=== PATIENT | male | born 1945 | race Caucasian/White ===

== ENCOUNTER 2019-07-13 16:14 | Inpatient (IN) | payer MEDICARE, OTHER ==
[~2019-07-13] VITALS: Ht 185.4 cm; Wt 109.0 kg
--- NOTE | 2019-07-13 16:17 | NUR ---
PAGED STROKE ALERT LEVEL 2 TIME OF ONSET UNKNOWN
--- NOTE | 2019-07-13 16:34 | NUR ---
PT TO CT, PT IS GCS 15, ALERT AND ORIENTED, RESP EVEN AND UNLABORED, SKIN P/W/D, ABLE TO TRANSFER SELF FROM GURNEY TO WHEELCHAIR WITHOUT ASSIST
[2019-07-13] MEDS ORDERED: NO HOME MEDS (16:52)
[2019-07-13 16:54] LABS: BASOPHILS # (AUTO) 0.1 X10'3 (0-0.2); BASOPHILS % (AUTO) 0.5 % (0-1); EOSINOPHILS # (AUTO) 0.1 X10'3 (0-0.9); EOSINOPHILS % (AUTO) 1.3 % (0-6); HEMATOCRIT 46.9 % (42.0-52.0); HEMOGLOBIN 15.9 g/dl (14.0-17.9); LYMPHOCYTES # (AUTO) 2.8 X10'3 (1.1-4.8); LYMPHOCYTES % (AUTO) 25.4 % (21-51); MEAN CORPUSCULAR HEMOGLOBIN 28.9 PG (27.0-31.0); MEAN CORPUSCULAR HGB CONC 33.9 g/dL (33.0-36.5); MEAN CORPUSCULAR VOLUME 85.3 FL (78-98); MEAN PLATELET VOLUME 8.8 FL (7.4-10.4); MONOCYTES # (AUTO) 1.2 X10'3 (0-0.9); MONOCYTES % (AUTO) 11.2 % (2-12); NEUTROPHILS # (AUTO) 6.7 X10'3 (1.8-7.7); NEUTROPHILS % (AUTO) 61.6 % (42-75); PLATELET COUNT 262 X10'3 (140-440); WHITE BLOOD COUNT 10.9 X10'3 (4.5-11.0)
[2019-07-13 17:05] LABS: PARTIAL THROMBOPLASTIN TIME 29 SECONDS (22-32)
[2019-07-13 17:08] LABS: ALANINE AMINOTRANSFERASE 21 U/L (12-78); ALBUMIN 3.8 G/DL (3.4-5.0); ALKALINE PHOSPHATASE 28 IU/L (46-116); ANION GAP 11 (8-16); ASPARTATE AMINO TRANSFERASE 14 U/L (10-37); BILIRUBIN,TOTAL 0.4 MG/DL (0.1-1.0); BLOOD UREA NITROGEN 14 MG/DL (7-18); BUN/CREATININE RATIO 14.9 (5.4-32.0); CALCIUM 9.3 MG/DL (8.5-10.1); CHLORIDE 99 MMOL/L (99-107); CREATININE 0.94 MG/DL (0.60-1.10); GLUCOSE 244 MG/DL (70-104); POTASSIUM 4.1 MMOL/L (3.5-5.1); SODIUM 134 MMOL/L (135-145); TOTAL PROTEIN 7.6 G/DL (6.4-8.2); eGFR 78 ML/MIN
[2019-07-13 17:11] LABS: TROPONIN I < 0.04 NG/ML (0.0-0.05)
[2019-07-13] MEDS ORDERED: aspirin 81mg tab.chew PO ONE (17:35)
--- NOTE | 2019-07-13 17:51 | NUR ---
chris goldberg [facility] [phone] or [phone]
--- NOTE | 2019-07-13 18:39 | NUR ---
pt is resting quietly on [facility], waiting for neurotele consult and eval by hospitalist
[2019-07-13] MEDS ORDERED: atorvastatin 20mg tablet PO STA (19:06)
[2019-07-13] MEDS ORDERED: normal saline 1000ml 1,000 ML IV SCH (20:17)
[2019-07-13] MEDS ORDERED: potassium CL 10mEq/100ml bag 100 ML IV PRN ×2 (20:20)
[2019-07-13] MEDS ORDERED: magnesium Cl slow-release 64mg tablet PO PRN (20:20)
[2019-07-13] MEDS ORDERED: acetaminophen 325mg tablet PO PRN (20:20)
[2019-07-13] MEDS ORDERED: magnesium 4gm in 100ml NS 100 ML IV PRN (20:20)
[2019-07-13] MEDS ORDERED: magnesium 2GM in 50ml NS 50 ML IV PRN (20:20)
[2019-07-13] MEDS ORDERED: potassium Cl 20 mEq SR tablet PO PRN ×2 (20:20)
[2019-07-13] MEDS ORDERED: ondansetron/PF 4mg/2ml inj IV PRN (20:20)
[2019-07-13 21:30] VITALS: BP 186/89
[2019-07-14] VITALS: BP 167/86
[2019-07-14 00:59] LABS: CLARITY,URINE CLEAR (Clear); COLOR,URINE YELLOW (Yellow); GLUCOSE, URINE NEGATIVE (Neg); KETONES,URINE NEGATIVE (Neg); LEUKOCYTE ESTERASE ,URINE NEGATIVE (Neg); NITRITES, URINE NEGATIVE (Neg); OCCULT BLOOD,URINE NEGATIVE (Neg); PROTEIN,URINE NEGATIVE (Neg); UROBILINOGEN,URINE 0.2 E.U/dL (0.2-1.0)
[2019-07-14 01:07] LABS: UA COLLECTION TYPE VOIDED
--- NOTE | 2019-07-14 01:51 | NUR ---
daughter called to check on patient. pt stated she can have any information and it's ok to wake him up anytime. no neuro changes.
[2019-07-14 03:53] VITALS: BP 140/80
[2019-07-14 05:27] LABS: BASOPHILS % (AUTO) 0.4 % (0-1); EOSINOPHILS # (AUTO) 0.2 X10'3 (0-0.9); EOSINOPHILS % (AUTO) 2.6 % (0-6); HEMATOCRIT 44.1 % (42.0-52.0); HEMOGLOBIN 15.1 g/dl (14.0-17.9); LYMPHOCYTES # (AUTO) 2.4 X10'3 (1.1-4.8); LYMPHOCYTES % (AUTO) 25.9 % (21-51); MEAN CORPUSCULAR HEMOGLOBIN 29.4 PG (27.0-31.0); MEAN CORPUSCULAR HGB CONC 34.2 g/dL (33.0-36.5); MEAN CORPUSCULAR VOLUME 85.9 FL (78-98); MONOCYTES # (AUTO) 1.1 X10'3 (0-0.9); NEUTROPHILS # (AUTO) 5.4 X10'3 (1.8-7.7); NEUTROPHILS % (AUTO) 59.1 % (42-75); PLATELET COUNT 236 X10'3 (140-440); RED BLOOD COUNT 5.14 X10'6 (4.70-6.10); WHITE BLOOD COUNT 9.1 X10'3 (4.5-11.0)
[2019-07-14 05:44] LABS: HEMOGLOBIN A1C 9.6 % (4.5-6.2)
[2019-07-14 05:50] LABS: ALBUMIN 3.3 G/DL (3.4-5.0); ANION GAP 9 (8-16); BLOOD UREA NITROGEN 10 MG/DL (7-18); BUN/CREATININE RATIO 11.5 (5.4-32.0); CALCIUM 8.9 MG/DL (8.5-10.1); CHLORIDE 102 MMOL/L (99-107); CHOL/HDL RATIO 3.7 (0.00-4.99); CHOLESTEROL 191 MG/DL (0-200); CREATININE 0.87 MG/DL (0.60-1.10); GLUCOSE 216 MG/DL (70-104); HDL CHOLESTEROL 52 MG/DL (35-60); LDL CHOLESTEROL 116 MG/DL (50-100); MAGNESIUM 1.8 MG/DL (1.5-2.4); POTASSIUM 4.1 MMOL/L (3.5-5.1); SODIUM 136 MMOL/L (135-145); TOTAL CARBON DIOXIDE 24.8 MMOL/L (24-32); TRIGLYCERIDES 183 MG/DL (20-135); eGFR 86 ML/MIN
--- NOTE | 2019-07-14 06:20 | NUR ---
Patient in room RAMONA 344. I have received report from KAYLEEN ARTIS and had the opportunity to ask questions and assume patient care.
--- NOTE | 2019-07-14 06:41 | NUR ---
reported to brandy. noted pt to have MRI today. checklist given to day RN. pt voiding in urinal. anxious to get tests done and go home.
[2019-07-14] MEDS: docusate sod 100mg capsule PO SCH ×2 (07:37→20:34)
[2019-07-14] MEDS: aspirin 81mg tab.chew PO SCH (07:37)
--- NOTE | 2019-07-14 07:47 | NUR ---
PAGER ID: [phone] MESSAGE: PABLO [id number] RE: ERNESTO [id number] AIC 9.6, AM BS 246, SHOULD WE START PROTOCOL?
[2019-07-14 08:00] VITALS: BP 167/88
[2019-07-14] MEDS: K and/or MAG REPLACEMENT MC SCH ×2 (08:00→19:10)
--- NOTE | 2019-07-14 08:34 | NUR ---
DOWN TO MRI
[2019-07-14] MEDS ORDERED: glucagon, human recombinant 1mg kit SUBCUT PRN (10:30)
[2019-07-14] MEDS ORDERED: dextrose ORAL solution 15 GM/59 ML bottle PO PRN ×2 (10:30)
[2019-07-14] MEDS ORDERED: dextrose 50%-water 50ml dispensing syringe IV PRN ×2 (10:30)
[2019-07-14] MEDS ORDERED: MESSAGE TO PHARMACY PO ONE (10:30)
[2019-07-14] MEDS: atorvastatin 20mg tablet PO SCH (10:34)
[2019-07-14 11:00] VITALS: BP 174/84
[2019-07-14] MEDS: insulin Lispro (HumaLOG) vial - multi-dose SQ SCH ×2 (12:53→18:58)
--- NOTE | 2019-07-14 13:48 | NUR ---
DM education: A1c is 9.7; per bedside RN patient is newly diagnosed and is now aware of his diagnosis as of today. Met with pt at bedside for DM education, provided written DM education handout with referral to outpt DM education class that will be available Friday when classes open back up. Patient stated he does not visit the doctor often, says "if it isn't broke, don't fix it." Encouraged patient that in view of his new DM diagnosis may want to consider seeing the doctor more often for follow up of DM management. Unsure if he will be discharged with medication. Discussed what A1c is, types of carbs, serving sizes, meal planning, etc. Will continue to follow, given RD contact information if any additional questions. Addendum: 07/14/19 at [address] Amended: Links added.
[2019-07-14] MEDS: lisinopril 20mg tablet PO SCH (16:02)
--- NOTE | 2019-07-14 18:10 | NUR ---
Problems reprioritized. Patient report given, questions answered & plan of care reviewed with EUGENIA ARTIS.
--- NOTE | 2019-07-14 18:15 | NUR ---
Patient in room ARMONA 344. I have received report from Sury ARTIS and had the opportunity to ask questions and assume patient care.
[2019-07-14 20:00] VITALS: BP 176/86
[2019-07-14] MEDS: insulin glargine (Lantus) pen - multi-dose SQ SCH (21:38)
[2019-07-15 06:01] LABS: BASOPHILS % (AUTO) 0.4 % (0-1); EOSINOPHILS # (AUTO) 0.2 X10'3 (0-0.9); EOSINOPHILS % (AUTO) 2.2 % (0-6); HEMATOCRIT 46.1 % (42.0-52.0); HEMOGLOBIN 15.8 g/dl (14.0-17.9); LYMPHOCYTES # (AUTO) 2.4 X10'3 (1.1-4.8); LYMPHOCYTES % (AUTO) 25.2 % (21-51); MEAN CORPUSCULAR HEMOGLOBIN 29.4 PG (27.0-31.0); MEAN CORPUSCULAR HGB CONC 34.2 g/dL (33.0-36.5); MEAN PLATELET VOLUME 9.4 FL (7.4-10.4); MONOCYTES % (AUTO) 10.4 % (2-12); NEUTROPHILS % (AUTO) 61.8 % (42-75); PLATELET COUNT 254 X10'3 (140-440); RED BLOOD COUNT 5.36 X10'6 (4.70-6.10); RED CELL DISTRIBUTION WIDTH 14.4 % (11.5-14.5); WHITE BLOOD COUNT 9.6 X10'3 (4.5-11.0)
--- NOTE | 2019-07-15 06:02 | NUR ---
Problems reprioritized. Patient report given, questions answered & plan of care reviewed with Natali ARTIS.
[2019-07-15 06:20] LABS: ALBUMIN 3.4 G/DL (3.4-5.0); ANION GAP 7 (8-16); BLOOD UREA NITROGEN 10 MG/DL (7-18); BUN/CREATININE RATIO 10.9 (5.4-32.0); CALCIUM 8.9 MG/DL (8.5-10.1); CHLORIDE 101 MMOL/L (99-107); CREATININE 0.92 MG/DL (0.60-1.10); GLUCOSE 199 MG/DL (70-104); MAGNESIUM 1.8 MG/DL (1.5-2.4); POTASSIUM 4.3 MMOL/L (3.5-5.1); SODIUM 136 MMOL/L (135-145); TOTAL CARBON DIOXIDE 27.6 MMOL/L (24-32); eGFR 80 ML/MIN
--- NOTE | 2019-07-15 06:28 | NUR ---
Patient in room RAMONA 344. I have received report from Rylee ARTIS and had the opportunity to ask questions and assume patient care.
[2019-07-15 07:00] VITALS: BP 152/84
[2019-07-15] MEDS: atorvastatin 20mg tablet PO SCH (07:49)
[2019-07-15] MEDS: lisinopril 20mg tablet PO SCH (07:49)
[2019-07-15] MEDS: aspirin 81mg tab.chew PO SCH (07:49)
[2019-07-15] MEDS: docusate sod 100mg capsule PO SCH ×2 (07:49→19:36)
[2019-07-15] MEDS: K and/or MAG REPLACEMENT MC SCH ×2 (08:00→19:37)
[2019-07-15] MEDS: insulin Lispro (HumaLOG) vial - multi-dose SQ SCH ×3 (08:59→18:52)
[2019-07-15 11:00] VITALS: BP 122/74
[2019-07-15 18:00] VITALS: BP 138/74
--- NOTE | 2019-07-15 18:37 | NUR ---
Problems reprioritized. Patient report given, questions answered & plan of care reviewed with Bisi ARTIS.
--- NOTE | 2019-07-15 18:55 | NUR ---
Receiving EEG at this time. Addendum: 07/15/19 at 1856 by Bisi Nelson RN Amended: Links added.
--- NOTE | 2019-07-15 19:14 | NUR ---
Received report from Bisi ARTIS
[2019-07-15] MEDS: insulin glargine (Lantus) pen - multi-dose SQ SCH (21:30)
[2019-07-16] VITALS: BP 135/75
[2019-07-16 06:12] LABS: EOSINOPHILS # (AUTO) 0.1 X10'3 (0-0.9); HEMOGLOBIN 15.5 g/dl (14.0-17.9); LYMPHOCYTES # (AUTO) 2.1 X10'3 (1.1-4.8); RED CELL DISTRIBUTION WIDTH 14.2 % (11.5-14.5)
[2019-07-16 06:14] LABS: BASOPHILS % (AUTO) 0.3 % (0-1); EOSINOPHILS % (AUTO) 1.3 % (0-6); HEMATOCRIT 44.2 % (42.0-52.0); LYMPHOCYTES % (AUTO) 21.6 % (21-51); MEAN CORPUSCULAR HEMOGLOBIN 30.2 PG (27.0-31.0); MEAN CORPUSCULAR VOLUME 86.2 FL (78-98); MEAN PLATELET VOLUME 8.9 FL (7.4-10.4); MONOCYTES # (AUTO) 1.1 X10'3 (0-0.9); MONOCYTES % (AUTO) 11.1 % (2-12); NEUTROPHILS # (AUTO) 6.3 X10'3 (1.8-7.7); NEUTROPHILS % (AUTO) 65.7 % (42-75); PLATELET COUNT 238 X10'3 (140-440); RED BLOOD COUNT 5.12 X10'6 (4.70-6.10); WHITE BLOOD COUNT 9.6 X10'3 (4.5-11.0)
--- NOTE | 2019-07-16 06:16 | NUR ---
Problems reprioritized. Patient report given, questions answered & plan of care reviewed with Natali ARTIS.
[2019-07-16 06:33] LABS: ALBUMIN 3.3 G/DL (3.4-5.0); ANION GAP 7 (8-16); BLOOD UREA NITROGEN 12 MG/DL (7-18); BUN/CREATININE RATIO 12.2 (5.4-32.0); CALCIUM 8.7 MG/DL (8.5-10.1); CHLORIDE 102 MMOL/L (99-107); CREATININE 0.98 MG/DL (0.60-1.10); GLUCOSE 184 MG/DL (70-104); MAGNESIUM 1.8 MG/DL (1.5-2.4); POTASSIUM 4.5 MMOL/L (3.5-5.1); SODIUM 136 MMOL/L (135-145); TOTAL CARBON DIOXIDE 27.3 MMOL/L (24-32); eGFR 75 ML/MIN
--- NOTE | 2019-07-16 06:35 | NUR ---
Patient in room RAMONA 344. I have received report from Therese ARTIS and had the opportunity to ask questions and assume patient care.
[2019-07-16 07:00] VITALS: BP 168/87
[2019-07-16] MEDS: docusate sod 100mg capsule PO SCH (07:55)
[2019-07-16] MEDS: lisinopril 20mg tablet PO SCH (07:55)
[2019-07-16] MEDS: aspirin 81mg tab.chew PO SCH (07:55)
[2019-07-16] MEDS: atorvastatin 20mg tablet PO SCH (07:55)
[2019-07-16] MEDS: K and/or MAG REPLACEMENT MC SCH (08:00)
[2019-07-16] MEDS: insulin Lispro (HumaLOG) vial - multi-dose SQ SCH ×2 (08:04→13:44)
[2019-07-16 11:00] VITALS: BP 146/79
--- NOTE | 2019-07-16 11:28 | NUR ---
DM consult: Pt already seen by RD for written and verbal DM education, see below. DM education: A1c is 9.7; per bedside RN patient is newly diagnosed and is now aware of his diagnosis as of today. Met with pt at bedside for DM education, provided written DM education handout with referral to outpt DM education class that will be available Friday when classes open back up. Patient stated he does not visit the doctor often, says "if it isn't broke, don't fix it." Encouraged patient that in view of his new DM diagnosis may want to consider seeing the doctor more often for follow up of DM management. Unsure if he will be discharged with medication. Discussed what A1c is, types of carbs, serving sizes, meal planning, etc. Will continue to follow, given RD contact information if any additional questions. Addendum: 07/16/19 at [address] Amended: Links added.
[2019-07-16] MEDS ORDERED: LISI40TA4 PO (12:13)
[2019-07-16] MEDS ORDERED: DOCU100C40 PO (12:13)
[2019-07-16] MEDS ORDERED: ATOR80TA PO (12:13)
[2019-07-16] MEDS ORDERED: ASPI-1265 PO (12:13)
--- NOTE | 2019-07-16 16:10 | NUR ---
Patient discharged at this time. I walked out with patient and we got his stuff from the safe. I talked to patient daughter and told her about new medication and the need to follow up with a new PCP about diabetes and HTN.
--- NOTE | 2019-07-20 13:01 | NUR ---
Case Management DC follow up: Spoke to pt via telephone s/p: stroke alert Reports: "feeling pretty good" Denies: SOB, resp distress, acute/persistent CP, ANDRE, N/V, blurry vision, emergent general pain, abd tenderness or distention, ANDRE, blurry vision, vertigo, syncope, fever, unexplained bruising, bleeding. s/s of stroke/FAST. Went over orthostatic hypotension protocol r/t new Lisinopril, asa, lipitor. Pt agreed to comply. Verbalizes understanding of s/s that would warrant 9-/ER visit for further evaluation. Verbalizes understanding of current/new Rx & why prescribed; taking as ordered, no ase noted. Acknowledges need to follow-up/keep appts w/PCP/Newly established w/[facility] 07/20/19 pt agrees to be there half hour early and to bring Insurance card. Questions answered, needs met at DC. No further questions at this time.
== END 2019-07-16 16:00 | disposition home or self-care (01) | DRG 304 ==
LOC: ER 16:15 → ED HOLD 20:23 → SUR 3N 21:29
PROVIDERS: ADMIT Internal Medicine; ATTEND Family Medicine
PROC: 4A00X4Z Measurement of Central Nervous Electrical Activity, External Approach (ICD-10-PCS; principal; 2019-07-15)
DX: I16.0 Hypertensive urgency (principal); G93.41 Metabolic encephalopathy; Z82.3 Family history of stroke; Z86.73 Personal history of transient ischemic attack (TIA), and cerebral infarction without residual deficits; F03.90 Unspecified dementia, unspecified severity, without behavioral disturbance, psychotic disturbance, mood disturbance, and anxiety; E78.5 Hyperlipidemia, unspecified
CPT/HCPCS: 36415; 70450; 70544; 70551; 71045; 80048; 80053; 80061; 81003; 82140; 82607; 82948; 83036; 83735; 84443; 84484; 85025; 85610; 85730; 87081; 92507; 92508; 92523; 93005; 93306; 95816; 96374; 97162; 97530; C8919; G0378; J1815; J7030

== ENCOUNTER 2022-10-28 06:50 | Inpatient (IN) | payer MEDICARE, OTHER ==
[~2022-10-28] VITALS: Ht 185.4 cm; Wt 97.1 kg
[~2022-10-28 06:50] MED LIST: ASPI-1265 PO; DOCU100C40 PO
--- NOTE | 2022-10-28 07:12 | NUR ---
THIS HOSPICE EDUCATOR PULLED LABS ON PT. BLUE, GREEN AND LAV COLLECTED. EKG ALSO COMPLETED. JANETH
[2022-10-28 07:39] LABS: BASOPHILS % (AUTO) 0.3 % (0-1); EOSINOPHILS % (AUTO) 0 % (0-6); HEMATOCRIT 38.8 % (42.0-52.0); HEMOGLOBIN 12.6 g/dl (14.0-17.9); LYMPHOCYTES # (AUTO) 1.3 X10'3 (1.1-4.8); LYMPHOCYTES % (AUTO) 9.7 % (21-51); MEAN CORPUSCULAR HEMOGLOBIN 29.9 PG (27.0-31.0); MEAN CORPUSCULAR HGB CONC 32.4 g/dL (33.0-36.5); MEAN CORPUSCULAR VOLUME 92.4 FL (78-98); MEAN PLATELET VOLUME 9.8 FL (7.4-10.4); MONOCYTES # (AUTO) 0.9 X10'3 (0-0.9); MONOCYTES % (AUTO) 6.8 % (2-12); NEUTROPHILS # (AUTO) 11.5 X10'3 (1.8-7.7); NEUTROPHILS % (AUTO) 83.2 % (42-75); PLATELET COUNT 279 X10'3 (140-440); RED BLOOD COUNT 4.19 X10'6 (4.70-6.10); RED CELL DISTRIBUTION WIDTH 14.5 % (11.5-14.5); WHITE BLOOD COUNT 13.8 X10'3 (4.5-11.0)
[2022-10-28 07:52] LABS: ALANINE AMINOTRANSFERASE 36 U/L (12-78); ALBUMIN 3.6 G/DL (3.4-5.0); ALBUMIN/GLOBULIN RATIO 1.1 (1.1-1.5); ALKALINE PHOSPHATASE 20 IU/L (46-116); ANION GAP 14 (8-16); ASPARTATE AMINO TRANSFERASE 27 U/L (10-37); BILIRUBIN,TOTAL 0.6 MG/DL (0.1-1.0); BLOOD UREA NITROGEN 39 MG/DL (7-18); BUN/CREATININE RATIO 24.8 (10.0-20.0); CALCIUM 9.4 MG/DL (8.5-10.1); CHLORIDE 102 MMOL/L (99-107); CREATININE 1.57 MG/DL (0.60-1.10); GLUCOSE 268 MG/DL (70-104); POTASSIUM 5.7 MMOL/L (3.5-5.1); SODIUM 136 MMOL/L (135-145); TOTAL PROTEIN 6.9 G/DL (6.4-8.2); eCRCL 44 ML/MIN; eGFR 43 ML/MIN
[2022-10-28 08:00] LABS: PRO BRAIN NATRIURETIC PEPTIDE 81 PG/ML (0-450)
[2022-10-28] MEDS ORDERED: HYDROcodone/acetaminophen 5mg/325mg tablet PO ONE (08:50)
[2022-10-28] MEDS ORDERED: dextrose 50%-water 50ml dispensing syringe IV ONE (09:35)
[2022-10-28] MEDS ORDERED: insulin regular, human 10 units/0.1 ml syringe IV ONE (09:35)
[2022-10-28] MEDS ORDERED: sodium polystyrene sulfonate 15gm/60ml oral suspension PO ONE (09:35)
[2022-10-28 10:27] LABS: APTT 44 SECONDS (22-32); INR 3.8 INR; PROTHROMBIN TIME 37.4 SECONDS (9.0-12.0)
[2022-10-28] MEDS ORDERED: ondansetron/PF 4mg/2ml inj IV ONE ×2 (10:40→11:10)
[2022-10-28] MEDS ORDERED: morphine 4 MG/ML inj SYRINge IV ONE ×2 (10:40→11:07)
[2022-10-28] MEDS ORDERED: LIDOcaine 1% 30ml preserv. free vial SQ STA (11:10)
[2022-10-28 13:18] LABS: HEMATOCRIT 36.1 % (42.0-52.0); HEMOGLOBIN 11.9 g/dl (14.0-17.9); MEAN CORPUSCULAR HEMOGLOBIN 30.3 PG (27.0-31.0); MEAN CORPUSCULAR VOLUME 91.9 FL (78-98); MEAN PLATELET VOLUME 10.2 FL (7.4-10.4); PLATELET COUNT 264 X10'3 (140-440); RED BLOOD COUNT 3.93 X10'6 (4.70-6.10); RED CELL DISTRIBUTION WIDTH 14.6 % (11.5-14.5); WHITE BLOOD COUNT 15.1 X10'3 (4.5-11.0)
[2022-10-28] MEDS ORDERED: phytonadione inj. 10 MG in normal saline 100ml IV soln 100 ML IV ONE (13:55)
[2022-10-28] MEDS ORDERED: morphine 2 MG/ML inj. syringe IV PRN (14:50)
[2022-10-28] MEDS: morphine 4 MG/ML inj SYRINge IV PRN ×2 (15:07→21:09)
[2022-10-28] MEDS: normal saline 1000ml 1,000 ML IV SCH (16:55)
[2022-10-28] MEDS ORDERED: ondansetron/PF 4mg/2ml inj IV PRN (16:55)
[2022-10-28] MEDS ORDERED: magnesium hydroxide 30ml (MOM) UD suspension PO PRN (16:55)
[2022-10-28] MEDS ORDERED: acetaminophen 325mg tablet PO PRN (16:55)
[2022-10-28] MEDS ORDERED: HYDROcodone/acetaminophen 10/325mg tab PO ONE (17:15)
[2022-10-28 17:29] LABS: BASOPHILS % (AUTO) 0.1 % (0-1); EOSINOPHILS % (AUTO) 0 % (0-6); HEMATOCRIT 28.8 % (42.0-52.0); HEMOGLOBIN 9.5 g/dl (14.0-17.9); LYMPHOCYTES # (AUTO) 1.8 X10'3 (1.1-4.8); LYMPHOCYTES % (AUTO) 13.2 % (21-51); MEAN CORPUSCULAR HEMOGLOBIN 30.1 PG (27.0-31.0); MEAN CORPUSCULAR HGB CONC 32.8 g/dL (33.0-36.5); MEAN CORPUSCULAR VOLUME 91.5 FL (78-98); MEAN PLATELET VOLUME 9.8 FL (7.4-10.4); MONOCYTES # (AUTO) 1.8 X10'3 (0-0.9); MONOCYTES % (AUTO) 13.9 % (2-12); NEUTROPHILS # (AUTO) 9.6 X10'3 (1.8-7.7); NEUTROPHILS % (AUTO) 72.8 % (42-75); PLATELET COUNT 215 X10'3 (140-440); RED BLOOD COUNT 3.15 X10'6 (4.70-6.10); RED CELL DISTRIBUTION WIDTH 14.1 % (11.5-14.5); WHITE BLOOD COUNT 13.3 X10'3 (4.5-11.0)
[2022-10-28] MEDS ORDERED: glucagon, human recombinant 1mg kit SUBCUT PRN (17:45)
[2022-10-28] MEDS ORDERED: MESSAGE TO PHARMACY PO ONE (17:45)
[2022-10-28] MEDS ORDERED: dextrose 50%-water 50ml dispensing syringe IV PRN ×2 (17:45)
[2022-10-28] MEDS ORDERED: DEXTROSE 15 GM of carb/4 tabs (each vial/BOTTLE has 4 tablets) PO PRN ×2 (17:45)
[2022-10-28 18:06] LABS: MEAN CORPUSCULAR HEMOGLOBIN 30.4 PG (27.0-31.0); MEAN CORPUSCULAR HGB CONC 33.2 g/dL (33.0-36.5); MEAN CORPUSCULAR VOLUME 91.7 FL (78-98); MEAN PLATELET VOLUME 9.7 FL (7.4-10.4); PLATELET COUNT 215 X10'3 (140-440); RED BLOOD COUNT 2.95 X10'6 (4.70-6.10); RED CELL DISTRIBUTION WIDTH 14.3 % (11.5-14.5); WHITE BLOOD COUNT 13.7 X10'3 (4.5-11.0)
[2022-10-28 18:18] LABS: D-DIMER 1.06 MG/L FEU (0-0.50)
[2022-10-28 18:31] LABS: APTT 33 SECONDS (22-32); PROTHROMBIN TIME 14.3 SECONDS (9.0-12.0)
[2022-10-28 18:42] LABS: INR 1.4 INR
[2022-10-28 20:00] VITALS: BP 116/60; PULSE 110; RESP 16; RESP 17; TEMP 98.5; O2SAT 92; O2SAT 96
[2022-10-28 21:00] VITALS: BP 116/53; PULSE 111; RESP 14; O2SAT 92
[2022-10-28] MEDS: insulin glargine (Lantus) pen - multi-dose SQ SCH (21:00)
[2022-10-28 22:00] VITALS: BP 99/49; PULSE 100; RESP 14; O2SAT 94
[2022-10-28 23:00] VITALS: BP 109/60; PULSE 98; RESP 14; O2SAT 94
[2022-10-28 23:10] LABS: HEMATOCRIT 25.3 % (42.0-52.0); HEMOGLOBIN 8.5 g/dl (14.0-17.9); MEAN CORPUSCULAR HEMOGLOBIN 30.7 PG (27.0-31.0); MEAN CORPUSCULAR HGB CONC 33.5 g/dL (33.0-36.5); MEAN CORPUSCULAR VOLUME 91.6 FL (78-98); MEAN PLATELET VOLUME 9.2 FL (7.4-10.4); PLATELET COUNT 180 X10'3 (140-440); RED BLOOD COUNT 2.76 X10'6 (4.70-6.10); RED CELL DISTRIBUTION WIDTH 14.3 % (11.5-14.5); WHITE BLOOD COUNT 14.1 X10'3 (4.5-11.0)
[2022-10-29] VITALS (24 sets, daily range): BP systolic 82–130; BP diastolic 42–72; PULSE 92–125; RESP 10–22; TEMP 97.6–98.2; O2SAT 92–97
[2022-10-29] MEDS ORDERED: AMA1T PO (00:31)
[2022-10-29] MEDS ORDERED: ATOR-2 PO (00:31)
[2022-10-29] MEDS ORDERED: METF-1203 PO (00:31)
[2022-10-29] MEDS ORDERED: LISI40TA13 PO (00:31)
[2022-10-29] MEDS ORDERED: GABA-530 PO (00:31)
[2022-10-29] MEDS: morphine 4 MG/ML inj SYRINge IV PRN ×2 (03:21→19:09)
[2022-10-29 06:22] LABS: BASOPHILS % (AUTO) 0.3 % (0-1); EOSINOPHILS % (AUTO) 0.3 % (0-6); HEMOGLOBIN 7.7 g/dl (14.0-17.9); LYMPHOCYTES % (AUTO) 17.2 % (21-51); MEAN CORPUSCULAR HEMOGLOBIN 30.9 PG (27.0-31.0); MEAN CORPUSCULAR HGB CONC 33.7 g/dL (33.0-36.5); MEAN CORPUSCULAR VOLUME 91.9 FL (78-98); MEAN PLATELET VOLUME 9.5 FL (7.4-10.4); MONOCYTES # (AUTO) 1.8 X10'3 (0-0.9); MONOCYTES % (AUTO) 15.1 % (2-12); NEUTROPHILS # (AUTO) 7.9 X10'3 (1.8-7.7); NEUTROPHILS % (AUTO) 67.1 % (42-75); PLATELET COUNT 179 X10'3 (140-440); RED CELL DISTRIBUTION WIDTH 14.2 % (11.5-14.5); WHITE BLOOD COUNT 11.8 X10'3 (4.5-11.0)
[2022-10-29 06:27] LABS: APTT 31 SECONDS (22-32); PROTHROMBIN TIME 11.2 SECONDS (9.0-12.0)
[2022-10-29 06:38] LABS: ALANINE AMINOTRANSFERASE 26 U/L (12-78); ALKALINE PHOSPHATASE 22 IU/L (46-116); ANION GAP 6 (8-16); ASPARTATE AMINO TRANSFERASE 20 U/L (10-37); BLOOD UREA NITROGEN 48 MG/DL (7-18); CALCIUM 8.1 MG/DL (8.5-10.1); CHLORIDE 103 MMOL/L (99-107); GLUCOSE 198 MG/DL (70-104); POTASSIUM 4.7 MMOL/L (3.5-5.1); SODIUM 136 MMOL/L (135-145); TOTAL CARBON DIOXIDE 26.8 MMOL/L (24-32); TOTAL PROTEIN 5.9 G/DL (6.4-8.2); eCRCL 34 ML/MIN; eGFR 32 ML/MIN
--- NOTE | 2022-10-29 07:06 | NUR ---
Patient in room CICU 2007. I have received report from Sandrita ARTIS and had the opportunity to ask questions and assume patient care.
[2022-10-29] MEDS: pantoprazole 40mg Tablet.DR PO SCH (07:30)
[2022-10-29] MEDS: guaiFENesin ER 600mg tablet PO SCH ×2 (08:00→19:59)
[2022-10-29] MEDS: docusate sod 100mg capsule PO SCH ×2 (08:00→19:59)
[2022-10-29] MEDS: chlordiazePOXIDE 25mg capsule PO SCH ×3 (08:00→15:59)
[2022-10-29] MEDS: gabapentin 100mg capsule PO SCH ×3 (08:00→19:59)
[2022-10-29] MEDS ORDERED: normal saline 1000ml 1,000 ML IV ONE ×2 (11:15)
[2022-10-29 12:34] LABS: HEMATOCRIT 23.1 % (42.0-52.0); HEMOGLOBIN 7.6 g/dl (14.0-17.9); MEAN CORPUSCULAR HEMOGLOBIN 30.4 PG (27.0-31.0); MEAN CORPUSCULAR HGB CONC 32.9 g/dL (33.0-36.5); MEAN CORPUSCULAR VOLUME 92.4 FL (78-98); MEAN PLATELET VOLUME 8.4 FL (7.4-10.4); PLATELET COUNT 163 X10'3 (140-440); WHITE BLOOD COUNT 11.7 X10'3 (4.5-11.0)
[2022-10-29 17:58] LABS: HEMATOCRIT 22.5 % (42.0-52.0); HEMOGLOBIN 7.7 g/dl (14.0-17.9); MEAN CORPUSCULAR HEMOGLOBIN 31.4 PG (27.0-31.0); MEAN CORPUSCULAR VOLUME 92.4 FL (78-98); MEAN PLATELET VOLUME 9.3 FL (7.4-10.4); PLATELET COUNT 168 X10'3 (140-440); RED BLOOD COUNT 2.43 X10'6 (4.70-6.10); RED CELL DISTRIBUTION WIDTH 14.3 % (11.5-14.5); WHITE BLOOD COUNT 11.4 X10'3 (4.5-11.0)
[2022-10-29] MEDS: atorvastatin 20mg tablet PO SCH (20:00)
[2022-10-29] MEDS: insulin glargine (Lantus) pen - multi-dose SQ SCH (21:00)
[2022-10-29 23:27] LABS: HEMATOCRIT 22.3 % (42.0-52.0); HEMOGLOBIN 7.5 g/dl (14.0-17.9); MEAN CORPUSCULAR HEMOGLOBIN 30.7 PG (27.0-31.0); MEAN CORPUSCULAR HGB CONC 33.5 g/dL (33.0-36.5); MEAN CORPUSCULAR VOLUME 91.6 FL (78-98); MEAN PLATELET VOLUME 9.1 FL (7.4-10.4); PLATELET COUNT 167 X10'3 (140-440); RED BLOOD COUNT 2.43 X10'6 (4.70-6.10); RED CELL DISTRIBUTION WIDTH 14.2 % (11.5-14.5); WHITE BLOOD COUNT 11.3 X10'3 (4.5-11.0)
[2022-10-30] VITALS (19 sets, daily range): BP systolic 107–130; BP diastolic 50–65; PULSE 91–122; RESP 11–22; TEMP 97.4–98.5; O2SAT 90–98
[2022-10-30] MEDS: chlordiazePOXIDE 25mg capsule PO SCH ×4 (01:09→23:03)
[2022-10-30] MEDS: morphine 4 MG/ML inj SYRINge IV PRN ×4 (01:10→23:13)
[2022-10-30 06:17] LABS: BASOPHILS % (AUTO) 0.2 % (0-1); EOSINOPHILS # (AUTO) 0.1 X10'3 (0-0.9); EOSINOPHILS % (AUTO) 1.2 % (0-6); HEMATOCRIT 22.8 % (42.0-52.0); HEMOGLOBIN 7.9 g/dl (14.0-17.9); LYMPHOCYTES # (AUTO) 1.5 X10'3 (1.1-4.8); LYMPHOCYTES % (AUTO) 14.3 % (21-51); MEAN CORPUSCULAR HEMOGLOBIN 31.7 PG (27.0-31.0); MEAN CORPUSCULAR HGB CONC 34.4 g/dL (33.0-36.5); MEAN CORPUSCULAR VOLUME 92.2 FL (78-98); MEAN PLATELET VOLUME 9.7 FL (7.4-10.4); MONOCYTES # (AUTO) 1.7 X10'3 (0-0.9); MONOCYTES % (AUTO) 16.2 % (2-12); NEUTROPHILS # (AUTO) 7.3 X10'3 (1.8-7.7); NEUTROPHILS % (AUTO) 68.1 % (42-75); PLATELET COUNT 165 X10'3 (140-440); RED BLOOD COUNT 2.48 X10'6 (4.70-6.10); RED CELL DISTRIBUTION WIDTH 13.6 % (11.5-14.5); WHITE BLOOD COUNT 10.7 X10'3 (4.5-11.0)
[2022-10-30 06:21] LABS: APTT 28 SECONDS (22-32); INR 0.9 INR; PROTHROMBIN TIME 10.1 SECONDS (9.0-12.0)
[2022-10-30 06:35] LABS: ALANINE AMINOTRANSFERASE 15 U/L (12-78); ALBUMIN 2.7 G/DL (3.4-5.0); ALBUMIN/GLOBULIN RATIO 0.9 (1.1-1.5); ALKALINE PHOSPHATASE 21 IU/L (46-116); ANION GAP 5 (8-16); ASPARTATE AMINO TRANSFERASE 16 U/L (10-37); BILIRUBIN,TOTAL 0.9 MG/DL (0.1-1.0); BLOOD UREA NITROGEN 30 MG/DL (7-18); CALCIUM 8.1 MG/DL (8.5-10.1); CHLORIDE 105 MMOL/L (99-107); GLUCOSE 164 MG/DL (70-104); SODIUM 138 MMOL/L (135-145); TOTAL CARBON DIOXIDE 28.2 MMOL/L (24-32); TOTAL PROTEIN 5.8 G/DL (6.4-8.2); eCRCL 69 ML/MIN; eGFR 72 ML/MIN
--- NOTE | 2022-10-30 07:23 | NUR ---
Patient in room CICU 2007. I have received report from Sandrita ARTIS and had the opportunity to ask questions and assume patient care.
[2022-10-30] MEDS: pantoprazole 40mg Tablet.DR PO SCH (07:30)
[2022-10-30 08:00] LABS: TOTAL CELLS COUNTED 100
[2022-10-30 08:01] LABS: PLATELET ESTIMATE NORMAL
[2022-10-30 08:05] LABS: GIANT PLATELET FEW; SMUDGE CELLS FEW; STOMATOCYTES FEW
[2022-10-30 08:06] LABS: HYPOCHROMASIA 1+
[2022-10-30] MEDS: docusate sod 100mg capsule PO SCH ×2 (08:55→20:54)
[2022-10-30] MEDS: guaiFENesin ER 600mg tablet PO SCH ×2 (08:55→20:54)
[2022-10-30] MEDS: gabapentin 100mg capsule PO SCH ×3 (08:55→20:54)
--- NOTE | 2022-10-30 11:41 | NUR ---
F/u 10/30: Per RN in [facility] rounds this am, pt is not eating a whole lot.Pt is now on a regular diet with 50% intake for first regular diet. Prior was on heart healthy/carbohydrate controlled diet with average PO intake of 25%intake x 2 meals. Pt seen at bedside and declined any food preferences at this time however is agreeable to Chocolate Ensure if needed twice a day because he likes to drink milk. Will honor preferences; notified. Addendum: 10/30/22 at [address] Amended: Links added.
[2022-10-30 12:15] LABS: HEMATOCRIT 22.3 % (42.0-52.0); HEMOGLOBIN 7.3 g/dl (14.0-17.9); MEAN CORPUSCULAR HEMOGLOBIN 30.3 PG (27.0-31.0); MEAN CORPUSCULAR HGB CONC 32.7 g/dL (33.0-36.5); MEAN CORPUSCULAR VOLUME 92.7 FL (78-98); MEAN PLATELET VOLUME 8.9 FL (7.4-10.4); PLATELET COUNT 175 X10'3 (140-440); RED CELL DISTRIBUTION WIDTH 13.6 % (11.5-14.5); WHITE BLOOD COUNT 11.4 X10'3 (4.5-11.0)
[2022-10-30] MEDS ORDERED: PHENYLEPH/MIN OIL/PETROLAT hemorrhoid oint 57GM tube RC PRN (14:15)
--- NOTE | 2022-10-30 16:11 | NUR ---
Dr. Tomlinson bedside to assess patient, assisted Dr. Tomlinson in chest tube removal, chest tube removed without complications. Sated to TN serial H/H, patient to receive CXR in am, will reassess discharge plans in AM after chest xray
[2022-10-30] MEDS: normal saline 1000ml 1,000 ML IV SCH (16:55)
[2022-10-30] MEDS: atorvastatin 20mg tablet PO SCH (20:54)
[2022-10-30] MEDS: insulin glargine (Lantus) pen - multi-dose SQ SCH (21:00)
[2022-10-31] VITALS (10 sets, daily range): BP systolic 122–143; BP diastolic 58–80; PULSE 70–122; RESP 13–21; TEMP 97.7–99.7; O2SAT 94–98
--- NOTE | 2022-10-31 06:30 | NUR ---
Patient in room CICU 2007. I have received report from Sandrita ARTIS and had the opportunity to ask questions and assume patient care.
[2022-10-31] MEDS: chlordiazePOXIDE 25mg capsule PO SCH ×2 (07:15→15:04)
[2022-10-31] MEDS: guaiFENesin ER 600mg tablet PO SCH ×2 (07:15→20:06)
[2022-10-31] MEDS: docusate sod 100mg capsule PO SCH ×2 (07:15→20:06)
[2022-10-31] MEDS: pantoprazole 40mg Tablet.DR PO SCH (07:15)
[2022-10-31] MEDS: gabapentin 100mg capsule PO SCH ×3 (07:15→20:07)
[2022-10-31 07:32] LABS: BASOPHILS % (AUTO) 0.2 % (0-1); EOSINOPHILS # (AUTO) 0.2 X10'3 (0-0.9); EOSINOPHILS % (AUTO) 1.6 % (0-6); HEMATOCRIT 23.9 % (42.0-52.0); LYMPHOCYTES # (AUTO) 1.6 X10'3 (1.1-4.8); LYMPHOCYTES % (AUTO) 12.2 % (21-51); MEAN CORPUSCULAR HEMOGLOBIN 30.7 PG (27.0-31.0); MEAN CORPUSCULAR HGB CONC 33.4 g/dL (33.0-36.5); MEAN CORPUSCULAR VOLUME 91.9 FL (78-98); MEAN PLATELET VOLUME 9.3 FL (7.4-10.4); MONOCYTES % (AUTO) 15.7 % (2-12); NEUTROPHILS # (AUTO) 9.2 X10'3 (1.8-7.7); NEUTROPHILS % (AUTO) 70.3 % (42-75); PLATELET COUNT 196 X10'3 (140-440); RED CELL DISTRIBUTION WIDTH 13.3 % (11.5-14.5); WHITE BLOOD COUNT 13.1 X10'3 (4.5-11.0)
--- NOTE | 2022-10-31 07:36 | NUR ---
Patient in room 3012A,bed low, call light within reach, appliance parts counter clerk and Stefany RN made aware.
[2022-10-31 07:38] LABS: APTT 27 SECONDS (22-32); INR 0.9 INR; PROTHROMBIN TIME 10.1 SECONDS (9.0-12.0)
--- NOTE | 2022-10-31 07:50 | NUR ---
Received patient to room 3012a. Patient alert and oriented in no apparent acute distress and with no complaints. Patient oriented to room and call light. Call light placed within patient's reach. Bed low and locked.
[2022-10-31 07:57] LABS: ALANINE AMINOTRANSFERASE 22 U/L (12-78); ALBUMIN 2.5 G/DL (3.4-5.0); ALBUMIN/GLOBULIN RATIO 0.7 (1.1-1.5); ALKALINE PHOSPHATASE 25 IU/L (46-116); ANION GAP 4 (8-16); ASPARTATE AMINO TRANSFERASE 13 U/L (10-37); BILIRUBIN,TOTAL 0.7 MG/DL (0.1-1.0); BLOOD UREA NITROGEN 23 MG/DL (7-18); BUN/CREATININE RATIO 26.7 (10.0-20.0); CALCIUM 8.7 MG/DL (8.5-10.1); CHLORIDE 101 MMOL/L (99-107); CREATININE 0.86 MG/DL (0.60-1.10); GLUCOSE 200 MG/DL (70-104); POTASSIUM 4.6 MMOL/L (3.5-5.1); SODIUM 133 MMOL/L (135-145); TOTAL CARBON DIOXIDE 28.1 MMOL/L (24-32); TOTAL PROTEIN 5.9 G/DL (6.4-8.2); eCRCL 80 ML/MIN; eGFR 86 ML/MIN
[2022-10-31] MEDS: insulin Lispro (HumaLOG) vial - multi-dose SQ SCH ×2 (13:35→18:36)
--- NOTE | 2022-10-31 13:35 | NUR ---
O2 Sat at rest on room air:__87_% If below 89%: Recovery O2 Sat at rest on __2_LPM:_93__%:___% via nasal canula (mask/nasal cannula, etc..) No further documentation is necessary. If O2 Sat did not drop below 89% on room air,ambulate patient on room air. O2 Sat while ambulating on room air:___% Recovery O2 Sat while ambulating on ___LPM:___% No further documentation is necessary. If patient does not drop below 89% while ambulating, he/she does not qualify for home O2.
--- NOTE | 2022-10-31 15:00 | NUR ---
Message: [id number]- Jacobo Nj- pt hallucinating and anxious attempting to climb out of bed to go home. pt drinks "a shot of whiskey nightly" do you want the etoh protocol? Getting librium 25mg q8.- Stefany [id number]
--- NOTE | 2022-10-31 15:08 | NUR ---
Patient hullicinating stating "I need to be in a safe room. I can see them peeking at me. They're going to jump on me. I can see them now." And patient climbing out of bed stating he is going home. Notified Dr. Peterson if he would like etoh protocol ordered. patient states he "used to drink 2-3 of whiskey on the rocks. i used to love that stuff, but I haven't in a long time. it's been months. I don't remember, you'd have to ask my son and daughter." When educated on s/s of withdrawal and prevention of DT seizures patient states, "Oh, maybe 2 weeks ago." When asked if ok to still call son and daughter if they would know when patient's last drink was, patient stated "no, that's Chris she doesn;t really have anything to do with me anymore." When asked if patient would like me to remove chris's name from contact list patient stated no. Addendum: 10/31/22 at 1513 by Stefany Alicia RN bed low locked, x2 side rails up, call light within patient's reach and bed alarm on.
--- NOTE | 2022-10-31 16:17 | NUR ---
Patient ok to call his brother Wilson. Wilson states patient "probably drank the day before he went to the hospital and he doesn't tell me anymore but I think he's been drinking daily." Patient confused and wanting to go out to his truck and get his pants on. WIll notify Dr. Peterson.
--- NOTE | 2022-10-31 16:24 | NUR ---
Message: [id number]- Casimiro Nj states pt last drink was day before admit and poss drinking everyday. pt confused . hallucinatint that room mates were trying to escape and steal. takes librium. Ok to order etoh protocol?- dominik [id number]
[2022-10-31] MEDS ORDERED: haloperidol 5mg tablet PO PRN (16:30)
[2022-10-31] MEDS ORDERED: LORazepam 2 mg/ml vial IV PRN (16:30)
[2022-10-31] MEDS: azithromycin 250mg tablet PO SCH (20:06)
[2022-10-31] MEDS: atorvastatin 20mg tablet PO SCH (20:07)
--- NOTE | 2022-10-31 20:10 | NUR ---
patient attempting to climb out of bed stating he was trying to get up so that he could go to bed several times. attempted to reorient patient letting him know that he is in bed at the hospital and patient stated well then lets get me to the hospital. patient states to open the doors to room although doors remained opened states he is seeing a cat "riding along " the ABI. Ativan given as ordered. Bed low locked and x2 side rails up, moved closer to RN station, bed alarm on. Will continue to monitor.
[2022-10-31] MEDS: thiamine 100mg/ml 2ml inj. IV SCH (20:17)
[2022-10-31] MEDS: CefTRIAXone/D5W-Rocephin 1gm 50 ML IV SCH (20:17)
--- NOTE | 2022-10-31 20:25 | NUR ---
Patient has not voided s/p dc of [place]. Bladder scan shows 248ml. Will continue to monitor.
[2022-10-31] MEDS: tamsulosin 0.4mg capsule PO SCH ×2 (21:55→22:05)
[2022-10-31] MEDS: insulin glargine (Lantus) pen - multi-dose SQ SCH (22:04)
[2022-11-01] VITALS (8 sets, daily range): BP systolic 93–131; BP diastolic 47–69; PULSE 86–111; RESP 16–22; TEMP 97–99.5; O2SAT 91–98
[2022-11-01] MEDS: chlordiazePOXIDE 25mg capsule PO SCH ×4 (01:04→23:45)
--- NOTE | 2022-11-01 06:44 | NUR ---
Problems reprioritized. Patient report given, questions answered & plan of care reviewed with STEFF Cordon.
[2022-11-01 07:20] LABS: BASOPHILS % (AUTO) 0.3 % (0-1); EOSINOPHILS # (AUTO) 0.1 X10'3 (0-0.9); EOSINOPHILS % (AUTO) 1.1 % (0-6); HEMATOCRIT 22.4 % (42.0-52.0); HEMOGLOBIN 7.5 g/dl (14.0-17.9); LYMPHOCYTES # (AUTO) 1.3 X10'3 (1.1-4.8); LYMPHOCYTES % (AUTO) 10.6 % (21-51); MEAN CORPUSCULAR HGB CONC 33.6 g/dL (33.0-36.5); MEAN CORPUSCULAR VOLUME 92.3 FL (78-98); MEAN PLATELET VOLUME 9.1 FL (7.4-10.4); MONOCYTES # (AUTO) 2.3 X10'3 (0-0.9); MONOCYTES % (AUTO) 18.6 % (2-12); NEUTROPHILS # (AUTO) 8.4 X10'3 (1.8-7.7); NEUTROPHILS % (AUTO) 69.4 % (42-75); PLATELET COUNT 215 X10'3 (140-440); RED BLOOD COUNT 2.43 X10'6 (4.70-6.10); RED CELL DISTRIBUTION WIDTH 13.3 % (11.5-14.5); WHITE BLOOD COUNT 12.1 X10'3 (4.5-11.0)
--- NOTE | 2022-11-01 07:22 | NUR ---
notified by site monitor pt hr climbed to 190's. pt trying to get out of bed. pt safely in bed. bed alarm on. will notify
[2022-11-01 07:35] LABS: APTT 28 SECONDS (22-32); PROTHROMBIN TIME 10.3 SECONDS (9.0-12.0)
[2022-11-01] MEDS: multivitamins, therapeutics tablet PO SCH (07:37)
[2022-11-01] MEDS: lisinopril 20mg tablet PO SCH (07:37)
[2022-11-01] MEDS: azithromycin 250mg tablet PO SCH (07:38)
[2022-11-01] MEDS: guaiFENesin ER 600mg tablet PO SCH ×2 (07:38→20:42)
[2022-11-01] MEDS: docusate sod 100mg capsule PO SCH ×2 (07:38→20:36)
[2022-11-01] MEDS: gabapentin 100mg capsule PO SCH ×3 (07:38→20:38)
[2022-11-01] MEDS: thiamine 100mg/ml 2ml inj. IV SCH ×3 (07:38→20:44)
[2022-11-01] MEDS: pantoprazole 40mg Tablet.DR PO SCH (07:38)
[2022-11-01] MEDS: CefTRIAXone/D5W-Rocephin 1gm 50 ML IV SCH (07:39)
[2022-11-01] MEDS: metoprolol tartrate 25mg tablet PO SCH ×3 (07:40→20:42)
[2022-11-01 07:51] LABS: TOTAL CELLS COUNTED 100
[2022-11-01 07:52] LABS: ALANINE AMINOTRANSFERASE 18 U/L (12-78); ALBUMIN 2.4 G/DL (3.4-5.0); ALBUMIN/GLOBULIN RATIO 0.7 (1.1-1.5); ALKALINE PHOSPHATASE 22 IU/L (46-116); AMYLASE 42 U/L (25-115); ANION GAP 8 (8-16); ASPARTATE AMINO TRANSFERASE 12 U/L (10-37); BILIRUBIN,TOTAL 0.8 MG/DL (0.1-1.0); BLOOD UREA NITROGEN 22 MG/DL (7-18); BUN/CREATININE RATIO 21.6 (10.0-20.0); CALCIUM 8.5 MG/DL (8.5-10.1); CHLORIDE 100 MMOL/L (99-107); CREATININE 1.02 MG/DL (0.60-1.10); GLUCOSE 195 MG/DL (70-104); LIPASE 144 U/L (73-393); MAGNESIUM 1.4 MG/DL (1.5-2.4); PHOSPHORUS 3.5 MG/DL (2.3-4.5); PLATELET ESTIMATE NORMAL; POLYCHROMASIA FEW; POTASSIUM 4.2 MMOL/L (3.5-5.1); SODIUM 134 MMOL/L (135-145); TOTAL CARBON DIOXIDE 26.2 MMOL/L (24-32); TOTAL PROTEIN 5.9 G/DL (6.4-8.2); eCRCL 67 ML/MIN; eGFR 71 ML/MIN
[2022-11-01] MEDS ORDERED: multivitamins, therapeutics tablet PO SCH (08:00)
[2022-11-01] MEDS: folic acid 1mg/0.2ml inj IV SCH (08:01)
[2022-11-01] MEDS: insulin Lispro (HumaLOG) vial - multi-dose SQ SCH ×2 (10:49→19:27)
[2022-11-01] MEDS ORDERED: normal saline 1000ml 1,000 ML IV ONE (11:40)
--- NOTE | 2022-11-01 12:06 | NUR ---
Initial: Pt admit s/p syncopal episode, rib fractures, and hemothorax. Per EMR pt with EtOH hx, currently receiving routine Thiamine, Folic acid, and MVI. Pt has been eating poorly on a CHO controlled diet, documented with average 53% PO intake only meeting 52% estimated energy needs and 54% estimated protein needs. Per EMR pt with A1c 6.1% and possibly with no PMH DM, current A1c does not meet criteria for DM dx per ADA guidelines. Pt is on the hyperglycemic protocol however received first dose of Lantus HS 10/31 with minimal meal coverage. TC to RN with recommendation for diet liberalization to regular given poor PO intake on restrictive diet and utilizing hyperglycemic protocol for blood sugar management. RN d/w physician and diet now liberalized to regular. Per RN pt with poor nutritional intake today stating documented 100% PO intake at breakfast this morning is not accurate as pt has actually not consumed anything. RN states patient with a decline in mentation today, possibly secondary to withdrawals. IF PO intake does not improve with diet liberalization pt would benefit from ONS. LBM 10/29 per EMR. Pt receiving routine Colace BID and has additional PRN bowel care available. Will continue to follow closely and make recommendations as appropriate. Recommendations: 1) Continue regular diet; A1c 6.1% with possibly no PMH DM 2) Monitor need for ONS 3) Continue routine Thiamine, Folic acid, and MVI for EtOH hx 4) Routine bowel care; utilize PRN bowel care 5) Weekly scaled weights Addendum: 11/01/22 at [address] Amended: Links added.
[2022-11-01] MEDS: normal saline 1000ml 1,000 ML IV SCH (16:55)
[2022-11-01] MEDS: tamsulosin 0.4mg capsule PO SCH (20:37)
[2022-11-01] MEDS: atorvastatin 20mg tablet PO SCH (20:42)
[2022-11-01] MEDS: insulin glargine (Lantus) pen - multi-dose SQ SCH (21:09)
[2022-11-02] VITALS (12 sets, daily range): BP systolic 84–104; BP diastolic 44–64; PULSE 68–114; RESP 13–24; TEMP 97.2–100.6; O2SAT 90–98
[2022-11-02 06:08] LABS: APTT 29 SECONDS (22-32); INR 0.9 INR; PROTHROMBIN TIME 10.2 SECONDS (9.0-12.0)
[2022-11-02 06:30] LABS: ALANINE AMINOTRANSFERASE 16 U/L (12-78); ALBUMIN 2.2 G/DL (3.4-5.0); ALBUMIN/GLOBULIN RATIO 0.7 (1.1-1.5); ALKALINE PHOSPHATASE 23 IU/L (46-116); AMYLASE 37 U/L (25-115); ANION GAP 8 (8-16); ASPARTATE AMINO TRANSFERASE 13 U/L (10-37); BILIRUBIN,TOTAL 0.6 MG/DL (0.1-1.0); BLOOD UREA NITROGEN 32 MG/DL (7-18); BUN/CREATININE RATIO 26.2 (10.0-20.0); CALCIUM 8.2 MG/DL (8.5-10.1); CHLORIDE 101 MMOL/L (99-107); CREATININE 1.22 MG/DL (0.60-1.10); GLUCOSE 190 MG/DL (70-104); LIPASE 105 U/L (73-393); MAGNESIUM 1.5 MG/DL (1.5-2.4); PHOSPHORUS 3.5 MG/DL (2.3-4.5); POTASSIUM 4.2 MMOL/L (3.5-5.1); SODIUM 133 MMOL/L (135-145); TOTAL CARBON DIOXIDE 23.9 MMOL/L (24-32); TOTAL PROTEIN 5.5 G/DL (6.4-8.2); eCRCL 56 ML/MIN; eGFR 57 ML/MIN
[2022-11-02 06:33] LABS: BASOPHILS # (AUTO) 0.1 X10'3 (0-0.2); BASOPHILS % (AUTO) 0.5 % (0-1); EOSINOPHILS # (AUTO) 0.2 X10'3 (0-0.9); EOSINOPHILS % (AUTO) 1.4 % (0-6); LYMPHOCYTES # (AUTO) 1.2 X10'3 (1.1-4.8); LYMPHOCYTES % (AUTO) 10.9 % (21-51); MEAN CORPUSCULAR HEMOGLOBIN 29.7 PG (27.0-31.0); MEAN CORPUSCULAR HGB CONC 32.3 g/dL (33.0-36.5); MEAN PLATELET VOLUME 9.4 FL (7.4-10.4); MONOCYTES # (AUTO) 2.1 X10'3 (0-0.9); MONOCYTES % (AUTO) 18.7 % (2-12); NEUTROPHILS # (AUTO) 7.8 X10'3 (1.8-7.7); NEUTROPHILS % (AUTO) 68.5 % (42-75); PLATELET COUNT 222 X10'3 (140-440); RED BLOOD COUNT 2.23 X10'6 (4.70-6.10); RED CELL DISTRIBUTION WIDTH 13.3 % (11.5-14.5); WHITE BLOOD COUNT 11.4 X10'3 (4.5-11.0)
--- NOTE | 2022-11-02 06:33 | NUR ---
Problems reprioritized. Patient report given, questions answered & plan of care reviewed with Avel
--- NOTE | 2022-11-02 06:40 | NUR ---
Patient in room U 3025. I have received report from Ernestine and had the opportunity to ask questions and assume patient care. Addendum: 11/02/22 at 0742 by Avel Cason RN Amended: Links added.
[2022-11-02 06:45] LABS: HEMOGLOBIN 6.6 g/dl (14.0-17.9)
[2022-11-02 06:46] LABS: HEMATOCRIT 20.5 % (42.0-52.0)
[2022-11-02] MEDS: multivitamins, therapeutics tablet PO SCH (07:51)
[2022-11-02] MEDS: thiamine 100mg/ml 2ml inj. IV SCH ×3 (07:51→23:57)
[2022-11-02] MEDS: CefTRIAXone/D5W-Rocephin 1gm 50 ML IV SCH (07:51)
[2022-11-02] MEDS: gabapentin 100mg capsule PO SCH ×3 (07:51→23:57)
[2022-11-02] MEDS: pantoprazole 40mg Tablet.DR PO SCH (07:51)
[2022-11-02] MEDS: docusate sod 100mg capsule PO SCH ×2 (07:51→23:56)
[2022-11-02] MEDS: folic acid 1mg/0.2ml inj IV SCH (07:52)
[2022-11-02] MEDS: guaiFENesin ER 600mg tablet PO SCH ×2 (07:52→23:57)
[2022-11-02] MEDS: azithromycin 250mg tablet PO SCH (07:52)
[2022-11-02] MEDS: chlordiazePOXIDE 25mg capsule PO SCH ×3 (07:52→23:56)
[2022-11-02] MEDS: insulin Lispro (HumaLOG) vial - multi-dose SQ SCH ×2 (09:04→13:49)
--- NOTE | 2022-11-02 14:58 | NUR ---
Blood hung at 1007, finished at 1240. Computer did not save administration, downtime slip done
[2022-11-02 15:15] LABS: BASOPHILS % (AUTO) 0.4 % (0-1); EOSINOPHILS # (AUTO) 0.3 X10'3 (0-0.9); EOSINOPHILS % (AUTO) 2.3 % (0-6); HEMATOCRIT 22.9 % (42.0-52.0); HEMOGLOBIN 7.7 g/dl (14.0-17.9); LYMPHOCYTES # (AUTO) 1.1 X10'3 (1.1-4.8); LYMPHOCYTES % (AUTO) 9.2 % (21-51); MEAN CORPUSCULAR HEMOGLOBIN 30.6 PG (27.0-31.0); MEAN CORPUSCULAR HGB CONC 33.6 g/dL (33.0-36.5); MEAN CORPUSCULAR VOLUME 91.3 FL (78-98); MEAN PLATELET VOLUME 8.8 FL (7.4-10.4); MONOCYTES # (AUTO) 2.4 X10'3 (0-0.9); MONOCYTES % (AUTO) 20.6 % (2-12); NEUTROPHILS # (AUTO) 7.8 X10'3 (1.8-7.7); NEUTROPHILS % (AUTO) 67.5 % (42-75); PLATELET COUNT 245 X10'3 (140-440); RED BLOOD COUNT 2.51 X10'6 (4.70-6.10); RED CELL DISTRIBUTION WIDTH 13.3 % (11.5-14.5); WHITE BLOOD COUNT 11.6 X10'3 (4.5-11.0)
[2022-11-02] MEDS ORDERED: LORazepam 1 MG tablet PO PRN (16:30)
[2022-11-02] MEDS ORDERED: LORazepam 2 mg/ml vial IV PRN (16:30)
[2022-11-02] MEDS: acetaminophen 325mg tablet PO PRN (16:55)
--- NOTE | 2022-11-02 18:21 | NUR ---
Problems reprioritized. Patient report given, questions answered & plan of care reviewed with Juan Jose. Addendum: 11/02/22 at 1836 by Avel Cason RN Amended: Links added.
--- NOTE | 2022-11-02 20:12 | NUR ---
CT results stating evidence consistent with hemothorax to L/lung, contacted Dr. Meneses and Dr. Mares regarding CT results, reported current labs and vitals, patient stable no s/s of respiratory distress at this time, respirations even and unabored spo2 97% on 4L NC. Dr. Mares states he will stop by to address concern.
[2022-11-02] MEDS: tamsulosin 0.4mg capsule PO SCH (23:56)
[2022-11-03] VITALS (8 sets, daily range): BP systolic 99–126; BP diastolic 45–63; PULSE 91–114; RESP 17–29; TEMP 97.3–98.4; O2SAT 9–97
[2022-11-03] MEDS: atorvastatin 20mg tablet PO SCH ×2 (00:09→20:04)
[2022-11-03] MEDS: insulin glargine (Lantus) pen - multi-dose SQ SCH ×2 (00:16→22:41)
--- NOTE | 2022-11-03 06:22 | NUR ---
Patient in room U 3025. I have received report from Juan Jose and had the opportunity to ask questions and assume patient care. Addendum: 11/03/22 at 0622 by Avel Cason RN Amended: Links added.
--- NOTE | 2022-11-03 06:49 | NUR ---
CHG bath done, new gown placed
[2022-11-03] MEDS: thiamine 100mg/ml 2ml inj. IV SCH ×2 (07:19→13:00)
[2022-11-03] MEDS: azithromycin 250mg tablet PO SCH (07:20)
[2022-11-03] MEDS: gabapentin 100mg capsule PO SCH ×3 (07:20→20:02)
[2022-11-03] MEDS: pantoprazole 40mg Tablet.DR PO SCH (07:20)
[2022-11-03] MEDS: chlordiazePOXIDE 25mg capsule PO SCH ×2 (07:20→15:28)
[2022-11-03] MEDS: folic acid 1mg/0.2ml inj IV SCH (07:20)
[2022-11-03] MEDS: CefTRIAXone/D5W-Rocephin 1gm 50 ML IV SCH (07:21)
[2022-11-03 07:39] LABS: APTT 30 SECONDS (22-32); BASOPHILS # (AUTO) 0.1 X10'3 (0-0.2); BASOPHILS % (AUTO) 0.5 % (0-1); EOSINOPHILS # (AUTO) 0.3 X10'3 (0-0.9); EOSINOPHILS % (AUTO) 2.6 % (0-6); HEMATOCRIT 24.2 % (42.0-52.0); HEMOGLOBIN 8.1 g/dl (14.0-17.9); LYMPHOCYTES # (AUTO) 1.3 X10'3 (1.1-4.8); LYMPHOCYTES % (AUTO) 11.8 % (21-51); MEAN CORPUSCULAR HEMOGLOBIN 30.9 PG (27.0-31.0); MEAN CORPUSCULAR HGB CONC 33.6 g/dL (33.0-36.5); MEAN PLATELET VOLUME 9.3 FL (7.4-10.4); MONOCYTES # (AUTO) 2.3 X10'3 (0-0.9); MONOCYTES % (AUTO) 21.6 % (2-12); NEUTROPHILS # (AUTO) 6.7 X10'3 (1.8-7.7); NEUTROPHILS % (AUTO) 63.5 % (42-75); PLATELET COUNT 244 X10'3 (140-440); RED BLOOD COUNT 2.63 X10'6 (4.70-6.10); RED CELL DISTRIBUTION WIDTH 13.3 % (11.5-14.5); WHITE BLOOD COUNT 10.6 X10'3 (4.5-11.0)
[2022-11-03 07:46] LABS: PROTHROMBIN TIME 10.4 SECONDS (9.0-12.0)
[2022-11-03 07:55] LABS: ALANINE AMINOTRANSFERASE 19 U/L (12-78); ALBUMIN 2.2 G/DL (3.4-5.0); ALBUMIN/GLOBULIN RATIO 0.6 (1.1-1.5); ALKALINE PHOSPHATASE 26 IU/L (46-116); AMYLASE 41 U/L (25-115); ANION GAP 9 (8-16); ASPARTATE AMINO TRANSFERASE 16 U/L (10-37); BILIRUBIN,TOTAL 0.7 MG/DL (0.1-1.0); BLOOD UREA NITROGEN 25 MG/DL (7-18); BUN/CREATININE RATIO 26.6 (10.0-20.0); CALCIUM 8.8 MG/DL (8.5-10.1); CHLORIDE 103 MMOL/L (99-107); CREATININE 0.94 MG/DL (0.60-1.10); GLUCOSE 185 MG/DL (70-104); LIPASE 120 U/L (73-393); MAGNESIUM 1.7 MG/DL (1.5-2.4); PHOSPHORUS 3.1 MG/DL (2.3-4.5); POTASSIUM 4.1 MMOL/L (3.5-5.1); SODIUM 136 MMOL/L (135-145); TOTAL CARBON DIOXIDE 24.2 MMOL/L (24-32); TOTAL PROTEIN 5.9 G/DL (6.4-8.2); eCRCL 73 ML/MIN; eGFR 78 ML/MIN
[2022-11-03] MEDS: guaiFENesin ER 600mg tablet PO SCH ×2 (08:00→20:01)
[2022-11-03] MEDS: multivitamins, therapeutics tablet PO SCH (08:00)
[2022-11-03] MEDS: docusate sod 100mg capsule PO SCH ×2 (08:00→20:01)
[2022-11-03] MEDS: insulin Lispro (HumaLOG) vial - multi-dose SQ SCH (09:20)
[2022-11-03] MEDS: metoprolol tartrate 25mg tablet PO SCH ×2 (10:51→20:01)
[2022-11-03] MEDS: lisinopril 20mg tablet PO SCH (10:52)
--- NOTE | 2022-11-03 11:15 | NUR ---
Problems reprioritized. Patient report given, questions answered & plan of care reviewed with Mireya. Addendum: 11/03/22 at 1115 by Avel Cason RN Amended: Links added.
--- NOTE | 2022-11-03 11:39 | NUR ---
Family at bedside. Discussed patients code statues, patients only living child is Juan David. Family will contact Juan David to see if patient is actually a full code and will contact staff with the information received.
--- NOTE | 2022-11-03 18:19 | NUR ---
Report given to Maddy ARTIS
[2022-11-03] MEDS: tamsulosin 0.4mg capsule PO SCH (20:02)
--- NOTE | 2022-11-03 20:15 | NUR ---
PT FAMILY MEMBERS AT BEDSIDE GIVING PT FOOD. PT DID NOT EAT HIS TRAY.
[2022-11-04] VITALS (12 sets, daily range): BP systolic 96–125; BP diastolic 50–65; PULSE 95–119; RESP 16–24; TEMP 97.8–98.8; O2SAT 92–100
[2022-11-04] MEDS: chlordiazePOXIDE 25mg capsule PO SCH ×2 (00:34→08:04)
[2022-11-04] MEDS: normal saline 1000ml 1,000 ML IV SCH (02:58)
--- NOTE | 2022-11-04 06:30 | NUR ---
Problems reprioritized. Patient report given, questions answered & plan of care reviewed with STEFF MALDONADO. PT HAS BEEN NPO SINCE MIDNIGHT
[2022-11-04 06:41] LABS: APTT 31 SECONDS (22-32)
[2022-11-04 06:44] LABS: PROTHROMBIN TIME 10.9 SECONDS (9.0-12.0)
[2022-11-04 06:47] LABS: BASOPHILS % (AUTO) 0.4 % (0-1); EOSINOPHILS # (AUTO) 0.4 X10'3 (0-0.9); EOSINOPHILS % (AUTO) 3.6 % (0-6); HEMATOCRIT 24.1 % (42.0-52.0); LYMPHOCYTES # (AUTO) 1.2 X10'3 (1.1-4.8); LYMPHOCYTES % (AUTO) 11.1 % (21-51); MEAN CORPUSCULAR HEMOGLOBIN 30.2 PG (27.0-31.0); MEAN CORPUSCULAR HGB CONC 33.3 g/dL (33.0-36.5); MEAN CORPUSCULAR VOLUME 90.5 FL (78-98); MEAN PLATELET VOLUME 9.4 FL (7.4-10.4); MONOCYTES # (AUTO) 2.1 X10'3 (0-0.9); MONOCYTES % (AUTO) 18.6 % (2-12); NEUTROPHILS # (AUTO) 7.3 X10'3 (1.8-7.7); NEUTROPHILS % (AUTO) 66.3 % (42-75); PLATELET COUNT 273 X10'3 (140-440); RED BLOOD COUNT 2.66 X10'6 (4.70-6.10); RED CELL DISTRIBUTION WIDTH 13.7 % (11.5-14.5); WHITE BLOOD COUNT 11.1 X10'3 (4.5-11.0)
[2022-11-04 06:57] LABS: ALANINE AMINOTRANSFERASE 19 U/L (12-78); ALBUMIN 2.1 G/DL (3.4-5.0); ALBUMIN/GLOBULIN RATIO 0.5 (1.1-1.5); ALKALINE PHOSPHATASE 22 IU/L (46-116); AMYLASE 38 U/L (25-115); ANION GAP 11 (8-16); ASPARTATE AMINO TRANSFERASE 24 U/L (10-37); BILIRUBIN,TOTAL 0.8 MG/DL (0.1-1.0); BLOOD UREA NITROGEN 22 MG/DL (7-18); BUN/CREATININE RATIO 23.9 (10.0-20.0); CALCIUM 8.8 MG/DL (8.5-10.1); CHLORIDE 103 MMOL/L (99-107); CREATININE 0.92 MG/DL (0.60-1.10); GLUCOSE 188 MG/DL (70-104); LIPASE 134 U/L (73-393); MAGNESIUM 1.8 MG/DL (1.5-2.4); PHOSPHORUS 3.7 MG/DL (2.3-4.5); POTASSIUM 4.4 MMOL/L (3.5-5.1); SODIUM 139 MMOL/L (135-145); eCRCL 75 ML/MIN; eGFR 80 ML/MIN
[2022-11-04] MEDS: metoprolol tartrate 25mg tablet PO SCH ×2 (08:00→20:00)
[2022-11-04] MEDS: insulin Lispro (HumaLOG) vial - multi-dose SQ SCH (08:00)
[2022-11-04] MEDS: lisinopril 20mg tablet PO SCH (08:00)
[2022-11-04] MEDS: guaiFENesin ER 600mg tablet PO SCH ×2 (08:04→20:00)
[2022-11-04] MEDS: gabapentin 100mg capsule PO SCH ×3 (08:04→21:00)
[2022-11-04] MEDS: azithromycin 250mg tablet PO SCH (08:04)
[2022-11-04] MEDS: docusate sod 100mg capsule PO SCH ×2 (08:15→20:00)
[2022-11-04] MEDS: multivitamins, therapeutics tablet PO SCH (08:15)
[2022-11-04] MEDS: pantoprazole 40mg Tablet.DR PO SCH (08:15)
[2022-11-04] MEDS: CefTRIAXone/D5W-Rocephin 1gm 50 ML IV SCH (09:00)
--- NOTE | 2022-11-04 14:14 | NUR ---
F/u 11/04: Per EMR pt continues on alcohol withdrawal protocol and is pt is confused A0x1 thus not appropriate for interview at this time. Pt was put back on a carbohydrate controlled diet yesterday after being NPO for one day per EMR. D/w RN carbohydrate controlled diet not warranted and regular diet previously approved by physician on 11/01. RN states pt received outside food from family yesterday but it hasn't been consistent. Pt's average PO intake of 30% x5 meal since last follow up which met 29% of estimated kcal and 31% of estimated protein needs though suspect it's a bit higher due to outside food. Plan is for NPO after midnight tonight for a scheduled hemothorax tomorrow per EMR. LBM on 10/29 receiving routine Colace with available MoM per EMR; discussed with RN. Will continue to monitor and make recommendations as appropriate. Recommendations: 1) liberalize carbohydrate controlled diet to regular; A1c 6.1% with possibly no PMH DM 2) Consider Ensure Enlive TIDWM to better meet estimated needs 3) Continue routine Thiamine, Folic acid, and MVI for EtOH hx 4) Routine bowel care; utilize PRN bowel care Addendum: 11/04/22 at [address] Amended: Links added.
--- NOTE | 2022-11-04 14:16 | NUR ---
family in room at bedside. Patient changed to DNR per patients life request.
[2022-11-04] MEDS: ipratropium/albuterol 3ml nebule NEB SCH ×2 (14:52→19:58)
[2022-11-04] MEDS ORDERED: LORazepam 1 MG tablet PO PRN (16:30)
[2022-11-04] MEDS ORDERED: LORazepam 2 mg/ml vial IV PRN (16:30)
--- NOTE | 2022-11-04 18:22 | NUR ---
Report given to NOC shift.
[2022-11-04] MEDS: insulin glargine (Lantus) pen - multi-dose SQ SCH (21:00)
[2022-11-04] MEDS: tamsulosin 0.4mg capsule PO SCH (21:00)
[2022-11-04] MEDS: atorvastatin 20mg tablet PO SCH (21:00)
[2022-11-05] VITALS (34 sets, daily range): BP systolic 89–153; BP diastolic 49–82; PULSE 100–120; RESP 12–23; TEMP 98.2–98.4; O2SAT 93–99
--- NOTE | 2022-11-05 01:00 | NUR ---
PT HAD CHANGE IN MENTATION AND RETAINING URINE. BLADDER SCANNED AND HE HAD 481 MLS IN BLADDER. SPOKE TO DR MATHEW WHO ORDERED STRAIGHT CATH AND UA. ALSO MADE DR MATHEW AWARE THAT PATIENT HAS THICK SECRETIONS AND IS NOT TAKING ANYTHING BY MOUTH. SHE INCREASED THE PATIENT'S FLUIDS TO 50 ML/HR.
--- NOTE | 2022-11-05 01:44 | NUR ---
STRAIGHT CATHED PT AND GOT OUT 550 MLS OF STRAW COLORED URINE. PT TOLERATED PROCEDURE WELL.
[2022-11-05 01:48] LABS: BILIRUBIN,URINE NEGATIVE (Neg); CLARITY,URINE CLEAR (Clear); COLOR,URINE YELLOW (Yellow); GLUCOSE, URINE NEGATIVE (Neg); KETONES,URINE NEGATIVE (Neg); LEUKOCYTE ESTERASE ,URINE NEGATIVE (Neg); NITRITES, URINE NEGATIVE (Neg); OCCULT BLOOD,URINE SMALL (Neg); PH,URINE 5.5 (4.8-8.0); PROTEIN,URINE NEGATIVE (Neg); UROBILINOGEN,URINE 0.2 E.U/dL (0.2-1.0)
[2022-11-05 01:53] LABS: UA COLLECTION TYPE STRAIGHT CATH
[2022-11-05 01:59] LABS: WBC,URINE 0-4 /HPF (0-4)
[2022-11-05 02:00] LABS: BACTERIA,URINE FEW /HPF (Neg); MUCUS STRANDS NONE SEEN /LPF (Neg); SQUAMOUS EPITHELIAL CELL,UR NONE SEEN /LPF (FEW)
[2022-11-05] MEDS: ipratropium/albuterol 3ml nebule NEB SCH ×4 (02:40→19:23)
--- NOTE | 2022-11-05 06:21 | NUR ---
Problems reprioritized. Patient report given, questions answered & plan of care reviewed with STEFF CHAVEZ. Addendum: 11/05/22 at 0704 by Maddy Shaw RN PT HAS BEEN NPO SINCE MIDNIGHT 11/05/22
--- NOTE | 2022-11-05 06:45 | NUR ---
Patient in room U 3025. I have received report from Naima and had the opportunity to ask questions and assume patient care. Addendum: 11/05/22 at 0649 by Avel Cason RN Amended: Links added.
[2022-11-05 06:46] LABS: BASOPHILS % (AUTO) 0.4 % (0-1); EOSINOPHILS # (AUTO) 0.3 X10'3 (0-0.9); HEMATOCRIT 24.7 % (42.0-52.0); HEMOGLOBIN 8.3 g/dl (14.0-17.9); LYMPHOCYTES % (AUTO) 10.3 % (21-51); MEAN CORPUSCULAR HEMOGLOBIN 30.4 PG (27.0-31.0); MEAN CORPUSCULAR HGB CONC 33.5 g/dL (33.0-36.5); MEAN CORPUSCULAR VOLUME 90.8 FL (78-98); MEAN PLATELET VOLUME 8.6 FL (7.4-10.4); MONOCYTES # (AUTO) 1.9 X10'3 (0-0.9); NEUTROPHILS # (AUTO) 6.6 X10'3 (1.8-7.7); NEUTROPHILS % (AUTO) 67.3 % (42-75); PLATELET COUNT 316 X10'3 (140-440); RED BLOOD COUNT 2.72 X10'6 (4.70-6.10); RED CELL DISTRIBUTION WIDTH 13.7 % (11.5-14.5); WHITE BLOOD COUNT 9.8 X10'3 (4.5-11.0)
[2022-11-05 06:51] LABS: APTT 30 SECONDS (22-32)
[2022-11-05 07:09] LABS: ALANINE AMINOTRANSFERASE 25 U/L (12-78); ALBUMIN 2.1 G/DL (3.4-5.0); ALBUMIN/GLOBULIN RATIO 0.5 (1.1-1.5); ALKALINE PHOSPHATASE 29 IU/L (46-116); AMYLASE 40 U/L (25-115); ANION GAP 8 (8-16); ASPARTATE AMINO TRANSFERASE 20 U/L (10-37); BILIRUBIN,TOTAL 0.6 MG/DL (0.1-1.0); BLOOD UREA NITROGEN 20 MG/DL (7-18); BUN/CREATININE RATIO 20.6 (10.0-20.0); CALCIUM 9.2 MG/DL (8.5-10.1); CHLORIDE 106 MMOL/L (99-107); CREATININE 0.97 MG/DL (0.60-1.10); GLUCOSE 202 MG/DL (70-104); LIPASE 115 U/L (73-393); MAGNESIUM 1.8 MG/DL (1.5-2.4); PHOSPHORUS 4.1 MG/DL (2.3-4.5); POTASSIUM 4.3 MMOL/L (3.5-5.1); SODIUM 140 MMOL/L (135-145); TOTAL CARBON DIOXIDE 25.8 MMOL/L (24-32); TOTAL PROTEIN 6.3 G/DL (6.4-8.2); eCRCL 71 ML/MIN; eGFR 75 ML/MIN
[2022-11-05] MEDS: pantoprazole 40mg Tablet.DR PO SCH (07:30)
[2022-11-05] MEDS: docusate sod 100mg capsule PO SCH ×2 (07:49→20:00)
[2022-11-05] MEDS: folic acid 1mg tablet PO SCH (07:49)
[2022-11-05] MEDS: metoprolol tartrate 25mg tablet PO SCH ×2 (07:49→20:00)
[2022-11-05] MEDS: thiamine 100mg tablet PO SCH (07:50)
[2022-11-05] MEDS: guaiFENesin ER 600mg tablet PO SCH ×2 (07:50→21:31)
[2022-11-05] MEDS: multivitamins, therapeutics tablet PO SCH (07:50)
[2022-11-05] MEDS: gabapentin 100mg capsule PO SCH ×3 (07:50→21:31)
[2022-11-05] MEDS: azithromycin 250mg tablet PO SCH (07:51)
[2022-11-05] MEDS: lisinopril 20mg tablet PO SCH (07:51)
[2022-11-05] MEDS: CefTRIAXone/D5W-Rocephin 1gm 50 ML IV SCH (07:57)
[2022-11-05] MEDS ORDERED: ondansetron/PF 4mg/2ml inj IV PRN ×3 (09:05→13:35)
[2022-11-05] MEDS ORDERED: ringers solution, lacted 1,000 ML IV SCH ×2 (09:05→09:15)
[2022-11-05] MEDS ORDERED: morphine 2 MG/ML inj. syringe IV PRN ×3 (09:05→13:35)
[2022-11-05] MEDS ORDERED: meperidine/PF 25mg/ml syringe IV PRN ×6 (09:05→09:15)
[2022-11-05] MEDS ORDERED: proCHLORperazine 10 MG/2 ml inj IV PRN ×2 (09:05→09:15)
[2022-11-05] MEDS ORDERED: morphine 4 MG/ML inj SYRINge IV PRN ×3 (09:05→13:35)
[2022-11-05] MEDS ORDERED: BUPIVAcaine/PF 2.5 mg/ml (0.25%) 30ml vial ONE (09:25)
[2022-11-05] MEDS ORDERED: NORMAL SALINE IPL ONE (09:40)
[2022-11-05] MEDS ORDERED: STERILE TALC IPL ONE (09:40)
[2022-11-05] MEDS ORDERED: fentaNYL /PF 50mcg/ml 5ml ampule ONE (10:20)
[2022-11-05] MEDS ORDERED: midazolam 1 mg/ML 2ml injection ONE (10:20)
[2022-11-05] MEDS ORDERED: ePHEDrine 50MG/ML INJ. ONE (10:21)
[2022-11-05] MEDS ORDERED: rocuronium 10mg/ml inj IV ONE ×3 (10:22→12:05)
[2022-11-05] MEDS ORDERED: NORepinephrine 8 MG in NS 250 ML BAG (32 mcg/ml) IV ONE (10:42)
[2022-11-05] MEDS ORDERED: sevoflurane 250ml liquid IH ONE (10:42)
[2022-11-05] MEDS ORDERED: propofol inj 20 ML IV ONE (12:05)
[2022-11-05] MEDS ORDERED: LIDOcaine 2% (20mg/ml) 5ml vial ONE (12:05)
[2022-11-05] MEDS ORDERED: ceFAZolin 1000mg inj ONE ×2 (12:05)
[2022-11-05] MEDS ORDERED: 0.9 % SODIUM CHLORIDE 10 ML VIAL ONE (12:06)
[2022-11-05] MEDS ORDERED: BUPIVAcaine 0.25% w/Epi /PF 30ml vial IJ ONE (13:00)
[2022-11-05] MEDS ORDERED: midazolam 1 mg/ML 2ml injection IV PRN (13:05)
[2022-11-05] MEDS ORDERED: fentaNYL/PF 50MCG/1 ML 2ML syringe IV PRN (13:05)
[2022-11-05] MEDS ORDERED: metoclopramide 5 mg/ml inj IV PRN (13:35)
--- NOTE | 2022-11-05 13:46 | NUR ---
PATIENT ARRIVES TO 2012 POST OR VIA ICU BED. INTUBATED WITH STATED SETTINGS ON PACU VS SHEET. XRAY OBTAINED AND DR. EGAN INSTRUCTS RT KHARI TO ADVANCE ETT FROM 23 CM TO 25CM. AIRWAY ADVANCED, NO NEW XRAY NEEDED. PATIENT PLACED ON PROPOFOL DRIP TO MAINTAIN SEDATION WHILE INTUBATED. PLAN TO KEEP INTUBATED AND SEDATED OVER NIGHT PER DR. EGAN. DR. HUGHES AT BEDSIDE INSTRUCTED TO KEEP CHEST TUBE TO WATER SEAL AT -20CM SUCTION. ST. VSS. FIO2 100%. F/C IN PLACE DRAINING ROBBIE COLORED URINE. CT -20 SUCTION WATER SEAL WITH 45ML IN ATRIUM OF SANGENOUS DRAINAGE. FLUCTUATION IN CHAMBER WITH BREATHING. NO AIR LEAK NOTED AT THIS TIME. LEFT LATERAL CHEST WITH ONE CHEST TUBE DRAINING. DRESSING CDI.
[2022-11-05] MEDS: propofol 1000mg/100ml bottle 100 ML IV SCH ×2 (14:00→22:17)
[2022-11-05 14:30] LABS: ABG BASE EXCESS -2.3 mmol/L (-2.0-2.0); ABG HCO3 23.3 mmol/L (22.0-26.0); ABG OXYGEN SATURATION 99.4 % (94-97); ABG PCO2 (T) 42.9 mmHg (35.0-48.0); ABG PH (T) 7.351 (7.340-7.440); ABG PO2 (T) 257.1 mmHg (75.0-100.0); FCOHb 0.1 % (0.0-3.9); FHHb 0.6 % (0.0-5.0); FMetHb 0.3 % (0.0-1.5); MODE VENT - SIMV; PATIENT TEMPERATURE 36.5; PEEP 8 cm H2O; RESPIRATORY RATE 12 b/min; TIDAL VOLUME 500 mL; TOTAL HEMOGLOBIN 10.4 G/dl (14.0-17.9)
[2022-11-05] MEDS: FENTANYL-0.9 % NACL/PF 100 ML IV PRN (14:32)
[2022-11-05] MEDS: normal saline 1000ml 1,000 ML IV SCH ×2 (14:39→22:29)
--- NOTE | 2022-11-05 14:46 | NUR ---
PATIENT MEETS RECOVERY CRITERIA. PLAN TO REMAIN INTUBATED/SEDATED OVER NIGHT PER DR. EGAN. PATIENT ON FENT AND PROP VIA CONTINUOUS INFUSION. LEFT LATERAL DRESSING CDI, TOTAL CHEST TUBE OUTPUT DOCUMENTED AT 45ML, ON WATER SEAL AT -20CM. REPORT GIVEN TO ANN Rincon RN.
[2022-11-05] MEDS ORDERED: ceFAZolin inj. 1,000 MG in dextrose 5%-water 50ml 50 ML IV SCH (16:00)
[2022-11-05] MEDS: ceFAZolin/D5W- 1GM premix 50 ML IV SCH (16:10)
--- NOTE | 2022-11-05 18:22 | NUR ---
Patient in room CICU 2011. I have received report from Rosario Infante RN and had the opportunity to ask questions and assume patient care.
[2022-11-05] MEDS ORDERED: gabapentin 300mg capsule PO SCH (20:00)
[2022-11-05] MEDS: tamsulosin 0.4mg capsule PO SCH (21:00)
[2022-11-05] MEDS: atorvastatin 20mg tablet PO SCH (21:31)
[2022-11-05] MEDS: acetaminophen 325mg tablet PO PRN (21:32)
[2022-11-05] MEDS: insulin Lispro (HumaLOG) vial - multi-dose SQ SCH (22:11)
[2022-11-05] MEDS: insulin glargine (Lantus) pen - multi-dose SQ SCH (22:17)
[2022-11-05 23:14] LABS: BASOPHILS % (AUTO) 0.2 % (0-1); EOSINOPHILS % (AUTO) 0.2 % (0-6); HEMATOCRIT 28.4 % (42.0-52.0); HEMOGLOBIN 9.5 g/dl (14.0-17.9); LYMPHOCYTES # (AUTO) 0.5 X10'3 (1.1-4.8); LYMPHOCYTES % (AUTO) 3.8 % (21-51); MEAN CORPUSCULAR HEMOGLOBIN 30.2 PG (27.0-31.0); MEAN CORPUSCULAR HGB CONC 33.3 g/dL (33.0-36.5); MEAN CORPUSCULAR VOLUME 90.7 FL (78-98); MEAN PLATELET VOLUME 8.9 FL (7.4-10.4); MONOCYTES # (AUTO) 1.9 X10'3 (0-0.9); MONOCYTES % (AUTO) 14.6 % (2-12); NEUTROPHILS # (AUTO) 10.5 X10'3 (1.8-7.7); NEUTROPHILS % (AUTO) 81.2 % (42-75); PLATELET COUNT 246 X10'3 (140-440); RED BLOOD COUNT 3.14 X10'6 (4.70-6.10); RED CELL DISTRIBUTION WIDTH 14.3 % (11.5-14.5); WHITE BLOOD COUNT 12.9 X10'3 (4.5-11.0)
[2022-11-05 23:23] LABS: ALANINE AMINOTRANSFERASE 21 U/L (12-78); ALBUMIN 1.8 G/DL (3.4-5.0); ALBUMIN/GLOBULIN RATIO 0.5 (1.1-1.5); ALKALINE PHOSPHATASE 28 IU/L (46-116); ANION GAP 9 (8-16); ASPARTATE AMINO TRANSFERASE 24 U/L (10-37); BILIRUBIN,TOTAL 0.5 MG/DL (0.1-1.0); BLOOD UREA NITROGEN 18 MG/DL (7-18); BUN/CREATININE RATIO 17.3 (10.0-20.0); CALCIUM 8.3 MG/DL (8.5-10.1); CHLORIDE 107 MMOL/L (99-107); CREATININE 1.04 MG/DL (0.60-1.10); GLUCOSE 237 MG/DL (70-104); MAGNESIUM 1.6 MG/DL (1.5-2.4); PHOSPHORUS 4.1 MG/DL (2.3-4.5); SODIUM 140 MMOL/L (135-145); TOTAL CARBON DIOXIDE 24.5 MMOL/L (24-32); TOTAL PROTEIN 5.7 G/DL (6.4-8.2); eCRCL 66 ML/MIN; eGFR 69 ML/MIN
[2022-11-05] MEDS ORDERED: albumin (Human) 5% 250ml 250 ML IV ONE ×2 (23:45)
[2022-11-05] MEDS ORDERED: albumin (Human) 5% 250ml 500 ML IV ONE (23:46)
--- NOTE | 2022-11-05 23:46 | NUR ---
Dr. Mares called to notify regarding patient's current low blood pressure. Notifed about patient's lab results, including albumin of 1.8. New order received for ablumin. Will administer, will continue to monitor patient.
[2022-11-06] VITALS (43 sets, daily range): BP systolic 73–128; BP diastolic 40–83; PULSE 90–127; RESP 13–24; O2SAT 90–100
[2022-11-06] MEDS: ceFAZolin/D5W- 1GM premix 50 ML IV SCH (00:16)
[2022-11-06] MEDS: ipratropium/albuterol 3ml nebule NEB SCH ×4 (02:02→19:25)
[2022-11-06 02:16] LABS: ABG BASE EXCESS -1.2 mmol/L (-2.0-2.0); ABG OXYGEN SATURATION 98.1 % (94-97); ABG PCO2 (T) 41.9 mmHg (35.0-48.0); ABG PH (T) 7.375 (7.340-7.440); ABG PO2 (T) 111.4 mmHg (75.0-100.0); ALLEN'S TEST POSITIVE; FCOHb 0.3 % (0.0-3.9); FHHb 1.9 % (0.0-5.0); FMetHb 0.3 % (0.0-1.5); FO2Hb 97.5 % (94-97); MODE VENT - SIMV; PEEP 8 cm H2O; RESPIRATORY RATE 12 b/min; TIDAL VOLUME 500 mL; TOTAL HEMOGLOBIN 9.6 G/dl (14.0-17.9)
[2022-11-06] MEDS: insulin Lispro (HumaLOG) vial - multi-dose SQ SCH ×3 (02:26→15:42)
[2022-11-06 02:35] LABS: BASOPHILS % (AUTO) 0.2 % (0-1); EOSINOPHILS # (AUTO) 0.1 X10'3 (0-0.9); EOSINOPHILS % (AUTO) 0.5 % (0-6); HEMATOCRIT 26.1 % (42.0-52.0); HEMOGLOBIN 8.6 g/dl (14.0-17.9); LYMPHOCYTES # (AUTO) 0.6 X10'3 (1.1-4.8); LYMPHOCYTES % (AUTO) 4.8 % (21-51); MEAN CORPUSCULAR HEMOGLOBIN 29.8 PG (27.0-31.0); MEAN CORPUSCULAR HGB CONC 32.9 g/dL (33.0-36.5); MEAN CORPUSCULAR VOLUME 90.6 FL (78-98); MEAN PLATELET VOLUME 8.6 FL (7.4-10.4); MONOCYTES # (AUTO) 2.1 X10'3 (0-0.9); MONOCYTES % (AUTO) 16.6 % (2-12); NEUTROPHILS # (AUTO) 9.9 X10'3 (1.8-7.7); NEUTROPHILS % (AUTO) 77.9 % (42-75); PLATELET COUNT 273 X10'3 (140-440); RED BLOOD COUNT 2.89 X10'6 (4.70-6.10); RED CELL DISTRIBUTION WIDTH 14.2 % (11.5-14.5); WHITE BLOOD COUNT 12.7 X10'3 (4.5-11.0)
[2022-11-06 02:47] LABS: APTT 27 SECONDS (22-32); PROTHROMBIN TIME 11.1 SECONDS (9.0-12.0)
[2022-11-06 02:49] LABS: ALANINE AMINOTRANSFERASE 13 U/L (12-78); ALBUMIN 2.2 G/DL (3.4-5.0); ALBUMIN/GLOBULIN RATIO 0.6 (1.1-1.5); ALKALINE PHOSPHATASE 19 IU/L (46-116); ANION GAP 7 (8-16); ASPARTATE AMINO TRANSFERASE 20 U/L (10-37); BILIRUBIN,TOTAL 0.7 MG/DL (0.1-1.0); BLOOD UREA NITROGEN 20 MG/DL (7-18); BUN/CREATININE RATIO 19.6 (10.0-20.0); CALCIUM 8.1 MG/DL (8.5-10.1); CHLORIDE 110 MMOL/L (99-107); CREATININE 1.02 MG/DL (0.60-1.10); GLUCOSE 227 MG/DL (70-104); POTASSIUM 4.5 MMOL/L (3.5-5.1); SODIUM 143 MMOL/L (135-145); TOTAL CARBON DIOXIDE 25.6 MMOL/L (24-32); TOTAL PROTEIN 5.6 G/DL (6.4-8.2); TRIGLYCERIDES 59 MG/DL (20-135); eCRCL 67 ML/MIN; eGFR 71 ML/MIN
--- NOTE | 2022-11-06 06:24 | NUR ---
Problems reprioritized. Patient report given, questions answered & plan of care reviewed with John/Mora RNs.
[2022-11-06] MEDS: pantoprazole 40mg Tablet.DR PO SCH (07:30)
[2022-11-06] MEDS: docusate sod 100mg capsule PO SCH ×2 (08:00→20:00)
[2022-11-06] MEDS: metoprolol tartrate 25mg tablet PO SCH ×2 (08:52→20:00)
[2022-11-06] MEDS: guaiFENesin ER 600mg tablet PO SCH ×2 (08:52→21:03)
[2022-11-06] MEDS: lisinopril 20mg tablet PO SCH (08:53)
[2022-11-06] MEDS: acetaminophen 325mg tablet PO PRN (08:53)
[2022-11-06] MEDS: azithromycin 250mg tablet PO SCH (08:53)
[2022-11-06] MEDS: thiamine 100mg tablet PO SCH (08:53)
[2022-11-06] MEDS: multivitamins, therapeutics tablet PO SCH (08:53)
[2022-11-06] MEDS: folic acid 1mg tablet PO SCH (08:53)
[2022-11-06] MEDS: gabapentin 100mg capsule PO SCH ×3 (08:54→21:03)
[2022-11-06] MEDS ORDERED: normal saline 1000ml 1,000 ML IV ONE ×2 (10:25)
[2022-11-06 12:54] LABS: BASOPHILS % (AUTO) 0.3 % (0-1); EOSINOPHILS # (AUTO) 0.2 X10'3 (0-0.9); EOSINOPHILS % (AUTO) 1.4 % (0-6); HEMATOCRIT 24.2 % (42.0-52.0); HEMOGLOBIN 7.8 g/dl (14.0-17.9); LYMPHOCYTES # (AUTO) 0.7 X10'3 (1.1-4.8); MEAN CORPUSCULAR HEMOGLOBIN 29.4 PG (27.0-31.0); MEAN CORPUSCULAR HGB CONC 32.2 g/dL (33.0-36.5); MEAN CORPUSCULAR VOLUME 91.3 FL (78-98); MEAN PLATELET VOLUME 8.8 FL (7.4-10.4); MONOCYTES # (AUTO) 2.2 X10'3 (0-0.9); MONOCYTES % (AUTO) 15.2 % (2-12); NEUTROPHILS # (AUTO) 11.2 X10'3 (1.8-7.7); NEUTROPHILS % (AUTO) 78.1 % (42-75); PLATELET COUNT 271 X10'3 (140-440); RED BLOOD COUNT 2.65 X10'6 (4.70-6.10); RED CELL DISTRIBUTION WIDTH 14.5 % (11.5-14.5); WHITE BLOOD COUNT 14.3 X10'3 (4.5-11.0)
[2022-11-06] MEDS ORDERED: CALCIUM GLUC 1gm/50ml NACL,iso 100 ML IV ONE ×2 (13:25→13:35)
[2022-11-06] MEDS ORDERED: albumin (Human) 5% 250ml 250 ML IV ONE ×2 (13:35)
[2022-11-06] MEDS ORDERED: calcium gluconate inj. 2 GM in normal saline 100ml IV soln 100 ML IV ONE (13:35)
[2022-11-06] MEDS: mineral oil/petrolatum ophthal oint EACHEYE SCH ×2 (14:00→21:01)
[2022-11-06] MEDS ORDERED: albumin (Human) 5% 250ml 500 ML IV ONE (14:00)
--- NOTE | 2022-11-06 14:18 | NUR ---
Reassessment: Pt intubated POD #1 s/p VATS. Propofol visualized at bedside, noted to be held this morning. Per MD at [facility] planning to wean pt for extubation. Prior to intubation PO intake had declined not meeting estimated nutrient needs. D/w MD recommendation for NGT placement prior to extubation for supplemental EN, physician agreed. Noted no orders in place for NGT placement. Will place TF recommendations as appropriate should pt receive EN. Otherwise pt would benefit from ONS to optimize PO intake following extubation. LBM 10/29 per EMR, MD notified. Pt receiving routine bowel care and has additional PRN bowel care available though no documented to be given. Will continue to follow closely. Recommendations: 1) Monitor for NGT placement for supplemental EN 2) Continue regular diet following extubation; A1c 6.1% with possibly no PMH DM, CHO controlled diet not indicated 3) Consider Ensure Enlive TIDWM to assist with meeting estimated nutrient needs following extubation 4) Continue routine Thiamine, Folic acid, and MVI for EtOH hx 5) Routine bowel care; utilize PRN bowel care; No BM x 8 days per EMR Addendum: 11/06/22 at [address] Amended: Links added.
[2022-11-06] MEDS: CefTRIAXone/D5W-Rocephin 1gm 50 ML IV SCH (14:43)
--- NOTE | 2022-11-06 17:03 | NUR ---
TF Consult: Per RN, pt remains intubated and obtunded w/ Propofol to remain off at this time and TF to start today per complaint inspector; recs below. Will monitor for EN tolerance and further nutrition intervention needs. Recommendations: 1) Continuous TF per MD using Vital AF at 90ml/hr goal; to provide 2160ml volume/day, 2592 kcals, 1752ml water, and 162g protein. 2) additional water flush 150ml Q4H 3) PALB Q /; daily scaled wts 4) Monitor Propofol rate for EN adjustment needs 5) Continue regular diet following extubation; A1c 6.1% with possibly no PMH DM, CHO controlled diet not indicated 6) Consider Ensure Enlive TIDWM to assist with meeting estimated nutrient needs following extubation 7) Continue routine Thiamine, Folic acid, and MVI for EtOH hx 8) Routine bowel care; utilize PRN bowel care; No BM x 8 days per EMR Addendum: 11/06/22 at [address] Zuñiga RD Amended: Links added.
[2022-11-06] MEDS ORDERED: NORepinephrine 8mg/ 250ml NS 250 ML IV PRN (18:20)
--- NOTE | 2022-11-06 18:27 | NUR ---
Patient in room CICU 2011. I have received report from John ARTIS and had the opportunity to ask questions and assume patient care.
[2022-11-06] MEDS: tamsulosin 0.4mg capsule PO SCH (21:00)
[2022-11-06] MEDS: atorvastatin 20mg tablet PO SCH (21:02)
[2022-11-06] MEDS: insulin regular, human U-100 3ml vial - multi-dose SQ SCH (21:15)
[2022-11-06] MEDS: insulin glargine (Lantus) pen - multi-dose SQ SCH (21:16)
--- NOTE | 2022-11-06 23:30 | NUR ---
Tele MD Maldonado rounding on patient. updated on patient status. No new orders received.
[2022-11-07] VITALS (44 sets, daily range): BP systolic 91–142; BP diastolic 42–69; PULSE 91–116; RESP 13–25; O2SAT 91–99
[2022-11-07] MEDS: propofol 1000mg/100ml bottle 100 ML IV SCH (00:58)
[2022-11-07] MEDS: FENTANYL-0.9 % NACL/PF 100 ML IV PRN (01:18)
[2022-11-07] MEDS: insulin regular, human U-100 3ml vial - multi-dose SQ SCH ×4 (02:22→21:15)
[2022-11-07] MEDS: mineral oil/petrolatum ophthal oint EACHEYE SCH ×4 (02:24→20:00)
[2022-11-07 02:45] LABS: BASOPHILS % (AUTO) 0.3 % (0-1); EOSINOPHILS # (AUTO) 0.7 X10'3 (0-0.9); EOSINOPHILS % (AUTO) 4.8 % (0-6); HEMATOCRIT 25.5 % (42.0-52.0); HEMOGLOBIN 8.3 g/dl (14.0-17.9); LYMPHOCYTES # (AUTO) 0.8 X10'3 (1.1-4.8); MEAN CORPUSCULAR HEMOGLOBIN 29.5 PG (27.0-31.0); MEAN CORPUSCULAR HGB CONC 32.4 g/dL (33.0-36.5); MEAN CORPUSCULAR VOLUME 90.9 FL (78-98); MEAN PLATELET VOLUME 8.5 FL (7.4-10.4); MONOCYTES # (AUTO) 1.8 X10'3 (0-0.9); MONOCYTES % (AUTO) 12.8 % (2-12); NEUTROPHILS # (AUTO) 10.5 X10'3 (1.8-7.7); NEUTROPHILS % (AUTO) 76.1 % (42-75); PLATELET COUNT 256 X10'3 (140-440); RED CELL DISTRIBUTION WIDTH 15.1 % (11.5-14.5); WHITE BLOOD COUNT 13.8 X10'3 (4.5-11.0)
[2022-11-07 02:57] LABS: APTT 32 SECONDS (22-32); INR 1.1 INR; PROTHROMBIN TIME 11.4 SECONDS (9.0-12.0)
[2022-11-07 02:58] LABS: ALANINE AMINOTRANSFERASE 14 U/L (12-78); ALBUMIN 1.9 G/DL (3.4-5.0); ALBUMIN/GLOBULIN RATIO 0.6 (1.1-1.5); ALKALINE PHOSPHATASE 23 IU/L (46-116); ANION GAP 6 (8-16); ASPARTATE AMINO TRANSFERASE 24 U/L (10-37); BILIRUBIN,TOTAL 0.9 MG/DL (0.1-1.0); BLOOD UREA NITROGEN 18 MG/DL (7-18); BUN/CREATININE RATIO 18.9 (10.0-20.0); CALCIUM 8.3 MG/DL (8.5-10.1); CHLORIDE 113 MMOL/L (99-107); CREATININE 0.95 MG/DL (0.60-1.10); GLUCOSE 201 MG/DL (70-104); POTASSIUM 3.8 MMOL/L (3.5-5.1); PREALBUMIN 7.8 MG/DL (19-36); SODIUM 146 MMOL/L (135-145); TOTAL CARBON DIOXIDE 27.3 MMOL/L (24-32); TOTAL PROTEIN 5.1 G/DL (6.4-8.2); eCRCL 72 ML/MIN; eGFR 77 ML/MIN
[2022-11-07] MEDS: ipratropium/albuterol 3ml nebule NEB SCH ×4 (03:39→21:15)
[2022-11-07 03:51] LABS: ABG BASE EXCESS -1.5 mmol/L (-2.0-2.0); ABG HCO3 23.4 mmol/L (22.0-26.0); ABG OXYGEN SATURATION 94.6 % (94-97); ABG PCO2 (T) 41.6 mmHg (35.0-48.0); ABG PH (T) 7.372 (7.340-7.440); ALLEN'S TEST POSITIVE; FCOHb 0.3 % (0.0-3.9); FHHb 5.4 % (0.0-5.0); FMetHb 0.3 % (0.0-1.5); MODE VENT - SIMV; PATIENT TEMPERATURE 37.9; PEEP 8 cm H2O; RESPIRATORY RATE 12 b/min; TIDAL VOLUME 500 mL; TOTAL HEMOGLOBIN 9.5 G/dl (14.0-17.9)
--- NOTE | 2022-11-07 06:11 | NUR ---
Problems reprioritized. Patient report given, questions answered & plan of care reviewed with John ARTIS.
--- NOTE | 2022-11-07 06:30 | NUR ---
Patient in room CICU 2011. I have received report from STEFF Emery and had the opportunity to ask questions and assume patient care.
[2022-11-07] MEDS: normal saline 1000ml 1,000 ML IV SCH (06:39)
[2022-11-07] MEDS: lisinopril 20mg tablet PO SCH (08:00)
[2022-11-07] MEDS: metoprolol tartrate 25mg tablet PO SCH ×2 (08:14→20:00)
[2022-11-07] MEDS: guaiFENesin ER 600mg tablet PO SCH (08:14)
[2022-11-07] MEDS: multivitamins, therapeutics tablet PO SCH (08:15)
[2022-11-07] MEDS: thiamine 100mg tablet PO SCH (08:15)
[2022-11-07] MEDS: azithromycin 250mg tablet PO SCH (08:15)
[2022-11-07] MEDS: folic acid 1mg tablet PO SCH (08:15)
[2022-11-07] MEDS: gabapentin 100mg capsule PO SCH (08:15)
[2022-11-07] MEDS: CefTRIAXone/D5W-Rocephin 1gm 50 ML IV SCH (08:16)
[2022-11-07] MEDS: acetaminophen 325mg tablet PO PRN (09:43)
[2022-11-07] MEDS ORDERED: docusate sodium 100mg/10ml UD cup PO ONE (09:55)
[2022-11-07] MEDS ORDERED: pantoprazole 40MG/NS 100ML BAG 100 ML IV ONE (09:55)
[2022-11-07] MEDS ORDERED: polyethylene glycol 3350 17gm powd pack PO SCH (10:53)
--- NOTE | 2022-11-07 11:00 | NUR ---
Malnutrition consult: Pt unsure of wt loss though with decreased appetite/PO intake per malnutrition risk screen with RN. Unable to obtain information from pt at this time d/t intubation. Only wt hx in EMR is pt stated wt of 109 kg 07/13/2019, initial scaled wt this admit was 94.2 kg. If past wt is accurate this would be non-significant wt loss of 13.5% in greater than three years. Pt with fluctuating PO intake since admit, mostly not meeting estimated nutrient needs. Pt with no documented significant decrease in muscle strength or edema. Pt seen at bedside, no visible fat or muscle wasting appreciated. Pt currently lacks a minimum of two criteria for malnutrition though at high risk secondary to EtOH hx. Pt currently tolerating TF at 65 mL/hr, working towards goal rate of 90 mL/hr. Propofol remains held this morning. Per MD at [facility] pt to receive additional bowel care starting today given no BM since 10/29 per EMR. Will continue to follow closely and monitor s/s of malnutrition. Addendum: 11/07/22 at [address] Amended: Links added.
[2022-11-07] MEDS ORDERED: DEXTROSE 15 GM of carb/4 tabs (each vial/BOTTLE has 4 tablets) OGT PRN ×2 (11:51→11:52)
[2022-11-07] MEDS ORDERED: haloperidol 5mg tablet OGT PRN (11:57)
[2022-11-07] MEDS ORDERED: magnesium hydroxide 30ml (MOM) UD suspension OGT PRN (11:58)
[2022-11-07] MEDS: gabapentin 100mg capsule OGT SCH ×2 (14:02→21:09)
--- NOTE | 2022-11-07 16:30 | NUR ---
Dr Truong rounded on pt. He placed Chest tube to water seal.
[2022-11-07] MEDS: acetaminophen 325mg/10.15ml oral unit dose solution OGT PRN (17:11)
--- NOTE | 2022-11-07 18:34 | NUR ---
Problems reprioritized. Patient report given, questions answered & plan of care reviewed with STEFF Yoder.
[2022-11-07] MEDS: guaiFENesin 200 MG/10 ML oral syrup UD cup OGT SCH (20:00)
[2022-11-07] MEDS: tamsulosin 0.4mg capsule PO SCH (21:00)
[2022-11-07] MEDS: atorvastatin 20mg tablet OGT SCH (21:09)
[2022-11-07] MEDS: docusate sodium 100mg/10ml UD cup OGT SCH (21:10)
[2022-11-07] MEDS: insulin glargine (Lantus) pen - multi-dose SQ SCH (21:14)
[2022-11-08] VITALS (43 sets, daily range): BP systolic 103–144; BP diastolic 48–89; PULSE 85–118; RESP 12–25; O2SAT 92–99
[2022-11-08] MEDS: insulin regular, human U-100 3ml vial - multi-dose SQ SCH ×4 (02:14→21:34)
[2022-11-08] MEDS: mineral oil/petrolatum ophthal oint EACHEYE SCH ×4 (02:14→21:19)
[2022-11-08 02:33] LABS: BASOPHILS % (AUTO) 0.4 % (0-1); EOSINOPHILS # (AUTO) 0.7 X10'3 (0-0.9); EOSINOPHILS % (AUTO) 6.5 % (0-6); HEMOGLOBIN 8.3 g/dl (14.0-17.9); LYMPHOCYTES % (AUTO) 8.8 % (21-51); MEAN CORPUSCULAR HEMOGLOBIN 28.9 PG (27.0-31.0); MEAN CORPUSCULAR HGB CONC 31.8 g/dL (33.0-36.5); MEAN PLATELET VOLUME 8.9 FL (7.4-10.4); MONOCYTES # (AUTO) 1.3 X10'3 (0-0.9); MONOCYTES % (AUTO) 12.1 % (2-12); NEUTROPHILS % (AUTO) 72.2 % (42-75); PLATELET COUNT 262 X10'3 (140-440); RED BLOOD COUNT 2.86 X10'6 (4.70-6.10); RED CELL DISTRIBUTION WIDTH 15.1 % (11.5-14.5); WHITE BLOOD COUNT 11.1 X10'3 (4.5-11.0)
[2022-11-08 02:44] LABS: APTT 31 SECONDS (22-32)
[2022-11-08 02:46] LABS: ALANINE AMINOTRANSFERASE 27 U/L (12-78); ALBUMIN 1.7 G/DL (3.4-5.0); ALBUMIN/GLOBULIN RATIO 0.5 (1.1-1.5); ALKALINE PHOSPHATASE 26 IU/L (46-116); ANION GAP 6 (8-16); ASPARTATE AMINO TRANSFERASE 39 U/L (10-37); BILIRUBIN,TOTAL 0.4 MG/DL (0.1-1.0); BLOOD UREA NITROGEN 18 MG/DL (7-18); CALCIUM 8.5 MG/DL (8.5-10.1); CHLORIDE 113 MMOL/L (99-107); GLUCOSE 228 MG/DL (70-104); SODIUM 149 MMOL/L (135-145); TOTAL CARBON DIOXIDE 29.8 MMOL/L (24-32); TOTAL PROTEIN 5.3 G/DL (6.4-8.2); eCRCL 76 ML/MIN; eGFR 82 ML/MIN
[2022-11-08] MEDS: ipratropium/albuterol 3ml nebule NEB SCH ×4 (02:49→20:39)
[2022-11-08 03:16] LABS: ABG BASE EXCESS 1.1 mmol/L (-2.0-2.0); ABG HCO3 26.4 mmol/L (22.0-26.0); ABG OXYGEN SATURATION 98.8 % (94-97); ABG PCO2 (T) 47.2 mmHg (35.0-48.0); ABG PH (T) 7.369 (7.340-7.440); ABG PO2 (T) 142.4 mmHg (75.0-100.0); FCOHb 0.3 % (0.0-3.9); FHHb 1.2 % (0.0-5.0); FMetHb 0.3 % (0.0-1.5); FO2Hb 98.2 % (94-97); MODE VENT - SIMV; PEEP 8 cm H2O; RESPIRATORY RATE 12 b/min; TIDAL VOLUME 500 mL; TOTAL HEMOGLOBIN 8.4 G/dl (14.0-17.9)
[2022-11-08] MEDS: acetaminophen 325mg/10.15ml oral unit dose solution OGT PRN ×2 (04:15→15:21)
--- NOTE | 2022-11-08 06:30 | NUR ---
Patient in room CICU 2011. I have received report from MARIBELL RN and had the opportunity to ask questions and assume patient care.
[2022-11-08] MEDS: normal saline 1000ml 1,000 ML IV SCH ×2 (08:00→22:39)
[2022-11-08] MEDS: lisinopril 20mg tablet OGT SCH (08:00)
[2022-11-08] MEDS: metoprolol tartrate 25mg tablet PO SCH ×2 (08:00→21:20)
[2022-11-08] MEDS: guaiFENesin 200 MG/10 ML oral syrup UD cup OGT SCH ×2 (08:00→20:00)
[2022-11-08] MEDS: CefTRIAXone/D5W-Rocephin 1gm 50 ML IV SCH (08:21)
[2022-11-08] MEDS: polyethylene glycol 3350 17gm powd pack OGT SCH (08:27)
[2022-11-08] MEDS: pantoprazole 40MG/NS 100ML BAG 100 ML IV SCH (08:27)
[2022-11-08] MEDS: folic acid 1mg tablet OGT SCH (08:28)
[2022-11-08] MEDS: docusate sodium 100mg/10ml UD cup OGT SCH ×2 (08:28→21:19)
[2022-11-08] MEDS: multivitamins, therapeutics tablet PO SCH (08:28)
[2022-11-08] MEDS: thiamine 100mg tablet OGT SCH (08:35)
[2022-11-08] MEDS: gabapentin 100mg capsule OGT SCH ×3 (08:36→21:19)
--- NOTE | 2022-11-08 10:00 | NUR ---
Critical care rounds done Pt on vent 45 % Fio2 RR 12 to 16 Pt awakens to name Opens eyes and weakly follows commands All sedation is off Appears very sleepy VSS Levophed gtt weaned off Dr. Dhillon aware of NA+ increase with free water increased Aware residual of over 500 ml from n/g Feeding held per protocol Abd soft without distension Bowel sounds present Receiving med for for constipation [place] with QS amts of urine CT to water seal NO air leak noted New open are on coccyx with blue areas that do not edie Wound care notified Reposit q2h
--- NOTE | 2022-11-08 12:00 | NUR ---
Temp starting to increase Dr. Dhillon aware Cooling measures applied Tube feeding restarted per protocal
--- NOTE | 2022-11-08 13:20 | NUR ---
Wound care nurses here and documentation done on coccyx wound Pic taken and wound care provided Orders received Repost q2h
--- NOTE | 2022-11-08 17:31 | NUR ---
Progress report given to DR. Truong Aware of temp coming down with Tylenol and cooling measures Pt more awake nodding head to questions Fio2 45 % sat 100 % oral care done with thick yellow secretions noted ET suctioned for thin clear sm amt Sm abrasion noted left lip
--- NOTE | 2022-11-08 18:50 | NUR ---
I have received report and assumed care of pt, pt resting in bed rise and fall of chest cavity equile and symmetrical, two chest tubes communicating into one atrium, no crepitus noted, no tracheal deviation noted, Pt opens eyes spontaneously, is not sedated and tolerating ventilator without any s/sx of distress
[2022-11-08] MEDS: tamsulosin 0.4mg capsule PO SCH (21:00)
[2022-11-08] MEDS: atorvastatin 20mg tablet OGT SCH (21:19)
[2022-11-08] MEDS: insulin glargine (Lantus) pen - multi-dose SQ SCH (21:33)
[2022-11-09] VITALS (42 sets, daily range): BP systolic 98–142; BP diastolic 45–68; PULSE 62–133; RESP 14–68; O2SAT 93–99
[2022-11-09] MEDS: insulin regular, human U-100 3ml vial - multi-dose SQ SCH ×4 (02:00→20:51)
[2022-11-09] MEDS: mineral oil/petrolatum ophthal oint EACHEYE SCH ×4 (02:01→20:48)
[2022-11-09 02:30] LABS: BASOPHILS % (AUTO) 0.3 % (0-1); EOSINOPHILS # (AUTO) 0.7 X10'3 (0-0.9); EOSINOPHILS % (AUTO) 6.8 % (0-6); HEMATOCRIT 25.8 % (42.0-52.0); HEMOGLOBIN 8.6 g/dl (14.0-17.9); LYMPHOCYTES # (AUTO) 0.9 X10'3 (1.1-4.8); LYMPHOCYTES % (AUTO) 9.2 % (21-51); MEAN CORPUSCULAR HEMOGLOBIN 29.8 PG (27.0-31.0); MEAN CORPUSCULAR HGB CONC 33.3 g/dL (33.0-36.5); MEAN CORPUSCULAR VOLUME 89.6 FL (78-98); MEAN PLATELET VOLUME 8.9 FL (7.4-10.4); MONOCYTES # (AUTO) 1.2 X10'3 (0-0.9); MONOCYTES % (AUTO) 11.5 % (2-12); NEUTROPHILS # (AUTO) 7.5 X10'3 (1.8-7.7); NEUTROPHILS % (AUTO) 72.2 % (42-75); PLATELET COUNT 249 X10'3 (140-440); RED BLOOD COUNT 2.88 X10'6 (4.70-6.10); RED CELL DISTRIBUTION WIDTH 14.9 % (11.5-14.5); WHITE BLOOD COUNT 10.4 X10'3 (4.5-11.0)
[2022-11-09 02:39] LABS: APTT 31 SECONDS (22-32); PROTHROMBIN TIME 10.7 SECONDS (9.0-12.0)
[2022-11-09 02:42] LABS: ALANINE AMINOTRANSFERASE 26 U/L (12-78); ALBUMIN 1.6 G/DL (3.4-5.0); ALBUMIN/GLOBULIN RATIO 0.4 (1.1-1.5); ALKALINE PHOSPHATASE 30 IU/L (46-116); ANION GAP 3 (8-16); ASPARTATE AMINO TRANSFERASE 33 U/L (10-37); BILIRUBIN,TOTAL 0.4 MG/DL (0.1-1.0); BLOOD UREA NITROGEN 22 MG/DL (7-18); BUN/CREATININE RATIO 25.3 (10.0-20.0); CALCIUM 8.6 MG/DL (8.5-10.1); CHLORIDE 112 MMOL/L (99-107); CREATININE 0.87 MG/DL (0.60-1.10); GLUCOSE 232 MG/DL (70-104); SODIUM 146 MMOL/L (135-145); TOTAL CARBON DIOXIDE 31.3 MMOL/L (24-32); TOTAL PROTEIN 5.4 G/DL (6.4-8.2); eCRCL 79 ML/MIN; eGFR 85 ML/MIN
[2022-11-09] MEDS: ipratropium/albuterol 3ml nebule NEB SCH ×4 (02:51→21:10)
[2022-11-09 03:11] LABS: ABG BASE EXCESS 3.5 mmol/L (-2.0-2.0); ABG HCO3 28.2 mmol/L (22.0-26.0); ABG OXYGEN SATURATION 90.4 % (94-97); ABG PCO2 (T) 44.7 mmHg (35.0-48.0); ABG PH (T) 7.421 (7.340-7.440); ABG PO2 (T) 56.5 mmHg (75.0-100.0); FCOHb 0.3 % (0.0-3.9); FHHb 9.5 % (0.0-5.0); FMetHb 0.3 % (0.0-1.5); FO2Hb 89.9 % (94-97); MODE VENT - SIMV; PATIENT TEMPERATURE 37.5; PEEP 8 cm H2O; RESPIRATORY RATE 12 b/min; TIDAL VOLUME 500 mL; TOTAL HEMOGLOBIN 9.6 G/dl (14.0-17.9)
--- NOTE | 2022-11-09 06:04 | NUR ---
report given to rec rn plan of care reviewed
--- NOTE | 2022-11-09 06:25 | NUR ---
Patient in room CICU 2012. I have received report from Jonathan ARTIS and had the opportunity to ask questions and assume patient care.
[2022-11-09] MEDS: pantoprazole 40MG/NS 100ML BAG 100 ML IV SCH (07:39)
[2022-11-09] MEDS: metoprolol tartrate 25mg tablet PO SCH ×2 (07:43→20:48)
[2022-11-09] MEDS: docusate sodium 100mg/10ml UD cup OGT SCH ×2 (07:43→20:48)
[2022-11-09] MEDS: guaiFENesin 200 MG/10 ML oral syrup UD cup OGT SCH ×2 (07:43→20:48)
[2022-11-09] MEDS: lisinopril 20mg tablet OGT SCH (07:43)
[2022-11-09] MEDS: polyethylene glycol 3350 17gm powd pack OGT SCH (07:43)
[2022-11-09] MEDS: multivitamins, therapeutics tablet PO SCH (07:44)
[2022-11-09] MEDS: CefTRIAXone 2gm/D5W 50ml BAG 50 ML IV SCH (07:44)
[2022-11-09] MEDS: folic acid 1mg tablet OGT SCH (07:44)
[2022-11-09] MEDS: gabapentin 100mg capsule OGT SCH ×3 (07:44→20:49)
[2022-11-09] MEDS: thiamine 100mg tablet OGT SCH (07:44)
--- NOTE | 2022-11-09 11:00 | NUR ---
Reassessment: Pt remains intubated and no longer sedated. Water flushes were increased to 250 mL Q4H per MD at [facility] 11/08. TF held 11/08 d/t GRV 550 mL, though pt appears to be tolerating TF now with GRV range 50-280 mL for the last 24 hours. Unfortunately TF was running at 80 mL/hr which was increased to RD recommended goal rate of 90 mL/hr this morning. LBM 10/29 per EMR, MD aware. Pt receiving routine Colace and started on routine Miralax 11/07 with one time MoM 11/07. 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 Pt already with increased protein needs r/t to intubation. No changes to TF recommendations warranted at this time. Will continue to follow closely and make recommendations as appropriate. Recommendations: 1) Continuous TF using Vital AF at 90 mL/hr goal to provide 2160 mL volume/day, 2592 kcal, 162 g protein, and 1752 mL water 2) Additional 250 mL water flush Q4H per MD; monitor serum Na 3) PALB q Friday/ 4) Daily scaled weights 5) Continue regular diet following extubation; A1c 6.1% with possibly no PMH DM, CHO controlled diet not indicated 6) Consider Ensure Enlive TIDWM to assist with meeting estimated nutrient needs following extubation 7) Continue routine Thiamine, Folic acid, and MVI for EtOH hx 8) Routine bowel care; utilize PRN bowel care; No BM x 11 days per [facility] Addendum: 11/09/22 at [address] Amended: Links added.
--- NOTE | 2022-11-09 12:40 | NUR ---
RN weaned down FIO2 to 35%, patient desat to 86%, also course lung sound noted,CXR worse today than yesterday,-Dr. Dhillon made aware, no new order at this time.On routine breathing treatment, we will monitor.
--- NOTE | 2022-11-09 15:00 | NUR ---
Patient to CT.
--- NOTE | 2022-11-09 15:22 | NUR ---
patient back in the room from ct.
--- NOTE | 2022-11-09 17:17 | NUR ---
Paged vascular for ultrasound.
--- NOTE | 2022-11-09 18:23 | NUR ---
Problems reprioritized. Patient report given, questions answered & plan of care reviewed with Veena ARTIS.
--- NOTE | 2022-11-09 18:30 | NUR ---
Patient in room CICU 2011. I have received report from Tolu ARTIS and had the opportunity to ask questions and assume patient care.
[2022-11-09] MEDS: normal saline 1000ml 1,000 ML IV SCH (18:39)
[2022-11-09] MEDS: atorvastatin 20mg tablet OGT SCH (20:48)
[2022-11-09] MEDS: tamsulosin 0.4mg capsule PO SCH (20:49)
[2022-11-09] MEDS: insulin glargine (Lantus) pen - multi-dose SQ SCH (20:52)
[2022-11-10] VITALS (43 sets, daily range): BP systolic 113–140; BP diastolic 52–84; PULSE 82–111; RESP 15–22; O2SAT 88–100
[2022-11-10] MEDS: mineral oil/petrolatum ophthal oint EACHEYE SCH ×4 (02:43→20:38)
[2022-11-10] MEDS: insulin regular, human U-100 3ml vial - multi-dose SQ SCH ×4 (02:48→20:44)
[2022-11-10 03:30] LABS: ABG BASE EXCESS 4.4 mmol/L (-2.0-2.0); ABG HCO3 28.9 mmol/L (22.0-26.0); ABG OXYGEN SATURATION 98.6 % (94-97); ABG PCO2 (T) 43.6 mmHg (35.0-48.0); ABG PO2 (T) 119.4 mmHg (75.0-100.0); FCOHb 0.3 % (0.0-3.9); FHHb 1.4 % (0.0-5.0); FMetHb 0.3 % (0.0-1.5); MODE VENT - SIMV; PATIENT TEMPERATURE 37.5; PEEP 8 cm H2O; RESPIRATORY RATE 12 b/min; TIDAL VOLUME 500 mL; TOTAL HEMOGLOBIN 9.5 G/dl (14.0-17.9)
[2022-11-10 04:11] LABS: BASOPHILS % (AUTO) 0.4 % (0-1); EOSINOPHILS # (AUTO) 0.6 X10'3 (0-0.9); EOSINOPHILS % (AUTO) 5.4 % (0-6); HEMATOCRIT 26.5 % (42.0-52.0); HEMOGLOBIN 8.7 g/dl (14.0-17.9); LYMPHOCYTES % (AUTO) 9.3 % (21-51); MEAN CORPUSCULAR HEMOGLOBIN 29.4 PG (27.0-31.0); MEAN CORPUSCULAR HGB CONC 32.7 g/dL (33.0-36.5); MEAN CORPUSCULAR VOLUME 89.8 FL (78-98); MEAN PLATELET VOLUME 9.6 FL (7.4-10.4); MONOCYTES # (AUTO) 1.5 X10'3 (0-0.9); MONOCYTES % (AUTO) 13.7 % (2-12); NEUTROPHILS # (AUTO) 7.7 X10'3 (1.8-7.7); NEUTROPHILS % (AUTO) 71.2 % (42-75); PLATELET COUNT 258 X10'3 (140-440); RED BLOOD COUNT 2.95 X10'6 (4.70-6.10); RED CELL DISTRIBUTION WIDTH 14.4 % (11.5-14.5); WHITE BLOOD COUNT 10.8 X10'3 (4.5-11.0)
[2022-11-10 04:15] LABS: APTT 30 SECONDS (22-32); PROTHROMBIN TIME 10.6 SECONDS (9.0-12.0)
[2022-11-10 04:19] LABS: ALANINE AMINOTRANSFERASE 25 U/L (12-78); ALBUMIN 1.6 G/DL (3.4-5.0); ALBUMIN/GLOBULIN RATIO 0.4 (1.1-1.5); ALKALINE PHOSPHATASE 35 IU/L (46-116); ANION GAP 2 (8-16); ASPARTATE AMINO TRANSFERASE 35 U/L (10-37); BILIRUBIN,TOTAL 0.4 MG/DL (0.1-1.0); BLOOD UREA NITROGEN 23 MG/DL (7-18); BUN/CREATININE RATIO 30.3 (10.0-20.0); CALCIUM 8.5 MG/DL (8.5-10.1); CHLORIDE 107 MMOL/L (99-107); CREATININE 0.76 MG/DL (0.60-1.10); GLUCOSE 239 MG/DL (70-104); POTASSIUM 4.4 MMOL/L (3.5-5.1); SODIUM 143 MMOL/L (135-145); TOTAL CARBON DIOXIDE 33.7 MMOL/L (24-32); TOTAL PROTEIN 5.3 G/DL (6.4-8.2); eCRCL 91 ML/MIN; eGFR > 90 ML/MIN
--- NOTE | 2022-11-10 06:27 | NUR ---
Problems reprioritized. Patient report given, questions answered & plan of care reviewed with Rosario ARTIS.
--- NOTE | 2022-11-10 07:04 | NUR ---
Patient in room CICU 2011. I have received report from Veena ARTIS and had the opportunity to ask questions and assume patient care.
[2022-11-10] MEDS: albuterol 2.5 MG/3 ML nebule NEB PRN ×2 (07:06→15:19)
--- NOTE | 2022-11-10 08:00 | NUR ---
Radiologist tech called and asked to have patients tube feed held, for 1200 abdominal ultrasound.
[2022-11-10] MEDS: CefTRIAXone 2gm/D5W 50ml BAG 50 ML IV SCH (08:17)
[2022-11-10] MEDS: pantoprazole 40MG/NS 100ML BAG 100 ML IV SCH (08:17)
[2022-11-10] MEDS: docusate sodium 100mg/10ml UD cup OGT SCH ×2 (08:18→20:39)
[2022-11-10] MEDS: guaiFENesin 200 MG/10 ML oral syrup UD cup OGT SCH ×2 (08:18→20:39)
[2022-11-10] MEDS: lisinopril 20mg tablet OGT SCH (08:21)
[2022-11-10] MEDS: folic acid 1mg tablet OGT SCH (08:21)
[2022-11-10] MEDS: multivitamins, therapeutics tablet PO SCH (08:21)
[2022-11-10] MEDS: metoprolol tartrate 25mg tablet PO SCH ×2 (08:21→20:39)
[2022-11-10] MEDS: thiamine 100mg tablet OGT SCH (08:21)
[2022-11-10] MEDS: polyethylene glycol 3350 17gm powd pack OGT SCH (08:22)
[2022-11-10] MEDS: gabapentin 100mg capsule OGT SCH ×3 (08:22→20:39)
--- NOTE | 2022-11-10 12:03 | NUR ---
DR Tomlinson by to round on patient, no new orders. Stated that he will keep the chest tube in until patient is extubated
--- NOTE | 2022-11-10 13:20 | NUR ---
Dr. Dhillon by to round on patient new orders Mucomyst @4h Duonebs Q4h Chest percussion Q4h
[2022-11-10] MEDS: normal saline 1000ml 1,000 ML IV SCH (13:46)
[2022-11-10] MEDS: acetylcysteine 200 MG/ml 4ml vial INH SCH ×3 (15:19→22:45)
[2022-11-10 15:40] LABS: ABG BASE EXCESS 5.8 mmol/L (-2.0-2.0); ABG HCO3 29.3 mmol/L (22.0-26.0); ABG OXYGEN SATURATION 86.3 % (94-97); ABG PCO2 (T) 38.2 mmHg (35.0-48.0); ABG PH (T) 7.503 (7.340-7.440); ABG PO2 (T) 45.6 mmHg (75.0-100.0); ALLEN'S TEST POSITIVE; FCOHb 0.3 % (0.0-3.9); FHHb 13.6 % (0.0-5.0); FMetHb 0.3 % (0.0-1.5); FO2Hb 85.8 % (94-97); MODE VENT - SIMV; PEEP 5 cm H2O; RESPIRATORY RATE 12 b/min; TIDAL VOLUME 500 mL; TOTAL HEMOGLOBIN 9.7 G/dl (14.0-17.9)
--- NOTE | 2022-11-10 15:57 | NUR ---
During patients 1500 turn, patient desated to 85% with no recovery, bloused fio2 to 100% patient recovered then desated again. Charge nurse bedside, primary RN and room service food service attendant evaluating chest tube, breath sounds and chest rise and fall Stat ABG and CXR ordered per protocol Dr. Dhillon called to inform him of changes, informed of CXR clear of no pneumo or chest tube movement ABG results read to MD ph 7.50 co2 38.2 po2 45.6 hco3 29.3 new orders medineb possible bronch tomorrow Called Dr. Tomlinson (covering for Dr. Truong) informed him of changes and Intensivists new orders, agreed with orders and will inform Dr. Truong during sign off
[2022-11-10] MEDS: ipratropium/albuterol 3ml nebule NEB SCH ×3 (16:00→22:45)
--- NOTE | 2022-11-10 18:08 | NUR ---
Problems reprioritized. Patient report given, questions answered & plan of care reviewed with Veena ARTIS.
--- NOTE | 2022-11-10 18:30 | NUR ---
Patient in room CICU 2011. I have received report from Rosario ARTIS and had the opportunity to ask questions and assume patient care.
[2022-11-10] MEDS: tamsulosin 0.4mg capsule PO SCH (20:39)
[2022-11-10] MEDS: atorvastatin 20mg tablet OGT SCH (20:39)
[2022-11-10] MEDS: insulin glargine (Lantus) pen - multi-dose SQ SCH (20:45)
[2022-11-11] VITALS (49 sets, daily range): BP systolic 12–133; BP diastolic 46–65; PULSE 82–107; RESP 17–27; O2SAT 97–100
[2022-11-11] MEDS: heparin, porcine 5000 units/ml vial SQ SCH ×3 (00:42→16:25)
[2022-11-11] MEDS: mineral oil/petrolatum ophthal oint EACHEYE SCH ×4 (02:24→20:34)
[2022-11-11] MEDS: insulin regular, human U-100 3ml vial - multi-dose SQ SCH ×4 (02:25→20:44)
[2022-11-11 02:50] LABS: BASOPHILS # (AUTO) 0.1 X10'3 (0-0.2); BASOPHILS % (AUTO) 0.7 % (0-1); EOSINOPHILS # (AUTO) 0.5 X10'3 (0-0.9); EOSINOPHILS % (AUTO) 5.1 % (0-6); HEMATOCRIT 25.4 % (42.0-52.0); HEMOGLOBIN 8.2 g/dl (14.0-17.9); LYMPHOCYTES # (AUTO) 1.2 X10'3 (1.1-4.8); LYMPHOCYTES % (AUTO) 11.3 % (21-51); MEAN CORPUSCULAR HEMOGLOBIN 28.9 PG (27.0-31.0); MEAN CORPUSCULAR HGB CONC 32.3 g/dL (33.0-36.5); MEAN CORPUSCULAR VOLUME 89.4 FL (78-98); MEAN PLATELET VOLUME 9.4 FL (7.4-10.4); MONOCYTES # (AUTO) 1.4 X10'3 (0-0.9); MONOCYTES % (AUTO) 13.1 % (2-12); NEUTROPHILS # (AUTO) 7.5 X10'3 (1.8-7.7); NEUTROPHILS % (AUTO) 69.8 % (42-75); PLATELET COUNT 270 X10'3 (140-440); RED BLOOD COUNT 2.84 X10'6 (4.70-6.10); RED CELL DISTRIBUTION WIDTH 14.4 % (11.5-14.5); WHITE BLOOD COUNT 10.7 X10'3 (4.5-11.0)
[2022-11-11 03:01] LABS: APTT 30 SECONDS (22-32)
[2022-11-11 03:03] LABS: ALANINE AMINOTRANSFERASE 34 U/L (12-78); ALBUMIN 1.5 G/DL (3.4-5.0); ALBUMIN/GLOBULIN RATIO 0.4 (1.1-1.5); ALKALINE PHOSPHATASE 32 IU/L (46-116); ANION GAP 1 (8-16); ASPARTATE AMINO TRANSFERASE 42 U/L (10-37); BILIRUBIN,TOTAL 0.4 MG/DL (0.1-1.0); BLOOD UREA NITROGEN 20 MG/DL (7-18); BUN/CREATININE RATIO 25.3 (10.0-20.0); CALCIUM 8.3 MG/DL (8.5-10.1); CHLORIDE 104 MMOL/L (99-107); CREATININE 0.79 MG/DL (0.60-1.10); GLUCOSE 196 MG/DL (70-104); POTASSIUM 4.4 MMOL/L (3.5-5.1); SODIUM 139 MMOL/L (135-145); TOTAL CARBON DIOXIDE 33.8 MMOL/L (24-32); TOTAL PROTEIN 5.3 G/DL (6.4-8.2); eCRCL 87 ML/MIN; eGFR > 90 ML/MIN
[2022-11-11 03:08] LABS: ABG BASE EXCESS 4.2 mmol/L (-2.0-2.0); ABG HCO3 28.4 mmol/L (22.0-26.0); ABG OXYGEN SATURATION 96.9 % (94-97); ABG PCO2 (T) 41.9 mmHg (35.0-48.0); ABG PH (T) 7.451 (7.340-7.440); ABG PO2 (T) 88.3 mmHg (75.0-100.0); ALLEN'S TEST Modified; FCOHb 0.3 % (0.0-3.9); FHHb 3.1 % (0.0-5.0); FMetHb 0.3 % (0.0-1.5); FO2Hb 96.3 % (94-97); MODE VENT - SIMV; PATIENT TEMPERATURE 37.6; PEEP 5 cm H2O; RESPIRATORY RATE 12 b/min; TIDAL VOLUME 500 mL; TOTAL HEMOGLOBIN 9.3 G/dl (14.0-17.9)
[2022-11-11] MEDS: ipratropium/albuterol 3ml nebule NEB SCH ×6 (03:12→23:17)
[2022-11-11] MEDS: acetylcysteine 200 MG/ml 4ml vial INH SCH ×6 (03:13→23:17)
[2022-11-11 03:38] LABS: PROTHROMBIN TIME 10.9 SECONDS (9.0-12.0)
[2022-11-11] MEDS: normal saline 1000ml 1,000 ML IV SCH (03:46)
--- NOTE | 2022-11-11 06:00 | NUR ---
Patient in room CICU 2011. I have received report from Veena ARTIS and had the opportunity to ask questions and assume patient care.
--- NOTE | 2022-11-11 06:32 | NUR ---
Problems reprioritized. Patient report given, questions answered & plan of care reviewed with Jada ARTIS.
[2022-11-11] MEDS: CefTRIAXone 2gm/D5W 50ml BAG 50 ML IV SCH (07:16)
[2022-11-11] MEDS: pantoprazole 40MG/NS 100ML BAG 100 ML IV SCH (07:16)
[2022-11-11] MEDS: docusate sodium 100mg/10ml UD cup OGT SCH ×2 (07:17→20:31)
[2022-11-11] MEDS: polyethylene glycol 3350 17gm powd pack OGT SCH (07:17)
[2022-11-11] MEDS: guaiFENesin 200 MG/10 ML oral syrup UD cup OGT SCH ×2 (07:17→20:29)
[2022-11-11] MEDS: thiamine 100mg tablet OGT SCH (07:18)
[2022-11-11] MEDS: multivitamins, therapeutics tablet PO SCH (07:18)
[2022-11-11] MEDS: metoprolol tartrate 25mg tablet PO SCH ×2 (07:19→20:34)
[2022-11-11] MEDS: folic acid 1mg tablet OGT SCH (07:19)
[2022-11-11] MEDS: gabapentin 100mg capsule OGT SCH ×3 (07:20→20:32)
[2022-11-11] MEDS: lisinopril 20mg tablet OGT SCH (07:20)
[2022-11-11] MEDS: lactulose 20gm/30ml cup OGT SCH ×2 (10:39→20:30)
--- NOTE | 2022-11-11 18:11 | NUR ---
Problems reprioritized. Patient report given, questions answered & plan of care reviewed with Yuly ARTIS.
--- NOTE | 2022-11-11 18:11 | NUR ---
Patient in room CICU 2011. I have received report from Jada ARTIS and had the opportunity to ask questions and assume patient care.
[2022-11-11] MEDS: atorvastatin 20mg tablet OGT SCH (20:33)
[2022-11-11] MEDS: insulin glargine (Lantus) pen - multi-dose SQ SCH (20:45)
[2022-11-11] MEDS: tamsulosin 0.4mg capsule PO SCH (21:00)
[2022-11-12] VITALS (47 sets, daily range): BP systolic 94–137; BP diastolic 38–63; PULSE 81–96; RESP 12–25; O2SAT 91–99
[2022-11-12] MEDS: heparin, porcine 5000 units/ml vial SQ SCH ×3 (00:09→16:00)
[2022-11-12] MEDS: insulin regular, human U-100 3ml vial - multi-dose SQ SCH ×4 (02:17→20:38)
[2022-11-12 02:29] LABS: BASOPHILS # (AUTO) 0.1 X10'3 (0-0.2); BASOPHILS % (AUTO) 0.4 % (0-1); EOSINOPHILS # (AUTO) 0.6 X10'3 (0-0.9); EOSINOPHILS % (AUTO) 5.2 % (0-6); HEMATOCRIT 25.9 % (42.0-52.0); HEMOGLOBIN 8.3 g/dl (14.0-17.9); LYMPHOCYTES # (AUTO) 1.6 X10'3 (1.1-4.8); LYMPHOCYTES % (AUTO) 13.4 % (21-51); MEAN CORPUSCULAR HEMOGLOBIN 28.7 PG (27.0-31.0); MEAN CORPUSCULAR HGB CONC 32.2 g/dL (33.0-36.5); MEAN CORPUSCULAR VOLUME 89.3 FL (78-98); MEAN PLATELET VOLUME 9.9 FL (7.4-10.4); MONOCYTES # (AUTO) 1.5 X10'3 (0-0.9); NEUTROPHILS # (AUTO) 8.4 X10'3 (1.8-7.7); PLATELET COUNT 310 X10'3 (140-440); RED CELL DISTRIBUTION WIDTH 14.4 % (11.5-14.5); WHITE BLOOD COUNT 12.2 X10'3 (4.5-11.0)
[2022-11-12] MEDS: mineral oil/petrolatum ophthal oint EACHEYE SCH ×4 (02:37→20:17)
[2022-11-12 02:40] LABS: ALANINE AMINOTRANSFERASE 40 U/L (12-78); ALBUMIN 1.6 G/DL (3.4-5.0); ALBUMIN/GLOBULIN RATIO 0.4 (1.1-1.5); ALKALINE PHOSPHATASE 36 IU/L (46-116); ANION GAP 1 (8-16); ASPARTATE AMINO TRANSFERASE 50 U/L (10-37); BILIRUBIN,TOTAL 0.4 MG/DL (0.1-1.0); BLOOD UREA NITROGEN 19 MG/DL (7-18); BUN/CREATININE RATIO 22.9 (10.0-20.0); CALCIUM 8.5 MG/DL (8.5-10.1); CHLORIDE 102 MMOL/L (99-107); CREATININE 0.83 MG/DL (0.60-1.10); GLUCOSE 221 MG/DL (70-104); PHOSPHORUS 3.9 MG/DL (2.3-4.5); POTASSIUM 4.6 MMOL/L (3.5-5.1); SODIUM 136 MMOL/L (135-145); TOTAL CARBON DIOXIDE 33.4 MMOL/L (24-32); TOTAL PROTEIN 5.7 G/DL (6.4-8.2); eCRCL 83 ML/MIN; eGFR 90 ML/MIN
[2022-11-12 02:55] LABS: ABG BASE EXCESS 5.2 mmol/L (-2.0-2.0); ABG HCO3 29.4 mmol/L (22.0-26.0); ABG PCO2 (T) 43.6 mmHg (35.0-48.0); ABG PO2 (T) 81.9 mmHg (75.0-100.0); ALLEN'S TEST POSITIVE; FCOHb 0.3 % (0.0-3.9); FMetHb 0.3 % (0.0-1.5); FO2Hb 95.4 % (94-97); MODE VENT - CPAP; PATIENT TEMPERATURE 37.9; PEEP 5 cm H2O; TOTAL HEMOGLOBIN 9.4 G/dl (14.0-17.9)
[2022-11-12] MEDS: ipratropium/albuterol 3ml nebule NEB SCH ×6 (02:57→22:54)
[2022-11-12] MEDS: acetylcysteine 200 MG/ml 4ml vial INH SCH ×6 (02:57→22:54)
[2022-11-12 03:12] LABS: GIANT PLATELET FEW; LARGE PLATELETS FEW; PLATELET ESTIMATE NORMAL
[2022-11-12 03:13] LABS: ANISOCYTOSIS FEW
--- NOTE | 2022-11-12 06:17 | NUR ---
Problems reprioritized. Patient report given, questions answered & plan of care reviewed with Rosario Infante RN.
--- NOTE | 2022-11-12 07:20 | NUR ---
Patient in room CICU 2011. I have received report from Yuly ARTIS and had the opportunity to ask questions and assume patient care.
[2022-11-12] MEDS: normal saline 1000ml 1,000 ML IV SCH (07:24)
[2022-11-12] MEDS: CefTRIAXone 2gm/D5W 50ml BAG 50 ML IV SCH (08:00)
[2022-11-12] MEDS: pantoprazole 40MG/NS 100ML BAG 100 ML IV SCH (08:29)
[2022-11-12] MEDS: docusate sodium 100mg/10ml UD cup OGT SCH ×2 (08:31→20:16)
[2022-11-12] MEDS: guaiFENesin 200 MG/10 ML oral syrup UD cup OGT SCH ×2 (08:31→20:00)
[2022-11-12] MEDS: polyethylene glycol 3350 17gm powd pack OGT SCH (08:31)
[2022-11-12] MEDS: lactulose 20gm/30ml cup OGT SCH ×2 (08:31→20:00)
[2022-11-12] MEDS: thiamine 100mg tablet OGT SCH (08:32)
[2022-11-12] MEDS: lisinopril 20mg tablet OGT SCH (08:32)
[2022-11-12] MEDS: metoprolol tartrate 25mg tablet PO SCH ×2 (08:32→20:00)
[2022-11-12] MEDS: multivitamins, therapeutics tablet PO SCH (08:32)
[2022-11-12] MEDS: gabapentin 100mg capsule OGT SCH ×3 (08:32→20:16)
[2022-11-12] MEDS: folic acid 1mg tablet OGT SCH (08:33)
--- NOTE | 2022-11-12 09:00 | NUR ---
Dr. Truong bedside to preform bronchoscopy and chest tube removal, telephone consent with daughter Juan David Montesinos
[2022-11-12] MEDS ORDERED: morphine 4 MG/ML inj SYRINge IV ONE (09:20)
--- NOTE | 2022-11-12 11:46 | NUR ---
Reassessment: Pt remains intubated and tolerating TF at goal rate with GRV WNL. Per CM at [facility] patient's family reports pt would not want a trach and PEG. Pt having a lot of secretions per RN at [facility]. LBM 11/11 x 2 per I&O. Pt receiving multiple routine bowel care medications d/t previously being constipated with no BM for 12 days. No changes to nutrition recommendations at this time. Will continue to follow closely. Recommendations: 1) Continuous TF using Vital AF at 90 mL/hr goal to provide 2160 mL total volume/day, 2592 kcal, 162 g protein, and 1752 mL water 2) Additional 250 mL water flush Q4H per MD; monitor serum Na 3) PALB q Friday/ 4) Daily scaled weights 5) Continue regular diet following extubation; A1c 6.1% with possibly no PMH DM, CHO controlled diet not indicated; Ensure Enlive TIDWM with diet advancement 6) Continue routine Thiamine, Folic acid, and MVI for EtOH hx and wound healing needs 7) Routine bowel care; utilize PRN bowel care; previously no BM x 12 days per EMR Addendum: 11/12/22 at [address] Amended: Links added.
--- NOTE | 2022-11-12 16:21 | NUR ---
PRESSURE ULCER EDUCATION: DEFINITION: A pressure ulcer is an area of skin that breaks down when you stay in one position too long. The constant pressure against the skin reduces the blood flow to that area and the affected tissue dies. CAUSES: "Being bedridden or in a wheelchair "Fragile skin "Having a chronic condition, such as diabetes or vascular disease "Inability to move certain parts of your body without assistance "Older age "Incontinence of urine or stool SYMPTOMS: "A reddened area that DOES NOT turn white when pressed on - this can be the beginning of a pressure ulcer "A blister, deep sore or a crater - these can be advanced pressure ulcers FIRST AID: "Relieve the pressure on this area "Keep the area clean and dry "Call your primary doctor if you see any of the above symptoms "DO NOT massage the area "DO NOT use a donut shaped or ring shaped pillow- these actually interfere with the blood flow and cause complications PREVENTION: "Check for pressure ulcers everyday "Change position at least every two hours to relieve pressure "Use items that help relieve pressure- pillows, sheepskin, foam padding, and powders. "Keep skin clean and dry "Eat healthy well balanced meals "Exercise daily IF YOU SEE ANY OF THESE SYMPTOMS WHILE IN THE HOSPITAL - TELL YOUR NURSE IMMEDIATELY. IF YOU SEE ANY OF THESE SYMPTOMS WHILE AT HOME OR HAVE ANY QUESTIONS OR CONCERNS ABOUT PRESSURE ULCERS - CALL YOUR PRIMARY DOCTOR IMMEDIATELY. Addendum: 11/12/22 at 1621 by Keely Hernández RN Amended: Links added.
--- NOTE | 2022-11-12 18:33 | NUR ---
I have received report and assumed care of pt. Pt resting in bed rise and fall of chest cavity equile and symmetrical. no crepitus noted no tracheal deviation noted. Pt not sedated on mechanical ventilator, no distress noted. Side to side turning to maintain skin integrity.
[2022-11-12] MEDS: atorvastatin 20mg tablet OGT SCH (20:16)
[2022-11-12] MEDS: tamsulosin 0.4mg capsule PO SCH (20:17)
[2022-11-12] MEDS: insulin glargine (Lantus) pen - multi-dose SQ SCH (20:39)
--- NOTE | 2022-11-12 21:30 | NUR ---
hs cares complete pt tolerated well, pt more awake, nodding head to yes no questions, attempts to assist in turning.
[2022-11-13] VITALS (48 sets, daily range): BP systolic 97–122; BP diastolic 45–148; PULSE 78–99; RESP 14–29; O2SAT 94–99
[2022-11-13] MEDS: heparin, porcine 5000 units/ml vial SQ SCH ×3 (00:35→16:49)
[2022-11-13] MEDS: insulin regular, human U-100 3ml vial - multi-dose SQ SCH ×4 (02:12→21:08)
[2022-11-13] MEDS: mineral oil/petrolatum ophthal oint EACHEYE SCH ×4 (02:13→19:37)
[2022-11-13] MEDS: normal saline 1000ml 1,000 ML IV SCH ×2 (02:39→22:39)
[2022-11-13 03:31] LABS: ABG HCO3 30.3 mmol/L (22.0-26.0); ABG OXYGEN SATURATION 97.9 % (94-97); ABG PCO2 (T) 44.1 mmHg (35.0-48.0); ABG PH (T) 7.457 (7.340-7.440); FCOHb 0.3 % (0.0-3.9); FHHb 2.1 % (0.0-5.0); FMetHb 0.3 % (0.0-1.5); FO2Hb 97.3 % (94-97); MODE VENT - CPAP; PATIENT TEMPERATURE 37.6; TOTAL HEMOGLOBIN 8.9 G/dl (14.0-17.9)
--- NOTE | 2022-11-13 06:08 | NUR ---
report given to receiving rn plan of care reviewed
--- NOTE | 2022-11-13 06:11 | NUR ---
Patient in room CICU 2012. I have received report from Jonathan ARTIS and had the opportunity to ask questions and assume patient care.
[2022-11-13 06:39] LABS: BASOPHILS % (AUTO) 0.3 % (0-1); EOSINOPHILS # (AUTO) 0.5 X10'3 (0-0.9); EOSINOPHILS % (AUTO) 3.6 % (0-6); HEMATOCRIT 25.2 % (42.0-52.0); HEMOGLOBIN 8.3 g/dl (14.0-17.9); LYMPHOCYTES # (AUTO) 1.4 X10'3 (1.1-4.8); LYMPHOCYTES % (AUTO) 10.9 % (21-51); MEAN CORPUSCULAR HEMOGLOBIN 29.6 PG (27.0-31.0); MEAN CORPUSCULAR HGB CONC 33.1 g/dL (33.0-36.5); MEAN CORPUSCULAR VOLUME 89.5 FL (78-98); MEAN PLATELET VOLUME 10.2 FL (7.4-10.4); MONOCYTES # (AUTO) 1.4 X10'3 (0-0.9); MONOCYTES % (AUTO) 10.7 % (2-12); NEUTROPHILS # (AUTO) 9.6 X10'3 (1.8-7.7); NEUTROPHILS % (AUTO) 74.5 % (42-75); PLATELET COUNT 266 X10'3 (140-440); RED BLOOD COUNT 2.81 X10'6 (4.70-6.10); RED CELL DISTRIBUTION WIDTH 14.2 % (11.5-14.5); WHITE BLOOD COUNT 12.8 X10'3 (4.5-11.0)
[2022-11-13 06:41] LABS: ALANINE AMINOTRANSFERASE 41 U/L (12-78); ALBUMIN 1.5 G/DL (3.4-5.0); ALBUMIN/GLOBULIN RATIO 0.4 (1.1-1.5); ALKALINE PHOSPHATASE 34 IU/L (46-116); ANION GAP 4 (8-16); ASPARTATE AMINO TRANSFERASE 43 U/L (10-37); BILIRUBIN,TOTAL 0.3 MG/DL (0.1-1.0); BLOOD UREA NITROGEN 21 MG/DL (7-18); BUN/CREATININE RATIO 27.6 (10.0-20.0); CALCIUM 8.8 MG/DL (8.5-10.1); CHLORIDE 103 MMOL/L (99-107); CREATININE 0.76 MG/DL (0.60-1.10); GLUCOSE 140 MG/DL (70-104); MAGNESIUM 2.2 MG/DL (1.5-2.4); PHOSPHORUS 3.9 MG/DL (2.3-4.5); POTASSIUM 4.3 MMOL/L (3.5-5.1); SODIUM 137 MMOL/L (135-145); TOTAL CARBON DIOXIDE 30.3 MMOL/L (24-32); TOTAL PROTEIN 5.7 G/DL (6.4-8.2); eCRCL 91 ML/MIN; eGFR > 90 ML/MIN
[2022-11-13] MEDS: ipratropium/albuterol 3ml nebule NEB SCH ×5 (07:20→23:01)
[2022-11-13] MEDS: acetylcysteine 200 MG/ml 4ml vial INH SCH ×5 (07:20→23:01)
[2022-11-13] MEDS: lactulose 20gm/30ml cup OGT SCH (08:30)
[2022-11-13] MEDS: thiamine 100mg tablet OGT SCH (08:32)
[2022-11-13] MEDS: docusate sodium 100mg/10ml UD cup OGT SCH ×2 (08:32→19:37)
[2022-11-13] MEDS: lisinopril 20mg tablet OGT SCH (08:32)
[2022-11-13] MEDS: multivitamins, therapeutics tablet PO SCH (08:32)
[2022-11-13] MEDS: gabapentin 100mg capsule OGT SCH (08:32)
[2022-11-13] MEDS: folic acid 1mg tablet OGT SCH (08:32)
[2022-11-13] MEDS: metoprolol tartrate 25mg tablet PO SCH ×2 (08:33→19:36)
[2022-11-13] MEDS: polyethylene glycol 3350 17gm powd pack OGT SCH (08:33)
[2022-11-13] MEDS: pantoprazole 40MG/NS 100ML BAG 100 ML IV SCH (08:34)
[2022-11-13] MEDS: CefTRIAXone 2gm/D5W 50ml BAG 50 ML IV SCH (08:35)
[2022-11-13] MEDS: guaiFENesin 200 MG/10 ML oral syrup UD cup OGT SCH ×3 (08:42→20:00)
[2022-11-13] MEDS ORDERED: lactulose 20gm/30ml cup OGT SCH (10:25)
[2022-11-13] MEDS: atorvastatin 20mg tablet OGT SCH (19:36)
[2022-11-13] MEDS: acetaminophen 325mg/10.15ml oral unit dose solution OGT PRN (19:37)
[2022-11-13] MEDS: tamsulosin 0.4mg capsule PO SCH (19:38)
[2022-11-13] MEDS: insulin glargine (Lantus) pen - multi-dose SQ SCH (21:06)
[2022-11-14] VITALS (42 sets, daily range): BP systolic 85–171; BP diastolic 39–79; PULSE 71–134; RESP 15–32; O2SAT 93–99
[2022-11-14] MEDS: mineral oil/petrolatum ophthal oint EACHEYE SCH ×3 (02:00→14:00)
[2022-11-14] MEDS: heparin, porcine 5000 units/ml vial SQ SCH ×3 (02:08→15:28)
[2022-11-14] MEDS: insulin regular, human U-100 3ml vial - multi-dose SQ SCH ×2 (02:12→07:35)
[2022-11-14 03:20] LABS: ABG BASE EXCESS 6.9 mmol/L (-2.0-2.0); ABG HCO3 31.2 mmol/L (22.0-26.0); ABG OXYGEN SATURATION 97.5 % (94-97); ABG PCO2 (T) 41.6 mmHg (35.0-48.0); ABG PH (T) 7.489 (7.340-7.440); ABG PO2 (T) 87.5 mmHg (75.0-100.0); ALLEN'S TEST POSITIVE; FCOHb 0.3 % (0.0-3.9); FHHb 2.5 % (0.0-5.0); FMetHb 0.3 % (0.0-1.5); FO2Hb 96.9 % (94-97); MODE VENT - CPAP; PATIENT TEMPERATURE 35.9; PEEP 5 cm H2O; TOTAL HEMOGLOBIN 8.9 G/dl (14.0-17.9)
[2022-11-14] MEDS: acetylcysteine 200 MG/ml 4ml vial INH SCH ×4 (03:23→14:24)
[2022-11-14] MEDS: ipratropium/albuterol 3ml nebule NEB SCH ×6 (03:23→23:02)
[2022-11-14 06:11] LABS: BASOPHILS # (AUTO) 0.1 X10'3 (0-0.2); BASOPHILS % (AUTO) 0.5 % (0-1); EOSINOPHILS # (AUTO) 0.6 X10'3 (0-0.9); EOSINOPHILS % (AUTO) 4.8 % (0-6); HEMATOCRIT 27.6 % (42.0-52.0); HEMOGLOBIN 8.9 g/dl (14.0-17.9); LYMPHOCYTES # (AUTO) 1.5 X10'3 (1.1-4.8); LYMPHOCYTES % (AUTO) 12.1 % (21-51); MEAN CORPUSCULAR HEMOGLOBIN 28.9 PG (27.0-31.0); MEAN CORPUSCULAR HGB CONC 32.3 g/dL (33.0-36.5); MEAN CORPUSCULAR VOLUME 89.5 FL (78-98); MEAN PLATELET VOLUME 10.2 FL (7.4-10.4); MONOCYTES # (AUTO) 1.4 X10'3 (0-0.9); MONOCYTES % (AUTO) 11.2 % (2-12); NEUTROPHILS # (AUTO) 8.9 X10'3 (1.8-7.7); NEUTROPHILS % (AUTO) 71.4 % (42-75); PLATELET COUNT 348 X10'3 (140-440); RED BLOOD COUNT 3.08 X10'6 (4.70-6.10); RED CELL DISTRIBUTION WIDTH 14.5 % (11.5-14.5); WHITE BLOOD COUNT 12.5 X10'3 (4.5-11.0)
[2022-11-14 06:22] LABS: ALANINE AMINOTRANSFERASE 48 U/L (12-78); ALBUMIN 1.6 G/DL (3.4-5.0); ALBUMIN/GLOBULIN RATIO 0.4 (1.1-1.5); ALKALINE PHOSPHATASE 38 IU/L (46-116); ANION GAP 4 (8-16); ASPARTATE AMINO TRANSFERASE 43 U/L (10-37); BILIRUBIN,TOTAL 0.3 MG/DL (0.1-1.0); BLOOD UREA NITROGEN 20 MG/DL (7-18); BUN/CREATININE RATIO 26.7 (10.0-20.0); CALCIUM 8.5 MG/DL (8.5-10.1); CHLORIDE 106 MMOL/L (99-107); CREATININE 0.75 MG/DL (0.60-1.10); GLUCOSE 160 MG/DL (70-104); MAGNESIUM 2.1 MG/DL (1.5-2.4); PHOSPHORUS 3.8 MG/DL (2.3-4.5); POTASSIUM 4.5 MMOL/L (3.5-5.1); SODIUM 139 MMOL/L (135-145); TOTAL CARBON DIOXIDE 29.3 MMOL/L (24-32); TOTAL PROTEIN 5.9 G/DL (6.4-8.2); eCRCL 92 ML/MIN; eGFR > 90 ML/MIN
[2022-11-14] MEDS: docusate sodium 100mg/10ml UD cup OGT SCH (06:50)
[2022-11-14] MEDS: polyethylene glycol 3350 17gm powd pack OGT SCH (06:51)
[2022-11-14] MEDS: CefTRIAXone 2gm/D5W 50ml BAG 50 ML IV SCH (07:25)
[2022-11-14] MEDS: guaiFENesin 200 MG/10 ML oral syrup UD cup OGT SCH ×2 (07:27→19:40)
[2022-11-14] MEDS: multivitamins, therapeutics tablet PO SCH (07:30)
[2022-11-14] MEDS: thiamine 100mg tablet OGT SCH (07:30)
[2022-11-14] MEDS: metoprolol tartrate 25mg tablet PO SCH ×2 (07:30→19:40)
[2022-11-14] MEDS: folic acid 1mg tablet OGT SCH (07:30)
[2022-11-14] MEDS: lisinopril 20mg tablet OGT SCH (08:00)
--- NOTE | 2022-11-14 08:00 | NUR ---
Patient's blood sugar 95 and A1C 5.2; discussed with David MUKHERJEE about holding Insulin for the time being. Continue to check and restart protocol if needed. Addendum: 11/15/22 at 0636 by Alverto Cornell RN Wrong patient; please disregard note.
[2022-11-14] MEDS: pantoprazole 40MG/NS 100ML BAG 100 ML IV SCH (08:14)
--- NOTE | 2022-11-14 12:08 | NUR ---
Extubation Pt extubated by RT @ 1200. Tolerated well, placed on 4 L N/C, sats at 96-97, pt cough weak but improving, able to suction himself. OG removed with ETT.
--- NOTE | 2022-11-14 18:15 | NUR ---
Problems reprioritized. Patient report given, questions answered & plan of care reviewed with Tato ARTIS.
[2022-11-14] MEDS: haloperidol lactate 5mg/ml inj IM PRN (18:36)
[2022-11-14] MEDS: normal saline 1000ml 1,000 ML IV SCH (18:39)
--- NOTE | 2022-11-14 18:45 | NUR ---
Got report from Alverto ARTIS.
--- NOTE | 2022-11-14 19:09 | NUR ---
Pt has confusion and is pulling at FC and rectal tube, had to re-restrain, MD notified and will put in orders for that. We attempted to get an NGT in him as his swallow is extremely weak and wet sounding, sadly myself and the charge histotechnologist were unable to accomplish this and just caused a bit of trauma to the patient. notified, OK to hold all PO meds t/o the night and OK to start precedex drip for the night, let AM team decide if they want to keep it on. Addendum: 11/14/22 at 2112 by Rolan Bowser RN Error this was entered on the wrong patient. Please disregard this note. Addendum: 11/14/22 at 2113 by Rolan Bowser RN This was actually the right patient, disregard the addendum entered at 2112, my apologies for the confusion.
[2022-11-14] MEDS ORDERED: dexmedetomidine inj. 400 MCG in normal saline 100ml IV soln 100 ML IV SCH (19:15)
[2022-11-14] MEDS: dexmedetomidine inj. 400 MCG in normal saline 100ml IV soln 96 ML IV SCH (19:35)
[2022-11-14] MEDS: atorvastatin 20mg tablet OGT SCH (19:40)
[2022-11-14] MEDS: tamsulosin 0.4mg capsule PO SCH (19:40)
--- NOTE | 2022-11-14 20:00 | NUR ---
restraints removed after precedex started.
[2022-11-14] MEDS: insulin glargine (Lantus) pen - multi-dose SQ SCH (20:01)
[2022-11-15] VITALS (36 sets, daily range): BP systolic 94–136; BP diastolic 46–74; PULSE 64–102; RESP 14–24; O2SAT 85–98
[2022-11-15] MEDS: heparin, porcine 5000 units/ml vial SQ SCH ×4 (00:19→23:33)
[2022-11-15] MEDS: dexmedetomidine inj. 400 MCG in normal saline 100ml IV soln 96 ML IV SCH (01:15)
--- NOTE | 2022-11-15 01:57 | NUR ---
Some Sediment/old blood clot noted in FC, flushed with 20ml NS. had about 300ml out after that.
--- NOTE | 2022-11-15 03:00 | NUR ---
Tele ICU rounds done with Dr. Rodríguez. Reviewed all care/therapies/labs/assessments t/o the night. No changes in plan for now.
[2022-11-15] MEDS: ipratropium/albuterol 3ml nebule NEB SCH ×6 (03:31→23:04)
--- NOTE | 2022-11-15 06:00 | NUR ---
Report given to Faina. All questions answered.
--- NOTE | 2022-11-15 06:11 | NUR ---
Patient in room CICU 2011. I have received report from Tato ARTIS and had the opportunity to ask questions and assume patient care.
[2022-11-15] MEDS: pantoprazole 40MG/NS 100ML BAG 100 ML IV SCH (07:22)
[2022-11-15] MEDS: CefTRIAXone 2gm/D5W 50ml BAG 50 ML IV SCH (07:22)
[2022-11-15 07:27] LABS: BASOPHILS # (AUTO) 0.1 X10'3 (0-0.2); BASOPHILS % (AUTO) 0.8 % (0-1); EOSINOPHILS # (AUTO) 0.5 X10'3 (0-0.9); EOSINOPHILS % (AUTO) 4.7 % (0-6); HEMATOCRIT 28.1 % (42.0-52.0); HEMOGLOBIN 9.1 g/dl (14.0-17.9); LYMPHOCYTES # (AUTO) 1.7 X10'3 (1.1-4.8); LYMPHOCYTES % (AUTO) 15.2 % (21-51); MEAN CORPUSCULAR HEMOGLOBIN 28.9 PG (27.0-31.0); MEAN CORPUSCULAR HGB CONC 32.3 g/dL (33.0-36.5); MEAN CORPUSCULAR VOLUME 89.5 FL (78-98); MEAN PLATELET VOLUME 10.7 FL (7.4-10.4); MONOCYTES # (AUTO) 1.3 X10'3 (0-0.9); MONOCYTES % (AUTO) 11.4 % (2-12); NEUTROPHILS # (AUTO) 7.6 X10'3 (1.8-7.7); NEUTROPHILS % (AUTO) 67.9 % (42-75); PLATELET COUNT 359 X10'3 (140-440); RED BLOOD COUNT 3.14 X10'6 (4.70-6.10); RED CELL DISTRIBUTION WIDTH 14.4 % (11.5-14.5); WHITE BLOOD COUNT 11.1 X10'3 (4.5-11.0)
[2022-11-15] MEDS: folic acid 1mg tablet OGT SCH (07:35)
[2022-11-15] MEDS: lisinopril 20mg tablet OGT SCH (07:35)
[2022-11-15] MEDS: thiamine 100mg tablet OGT SCH (07:35)
[2022-11-15] MEDS: multivitamins, therapeutics tablet PO SCH (07:36)
[2022-11-15] MEDS: metoprolol tartrate 25mg tablet PO SCH ×2 (07:36→19:36)
[2022-11-15] MEDS: guaiFENesin 200 MG/10 ML oral syrup UD cup OGT SCH ×2 (07:37→19:36)
[2022-11-15 07:50] LABS: ALBUMIN 1.9 G/DL (3.4-5.0); ANION GAP 6 (8-16); BLOOD UREA NITROGEN 21 MG/DL (7-18); BUN/CREATININE RATIO 24.7 (10.0-20.0); CHLORIDE 106 MMOL/L (99-107); CREATININE 0.85 MG/DL (0.60-1.10); GLUCOSE 141 MG/DL (70-104); PHOSPHORUS 4.4 MG/DL (2.3-4.5); POTASSIUM 4.4 MMOL/L (3.5-5.1); SODIUM 140 MMOL/L (135-145); TOTAL CARBON DIOXIDE 27.9 MMOL/L (24-32); eCRCL 81 ML/MIN; eGFR 87 ML/MIN
--- NOTE | 2022-11-15 08:04 | NUR ---
PRESSURE ULCER EDUCATION: DEFINITION: A pressure ulcer is an area of skin that breaks down when you stay in one position too long. The constant pressure against the skin reduces the blood flow to that area and the affected tissue dies. CAUSES: "Being bedridden or in a wheelchair "Fragile skin "Having a chronic condition, such as diabetes or vascular disease "Inability to move certain parts of your body without assistance "Older age "Incontinence of urine or stool SYMPTOMS: "A reddened area that DOES NOT turn white when pressed on - this can be the beginning of a pressure ulcer "A blister, deep sore or a crater - these can be advanced pressure ulcers FIRST AID: "Relieve the pressure on this area "Keep the area clean and dry "Call your primary doctor if you see any of the above symptoms "DO NOT massage the area "DO NOT use a donut shaped or ring shaped pillow- these actually interfere with the blood flow and cause complications PREVENTION: "Check for pressure ulcers everyday "Change position at least every two hours to relieve pressure "Use items that help relieve pressure- pillows, sheepskin, foam padding, and powders. "Keep skin clean and dry "Eat healthy well balanced meals "Exercise daily IF YOU SEE ANY OF THESE SYMPTOMS WHILE IN THE HOSPITAL - TELL YOUR NURSE IMMEDIATELY. IF YOU SEE ANY OF THESE SYMPTOMS WHILE AT HOME OR HAVE ANY QUESTIONS OR CONCERNS ABOUT PRESSURE ULCERS - CALL YOUR PRIMARY DOCTOR IMMEDIATELY. Addendum: 11/15/22 at 0804 by Billie Mejia LVN Amended: Links added.
--- NOTE | 2022-11-15 11:07 | NUR ---
Reassessment: Pt extubated 11/14, currently A/O x 2 and confused per EMR. Pt s/p BSS this morning with ST recs pureed food with nectar thick liquids. Per RN at [facility] pt is eating though documentation of PO intake pending as pt still has his meal tray at bedside. LBM 11/14 with a rectal tube in place per EMR. Routine bowel care has been discontinued. Will continue to follow closely and make recommendations as appropriate pending trends in PO intake. Recommendations: 1) Continue pureed diet with nectar thick liquids per ST recs; A1c 6.1% with possibly no PMH DM, CHO controlled diet not indicated 2) Monitor need for ONS/additional protein; consider Ensure Enlive TID 3) Weekly scaled weights 4) Continue routine Thiamine, Folic acid, and MVI for EtOH hx and wound healing needs 5) Bowel care PRN, previously no BM x 12 days per EMR Addendum: 11/15/22 at [address] Amended: Links added.
[2022-11-15] MEDS: normal saline 1000ml 1,000 ML IV SCH (14:39)
--- NOTE | 2022-11-15 18:10 | NUR ---
Got report from Faina. Pt was cleared for diet today, [place] thick/Pureed. He reportedly sat at bedside and stood for short amount of time but not seen by PT yet. Precedex was DCd as it was never turned back on. Pt has required increased observation though for attempting to get OOB so unfortunately still confused albeit pleasantly still. Still has very wet cough but clearing secretions well so it seems. All in all no real change in plan of care from yesterday which is, at this point, to increase mobility, nutrition, and pulmonary toilet.
--- NOTE | 2022-11-15 18:23 | NUR ---
Problems reprioritized. Patient report given, questions answered & plan of care reviewed with Sandrita ARTIS.
[2022-11-15] MEDS: tamsulosin 0.4mg capsule PO SCH (19:36)
[2022-11-15] MEDS: atorvastatin 20mg tablet OGT SCH (19:36)
[2022-11-15] MEDS: insulin glargine (Lantus) pen - multi-dose SQ SCH (20:15)
[2022-11-16] VITALS (30 sets, daily range): BP systolic 87–141; BP diastolic 47–68; PULSE 59–110; RESP 15–28; TEMP 97.5–97.7; O2SAT 91–98
[2022-11-16] MEDS: ipratropium/albuterol 3ml nebule NEB SCH ×4 (03:13→21:29)
--- NOTE | 2022-11-16 03:21 | NUR ---
Rectal Tube removed. It has been in for about 36 hours and really only has the irrigant fluid in the bag. The stool in the tube seems rather thick like it's not able to pass through. Pt has not had any cathartics or laxatives for 36 hours as well. It is causing discomfort to the pain and currently offering no real benefit. If the stool is to thick to drain it will just cause him to get backed up again. For these reasons the rectal tube will be taken out. Addendum: 11/16/22 at 0408 by Rolan Bowser RN that should read it's causing discomfort to the patient.
[2022-11-16 05:28] LABS: BASOPHILS # (AUTO) 0.1 X10'3 (0-0.2); BASOPHILS % (AUTO) 1.6 % (0-1); EOSINOPHILS # (AUTO) 0.8 X10'3 (0-0.9); EOSINOPHILS % (AUTO) 9.5 % (0-6); HEMATOCRIT 24.9 % (42.0-52.0); HEMOGLOBIN 8.4 g/dl (14.0-17.9); LYMPHOCYTES # (AUTO) 1.7 X10'3 (1.1-4.8); LYMPHOCYTES % (AUTO) 21.4 % (21-51); MEAN CORPUSCULAR HEMOGLOBIN 29.8 PG (27.0-31.0); MEAN CORPUSCULAR HGB CONC 33.6 g/dL (33.0-36.5); MEAN CORPUSCULAR VOLUME 88.4 FL (78-98); MEAN PLATELET VOLUME 9.2 FL (7.4-10.4); MONOCYTES % (AUTO) 11.9 % (2-12); NEUTROPHILS # (AUTO) 4.5 X10'3 (1.8-7.7); NEUTROPHILS % (AUTO) 55.6 % (42-75); PLATELET COUNT 338 X10'3 (140-440); RED BLOOD COUNT 2.81 X10'6 (4.70-6.10); RED CELL DISTRIBUTION WIDTH 14.3 % (11.5-14.5); WHITE BLOOD COUNT 8.1 X10'3 (4.5-11.0)
[2022-11-16 05:40] LABS: ALBUMIN 1.7 G/DL (3.4-5.0); ANION GAP 7 (8-16); BLOOD UREA NITROGEN 15 MG/DL (7-18); CALCIUM 8.3 MG/DL (8.5-10.1); CHLORIDE 107 MMOL/L (99-107); CREATININE 0.79 MG/DL (0.60-1.10); GLUCOSE 84 MG/DL (70-104); MAGNESIUM 1.7 MG/DL (1.5-2.4); PHOSPHORUS 4.6 MG/DL (2.3-4.5); POTASSIUM 3.8 MMOL/L (3.5-5.1); SODIUM 144 MMOL/L (135-145); TOTAL CARBON DIOXIDE 29.6 MMOL/L (24-32); eCRCL 87 ML/MIN; eGFR > 90 ML/MIN
--- NOTE | 2022-11-16 06:00 | NUR ---
Patient in room CICU 2011. I have received report from Tato ARTIS and had the opportunity to ask questions and assume patient care.
[2022-11-16] MEDS: CefTRIAXone 2gm/D5W 50ml BAG 50 ML IV SCH (07:13)
[2022-11-16] MEDS: pantoprazole 40MG/NS 100ML BAG 100 ML IV SCH (07:13)
[2022-11-16] MEDS: guaiFENesin 200 MG/10 ML oral syrup UD cup OGT SCH ×2 (07:19→22:14)
[2022-11-16] MEDS: thiamine 100mg tablet OGT SCH (07:20)
[2022-11-16] MEDS: metoprolol tartrate 25mg tablet PO SCH ×2 (07:20→22:14)
[2022-11-16] MEDS: multivitamins, therapeutics tablet PO SCH (07:20)
[2022-11-16] MEDS: lisinopril 20mg tablet OGT SCH (07:20)
[2022-11-16] MEDS: folic acid 1mg tablet OGT SCH (07:20)
[2022-11-16] MEDS: heparin, porcine 5000 units/ml vial SQ SCH ×2 (07:21→15:51)
[2022-11-16] MEDS: normal saline 1000ml 1,000 ML IV SCH (10:44)
[2022-11-16] MEDS ORDERED: QUEtiapine 25mg tablet PO ONE (15:29)
--- NOTE | 2022-11-16 18:03 | NUR ---
Problems reprioritized. Patient report given, questions answered & plan of care reviewed with Tato ARTIS.
[2022-11-16] MEDS ORDERED: acetylcysteine 200 MG/ml 4ml vial PO SCH (20:00)
--- NOTE | 2022-11-16 20:18 | NUR ---
Pt arrived in room 3017B.
[2022-11-16] MEDS: insulin glargine (Lantus) pen - multi-dose SQ SCH (21:00)
--- NOTE | 2022-11-16 21:52 | NUR ---
Bladder scanned pt for 453mL in bladder. Pt unable to urinate and has distention. Called MD who advised to place [place] catheter.
[2022-11-16] MEDS: tamsulosin 0.4mg capsule PO SCH (22:14)
[2022-11-16] MEDS: atorvastatin 20mg tablet OGT SCH (22:14)
[2022-11-17] VITALS (13 sets, daily range): BP systolic 124–137; BP diastolic 55–65; PULSE 78–91; RESP 13–23; TEMP 96.8–99.1; O2SAT 93–98
[2022-11-17] MEDS: heparin, porcine 5000 units/ml vial SQ SCH ×3 (00:17→16:00)
[2022-11-17] MEDS: ipratropium/albuterol 3ml nebule NEB SCH ×4 (03:02→20:25)
--- NOTE | 2022-11-17 06:42 | NUR ---
Problems reprioritized. Patient report given, questions answered & plan of care reviewed with
--- NOTE | 2022-11-17 07:00 | NUR ---
Patient in room PCU 3010C. I have received report from STEFF CONNELL and had the opportunity to ask questions and assume patient care.
[2022-11-17] MEDS: normal saline 1000ml 1,000 ML IV SCH (07:16)
[2022-11-17] MEDS ORDERED: acetaminophen 325mg tablet PO PRN ×2 (07:31→07:32)
[2022-11-17] MEDS ORDERED: DEXTROSE 15 GM of carb/4 tabs (each vial/BOTTLE has 4 tablets) PO PRN ×2 (07:32→07:33)
[2022-11-17] MEDS ORDERED: magnesium hydroxide 30ml (MOM) UD suspension PO PRN (07:34)
[2022-11-17 07:43] LABS: BASOPHILS # (AUTO) 0.1 X10'3 (0-0.2); BASOPHILS % (AUTO) 1.3 % (0-1); EOSINOPHILS # (AUTO) 0.6 X10'3 (0-0.9); HEMATOCRIT 29.1 % (42.0-52.0); HEMOGLOBIN 9.8 g/dl (14.0-17.9); LYMPHOCYTES # (AUTO) 1.6 X10'3 (1.1-4.8); LYMPHOCYTES % (AUTO) 18.8 % (21-51); MEAN CORPUSCULAR HEMOGLOBIN 29.5 PG (27.0-31.0); MEAN CORPUSCULAR HGB CONC 33.5 g/dL (33.0-36.5); MEAN PLATELET VOLUME 9.9 FL (7.4-10.4); MONOCYTES # (AUTO) 0.8 X10'3 (0-0.9); MONOCYTES % (AUTO) 9.6 % (2-12); NEUTROPHILS # (AUTO) 5.3 X10'3 (1.8-7.7); NEUTROPHILS % (AUTO) 63.3 % (42-75); PLATELET COUNT 452 X10'3 (140-440); RED BLOOD COUNT 3.31 X10'6 (4.70-6.10); RED CELL DISTRIBUTION WIDTH 14.3 % (11.5-14.5); WHITE BLOOD COUNT 8.4 X10'3 (4.5-11.0)
[2022-11-17] MEDS: pantoprazole 40MG/NS 100ML BAG 100 ML IV SCH (08:00)
[2022-11-17] MEDS ORDERED: acetylcysteine 200 MG/ml 4ml vial INH SCH (08:00)
[2022-11-17] MEDS: CefTRIAXone 2gm/D5W 50ml BAG 50 ML IV SCH (08:00)
[2022-11-17 08:12] LABS: ALBUMIN 2.1 G/DL (3.4-5.0); ANION GAP 10 (8-16); BLOOD UREA NITROGEN 12 MG/DL (7-18); BUN/CREATININE RATIO 14.3 (10.0-20.0); CALCIUM 8.9 MG/DL (8.5-10.1); CHLORIDE 106 MMOL/L (99-107); CREATININE 0.84 MG/DL (0.60-1.10); GLUCOSE 127 MG/DL (70-104); MAGNESIUM 1.8 MG/DL (1.5-2.4); PHOSPHORUS 3.9 MG/DL (2.3-4.5); POTASSIUM 3.7 MMOL/L (3.5-5.1); SODIUM 142 MMOL/L (135-145); TOTAL CARBON DIOXIDE 25.8 MMOL/L (24-32); eCRCL 82 ML/MIN; eGFR 88 ML/MIN
[2022-11-17] MEDS: multivitamins, therapeutics tablet PO SCH (11:54)
[2022-11-17] MEDS: folic acid 1mg tablet PO SCH (11:54)
[2022-11-17] MEDS: metoprolol tartrate 25mg tablet PO SCH ×2 (11:55→20:03)
[2022-11-17] MEDS: QUEtiapine 25mg tablet PO SCH (11:55)
[2022-11-17] MEDS: lisinopril 20mg tablet PO SCH (11:59)
[2022-11-17] MEDS: thiamine 100mg tablet PO SCH (12:07)
[2022-11-17] MEDS: guaiFENesin 200 MG/10 ML oral syrup UD cup PO SCH ×2 (12:08→20:04)
[2022-11-17 12:09] LABS: THYROID STIMULATING HORMONE 0.94 ulU/ml (0.34-4.50)
--- NOTE | 2022-11-17 12:17 | NUR ---
Nutrition Consult "needs Ensure": Pt PO ~25% most initial pureed/NTL diet would benefit from Ensure Enlive TIDWM. SERENA placed ONS recs in EMR pending physician verification; physician also paged regarding ONS recs. Addendum: 11/17/22 at [address] Amended: Links added.
[2022-11-17] MEDS: tamsulosin 0.4mg capsule PO SCH (20:04)
[2022-11-17] MEDS: atorvastatin 20mg tablet PO SCH (20:05)
[2022-11-17] MEDS: insulin glargine (Lantus) pen - multi-dose SQ SCH (21:00)
[2022-11-18] VITALS (15 sets, daily range): BP systolic 114–152; BP diastolic 51–69; PULSE 75–93; RESP 14–22; TEMP 97.6–98.8; O2SAT 90–94
[2022-11-18] MEDS: heparin, porcine 5000 units/ml vial SQ SCH ×3 (00:45→16:00)
[2022-11-18] MEDS: ipratropium/albuterol 3ml nebule NEB SCH ×4 (03:25→21:28)
[2022-11-18] MEDS: normal saline 1000ml 1,000 ML IV SCH ×2 (03:30→22:39)
[2022-11-18] MEDS: haloperidol lactate 5mg/ml inj IM PRN (04:56)
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
--- NOTE | 2022-11-18 06:45 | NUR ---
Problems reprioritized. Patient report given, questions answered & plan of care reviewed with STEFF CHAN.
--- NOTE | 2022-11-18 06:53 | NUR ---
Patient in room PCU 3017B. I have received report from STEFF LAZARO and had the opportunity to ask questions and assume patient care.
[2022-11-18 07:01] LABS: ALBUMIN 1.9 G/DL (3.4-5.0); ANION GAP 11 (8-16); BLOOD UREA NITROGEN 11 MG/DL (7-18); BUN/CREATININE RATIO 13.8 (10.0-20.0); CALCIUM 8.6 MG/DL (8.5-10.1); CHLORIDE 107 MMOL/L (99-107); GLUCOSE 160 MG/DL (70-104); MAGNESIUM 1.7 MG/DL (1.5-2.4); PHOSPHORUS 3.6 MG/DL (2.3-4.5); POTASSIUM 4.2 MMOL/L (3.5-5.1); SODIUM 142 MMOL/L (135-145); TOTAL CARBON DIOXIDE 23.9 MMOL/L (24-32); eCRCL 86 ML/MIN; eGFR > 90 ML/MIN
[2022-11-18 07:04] LABS: BASOPHILS # (AUTO) 0.1 X10'3 (0-0.2); BASOPHILS % (AUTO) 1.3 % (0-1); EOSINOPHILS # (AUTO) 0.7 X10'3 (0-0.9); EOSINOPHILS % (AUTO) 9.4 % (0-6); HEMATOCRIT 28.7 % (42.0-52.0); HEMOGLOBIN 9.4 g/dl (14.0-17.9); LYMPHOCYTES # (AUTO) 1.4 X10'3 (1.1-4.8); LYMPHOCYTES % (AUTO) 20.5 % (21-51); MEAN CORPUSCULAR HEMOGLOBIN 28.7 PG (27.0-31.0); MEAN CORPUSCULAR HGB CONC 32.7 g/dL (33.0-36.5); MEAN CORPUSCULAR VOLUME 87.8 FL (78-98); MEAN PLATELET VOLUME 9.8 FL (7.4-10.4); MONOCYTES # (AUTO) 0.9 X10'3 (0-0.9); MONOCYTES % (AUTO) 12.6 % (2-12); NEUTROPHILS # (AUTO) 3.9 X10'3 (1.8-7.7); NEUTROPHILS % (AUTO) 56.2 % (42-75); PLATELET COUNT 375 X10'3 (140-440); RED BLOOD COUNT 3.26 X10'6 (4.70-6.10); RED CELL DISTRIBUTION WIDTH 14.6 % (11.5-14.5)
[2022-11-18] MEDS: pantoprazole 40MG/NS 100ML BAG 100 ML IV SCH (10:57)
--- NOTE | 2022-11-18 11:29 | NUR ---
F/u 11/18: Pt PO remains poor following extubation 11/14 on pureed/nectar thick diet per [employer] recs since 11/15 ~22% avg meals 3 days since then not meeting needs. Pt AOx2/confused and agitated at times possible Wernicke's/Korsakoff per MD note likely influencing PO trends. Ensure Enlive TIDWM pending physician verification in EMR; RD d/w RN today who agrees to f/u w/ MD. Continues to receive routine thiamine, folic acid, and MVI for etoh hx. Rectal tube care last documented 11/16 w/ no stool volume output documented this LOS yet 8 BM's 11/14-11/15 previously on Lactulose last dose 11/13 per EMR. If true constipation would benefit from routine bowel regimen. Will monitor for further PO acceptance and nutrition intervention needs this admit. Recommendations: 1) Continue pureed diet with nectar thick liquids per ST recs; A1c 6.1% with possibly no PMH DM, CHO controlled diet not indicated 2) Ensure Enlive TID; pending physician verification in EMR 3) Encourage PO meals; assistance w/ meals given ALOC 4) Continue routine Thiamine, Folic acid, and MVI for EtOH hx and wound healing needs 5) Bowel care PRN, previously no BM x 12 days now 8 BM's 11/14-11/15 s/p Lactulose 11/13 per EMR 6) Weekly scaled weights Addendum: 11/18/22 at [address] Amended: Links added.
[2022-11-18] MEDS: QUEtiapine 25mg tablet PO SCH (14:13)
[2022-11-18] MEDS: thiamine 100mg tablet PO SCH (14:14)
[2022-11-18] MEDS: folic acid 1mg tablet PO SCH (14:14)
[2022-11-18] MEDS: metoprolol tartrate 25mg tablet PO SCH ×2 (14:14→19:14)
[2022-11-18] MEDS: guaiFENesin 200 MG/10 ML oral syrup UD cup PO SCH ×2 (14:14→19:14)
[2022-11-18] MEDS: multivitamins, therapeutics tablet PO SCH (14:14)
[2022-11-18] MEDS: lisinopril 20mg tablet PO SCH (14:15)
--- NOTE | 2022-11-18 18:43 | NUR ---
Problems reprioritized. Patient report given, questions answered & plan of care reviewed with STEFF LAZARO.
[2022-11-18] MEDS: tamsulosin 0.4mg capsule PO SCH (19:15)
[2022-11-18] MEDS: atorvastatin 20mg tablet PO SCH (19:15)
[2022-11-18] MEDS: insulin glargine (Lantus) pen - multi-dose SQ SCH (21:00)
[2022-11-19] VITALS (13 sets, daily range): BP systolic 117–150; BP diastolic 54–69; PULSE 74–88; RESP 16–22; TEMP 98–99.1; O2SAT 89–97
[2022-11-19] MEDS: heparin, porcine 5000 units/ml vial SQ SCH ×3 (01:45→17:06)
[2022-11-19] MEDS: ipratropium/albuterol 3ml nebule NEB SCH ×4 (03:14→21:00)
--- NOTE | 2022-11-19 06:14 | NUR ---
Problems reprioritized. Patient report given, questions answered & plan of care reviewed with STEFF CHAN.
[2022-11-19 07:05] LABS: BASOPHILS # (AUTO) 0.1 X10'3 (0-0.2); BASOPHILS % (AUTO) 1.2 % (0-1); EOSINOPHILS # (AUTO) 0.8 X10'3 (0-0.9); EOSINOPHILS % (AUTO) 11.2 % (0-6); HEMATOCRIT 27.6 % (42.0-52.0); HEMOGLOBIN 8.9 g/dl (14.0-17.9); LYMPHOCYTES # (AUTO) 1.4 X10'3 (1.1-4.8); MEAN CORPUSCULAR HEMOGLOBIN 28.4 PG (27.0-31.0); MEAN CORPUSCULAR HGB CONC 32.3 g/dL (33.0-36.5); MEAN CORPUSCULAR VOLUME 87.8 FL (78-98); MEAN PLATELET VOLUME 9.2 FL (7.4-10.4); MONOCYTES # (AUTO) 0.9 X10'3 (0-0.9); MONOCYTES % (AUTO) 12.8 % (2-12); NEUTROPHILS # (AUTO) 3.8 X10'3 (1.8-7.7); NEUTROPHILS % (AUTO) 54.8 % (42-75); PLATELET COUNT 369 X10'3 (140-440); RED BLOOD COUNT 3.15 X10'6 (4.70-6.10); RED CELL DISTRIBUTION WIDTH 14.3 % (11.5-14.5)
[2022-11-19 07:43] LABS: ALBUMIN 1.8 G/DL (3.4-5.0); ANION GAP 10 (8-16); BLOOD UREA NITROGEN 9 MG/DL (7-18); BUN/CREATININE RATIO 11.7 (10.0-20.0); CALCIUM 8.2 MG/DL (8.5-10.1); CHLORIDE 109 MMOL/L (99-107); CREATININE 0.77 MG/DL (0.60-1.10); GLUCOSE 155 MG/DL (70-104); MAGNESIUM 1.5 MG/DL (1.5-2.4); PHOSPHORUS 3.4 MG/DL (2.3-4.5); POTASSIUM 3.6 MMOL/L (3.5-5.1); SODIUM 142 MMOL/L (135-145); eCRCL 89 ML/MIN; eGFR > 90 ML/MIN
[2022-11-19] MEDS: guaiFENesin 200 MG/10 ML oral syrup UD cup PO SCH ×2 (10:35→21:38)
[2022-11-19] MEDS: thiamine 100mg tablet PO SCH (10:37)
[2022-11-19] MEDS: multivitamins, therapeutics tablet PO SCH (10:37)
[2022-11-19] MEDS: folic acid 1mg tablet PO SCH (10:37)
[2022-11-19] MEDS: metoprolol tartrate 25mg tablet PO SCH ×2 (10:37→21:38)
[2022-11-19] MEDS: lisinopril 20mg tablet PO SCH (10:38)
[2022-11-19] MEDS: QUEtiapine 25mg tablet PO SCH (10:38)
[2022-11-19] MEDS: pantoprazole 40MG/NS 100ML BAG 100 ML IV SCH (11:50)
[2022-11-19] MEDS ORDERED: NUT.TX.IMPAIRED DIGEST FXN (Ensure Clear) 237 ML PO SCH (13:00)
[2022-11-19] MEDS: lactose-reduced food (Ensure Enlive) - 237ml bottle PO SCH ×2 (15:05→18:31)
--- NOTE | 2022-11-19 18:34 | NUR ---
Problems reprioritized. Patient report given, questions answered & plan of care reviewed with STEFF LAZARO.
[2022-11-19] MEDS: normal saline 1000ml 1,000 ML IV SCH (18:39)
[2022-11-19] MEDS: insulin glargine (Lantus) pen - multi-dose SQ SCH (21:00)
[2022-11-19] MEDS: tamsulosin 0.4mg capsule PO SCH (21:39)
[2022-11-19] MEDS: atorvastatin 20mg tablet PO SCH (21:39)
[2022-11-20] VITALS (12 sets, daily range): BP systolic 121–143; BP diastolic 57–70; PULSE 80–92; RESP 12–24; TEMP 97.6–98.9; O2SAT 90–95
--- NOTE | 2022-11-20 01:00 | NUR ---
PT BECAME DISORIENTED AND PULLED OFF HIS TELE MONITOR, CONDOM CATH AND HIS MIDLINE. WAS TOLD BY STAFF THE MIDLINE CATHETER WAS INTACT AND PT IS NOT BLEEDING FROM SITE. PT IS REFUSING TELE MONITOR AT THIS TIME. JUST BLADDER SCANNED PT AT 0200 AND HE HAS 345 MLS IN BLADDER. PT HAS VOIDED A COUPLE TIMES PRIOR TO SCAN BUT IS INCONTINENT AND WAS UNABLE TO MEASURE EXACT OUTPUT.
[2022-11-20] MEDS: heparin, porcine 5000 units/ml vial SQ SCH ×3 (01:48→16:30)
[2022-11-20] MEDS: ipratropium/albuterol 3ml nebule NEB SCH ×4 (02:45→20:16)
--- NOTE | 2022-11-20 06:30 | NUR ---
Patient in room PCU 3017. I have received report from solange benavides and had the opportunity to ask questions and assume patient care.
--- NOTE | 2022-11-20 06:58 | NUR ---
Problems reprioritized. Patient report given, questions answered & plan of care reviewed with STEFF FRAGA.
[2022-11-20] MEDS: lactose-reduced food (Ensure Enlive) - 237ml bottle PO SCH ×3 (08:00→18:06)
[2022-11-20] MEDS: guaiFENesin 200 MG/10 ML oral syrup UD cup PO SCH ×2 (09:36→22:06)
[2022-11-20] MEDS: folic acid 1mg tablet PO SCH (09:37)
[2022-11-20] MEDS: metoprolol tartrate 25mg tablet PO SCH ×2 (09:39→22:08)
[2022-11-20] MEDS: thiamine 100mg tablet PO SCH (09:40)
[2022-11-20] MEDS: lisinopril 20mg tablet PO SCH (09:40)
[2022-11-20] MEDS: multivitamins, therapeutics tablet PO SCH (09:40)
[2022-11-20 10:21] LABS: BASOPHILS # (AUTO) 0.1 X10'3 (0-0.2); BASOPHILS % (AUTO) 1.4 % (0-1); EOSINOPHILS # (AUTO) 0.6 X10'3 (0-0.9); EOSINOPHILS % (AUTO) 9.8 % (0-6); HEMATOCRIT 29.3 % (42.0-52.0); HEMOGLOBIN 9.7 g/dl (14.0-17.9); LYMPHOCYTES # (AUTO) 1.7 X10'3 (1.1-4.8); LYMPHOCYTES % (AUTO) 28.5 % (21-51); MEAN CORPUSCULAR HGB CONC 33.2 g/dL (33.0-36.5); MEAN CORPUSCULAR VOLUME 87.6 FL (78-98); MEAN PLATELET VOLUME 8.6 FL (7.4-10.4); MONOCYTES # (AUTO) 0.8 X10'3 (0-0.9); MONOCYTES % (AUTO) 12.7 % (2-12); NEUTROPHILS # (AUTO) 2.9 X10'3 (1.8-7.7); NEUTROPHILS % (AUTO) 47.6 % (42-75); PLATELET COUNT 379 X10'3 (140-440); RED BLOOD COUNT 3.34 X10'6 (4.70-6.10); RED CELL DISTRIBUTION WIDTH 14.3 % (11.5-14.5); WHITE BLOOD COUNT 6.1 X10'3 (4.5-11.0)
[2022-11-20 10:52] LABS: ALANINE AMINOTRANSFERASE 36 U/L (12-78); ALBUMIN 2.1 G/DL (3.4-5.0); ALBUMIN/GLOBULIN RATIO 0.5 (1.1-1.5); ALKALINE PHOSPHATASE 54 IU/L (46-116); ANION GAP 12 (8-16); ASPARTATE AMINO TRANSFERASE 32 U/L (10-37); BILIRUBIN,TOTAL 0.5 MG/DL (0.1-1.0); BLOOD UREA NITROGEN 9 MG/DL (7-18); CALCIUM 8.6 MG/DL (8.5-10.1); CHLORIDE 108 MMOL/L (99-107); CREATININE 0.82 MG/DL (0.60-1.10); GLUCOSE 163 MG/DL (70-104); POTASSIUM 3.5 MMOL/L (3.5-5.1); SODIUM 144 MMOL/L (135-145); TOTAL PROTEIN 6.3 G/DL (6.4-8.2); eCRCL 84 ML/MIN; eGFR > 90 ML/MIN
[2022-11-20] MEDS: pantoprazole 40mg Tablet.DR PO SCH (12:57)
--- NOTE | 2022-11-20 18:45 | NUR ---
Patient in room PCU 3017. I have received report from Lynnette ARTIS and had the opportunity to ask questions and assume patient care.
--- NOTE | 2022-11-20 19:13 | NUR ---
Problems reprioritized. Patient report given, questions answered & plan of care reviewed with carli boyce rn.
[2022-11-20] MEDS: insulin glargine (Lantus) pen - multi-dose SQ SCH (21:00)
[2022-11-20] MEDS: atorvastatin 20mg tablet PO SCH (22:07)
[2022-11-20] MEDS: tamsulosin 0.4mg capsule PO SCH (22:08)
[2022-11-21] VITALS (13 sets, daily range): BP systolic 123–144; BP diastolic 55–68; PULSE 73–84; RESP 16–19; TEMP 97.3–97.9; O2SAT 92–97
[2022-11-21] MEDS: haloperidol 5mg tablet PO PRN ×2 (02:21→23:19)
[2022-11-21] MEDS: ipratropium/albuterol 3ml nebule NEB SCH ×4 (03:00→21:20)
--- NOTE | 2022-11-21 06:45 | NUR ---
Problems reprioritized. Patient report given, questions answered & plan of care reviewed with Adolfo ARTIS.
[2022-11-21] MEDS: pantoprazole 40mg Tablet.DR PO SCH (07:30)
[2022-11-21] MEDS: thiamine 100mg tablet PO SCH (08:54)
[2022-11-21] MEDS: heparin, porcine 5000 units/ml vial SQ SCH ×4 (08:54→23:19)
[2022-11-21] MEDS: multivitamins, therapeutics tablet PO SCH (08:54)
[2022-11-21] MEDS: lisinopril 20mg tablet PO SCH (08:54)
[2022-11-21] MEDS: folic acid 1mg tablet PO SCH (08:54)
[2022-11-21] MEDS: guaiFENesin 200 MG/10 ML oral syrup UD cup PO SCH ×2 (08:55→20:00)
[2022-11-21] MEDS: metoprolol tartrate 25mg tablet PO SCH ×2 (08:55→20:49)
[2022-11-21] MEDS: lactose-reduced food (Ensure Enlive) - 237ml bottle PO SCH ×3 (08:55→18:00)
[2022-11-21 10:21] LABS: BASOPHILS # (AUTO) 0.1 X10'3 (0-0.2); BASOPHILS % (AUTO) 1.4 % (0-1); EOSINOPHILS # (AUTO) 0.6 X10'3 (0-0.9); EOSINOPHILS % (AUTO) 9.8 % (0-6); HEMATOCRIT 30.9 % (42.0-52.0); HEMOGLOBIN 10.2 g/dl (14.0-17.9); LYMPHOCYTES # (AUTO) 1.9 X10'3 (1.1-4.8); LYMPHOCYTES % (AUTO) 29.5 % (21-51); MEAN CORPUSCULAR HEMOGLOBIN 29.1 PG (27.0-31.0); MEAN CORPUSCULAR HGB CONC 33.1 g/dL (33.0-36.5); MEAN CORPUSCULAR VOLUME 87.8 FL (78-98); MEAN PLATELET VOLUME 8.8 FL (7.4-10.4); MONOCYTES # (AUTO) 0.8 X10'3 (0-0.9); MONOCYTES % (AUTO) 12.7 % (2-12); NEUTROPHILS % (AUTO) 46.6 % (42-75); PLATELET COUNT 397 X10'3 (140-440); RED BLOOD COUNT 3.52 X10'6 (4.70-6.10); RED CELL DISTRIBUTION WIDTH 14.5 % (11.5-14.5); WHITE BLOOD COUNT 6.5 X10'3 (4.5-11.0)
[2022-11-21 11:31] LABS: ALANINE AMINOTRANSFERASE 42 U/L (12-78); ALBUMIN 2.3 G/DL (3.4-5.0); ALBUMIN/GLOBULIN RATIO 0.5 (1.1-1.5); ALKALINE PHOSPHATASE 59 IU/L (46-116); ANION GAP 12 (8-16); ASPARTATE AMINO TRANSFERASE 35 U/L (10-37); BILIRUBIN,TOTAL 0.4 MG/DL (0.1-1.0); BLOOD UREA NITROGEN 9 MG/DL (7-18); BUN/CREATININE RATIO 11.1 (10.0-20.0); CHLORIDE 109 MMOL/L (99-107); CREATININE 0.81 MG/DL (0.60-1.10); GLUCOSE 189 MG/DL (70-104); MAGNESIUM 1.8 MG/DL (1.5-2.4); POTASSIUM 3.5 MMOL/L (3.5-5.1); SODIUM 145 MMOL/L (135-145); TOTAL CARBON DIOXIDE 23.9 MMOL/L (24-32); TOTAL PROTEIN 6.6 G/DL (6.4-8.2); eCRCL 85 ML/MIN; eGFR > 90 ML/MIN
[2022-11-21 11:49] LABS: PHOSPHORUS 3.8 MG/DL (2.3-4.5)
--- NOTE | 2022-11-21 12:45 | NUR ---
F/u 11/21: Per physician note pt fluctuating sensorium with waxing and waning, appears to be confused and not oriented to place and time. Pt continues on a minced and moist diet/thin liquids since 11/20 per OCCUPATIONAL THERAPIST'S ASSISTANT. Pt prior on pureed diet with documented ~50% x 2 meals then upgraded to minced and moist PO average 21% x 3 meals this follow up. Pt receiving Ensure Enlive TID starting 11/19 with average intake of 60% x 5 ONS. PO intake and ONS combined met 100% of estimated kcal needs and 87% protein needs this follow up. LBM on 11/20 per EMR. Will continue to follow and make recommendations as appropriate. Recommendations: 1) Continue minced and moist with thin liquids per ST recs; A1c 6.1% with possibly no PMH DM, CHO controlled diet not indicated 2) Ensure Enlive TID 3) Encourage PO meals; assistance w/ meals given ALOC 4) Continue routine Thiamine, Folic acid, and MVI for EtOH hx and wound healing needs 5) Bowel care PRN 6) Weekly scaled weights Addendum: 11/21/22 at [address] Amended: Links added.
[2022-11-21] MEDS: atorvastatin 20mg tablet PO SCH (20:49)
[2022-11-21] MEDS: tamsulosin 0.4mg capsule PO SCH (20:49)
[2022-11-21] MEDS: insulin glargine (Lantus) pen - multi-dose SQ SCH (20:58)
[2022-11-22] VITALS (13 sets, daily range): BP systolic 106–139; BP diastolic 49–62; PULSE 73–88; RESP 13–20; TEMP 97.4–98.1; O2SAT 92–96
[2022-11-22] MEDS: ipratropium/albuterol 3ml nebule NEB SCH ×4 (03:29→21:10)
--- NOTE | 2022-11-22 06:18 | NUR ---
Patient report given, questions answered & plan of care reviewed with SETFF Jones
--- NOTE | 2022-11-22 06:49 | NUR ---
Patient in room PCU 3017. I have received report from Gisel ARTIS and had the opportunity to ask questions and assume patient care.
[2022-11-22] MEDS: multivitamins, therapeutics tablet PO SCH (08:42)
[2022-11-22] MEDS: pantoprazole 40mg Tablet.DR PO SCH (08:42)
[2022-11-22] MEDS: lisinopril 20mg tablet PO SCH (08:43)
[2022-11-22] MEDS: folic acid 1mg tablet PO SCH (08:43)
[2022-11-22] MEDS: metoprolol tartrate 25mg tablet PO SCH ×2 (08:43→19:11)
[2022-11-22] MEDS: thiamine 100mg tablet PO SCH (08:43)
[2022-11-22] MEDS: guaiFENesin 200 MG/10 ML oral syrup UD cup PO SCH ×2 (08:44→19:12)
[2022-11-22] MEDS: heparin, porcine 5000 units/ml vial SQ SCH ×2 (08:44→17:59)
[2022-11-22] MEDS: lactose-reduced food (Ensure Enlive) - 237ml bottle PO SCH ×3 (08:51→18:07)
[2022-11-22 09:55] LABS: BASOPHILS # (AUTO) 0.1 X10'3 (0-0.2); BASOPHILS % (AUTO) 1.1 % (0-1); EOSINOPHILS # (AUTO) 0.8 X10'3 (0-0.9); HEMATOCRIT 33.3 % (42.0-52.0); HEMOGLOBIN 10.8 g/dl (14.0-17.9); LYMPHOCYTES % (AUTO) 28.8 % (21-51); MEAN CORPUSCULAR HEMOGLOBIN 28.5 PG (27.0-31.0); MEAN CORPUSCULAR HGB CONC 32.5 g/dL (33.0-36.5); MEAN CORPUSCULAR VOLUME 87.8 FL (78-98); MEAN PLATELET VOLUME 9.7 FL (7.4-10.4); MONOCYTES # (AUTO) 0.8 X10'3 (0-0.9); MONOCYTES % (AUTO) 11.9 % (2-12); NEUTROPHILS # (AUTO) 3.3 X10'3 (1.8-7.7); NEUTROPHILS % (AUTO) 47.2 % (42-75); PLATELET COUNT 385 X10'3 (140-440); RED BLOOD COUNT 3.79 X10'6 (4.70-6.10); RED CELL DISTRIBUTION WIDTH 14.3 % (11.5-14.5); WHITE BLOOD COUNT 6.9 X10'3 (4.5-11.0)
[2022-11-22 10:27] LABS: ALANINE AMINOTRANSFERASE 44 U/L (12-78); ALBUMIN 2.4 G/DL (3.4-5.0); ALBUMIN/GLOBULIN RATIO 0.5 (1.1-1.5); ALKALINE PHOSPHATASE 60 IU/L (46-116); ANION GAP 9 (8-16); ASPARTATE AMINO TRANSFERASE 35 U/L (10-37); BILIRUBIN,TOTAL 0.5 MG/DL (0.1-1.0); BLOOD UREA NITROGEN 10 MG/DL (7-18); BUN/CREATININE RATIO 11.5 (10.0-20.0); CALCIUM 8.9 MG/DL (8.5-10.1); CHLORIDE 106 MMOL/L (99-107); CREATININE 0.87 MG/DL (0.60-1.10); GLUCOSE 214 MG/DL (70-104); POTASSIUM 3.7 MMOL/L (3.5-5.1); SODIUM 141 MMOL/L (135-145); TOTAL CARBON DIOXIDE 26.2 MMOL/L (24-32); TOTAL PROTEIN 6.9 G/DL (6.4-8.2); eCRCL 79 ML/MIN; eGFR 85 ML/MIN
[2022-11-22] MEDS: insulin Lispro (HumaLOG) vial - multi-dose SQ SCH (14:34)
--- NOTE | 2022-11-22 18:21 | NUR ---
1500 SVN triaged. Therapist not available
[2022-11-22] MEDS: atorvastatin 20mg tablet PO SCH (20:54)
[2022-11-22] MEDS: tamsulosin 0.4mg capsule PO SCH (20:55)
[2022-11-22] MEDS: insulin glargine (Lantus) pen - multi-dose SQ SCH (21:03)
[2022-11-23] VITALS (15 sets, daily range): BP systolic 104–137; BP diastolic 37–61; PULSE 71–84; RESP 15–18; TEMP 97.4–98.8; O2SAT 92–97
[2022-11-23] MEDS: heparin, porcine 5000 units/ml vial SQ SCH ×2 (02:00→08:59)
[2022-11-23] MEDS: ipratropium/albuterol 3ml nebule NEB SCH ×4 (03:09→21:25)
[2022-11-23 06:30] LABS: BASOPHILS # (AUTO) 0.1 X10'3 (0-0.2); BASOPHILS % (AUTO) 1.1 % (0-1); EOSINOPHILS # (AUTO) 0.6 X10'3 (0-0.9); EOSINOPHILS % (AUTO) 9.1 % (0-6); HEMATOCRIT 31.8 % (42.0-52.0); HEMOGLOBIN 10.4 g/dl (14.0-17.9); LYMPHOCYTES # (AUTO) 1.6 X10'3 (1.1-4.8); MEAN CORPUSCULAR HEMOGLOBIN 28.8 PG (27.0-31.0); MEAN CORPUSCULAR HGB CONC 32.8 g/dL (33.0-36.5); MEAN CORPUSCULAR VOLUME 87.8 FL (78-98); MEAN PLATELET VOLUME 9.6 FL (7.4-10.4); MONOCYTES # (AUTO) 0.8 X10'3 (0-0.9); MONOCYTES % (AUTO) 12.9 % (2-12); NEUTROPHILS # (AUTO) 3.2 X10'3 (1.8-7.7); NEUTROPHILS % (AUTO) 50.9 % (42-75); PLATELET COUNT 384 X10'3 (140-440); RED BLOOD COUNT 3.62 X10'6 (4.70-6.10); RED CELL DISTRIBUTION WIDTH 14.5 % (11.5-14.5); WHITE BLOOD COUNT 6.3 X10'3 (4.5-11.0)
--- NOTE | 2022-11-23 06:30 | NUR ---
Patient report given, questions answered & plan of care reviewed with BETITO Dye
[2022-11-23 06:31] LABS: ALANINE AMINOTRANSFERASE 40 U/L (12-78); ALBUMIN 2.5 G/DL (3.4-5.0); ALBUMIN/GLOBULIN RATIO 0.6 (1.1-1.5); ALKALINE PHOSPHATASE 64 IU/L (46-116); ANION GAP 7 (8-16); ASPARTATE AMINO TRANSFERASE 31 U/L (10-37); BILIRUBIN,TOTAL 0.5 MG/DL (0.1-1.0); BLOOD UREA NITROGEN 10 MG/DL (7-18); BUN/CREATININE RATIO 10.4 (10.0-20.0); CALCIUM 9.1 MG/DL (8.5-10.1); CHLORIDE 104 MMOL/L (99-107); CREATININE 0.96 MG/DL (0.60-1.10); GLUCOSE 174 MG/DL (70-104); POTASSIUM 3.5 MMOL/L (3.5-5.1); SODIUM 139 MMOL/L (135-145); TOTAL CARBON DIOXIDE 27.7 MMOL/L (24-32); TOTAL PROTEIN 6.8 G/DL (6.4-8.2); eCRCL 72 ML/MIN; eGFR 76 ML/MIN
--- NOTE | 2022-11-23 06:55 | NUR ---
Patient in room PCU 3017. I have received report from STEFF Batres and had the opportunity to ask questions and assume patient care.
[2022-11-23] MEDS: pantoprazole 40mg Tablet.DR PO SCH (07:30)
[2022-11-23] MEDS: lactose-reduced food (Ensure Enlive) - 237ml bottle PO SCH ×3 (08:10→18:00)
[2022-11-23] MEDS: folic acid 1mg tablet PO SCH (08:56)
[2022-11-23] MEDS: thiamine 100mg tablet PO SCH (08:57)
[2022-11-23] MEDS: metoprolol tartrate 25mg tablet PO SCH ×2 (08:57→20:10)
[2022-11-23] MEDS: multivitamins, therapeutics tablet PO SCH (08:57)
[2022-11-23] MEDS: lisinopril 20mg tablet PO SCH (08:57)
[2022-11-23] MEDS: guaiFENesin 200 MG/10 ML oral syrup UD cup PO SCH ×2 (08:57→20:18)
[2022-11-23] MEDS: insulin Lispro (HumaLOG) vial - multi-dose SQ SCH (13:34)
[2022-11-23] MEDS: apixaban 5mg tablet PO SCH ×2 (16:41→20:09)
--- NOTE | 2022-11-23 18:41 | NUR ---
Problems reprioritized. Patient report given, questions answered & plan of care reviewed with DYLON Car.
[2022-11-23] MEDS: atorvastatin 20mg tablet PO SCH (20:18)
[2022-11-23] MEDS: tamsulosin 0.4mg capsule PO SCH (20:18)
[2022-11-23] MEDS: insulin glargine (Lantus) pen - multi-dose SQ SCH (21:33)
[2022-11-24] VITALS (16 sets, daily range): BP systolic 112–136; BP diastolic 37–79; PULSE 68–88; RESP 16–20; TEMP 97.4–99.2; O2SAT 90–99
[2022-11-24] MEDS: ipratropium/albuterol 3ml nebule NEB SCH ×4 (03:25→21:26)
--- NOTE | 2022-11-24 06:11 | NUR ---
Problems reprioritized. Patient report given, questions answered & plan of care reviewed with zackary benavides.
--- NOTE | 2022-11-24 06:45 | NUR ---
Patient in room PCU 3017. I have received report from Laura OSBORNE and had the opportunity to ask questions and assume patient care.Patient is resting in bed in no acute distress. Bed alarm and tabs are on.
[2022-11-24 08:14] LABS: BASOPHILS # (AUTO) 0.1 X10'3 (0-0.2); BASOPHILS % (AUTO) 1.2 % (0-1); EOSINOPHILS # (AUTO) 0.4 X10'3 (0-0.9); EOSINOPHILS % (AUTO) 8.7 % (0-6); HEMATOCRIT 30.5 % (42.0-52.0); LYMPHOCYTES # (AUTO) 1.5 X10'3 (1.1-4.8); MEAN CORPUSCULAR HEMOGLOBIN 28.8 PG (27.0-31.0); MEAN CORPUSCULAR HGB CONC 32.7 g/dL (33.0-36.5); MEAN CORPUSCULAR VOLUME 87.9 FL (78-98); MEAN PLATELET VOLUME 9.3 FL (7.4-10.4); MONOCYTES # (AUTO) 0.8 X10'3 (0-0.9); MONOCYTES % (AUTO) 15.2 % (2-12); NEUTROPHILS # (AUTO) 2.2 X10'3 (1.8-7.7); NEUTROPHILS % (AUTO) 44.9 % (42-75); PLATELET COUNT 319 X10'3 (140-440); RED BLOOD COUNT 3.47 X10'6 (4.70-6.10); RED CELL DISTRIBUTION WIDTH 14.9 % (11.5-14.5)
[2022-11-24 08:26] LABS: ALANINE AMINOTRANSFERASE 41 U/L (12-78); ALBUMIN 2.3 G/DL (3.4-5.0); ALBUMIN/GLOBULIN RATIO 0.6 (1.1-1.5); ALKALINE PHOSPHATASE 58 IU/L (46-116); ANION GAP 10 (8-16); ASPARTATE AMINO TRANSFERASE 41 U/L (10-37); BILIRUBIN,TOTAL 0.7 MG/DL (0.1-1.0); BLOOD UREA NITROGEN 10 MG/DL (7-18); BUN/CREATININE RATIO 11.8 (10.0-20.0); CALCIUM 8.8 MG/DL (8.5-10.1); CHLORIDE 106 MMOL/L (99-107); CREATININE 0.85 MG/DL (0.60-1.10); GLUCOSE 157 MG/DL (70-104); POTASSIUM 3.5 MMOL/L (3.5-5.1); SODIUM 141 MMOL/L (135-145); TOTAL CARBON DIOXIDE 25.5 MMOL/L (24-32); TOTAL PROTEIN 6.2 G/DL (6.4-8.2); eCRCL 81 ML/MIN; eGFR 87 ML/MIN
[2022-11-24] MEDS: insulin Lispro (HumaLOG) vial - multi-dose SQ SCH ×2 (10:02→18:53)
[2022-11-24] MEDS: pantoprazole 40mg Tablet.DR PO SCH (10:04)
[2022-11-24] MEDS: folic acid 1mg tablet PO SCH (10:04)
[2022-11-24] MEDS: apixaban 5mg tablet PO SCH ×2 (10:04→20:44)
[2022-11-24] MEDS: thiamine 100mg tablet PO SCH (10:04)
[2022-11-24] MEDS: multivitamins, therapeutics tablet PO SCH (10:04)
[2022-11-24] MEDS: lisinopril 20mg tablet PO SCH (10:05)
[2022-11-24] MEDS: guaiFENesin 200 MG/10 ML oral syrup UD cup PO SCH ×2 (10:05→20:43)
[2022-11-24] MEDS: lactose-reduced food (Ensure Enlive) - 237ml bottle PO SCH ×3 (10:05→18:00)
[2022-11-24] MEDS: metoprolol tartrate 25mg tablet PO SCH ×2 (10:07→20:44)
--- NOTE | 2022-11-24 13:33 | NUR ---
F/u 11/24: Pt PO remains poor ~36% avg MM5/thin diet past 3 days refusing at times w/ ~52% avg Ensure Enlive TIDWM meeting ~51% protein and ~59% kcal estimated needs. Pt AOx1 per EMR; remains very confused per RN this AM. Per RN, pt received tray but then reports doesn't want to eat while remaining confused. RD d/w RN how pt AOx1 yet independent at meals in EMR may benefit from feeder; RN agrees to feed/assist at meals today- MD notified of RD recs for feeder TIDWM. Given poor intake past 10 days following extubation <75% needs and severe weakness meets non-severe malnutrition criteria-MD notified. If pt intake remains poor despite above interventions would benefit from supplemental EN to assist meeting needs. LBM 11/24. Will monitor for further nutrition intervention needs. Recommendations: 1) Continue minced and moist with thin liquids per ST recs; A1c 6.1% with possibly no PMH DM, CHO controlled diet not indicated 2) Ensure Enlive TID 3) Encourage PO meals; feeder/assistance TIDWM given ALOC 4) If intake remains poor consider supplemental EN via NG 5) Continue routine Thiamine, Folic acid, and MVI for EtOH hx and wound healing needs 6) Bowel care PRN 7) Weekly scaled weights Addendum: 11/24/22 at [address]uñ[address] RD Amended: Links added.
--- NOTE | 2022-11-24 18:25 | NUR ---
Patient in room PCU 3017. I have received report from STEFF Brooke and had the opportunity to ask questions and assume patient care. Patient resting comfortably in bed, just finished dinner, he is pleasantly confused.
[2022-11-24] MEDS: atorvastatin 20mg tablet PO SCH (20:44)
[2022-11-24] MEDS: tamsulosin 0.4mg capsule PO SCH (20:44)
[2022-11-24] MEDS: insulin glargine (Lantus) pen - multi-dose SQ SCH (21:21)
[2022-11-25] VITALS (13 sets, daily range): BP systolic 122–134; BP diastolic 56–63; PULSE 70–78; RESP 14–21; TEMP 98.1–98.9; O2SAT 90–99
[2022-11-25] MEDS: ipratropium/albuterol 3ml nebule NEB SCH ×4 (02:58→20:13)
--- NOTE | 2022-11-25 06:13 | NUR ---
Problems reprioritized. Patient report given, questions answered & plan of care reviewed with STEFF Brooke.
--- NOTE | 2022-11-25 06:45 | NUR ---
Problems reprioritized. Patient report given, questions answered & plan of care reviewed with DYLON Arango.
--- NOTE | 2022-11-25 06:49 | NUR ---
Patient in room PCU 3017. I have received report from Jahaira and had the opportunity to ask questions and assume patient care.
[2022-11-25 07:09] LABS: ALANINE AMINOTRANSFERASE 40 U/L (12-78); ALBUMIN 2.5 G/DL (3.4-5.0); ALBUMIN/GLOBULIN RATIO 0.7 (1.1-1.5); ALKALINE PHOSPHATASE 58 IU/L (46-116); ANION GAP 8 (8-16); ASPARTATE AMINO TRANSFERASE 35 U/L (10-37); BILIRUBIN,TOTAL 0.6 MG/DL (0.1-1.0); BLOOD UREA NITROGEN 11 MG/DL (7-18); BUN/CREATININE RATIO 12.4 (10.0-20.0); CALCIUM 8.9 MG/DL (8.5-10.1); CHLORIDE 105 MMOL/L (99-107); CREATININE 0.89 MG/DL (0.60-1.10); GLUCOSE 167 MG/DL (70-104); POTASSIUM 3.7 MMOL/L (3.5-5.1); SODIUM 140 MMOL/L (135-145); TOTAL PROTEIN 6.3 G/DL (6.4-8.2); eCRCL 77 ML/MIN; eGFR 83 ML/MIN
[2022-11-25 07:31] LABS: BASOPHILS # (AUTO) 0.1 X10'3 (0-0.2); EOSINOPHILS # (AUTO) 0.5 X10'3 (0-0.9); EOSINOPHILS % (AUTO) 8.5 % (0-6); HEMATOCRIT 31.3 % (42.0-52.0); HEMOGLOBIN 10.4 g/dl (14.0-17.9); LYMPHOCYTES # (AUTO) 1.9 X10'3 (1.1-4.8); LYMPHOCYTES % (AUTO) 31.8 % (21-51); MEAN CORPUSCULAR HEMOGLOBIN 29.1 PG (27.0-31.0); MEAN CORPUSCULAR HGB CONC 33.4 g/dL (33.0-36.5); MEAN PLATELET VOLUME 9.6 FL (7.4-10.4); MONOCYTES # (AUTO) 0.8 X10'3 (0-0.9); MONOCYTES % (AUTO) 13.2 % (2-12); NEUTROPHILS # (AUTO) 2.8 X10'3 (1.8-7.7); NEUTROPHILS % (AUTO) 45.5 % (42-75); PLATELET COUNT 322 X10'3 (140-440); RED BLOOD COUNT 3.59 X10'6 (4.70-6.10); RED CELL DISTRIBUTION WIDTH 14.4 % (11.5-14.5); WHITE BLOOD COUNT 6.1 X10'3 (4.5-11.0)
[2022-11-25] MEDS: lactose-reduced food (Ensure Enlive) - 237ml bottle PO SCH ×3 (08:00→18:20)
[2022-11-25] MEDS ORDERED: albuterol 2.5 MG/3 ML nebule NEB PRN (08:55)
[2022-11-25] MEDS: multivitamins, therapeutics tablet PO SCH (09:03)
[2022-11-25] MEDS: guaiFENesin 200 MG/10 ML oral syrup UD cup PO SCH ×2 (09:03→20:41)
[2022-11-25] MEDS: metoprolol tartrate 25mg tablet PO SCH ×2 (09:04→20:42)
[2022-11-25] MEDS: folic acid 1mg tablet PO SCH (09:04)
[2022-11-25] MEDS: lisinopril 20mg tablet PO SCH (09:04)
[2022-11-25] MEDS: apixaban 5mg tablet PO SCH ×2 (09:04→20:42)
[2022-11-25] MEDS: thiamine 100mg tablet PO SCH (09:05)
[2022-11-25] MEDS: pantoprazole 40mg Tablet.DR PO SCH (09:05)
[2022-11-25] MEDS: insulin Lispro (HumaLOG) vial - multi-dose SQ SCH (10:44)
--- NOTE | 2022-11-25 18:37 | NUR ---
Problems reprioritized. Patient report given, questions answered & plan of care reviewed with Jahaira.
[2022-11-25] MEDS: atorvastatin 20mg tablet PO SCH (20:42)
[2022-11-25] MEDS: tamsulosin 0.4mg capsule PO SCH (20:42)
[2022-11-25] MEDS: insulin glargine (Lantus) pen - multi-dose SQ SCH (20:49)
[2022-11-26] VITALS (13 sets, daily range): BP systolic 107–117; BP diastolic 42–56; PULSE 72–90; RESP 16–18; TEMP 97–98.3; O2SAT 94–99
[2022-11-26] MEDS: ipratropium/albuterol 3ml nebule NEB SCH ×4 (02:49→20:55)
--- NOTE | 2022-11-26 06:20 | NUR ---
Problems reprioritized. Patient report given, questions answered & plan of care reviewed with STEFF Arango.
--- NOTE | 2022-11-26 06:27 | NUR ---
Patient in room PCU 3017. I have received report from Jahaira and had the opportunity to ask questions and assume patient care.
[2022-11-26 07:27] LABS: BASOPHILS # (AUTO) 0.1 X10'3 (0-0.2); EOSINOPHILS # (AUTO) 0.6 X10'3 (0-0.9); EOSINOPHILS % (AUTO) 9.3 % (0-6); HEMATOCRIT 33.1 % (42.0-52.0); LYMPHOCYTES # (AUTO) 1.6 X10'3 (1.1-4.8); LYMPHOCYTES % (AUTO) 26.6 % (21-51); MEAN CORPUSCULAR HEMOGLOBIN 29.4 PG (27.0-31.0); MEAN CORPUSCULAR HGB CONC 33.2 g/dL (33.0-36.5); MEAN CORPUSCULAR VOLUME 88.6 FL (78-98); MEAN PLATELET VOLUME 9.5 FL (7.4-10.4); MONOCYTES % (AUTO) 16.9 % (2-12); NEUTROPHILS # (AUTO) 2.8 X10'3 (1.8-7.7); NEUTROPHILS % (AUTO) 46.2 % (42-75); PLATELET COUNT 289 X10'3 (140-440); RED BLOOD COUNT 3.74 X10'6 (4.70-6.10); RED CELL DISTRIBUTION WIDTH 15.1 % (11.5-14.5); WHITE BLOOD COUNT 6.1 X10'3 (4.5-11.0)
[2022-11-26] MEDS: pantoprazole 40mg Tablet.DR PO SCH (07:30)
[2022-11-26 07:48] LABS: ALANINE AMINOTRANSFERASE 37 U/L (12-78); ALBUMIN 2.5 G/DL (3.4-5.0); ALBUMIN/GLOBULIN RATIO 0.6 (1.1-1.5); ALKALINE PHOSPHATASE 57 IU/L (46-116); ANION GAP 7 (8-16); ASPARTATE AMINO TRANSFERASE 33 U/L (10-37); BILIRUBIN,TOTAL 0.6 MG/DL (0.1-1.0); BLOOD UREA NITROGEN 15 MG/DL (7-18); BUN/CREATININE RATIO 15.6 (10.0-20.0); CHLORIDE 106 MMOL/L (99-107); CREATININE 0.96 MG/DL (0.60-1.10); GLUCOSE 177 MG/DL (70-104); POTASSIUM 3.9 MMOL/L (3.5-5.1); SODIUM 140 MMOL/L (135-145); TOTAL CARBON DIOXIDE 26.9 MMOL/L (24-32); TOTAL PROTEIN 6.4 G/DL (6.4-8.2); eCRCL 72 ML/MIN; eGFR 76 ML/MIN
[2022-11-26] MEDS: guaiFENesin 200 MG/10 ML oral syrup UD cup PO SCH ×2 (08:00→20:28)
[2022-11-26] MEDS: lactose-reduced food (Ensure Enlive) - 237ml bottle PO SCH ×3 (08:00→18:43)
[2022-11-26] MEDS: metoprolol tartrate 25mg tablet PO SCH ×2 (09:06→20:28)
[2022-11-26] MEDS: lisinopril 20mg tablet PO SCH (09:06)
[2022-11-26] MEDS: thiamine 100mg tablet PO SCH (09:06)
[2022-11-26] MEDS: apixaban 5mg tablet PO SCH ×2 (09:07→20:28)
[2022-11-26] MEDS: multivitamins, therapeutics tablet PO SCH (09:07)
[2022-11-26] MEDS: folic acid 1mg tablet PO SCH (09:07)
[2022-11-26] MEDS: insulin Lispro (HumaLOG) vial - multi-dose SQ SCH ×2 (09:36→14:42)
--- NOTE | 2022-11-26 12:28 | NUR ---
P/u 11/26: Per EMR pt remains confused A0x1. 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 Pt receiving ensure Enlive TID, appears to be increased acceptance with average intake of 65% x 5 ONS. Per T/C discussion with RN pt receiving assistance with feeding but still not really wanted to eat actual food on tray however is more accepting of ONS. Per RN, pt's sepsis has resolved thus adjusting estimated needs. Pt met 64% of estimated kcal needs and 70% of estimated protein needs thus slightly improving this follow. Will monitor PO/ONS intake trend with feeder and monitor appropriateness for EN if within POC. LBM on 11/24 with available PRN bowel care if needed. Will continue to monitor and make recommendations as appropriate. Recommendations: 1) Continue minced and moist with thin liquids per ST recs; A1c 6.1% with possibly no PMH DM, CHO controlled diet not indicated 2) Ensure Enlive TID 3) Encourage PO meals; feeder/assistance TIDWM given ALOC 4) If intake remains poor consider supplemental EN via NG 5) Continue routine Thiamine, Folic acid, and MVI for EtOH hx and wound healing needs 6) Bowel care PRN 7) Weekly scaled weights Addendum: 11/26/22 at [address] Amended: Links added. Addendum: 11/26/22 at [address] F/u 11/26: Per EMR pt remains confused A0x1. 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 Pt receiving ensure Enlive TID, appears to be increased acceptance with average intake of 65% x 5 ONS. Per T/C discussion with RN, pt receiving assistance with feeding but still not really wanted to eat actual food on tray however is more accepting of ONS. Per T/C with resident, pt's sepsis has resolved thus adjusting estimated needs. Pt met 64% of estimated kcal needs and 70% of estimated protein needs thus slightly improving this follow up. Will monitor PO/ONS intake trend with feeder and monitor appropriateness for EN if within POC. LBM on 11/24 with available PRN bowel care if needed. Will continue to monitor and make recommendations as appropriate. Recommendations: 1) Continue minced and moist with thin liquids per ST recs; A1c 6.1% with possibly no PMH DM, CHO controlled diet not indicated 2) Ensure Enlive TID 3) Encourage PO meals; feeder/assistance TIDWM given ALOC 4) If intake remains poor consider supplemental EN via NG 5) Continue routine Thiamine, Folic acid, and MVI for EtOH hx and wound healing needs 6) Bowel care PRN 7) Weekly scaled weights
[2022-11-26 13:16] LABS: TOTAL CELLS COUNTED 100
[2022-11-26 13:17] LABS: ANISOCYTOSIS FEW; LARGE PLATELETS FEW; PLATELET ESTIMATE NORMAL
--- NOTE | 2022-11-26 17:10 | NUR ---
AGREE WITH PHYSICAL ASSESSMENT DONE BY MARILYN OSBORNE , EXCEPT FOR CHANGES MADE Addendum: 11/26/22 at 1711 by Carmelita Encarnacion RN Amended: Links added.
--- NOTE | 2022-11-26 18:47 | NUR ---
Problems reprioritized. Patient report given, questions answered & plan of care reviewed with John.
[2022-11-26] MEDS: insulin glargine (Lantus) pen - multi-dose SQ SCH (20:25)
[2022-11-26] MEDS: tamsulosin 0.4mg capsule PO SCH (20:27)
[2022-11-26] MEDS: atorvastatin 20mg tablet PO SCH (20:28)
[2022-11-27] VITALS (9 sets, daily range): BP systolic 99–136; BP diastolic 50–59; PULSE 73–83; RESP 6–20; TEMP 97.7–99.8; O2SAT 94–98
--- NOTE | 2022-11-27 02:10 | NUR ---
I agree with DYLON Lopez and his physical assessment of this patient.
[2022-11-27] MEDS: ipratropium/albuterol 3ml nebule NEB SCH ×2 (02:53→07:34)
--- NOTE | 2022-11-27 06:16 | NUR ---
Patient in room PCU 3017. I have received report from John and had the opportunity to ask questions and assume patient care.
[2022-11-27] MEDS: pantoprazole 40mg Tablet.DR PO SCH (07:30)
[2022-11-27 07:50] LABS: BASOPHILS # (AUTO) 0.1 X10'3 (0-0.2); BASOPHILS % (AUTO) 0.9 % (0-1); EOSINOPHILS # (AUTO) 0.6 X10'3 (0-0.9); EOSINOPHILS % (AUTO) 10.5 % (0-6); HEMATOCRIT 33.5 % (42.0-52.0); HEMOGLOBIN 11.1 g/dl (14.0-17.9); LYMPHOCYTES # (AUTO) 1.7 X10'3 (1.1-4.8); LYMPHOCYTES % (AUTO) 27.9 % (21-51); MEAN CORPUSCULAR HEMOGLOBIN 29.1 PG (27.0-31.0); MEAN CORPUSCULAR HGB CONC 33.1 g/dL (33.0-36.5); MEAN CORPUSCULAR VOLUME 88.1 FL (78-98); MEAN PLATELET VOLUME 9.7 FL (7.4-10.4); MONOCYTES % (AUTO) 15.7 % (2-12); NEUTROPHILS # (AUTO) 2.8 X10'3 (1.8-7.7); PLATELET COUNT 283 X10'3 (140-440); RED BLOOD COUNT 3.81 X10'6 (4.70-6.10); WHITE BLOOD COUNT 6.2 X10'3 (4.5-11.0)
[2022-11-27 07:59] LABS: ALANINE AMINOTRANSFERASE 32 U/L (12-78); ALBUMIN 2.5 G/DL (3.4-5.0); ALBUMIN/GLOBULIN RATIO 0.6 (1.1-1.5); ALKALINE PHOSPHATASE 58 IU/L (46-116); ANION GAP 5 (8-16); ASPARTATE AMINO TRANSFERASE 24 U/L (10-37); BILIRUBIN,TOTAL 0.7 MG/DL (0.1-1.0); BLOOD UREA NITROGEN 18 MG/DL (7-18); BUN/CREATININE RATIO 20.5 (10.0-20.0); CALCIUM 9.2 MG/DL (8.5-10.1); CHLORIDE 106 MMOL/L (99-107); CREATININE 0.88 MG/DL (0.60-1.10); GLUCOSE 184 MG/DL (70-104); POTASSIUM 4.1 MMOL/L (3.5-5.1); SODIUM 139 MMOL/L (135-145); TOTAL CARBON DIOXIDE 28.3 MMOL/L (24-32); TOTAL PROTEIN 6.5 G/DL (6.4-8.2); eCRCL 78 ML/MIN; eGFR 84 ML/MIN
[2022-11-27] MEDS: lactose-reduced food (Ensure Enlive) - 237ml bottle PO SCH ×2 (08:00→09:00)
[2022-11-27] MEDS: multivitamins, therapeutics tablet PO SCH (09:17)
[2022-11-27] MEDS: guaiFENesin 200 MG/10 ML oral syrup UD cup PO SCH (09:17)
[2022-11-27] MEDS: thiamine 100mg tablet PO SCH (09:17)
[2022-11-27] MEDS: folic acid 1mg tablet PO SCH (09:17)
[2022-11-27] MEDS: lisinopril 20mg tablet PO SCH (09:18)
[2022-11-27] MEDS: apixaban 5mg tablet PO SCH (09:18)
[2022-11-27] MEDS: metoprolol tartrate 25mg tablet PO SCH (09:19)
[2022-11-27] MEDS: insulin Lispro (HumaLOG) vial - multi-dose SQ SCH (09:59)
--- NOTE | 2022-11-27 13:50 | NUR ---
agree with physical assessment, except for changes made done by magalis price Addendum: 11/27/22 at 1351 by Carmelita Encarnacion RN Amended: Links added.
--- NOTE | 2022-11-27 13:50 | NUR ---
Patient was discharged to [facility]. He took all belongings and had no c/o pain or discomfort. Report was called to Sandrita Diaz and all questions answered. Patient left via medical transport.
== END 2022-11-27 13:50 | DRG 853 ==
LOC: ER 06:50 → ED HOLD 17:12 → CICU 2S 19:54 → PCU 3S 10-31 07:37 → CICU 2S 11-05 13:44 → PCU 3S 11-16 20:10
PROVIDERS: ADMIT Internal Medicine Critical Care Medicine; ATTEND Internal Medicine Critical Care Medicine
PROC: 0W9B00Z Drainage of Left Pleural Cavity with Drainage Device, Open Approach (ICD-10-PCS; principal; 2022-10-28)
PROC: 30233K1 Transfusion of Nonautologous Frozen Plasma into Peripheral Vein, Percutaneous Approach (ICD-10-PCS; 2022-10-28)
PROC: 0BCG0ZZ Extirpation of Matter from Left Upper Lung Lobe, Open Approach (ICD-10-PCS; 2022-10-28)
PROC: 30233N1 Transfusion of Nonautologous Red Blood Cells into Peripheral Vein, Percutaneous Approach (ICD-10-PCS; 2022-11-02)
PROC: 5A1955Z Respiratory Ventilation, Greater than 96 Consecutive Hours (ICD-10-PCS; 2022-11-05)
PROC: 0BH17EZ Insertion of Endotracheal Airway into Trachea, Via Natural or Artificial Opening (ICD-10-PCS; 2022-11-05)
PROC: 0B9J7ZX Drainage of Left Lower Lung Lobe, Via Natural or Artificial Opening, Diagnostic (ICD-10-PCS; 2022-11-12)
DX: A41.9 Sepsis, unspecified organism (principal); G93.41 Metabolic encephalopathy; S27.1XXA Traumatic hemothorax, initial encounter; S27.2XXA Traumatic hemopneumothorax, initial encounter; N17.0 Acute kidney failure with tubular necrosis; J18.9 Pneumonia, unspecified organism; J96.01 Acute respiratory failure with hypoxia; R57.1 Hypovolemic shock; R65.21 Severe sepsis with septic shock; S22.42XA Multiple fractures of ribs, left side, initial encounter for closed fracture; J90 Pleural effusion, not elsewhere classified; F10.131 Alcohol abuse with withdrawal delirium; I48.19 Other persistent atrial fibrillation; D62 Acute posthemorrhagic anemia; E87.5 Hyperkalemia; Z66 Do not resuscitate; N40.0 Benign prostatic hyperplasia without lower urinary tract symptoms; I10 Essential (primary) hypertension; E78.5 Hyperlipidemia, unspecified; X58.XXXA Exposure to other specified factors, initial encounter; E11.65 Type 2 diabetes mellitus with hyperglycemia; I48.0 Paroxysmal atrial fibrillation; Z79.01 Long term (current) use of anticoagulants; Z87.891 Personal history of nicotine dependence
CPT/HCPCS: 31645; 36410; 36415; 36430; 36600; 70450; 71045; 71101; 71250; 72125; 74018; 74176; 76700; 76942; 80048; 80053; 81001; 82150; 82803; 82948; 83036; 83605; 83690; 83735; 83880; 84100; 84134; 84145; 84443; 84478; 84484; 85007; 85008; 85018; 85025; 85027; 85379; 85610; 85730; 86885; 86900; 86901; 86920; 87070; 87081; 88305; 92508; 92616; 93005; 93306; 93970; 94002; 94003; 94640; 94668; 94760; 94799; 97110; 97116; 97161; 97530; 99285; A4314; A4333; A4349; A4615; A4618; A4649; A5200; A6196; A6209; A6212; A6213; A6222; A6223; A6250; A6258; A6402; A6449; A7000; A7015; A7048; C1751; C1758; C9113; G0378; J0610; J0690; J0696; J1630; J1644; J1815; J2060; J2250; J2270; J2405; J2704; J3010; J3411; J3430; J3490; J7030; J7040; J7120; P9016; P9045; P9059; S0020

== ENCOUNTER 2023-02-23 09:08 | Inpatient (IN) | payer MEDICARE, OTHER ==
[2023-02-23] VITALS (10 sets, daily range): BP systolic 122–174; BP diastolic 54–115; PULSE 116–135; RESP 25–37; O2SAT 92–95
[~2023-02-23] VITALS: Ht 185.4 cm; Wt 83.3 kg
[~2023-02-23 09:08] MED LIST changes: +AMA1T PO; +ATOR-2 PO; +GABA-530 PO; +LISI40TA13 PO; +METF-1203 PO
[2023-02-23 10:06] LABS: BASOPHILS % (AUTO) 0.2 % (0-1); EOSINOPHILS % (AUTO) 0 % (0-6); HEMATOCRIT 39.7 % (42.0-52.0); HEMOGLOBIN 13.2 g/dl (14.0-17.9); LYMPHOCYTES % (AUTO) 4.3 % (21-51); MEAN CORPUSCULAR HEMOGLOBIN 28.2 PG (27.0-31.0); MEAN CORPUSCULAR HGB CONC 33.2 g/dL (33.0-36.5); MEAN CORPUSCULAR VOLUME 85.1 FL (78-98); MEAN PLATELET VOLUME 9.1 FL (7.4-10.4); MONOCYTES # (AUTO) 2.2 X10'3 (0-0.9); NEUTROPHILS % (AUTO) 85.5 % (42-75); PLATELET COUNT 202 X10'3 (140-440); RED BLOOD COUNT 4.66 X10'6 (4.70-6.10); RED CELL DISTRIBUTION WIDTH 15.1 % (11.5-14.5); WHITE BLOOD COUNT 22.3 X10'3 (4.5-11.0)
[2023-02-23] MEDS ORDERED: iohexol 300mg/ml 100ml inj. ONE (10:09)
[2023-02-23 10:13] LABS: ALANINE AMINOTRANSFERASE 14 U/L (12-78); ALBUMIN 3.4 G/DL (3.4-5.0); ALBUMIN/GLOBULIN RATIO 0.8 (1.1-1.5); ALKALINE PHOSPHATASE 33 IU/L (46-116); ANION GAP 13 (8-16); ASPARTATE AMINO TRANSFERASE 9 U/L (10-37); BILIRUBIN,TOTAL 1.2 MG/DL (0.1-1.0); BLOOD UREA NITROGEN 19 MG/DL (7-18); BUN/CREATININE RATIO 14.7 (10.0-20.0); CALCIUM 9.4 MG/DL (8.5-10.1); CHLORIDE 99 MMOL/L (99-107); CREATININE 1.29 MG/DL (0.60-1.10); GLUCOSE 255 MG/DL (70-104); LIPASE 25 U/L (16-77); POTASSIUM 5.2 MMOL/L (3.5-5.1); SODIUM 132 MMOL/L (135-145); TOTAL CARBON DIOXIDE 19.8 MMOL/L (24-32); TOTAL PROTEIN 7.7 G/DL (6.4-8.2); eCRCL 53 ML/MIN; eGFR 54 ML/MIN
[2023-02-23 10:25] LABS: ANISOCYTOSIS FEW; PLATELET ESTIMATE NORMAL; TOTAL CELLS COUNTED 100
[2023-02-23] MEDS: MESSAGE TO NURSING PO SCH (11:00)
[2023-02-23] MEDS ORDERED: SODIUM ZIRCONIUM CYCLOSILICATE 10 GM POWD.PACK PO ONE (11:05)
[2023-02-23] MEDS ORDERED: normal saline 1000ml 1,000 ML IV ONE (11:05)
[2023-02-23] MEDS ORDERED: piperacillin/tazo 3.375gm/50ml 50 ML IV ONE (11:14)
[2023-02-23] MEDS ORDERED: TOBRAMYCIN IV ONE (12:45)
[2023-02-23] MEDS ORDERED: NORMAL SALINE IV ONE (12:45)
[2023-02-23] MEDS ORDERED: ringers solution, lacted 1,000 ML IV ONE ×2 (12:45)
[2023-02-23] MEDS: normal saline 1000ml 1,000 ML IV SCH ×2 (13:16→19:58)
[2023-02-23] MEDS: hydrALAZINE 20mg/ml inj. IV SCH ×2 (13:22→20:02)
[2023-02-23 14:00] LABS: BILIRUBIN,URINE NEGATIVE (Neg); CLARITY,URINE CLEAR (Clear); COLOR,URINE YELLOW (Yellow); GLUCOSE, URINE 250 mg/dl (Neg); KETONES,URINE TRACE mg/dl (Neg); LEUKOCYTE ESTERASE ,URINE NEGATIVE (Neg); NITRITES, URINE NEGATIVE (Neg); OCCULT BLOOD,URINE NEGATIVE (Neg); PROTEIN,URINE 30 mg/dl (Neg); UA COLLECTION TYPE URINAL; UROBILINOGEN,URINE 0.2 E.U/dL (0.2-1.0)
[2023-02-23 14:08] LABS: BACTERIA,URINE NONE SEEN /HPF (Neg); MUCUS STRANDS FEW /LPF (Neg); RBC,URINE NONE SEEN /HPF (0-2); SQUAMOUS EPITHELIAL CELL,UR NONE SEEN /LPF (FEW); WBC,URINE 0-4 /HPF (0-4)
[2023-02-23] MEDS ORDERED: MESSAGE TO PHARMACY PO ONE (15:20)
[2023-02-23] MEDS ORDERED: glucagon, human recombinant 1mg kit SUBCUT PRN (15:20)
[2023-02-23] MEDS ORDERED: ondansetron/PF 4mg/2ml inj IV PRN (15:20)
[2023-02-23] MEDS ORDERED: DEXTROSE 15 GM of carb/4 tabs (each vial/BOTTLE has 4 tablets) PO PRN ×2 (15:20)
[2023-02-23] MEDS ORDERED: dextrose 50%-water 50ml dispensing syringe IV PRN ×2 (15:20)
[2023-02-23] MEDS ORDERED: acetaminophen 325mg tablet PO PRN ×2 (15:20)
[2023-02-23] MEDS ORDERED: morphine 2 MG/ML inj. syringe IV PRN (15:20)
[2023-02-23] MEDS: morphine 2 MG/ML inj. syringe IV PRN ×3 (15:34→23:43)
[2023-02-23] MEDS ORDERED: METO25TA6 PO (15:55)
[2023-02-23] MEDS ORDERED: FLO0.4C PO (15:55)
[2023-02-23] MEDS ORDERED: ASPI-611 PO (15:55)
[2023-02-23] MEDS ORDERED: APIX5TAB3 PO (16:06)
[2023-02-23] MEDS ORDERED: morphine 2 MG/ML inj. syringe IV ONE (16:25)
[2023-02-23] MEDS: niCARDipine-NS 40mg/200ml IVPB 200 ML IV SCH (16:54)
[2023-02-23] MEDS: HYDROmorphone/PF 0.2 MG/ML SYRINGE IV PRN (17:15)
[2023-02-23] MEDS ORDERED: metoprolol tartrate 1mg/ml inj IV ONE (17:55)
[2023-02-23] MEDS: piperacillin/tazo 4.5gm/100ml 100 ML IV SCH (20:01)
[2023-02-23] MEDS: insulin glargine (Lantus) pen - multi-dose SQ SCH (20:04)
[2023-02-23] MEDS: insulin Lispro (HumaLOG) vial - multi-dose SQ SCH (20:04)
[2023-02-23] MEDS: pantoprazole 40 MG vial IV SCH (20:14)
[2023-02-24] VITALS (28 sets, daily range): BP systolic 82–130; BP diastolic 43–75; PULSE 100–135; RESP 12–38; O2SAT 92–99
[2023-02-24] MEDS: niCARDipine-NS 40mg/200ml IVPB 200 ML IV SCH ×3 (00:56→20:00)
[2023-02-24] MEDS: hydrALAZINE 20mg/ml inj. IV SCH ×4 (02:44→20:00)
[2023-02-24] MEDS: normal saline 1000ml 1,000 ML IV SCH ×4 (02:45→22:05)
[2023-02-24] MEDS: piperacillin/tazo 4.5gm/100ml 100 ML IV SCH ×3 (02:45→20:52)
[2023-02-24] MEDS: morphine 2 MG/ML inj. syringe IV PRN (03:46)
[2023-02-24 06:28] LABS: BASOPHILS % (AUTO) 0.1 % (0-1); EOSINOPHILS % (AUTO) 0 % (0-6)
[2023-02-24 06:30] LABS: HEMOGLOBIN 13.8 g/dl (14.0-17.9); MEAN CORPUSCULAR HEMOGLOBIN 28.4 PG (27.0-31.0); MEAN CORPUSCULAR HGB CONC 33.7 g/dL (33.0-36.5); MEAN CORPUSCULAR VOLUME 84.2 FL (78-98); MEAN PLATELET VOLUME 10.1 FL (7.4-10.4); MONOCYTES # (AUTO) 3.7 X10'3 (0-0.9); MONOCYTES % (AUTO) 11.5 % (2-12); NEUTROPHILS # (AUTO) 27.9 X10'3 (1.8-7.7); NEUTROPHILS % (AUTO) 85.4 % (42-75); RED BLOOD COUNT 4.87 X10'6 (4.70-6.10); RED CELL DISTRIBUTION WIDTH 15.2 % (11.5-14.5)
[2023-02-24 06:48] LABS: PLATELET COUNT 191 X10'3 (140-440); WHITE BLOOD COUNT 32.6 X10'3 (4.5-11.0)
[2023-02-24 07:43] LABS: PLATELET ESTIMATE NORMAL; TOTAL CELLS COUNTED 100
[2023-02-24 07:44] LABS: ANISOCYTOSIS FEW; BURR CELLS 1+; LARGE PLATELETS FEW
[2023-02-24 08:22] LABS: APTT 31 SECONDS (22-32); INR 1.1 INR; PROTHROMBIN TIME 11.8 SECONDS (9.0-12.0)
[2023-02-24] MEDS: pantoprazole 40 MG vial IV SCH ×2 (08:25→20:52)
[2023-02-24 08:30] LABS: ALANINE AMINOTRANSFERASE 10 U/L (12-78); ALBUMIN 2.5 G/DL (3.4-5.0); ALBUMIN/GLOBULIN RATIO 0.5 (1.1-1.5); ALKALINE PHOSPHATASE 37 IU/L (46-116); ANION GAP 13 (8-16); ASPARTATE AMINO TRANSFERASE 27 U/L (10-37); BILIRUBIN,TOTAL 1.5 MG/DL (0.1-1.0); BLOOD UREA NITROGEN 12 MG/DL (7-18); BUN/CREATININE RATIO 12.5 (10.0-20.0); CALCIUM 8.8 MG/DL (8.5-10.1); CHLORIDE 101 MMOL/L (99-107); CREATININE 0.96 MG/DL (0.60-1.10); GLUCOSE 209 MG/DL (70-104); SODIUM 136 MMOL/L (135-145); TOTAL CARBON DIOXIDE 21.8 MMOL/L (24-32); TOTAL PROTEIN 7.1 G/DL (6.4-8.2); eCRCL 70 ML/MIN; eGFR 76 ML/MIN
[2023-02-24 08:36] LABS: POTASSIUM 3.9 MMOL/L (3.5-5.1)
[2023-02-24 08:38] LABS: MAGNESIUM 0.9 MG/DL (1.5-2.4)
[2023-02-24] MEDS ORDERED: magnesium 2GM in 50ml NS 50 ML IV PRN (08:50)
[2023-02-24] MEDS ORDERED: potassium Cl 40MEQ/1/2NS 520ml 520 ML IV PRN (08:50)
[2023-02-24] MEDS: magnesium 4gm in 100ml NS 100 ML IV PRN (10:51)
[2023-02-24] MEDS: HYDROmorphone/PF 0.2 MG/ML SYRINGE IV PRN (10:54)
[2023-02-24] MEDS: insulin Lispro (HumaLOG) vial - multi-dose SQ SCH ×2 (11:01→14:54)
[2023-02-24] MEDS: MESSAGE TO NURSING PO SCH (11:15)
[2023-02-24] MEDS ORDERED: proCHLORperazine 10 MG/2 ml inj IV PRN (14:00)
[2023-02-24] MEDS ORDERED: meperidine/PF 25mg/ml syringe IV PRN ×3 (14:00)
[2023-02-24] MEDS ORDERED: morphine 2 MG/ML inj. syringe IV PRN (14:00)
[2023-02-24] MEDS ORDERED: morphine 4 MG/ML inj SYRINge IV PRN (14:00)
[2023-02-24] MEDS ORDERED: ondansetron/PF 4mg/2ml inj IV PRN ×2 (14:00→18:25)
[2023-02-24] MEDS ORDERED: labetalol 20mg/4ml (5mg/ml) syringe IV PRN (14:00)
[2023-02-24] MEDS ORDERED: enalaprilat dihydrate 2.5mg/2ml vial IV PRN (14:00)
[2023-02-24] MEDS ORDERED: ringers solution, lacted 1,000 ML IV SCH (14:00)
[2023-02-24] MEDS ORDERED: LORazepam 1 MG tablet PO PRN (14:10)
[2023-02-24] MEDS ORDERED: haloperidol 5mg tablet PO PRN (14:10)
[2023-02-24] MEDS ORDERED: LORazepam 2 mg/ml vial IV PRN (14:10)
[2023-02-24] MEDS ORDERED: dextrose 50%-water 50ml dispensing syringe IV PRN (14:10)
[2023-02-24] MEDS ORDERED: INDOCYANINE GREEN 25 MG/10 ML VIAL IV ONE (14:21)
[2023-02-24] MEDS ORDERED: BUPIVAcaine 2.5mg/ml inj 50ml vial (contains preservative) ONE (14:21)
[2023-02-24] MEDS ORDERED: neostigmine methylsulfate 1 MG/ML 10ml vial ONE (15:25)
[2023-02-24] MEDS ORDERED: desflurane 240ml liquid inh. IH ONE (15:25)
[2023-02-24] MEDS ORDERED: metoprolol tartrate 1mg/ml inj IV ONE (15:25)
[2023-02-24] MEDS ORDERED: fentaNYL/PF 50MCG/1 ML 2ML syringe ONE ×2 (15:26→16:20)
[2023-02-24] MEDS ORDERED: midazolam 1 mg/ML 2ml injection ONE (15:26)
[2023-02-24] MEDS ORDERED: BUPIVAcaine/PF 2.5 mg/ml (0.25%) 30ml vial IJ ONE (16:20)
[2023-02-24] MEDS ORDERED: etomidate 2mg/ml inj. ONE (16:20)
[2023-02-24] MEDS ORDERED: rocuronium 10mg/ml inj IV ONE (16:20)
[2023-02-24] MEDS ORDERED: albumin (Human) 5% 250ml 250 ML IV ONE (16:38)
[2023-02-24] MEDS ORDERED: morphine 4 MG/ML inj SYRINge IV ONE (17:21)
[2023-02-24] MEDS ORDERED: heparin 10,000 units/1 ML INJ ONE (17:30)
[2023-02-24] MEDS ORDERED: propofol 1000mg/100ml bottle 100 ML IV SCH ×2 (18:00→18:12)
[2023-02-24] MEDS ORDERED: propofol 1000mg/100ml bottle 100 ML IV ONE (18:02)
[2023-02-24] MEDS ORDERED: FENTANYL-0.9 % NACL/PF 100 ML IV PRN (18:10)
[2023-02-24 18:20] LABS: ALANINE AMINOTRANSFERASE 19 U/L (12-78); ALBUMIN 1.8 G/DL (3.4-5.0); ALBUMIN/GLOBULIN RATIO 0.6 (1.1-1.5); ALKALINE PHOSPHATASE 23 IU/L (46-116); ANION GAP 11 (8-16); ASPARTATE AMINO TRANSFERASE 37 U/L (10-37); BILIRUBIN,TOTAL 1.2 MG/DL (0.1-1.0); BLOOD UREA NITROGEN 13 MG/DL (7-18); BUN/CREATININE RATIO 12.4 (10.0-20.0); CALCIUM 7.4 MG/DL (8.5-10.1); CHLORIDE 107 MMOL/L (99-107); CREATININE 1.05 MG/DL (0.60-1.10); GLUCOSE 169 MG/DL (70-104); POTASSIUM 3.7 MMOL/L (3.5-5.1); SODIUM 137 MMOL/L (135-145); TOTAL CARBON DIOXIDE 19.5 MMOL/L (24-32); TOTAL PROTEIN 4.6 G/DL (6.4-8.2); eCRCL 64 ML/MIN; eGFR 68 ML/MIN
[2023-02-24 19:11] LABS: ABG HCO3 19.9 mmol/L (22.0-26.0); ABG OXYGEN SATURATION 97.5 % (94-97); ABG PCO2 (T) 37.1 mmHg (35.0-48.0); ABG PH (T) 7.348 (7.340-7.440); ABG PO2 (T) 96.9 mmHg (75.0-100.0); FCOHb 0.8 % (0.0-3.9); FHHb 2.5 % (0.0-5.0); FO2Hb 96.7 % (94-97); MODE VENT - SIMV; PATIENT TEMPERATURE 37.2; PEEP 5 cm H2O; RESPIRATORY RATE 12 b/min; TIDAL VOLUME 600 mL; TOTAL HEMOGLOBIN 13.3 G/dl (14.0-17.9)
[2023-02-24 19:14] LABS: EOSINOPHILS % (AUTO) 0 % (0-6); LYMPHOCYTES # (AUTO) 1.3 X10'3 (1.1-4.8)
[2023-02-24 19:16] LABS: BASOPHILS % (AUTO) 0.1 % (0-1); HEMATOCRIT 37.7 % (42.0-52.0); HEMOGLOBIN 12.7 g/dl (14.0-17.9); LYMPHOCYTES % (AUTO) 6.1 % (21-51); MEAN CORPUSCULAR HEMOGLOBIN 28.5 PG (27.0-31.0); MEAN CORPUSCULAR HGB CONC 33.6 g/dL (33.0-36.5); MEAN CORPUSCULAR VOLUME 84.9 FL (78-98); MEAN PLATELET VOLUME 9.1 FL (7.4-10.4); MONOCYTES # (AUTO) 2.9 X10'3 (0-0.9); MONOCYTES % (AUTO) 13.3 % (2-12); NEUTROPHILS # (AUTO) 17.4 X10'3 (1.8-7.7); NEUTROPHILS % (AUTO) 80.5 % (42-75); PLATELET COUNT 154 X10'3 (140-440); RED BLOOD COUNT 4.44 X10'6 (4.70-6.10); RED CELL DISTRIBUTION WIDTH 15.2 % (11.5-14.5); WHITE BLOOD COUNT 21.6 X10'3 (4.5-11.0)
[2023-02-24 19:27] LABS: ANION GAP 10 (8-16); BLOOD UREA NITROGEN 14 MG/DL (7-18); BUN/CREATININE RATIO 12.8 (10.0-20.0); CALCIUM 7.4 MG/DL (8.5-10.1); CHLORIDE 108 MMOL/L (99-107); CREATININE 1.09 MG/DL (0.60-1.10); GLUCOSE 196 MG/DL (70-104); PHOSPHORUS 4.4 MG/DL (2.3-4.5); POTASSIUM 4.1 MMOL/L (3.5-5.1); SODIUM 139 MMOL/L (135-145); TOTAL CARBON DIOXIDE 21.2 MMOL/L (24-32); eCRCL 62 ML/MIN; eGFR 65 ML/MIN
[2023-02-24 19:28] LABS: ALANINE AMINOTRANSFERASE 22 U/L (12-78); ALBUMIN 1.9 G/DL (3.4-5.0); ALBUMIN/GLOBULIN RATIO 0.6 (1.1-1.5); ALKALINE PHOSPHATASE 33 IU/L (46-116); ASPARTATE AMINO TRANSFERASE 49 U/L (10-37); BILIRUBIN,TOTAL 1.8 MG/DL (0.1-1.0); MAGNESIUM 1.7 MG/DL (1.5-2.4); TOTAL PROTEIN 4.9 G/DL (6.4-8.2)
[2023-02-24] MEDS: NORepinephrine 8mg/ 250ml NS 250 ML IV SCH (19:30)
[2023-02-24 19:45] LABS: APTT 34 SECONDS (22-32); FIBRINOGEN 662 MG/DL (177-424); INR 1.1 INR; PROTHROMBIN TIME 12.2 SECONDS (9.0-12.0)
[2023-02-24 19:53] LABS: BANDS% (MANUAL) 2 % (0-10); LYMPHOCYTES % (MANUAL) 3 % (21-51); MONOCYTES % (MANUAL) 10 % (2-12); NEUTROPHILS % (MANUAL) 83 % (42-75); REACTIVE LYMPHOCYTES % 2 % (0-0); TOTAL CELLS COUNTED 100
[2023-02-24 19:54] LABS: LARGE PLATELETS FEW; PLATELET ESTIMATE NORMAL; SMUDGE CELLS FEW
[2023-02-24 19:55] LABS: BURR CELLS 1+; ELLIPTOCYTES FEW; ROULEAUX 3+; TOXIC GRANULATION 1+
[2023-02-24] MEDS: insulin glargine (Lantus) pen - multi-dose SQ SCH (21:16)
[2023-02-24] MEDS: thiamine 100mg/ml 2ml inj. IV SCH ×2 (21:17→21:19)
[2023-02-24] MEDS ORDERED: normal saline 1000ml 1,000 ML IV ONE (21:25)
[2023-02-24] MEDS: midazolam 100mg in NS 100ml 100 ML IV PRN (21:29)
[2023-02-24] MEDS ORDERED: albumin (Human) 5% 250ml 500 ML IV ONE (22:35)
[2023-02-25] VITALS (34 sets, daily range): BP systolic 79–125; BP diastolic 34–65; PULSE 92–132; RESP 12–23; O2SAT 95–99
[2023-02-25] MEDS: niCARDipine-NS 40mg/200ml IVPB 200 ML IV SCH ×3 (00:25→13:57)
[2023-02-25] MEDS: hydrALAZINE 20mg/ml inj. IV SCH ×4 (02:00→19:20)
[2023-02-25] MEDS: NORepinephrine 8mg/ 250ml NS 250 ML IV SCH ×3 (02:18→21:10)
[2023-02-25 02:55] LABS: ALANINE AMINOTRANSFERASE 24 U/L (12-78); ALBUMIN/GLOBULIN RATIO 0.7 (1.1-1.5); ALKALINE PHOSPHATASE 30 IU/L (46-116); ANION GAP 7 (8-16); ASPARTATE AMINO TRANSFERASE 40 U/L (10-37); BILIRUBIN,TOTAL 1.9 MG/DL (0.1-1.0); BLOOD UREA NITROGEN 17 MG/DL (7-18); BUN/CREATININE RATIO 14.3 (10.0-20.0); CALCIUM 7.4 MG/DL (8.5-10.1); CHLORIDE 109 MMOL/L (99-107); CREATININE 1.19 MG/DL (0.60-1.10); GLUCOSE 166 MG/DL (70-104); MAGNESIUM 1.6 MG/DL (1.5-2.4); PHOSPHORUS 3.5 MG/DL (2.3-4.5); POTASSIUM 3.8 MMOL/L (3.5-5.1); SODIUM 140 MMOL/L (135-145); TOTAL PROTEIN 4.7 G/DL (6.4-8.2); eCRCL 57 ML/MIN; eGFR 59 ML/MIN
[2023-02-25] MEDS: piperacillin/tazo 4.5gm/100ml 100 ML IV SCH ×3 (03:18→19:21)
[2023-02-25 03:26] LABS: BASOPHILS % (AUTO) 0.2 % (0-1); EOSINOPHILS % (AUTO) 0 % (0-6); HEMATOCRIT 30.6 % (42.0-52.0); HEMOGLOBIN 10.2 g/dl (14.0-17.9); LYMPHOCYTES % (AUTO) 10.1 % (21-51); MEAN CORPUSCULAR HEMOGLOBIN 28.3 PG (27.0-31.0); MEAN CORPUSCULAR HGB CONC 33.5 g/dL (33.0-36.5); MEAN CORPUSCULAR VOLUME 84.5 FL (78-98); MEAN PLATELET VOLUME 9.9 FL (7.4-10.4); MONOCYTES # (AUTO) 2.3 X10'3 (0-0.9); MONOCYTES % (AUTO) 11.5 % (2-12); NEUTROPHILS # (AUTO) 15.7 X10'3 (1.8-7.7); NEUTROPHILS % (AUTO) 78.2 % (42-75); PLATELET COUNT 140 X10'3 (140-440); RED BLOOD COUNT 3.62 X10'6 (4.70-6.10)
[2023-02-25 03:46] LABS: ABG BASE EXCESS -3.2 mmol/L (-2.0-2.0); ABG HCO3 21.1 mmol/L (22.0-26.0); ABG OXYGEN SATURATION 97.8 % (94-97); ABG PCO2 (T) 36.8 mmHg (35.0-48.0); ABG PH (T) 7.381 (7.340-7.440); ABG PO2 (T) 109.6 mmHg (75.0-100.0); FCOHb 0.4 % (0.0-3.9); FHHb 2.2 % (0.0-5.0); FMetHb 0.1 % (0.0-1.5); FO2Hb 97.3 % (94-97); MODE VENT - SIMV; PATIENT TEMPERATURE 38.1; PEEP 5 cm H2O; RESPIRATORY RATE 12 b/min; TIDAL VOLUME 600 mL; TOTAL HEMOGLOBIN 11.3 G/dl (14.0-17.9)
[2023-02-25] MEDS: FENTANYL-0.9 % NACL/PF 100 ML IV PRN ×2 (04:21→14:40)
[2023-02-25] MEDS: normal saline 1000ml 1,000 ML IV SCH ×3 (04:45→19:09)
[2023-02-25] MEDS: CALCIUM GLUC 1gm/50ml NACL,iso 50 ML IV SCH ×2 (07:15→09:04)
[2023-02-25] MEDS: thiamine 100mg/ml 2ml inj. IV SCH ×2 (09:04→20:05)
[2023-02-25] MEDS: pantoprazole 40 MG vial IV SCH ×2 (09:04→19:19)
[2023-02-25] MEDS: folic acid 1mg/0.2ml inj IV SCH (09:05)
[2023-02-25] MEDS ORDERED: albumin (Human) 5% 250ml 250 ML IV ONE ×3 (12:05→20:00)
[2023-02-25] MEDS: vasopressin inj. 40 UNIT in normal saline 50ml IV soln 38 ML IV SCH (12:35)
[2023-02-25] MEDS: midazolam 100mg in NS 100ml 100 ML IV PRN (14:40)
[2023-02-25] MEDS: mineral oil/petrolatum ophthal oint EACHEYE SCH (19:21)
[2023-02-25] MEDS: insulin glargine (Lantus) pen - multi-dose SQ SCH (20:50)
[2023-02-26] VITALS (34 sets, daily range): BP systolic 84–128; BP diastolic 32–58; PULSE 61–128; RESP 11–25; O2SAT 17–100
[2023-02-26] MEDS: niCARDipine-NS 40mg/200ml IVPB 200 ML IV SCH (00:25)
[2023-02-26] MEDS: FENTANYL-0.9 % NACL/PF 100 ML IV PRN ×3 (01:22→23:02)
[2023-02-26] MEDS: hydrALAZINE 20mg/ml inj. IV SCH ×4 (02:00→20:00)
[2023-02-26] MEDS: mineral oil/petrolatum ophthal oint EACHEYE SCH ×4 (02:15→20:00)
[2023-02-26] MEDS: piperacillin/tazo 4.5gm/100ml 100 ML IV SCH ×3 (03:00→21:06)
[2023-02-26 03:25] LABS: BASOPHILS # (AUTO) 0.1 X10'3 (0-0.2); BASOPHILS % (AUTO) 0.7 % (0-1); EOSINOPHILS # (AUTO) 0.2 X10'3 (0-0.9); EOSINOPHILS % (AUTO) 1.3 % (0-6); HEMATOCRIT 28.3 % (42.0-52.0); HEMOGLOBIN 9.4 g/dl (14.0-17.9); LYMPHOCYTES # (AUTO) 1.9 X10'3 (1.1-4.8); LYMPHOCYTES % (AUTO) 11.4 % (21-51); MEAN CORPUSCULAR HEMOGLOBIN 28.3 PG (27.0-31.0); MEAN CORPUSCULAR HGB CONC 33.2 g/dL (33.0-36.5); MEAN CORPUSCULAR VOLUME 85.2 FL (78-98); MEAN PLATELET VOLUME 9.3 FL (7.4-10.4); MONOCYTES # (AUTO) 2.2 X10'3 (0-0.9); NEUTROPHILS # (AUTO) 12.3 X10'3 (1.8-7.7); NEUTROPHILS % (AUTO) 73.6 % (42-75); PLATELET COUNT 146 X10'3 (140-440); RED BLOOD COUNT 3.33 X10'6 (4.70-6.10); RED CELL DISTRIBUTION WIDTH 16.1 % (11.5-14.5); WHITE BLOOD COUNT 16.7 X10'3 (4.5-11.0)
[2023-02-26 03:36] LABS: ALANINE AMINOTRANSFERASE 21 U/L (12-78); ALBUMIN 2.2 G/DL (3.4-5.0); ALBUMIN/GLOBULIN RATIO 0.8 (1.1-1.5); ALKALINE PHOSPHATASE 20 IU/L (46-116); ANION GAP 15 (8-16); ASPARTATE AMINO TRANSFERASE 27 U/L (10-37); BLOOD UREA NITROGEN 17 MG/DL (7-18); BUN/CREATININE RATIO 12.5 (10.0-20.0); CALCIUM 7.8 MG/DL (8.5-10.1); CHLORIDE 111 MMOL/L (99-107); CREATININE 1.36 MG/DL (0.60-1.10); GLUCOSE 154 MG/DL (70-104); MAGNESIUM 1.5 MG/DL (1.5-2.4); PHOSPHORUS 3.6 MG/DL (2.3-4.5); POTASSIUM 3.5 MMOL/L (3.5-5.1); SODIUM 142 MMOL/L (135-145); TOTAL CARBON DIOXIDE 16.1 MMOL/L (24-32); eCRCL 50 ML/MIN; eGFR 51 ML/MIN
[2023-02-26 03:39] LABS: ABG BASE EXCESS -10.8 mmol/L (-2.0-2.0); ABG HCO3 14.8 mmol/L (22.0-26.0); ABG OXYGEN SATURATION 97.3 % (94-97); ABG PCO2 (T) 32.3 mmHg (35.0-48.0); ABG PO2 (T) 98.4 mmHg (75.0-100.0); FCOHb 0.3 % (0.0-3.9); FHHb 2.7 % (0.0-5.0); MODE VENT - SIMV; PATIENT TEMPERATURE 36.9; PEEP 5 cm H2O; RESPIRATORY RATE 12 b/min; TIDAL VOLUME 600 mL; TOTAL HEMOGLOBIN 10.3 G/dl (14.0-17.9)
[2023-02-26] MEDS: normal saline 1000ml 1,000 ML IV SCH ×2 (05:00→15:17)
[2023-02-26] MEDS: NORepinephrine 8mg/ 250ml NS 250 ML IV SCH ×2 (06:09→13:10)
[2023-02-26] MEDS: folic acid 1mg/0.2ml inj IV SCH (08:22)
[2023-02-26] MEDS: pantoprazole 40 MG vial IV SCH ×2 (08:22→21:05)
[2023-02-26] MEDS: thiamine 100mg/ml 2ml inj. IV SCH ×3 (08:22→21:05)
[2023-02-26] MEDS ORDERED: sodium bicarbonate (8.4%) 1 mEq/ml syringe IV ONE (10:50)
[2023-02-26] MEDS ORDERED: albumin (Human) 5% 250ml 250 ML IV ONE (10:50)
[2023-02-26] MEDS: albumin (Human) 5% 250ml 250 ML IV SCH ×2 (11:00→12:16)
[2023-02-26] MEDS ORDERED: sevoflurane 250ml liquid IH ONE (14:37)
[2023-02-26] MEDS ORDERED: rocuronium 10mg/ml inj IV ONE (14:45)
[2023-02-26] MEDS: midazolam 100mg in NS 100ml 100 ML IV PRN (16:00)
[2023-02-26 17:12] LABS: ABG BASE EXCESS -9.1 mmol/L (-2.0-2.0); ABG HCO3 15.8 mmol/L (22.0-26.0); ABG OXYGEN SATURATION 96.5 % (94-97); ABG PH (T) 7.337 (7.340-7.440); ABG PO2 (T) 81.7 mmHg (75.0-100.0); FCOHb 0.3 % (0.0-3.9); FHHb 3.5 % (0.0-5.0); FMetHb 0.3 % (0.0-1.5); FO2Hb 95.9 % (94-97); MODE VENT - SIMV; PATIENT TEMPERATURE 36.3; PEEP 5 cm H2O; RESPIRATORY RATE 12 b/min; TIDAL VOLUME 600 mL; TOTAL HEMOGLOBIN 9.8 G/dl (14.0-17.9)
[2023-02-26] MEDS: insulin glargine (Lantus) pen - multi-dose SQ SCH (21:00)
[2023-02-26] MEDS: vasopressin inj. 40 UNIT in normal saline 50ml IV soln 38 ML IV SCH (22:33)
[2023-02-27] VITALS (37 sets, daily range): BP systolic 102–138; BP diastolic 45–65; PULSE 54–74; RESP 12–33; O2SAT 96–100
[2023-02-27] MEDS: mineral oil/petrolatum ophthal oint EACHEYE SCH ×4 (02:00→19:27)
[2023-02-27] MEDS: hydrALAZINE 20mg/ml inj. IV SCH ×4 (02:00→20:00)
[2023-02-27 03:06] LABS: ABG BASE EXCESS -6.2 mmol/L (-2.0-2.0); ABG HCO3 16.1 mmol/L (22.0-26.0); ABG OXYGEN SATURATION 98.5 % (94-97); ABG PCO2 (T) 21.9 mmHg (35.0-48.0); ABG PH (T) 7.484 (7.340-7.440); ABG PO2 (T) 114.5 mmHg (75.0-100.0); FCOHb 0.3 % (0.0-3.9); FHHb 1.5 % (0.0-5.0); FMetHb 0.3 % (0.0-1.5); FO2Hb 97.9 % (94-97); MODE VENT - SIMV; PATIENT TEMPERATURE 36.7; PEEP 5 cm H2O; RESPIRATORY RATE 12 b/min; TIDAL VOLUME 600 mL
[2023-02-27 03:12] LABS: BASOPHILS # (AUTO) 0.1 X10'3 (0-0.2); BASOPHILS % (AUTO) 0.5 % (0-1); EOSINOPHILS # (AUTO) 0.3 X10'3 (0-0.9); EOSINOPHILS % (AUTO) 2.8 % (0-6); HEMATOCRIT 24.3 % (42.0-52.0); HEMOGLOBIN 8.3 g/dl (14.0-17.9); LYMPHOCYTES # (AUTO) 1.3 X10'3 (1.1-4.8); MEAN CORPUSCULAR HEMOGLOBIN 28.7 PG (27.0-31.0); MEAN CORPUSCULAR HGB CONC 34.2 g/dL (33.0-36.5); MEAN PLATELET VOLUME 9.5 FL (7.4-10.4); MONOCYTES # (AUTO) 1.3 X10'3 (0-0.9); MONOCYTES % (AUTO) 12.2 % (2-12); NEUTROPHILS % (AUTO) 72.5 % (42-75); PLATELET COUNT 132 X10'3 (140-440); RED BLOOD COUNT 2.89 X10'6 (4.70-6.10); RED CELL DISTRIBUTION WIDTH 15.5 % (11.5-14.5)
[2023-02-27 03:19] LABS: ALANINE AMINOTRANSFERASE 15 U/L (12-78); ALBUMIN/GLOBULIN RATIO 0.7 (1.1-1.5); ALKALINE PHOSPHATASE 38 IU/L (46-116); ANION GAP 13 (8-16); ASPARTATE AMINO TRANSFERASE 20 U/L (10-37); BILIRUBIN,TOTAL 1.1 MG/DL (0.1-1.0); BLOOD UREA NITROGEN 17 MG/DL (7-18); BUN/CREATININE RATIO 12.9 (10.0-20.0); CALCIUM 7.8 MG/DL (8.5-10.1); CHLORIDE 113 MMOL/L (99-107); CREATININE 1.32 MG/DL (0.60-1.10); GLUCOSE 132 MG/DL (70-104); MAGNESIUM 1.4 MG/DL (1.5-2.4); PHOSPHORUS 2.2 MG/DL (2.3-4.5); SODIUM 145 MMOL/L (135-145); TOTAL CARBON DIOXIDE 19.3 MMOL/L (24-32); TOTAL PROTEIN 4.7 G/DL (6.4-8.2); eCRCL 51 ML/MIN; eGFR 52 ML/MIN
[2023-02-27] MEDS: normal saline 1000ml 1,000 ML IV SCH ×3 (03:25→21:12)
[2023-02-27] MEDS: piperacillin/tazo 4.5gm/100ml 100 ML IV SCH ×3 (03:33→19:27)
[2023-02-27] MEDS: potassium Cl 40MEQ/270ML bag 270 ML IV PRN ×3 (04:36→16:37)
[2023-02-27] MEDS: pantoprazole 40 MG vial IV SCH ×2 (08:26→19:29)
[2023-02-27] MEDS: thiamine 100mg/ml 2ml inj. IV SCH ×2 (08:26→13:41)
[2023-02-27] MEDS: folic acid 1mg/0.2ml inj IV SCH (08:27)
[2023-02-27] MEDS ORDERED: sodium phosphate inj. 30 MMOL in dextrose 5%-water 250 ML IV PRN (08:55)
[2023-02-27] MEDS ORDERED: magnesium 4gm in 100ml NS 100 ML IV PRN (09:00)
[2023-02-27] MEDS: magnesium 4gm in 100ml NS 100 ML IV PRN (09:02)
[2023-02-27] MEDS: FENTANYL-0.9 % NACL/PF 100 ML IV PRN (09:28)
[2023-02-27] MEDS: sodium phosphate inj. 15 MMOL in dextrose 5%-water 250 ML IV PRN ×2 (09:28→16:37)
[2023-02-27] MEDS ORDERED: albumin (Human) 5% 250ml 250 ML IV ONE ×2 (10:15→11:15)
[2023-02-27] MEDS: magnesium 2GM in 50ml NS 50 ML IV PRN (11:24)
[2023-02-27] MEDS: NORepinephrine 8mg/ 250ml NS 250 ML IV SCH (14:28)
[2023-02-27 15:39] LABS: MAGNESIUM 2.7 MG/DL (1.5-2.4); PHOSPHORUS 2.3 MG/DL (2.3-4.5)
[2023-02-27 15:50] LABS: POTASSIUM 3.3 MMOL/L (3.5-5.1)
[2023-02-27] MEDS: enoxaparin 40mg/0.4ml syringe SUBCUT SCH (19:29)
[2023-02-27] MEDS: insulin glargine (Lantus) pen - multi-dose SQ SCH (20:18)
[2023-02-28] VITALS (35 sets, daily range): BP systolic 93–142; BP diastolic 44–68; PULSE 59–98; RESP 12–29; O2SAT 96–100
[2023-02-28] MEDS: hydrALAZINE 20mg/ml inj. IV SCH ×4 (02:00→19:38)
[2023-02-28] MEDS: mineral oil/petrolatum ophthal oint EACHEYE SCH ×4 (02:25→19:37)
[2023-02-28] MEDS: piperacillin/tazo 4.5gm/100ml 100 ML IV SCH ×3 (02:44→19:34)
[2023-02-28 03:21] LABS: BASOPHILS % (AUTO) 0.5 % (0-1); EOSINOPHILS # (AUTO) 0.3 X10'3 (0-0.9); HEMATOCRIT 24.2 % (42.0-52.0); HEMOGLOBIN 8.3 g/dl (14.0-17.9); LYMPHOCYTES # (AUTO) 1.2 X10'3 (1.1-4.8); LYMPHOCYTES % (AUTO) 14.7 % (21-51); MEAN CORPUSCULAR HGB CONC 34.4 g/dL (33.0-36.5); MEAN CORPUSCULAR VOLUME 84.2 FL (78-98); MEAN PLATELET VOLUME 9.1 FL (7.4-10.4); MONOCYTES # (AUTO) 0.9 X10'3 (0-0.9); MONOCYTES % (AUTO) 11.7 % (2-12); NEUTROPHILS # (AUTO) 5.5 X10'3 (1.8-7.7); NEUTROPHILS % (AUTO) 69.1 % (42-75); PLATELET COUNT 139 X10'3 (140-440); RED BLOOD COUNT 2.87 X10'6 (4.70-6.10); RED CELL DISTRIBUTION WIDTH 15.3 % (11.5-14.5); WHITE BLOOD COUNT 7.9 X10'3 (4.5-11.0)
[2023-02-28 03:38] LABS: ALANINE AMINOTRANSFERASE 14 U/L (12-78); ALBUMIN 1.8 G/DL (3.4-5.0); ALBUMIN/GLOBULIN RATIO 0.6 (1.1-1.5); ALKALINE PHOSPHATASE 44 IU/L (46-116); ANION GAP 11 (8-16); ASPARTATE AMINO TRANSFERASE 17 U/L (10-37); BILIRUBIN,TOTAL 0.8 MG/DL (0.1-1.0); BLOOD UREA NITROGEN 13 MG/DL (7-18); BUN/CREATININE RATIO 10.5 (10.0-20.0); CALCIUM 7.7 MG/DL (8.5-10.1); CHLORIDE 117 MMOL/L (99-107); CREATININE 1.24 MG/DL (0.60-1.10); GLUCOSE 107 MG/DL (70-104); MAGNESIUM 2.1 MG/DL (1.5-2.4); PHOSPHORUS 2.4 MG/DL (2.3-4.5); POTASSIUM 3.1 MMOL/L (3.5-5.1); SODIUM 147 MMOL/L (135-145); TOTAL CARBON DIOXIDE 19.2 MMOL/L (24-32); TOTAL PROTEIN 4.6 G/DL (6.4-8.2); eCRCL 54 ML/MIN; eGFR 56 ML/MIN
[2023-02-28 04:22] LABS: ABG BASE EXCESS -4.3 mmol/L (-2.0-2.0); ABG HCO3 18.6 mmol/L (22.0-26.0); ABG OXYGEN SATURATION 97.1 % (94-97); ABG PCO2 (T) 26.4 mmHg (35.0-48.0); ABG PH (T) 7.466 (7.340-7.440); ABG PO2 (T) 89.4 mmHg (75.0-100.0); FCOHb 0.3 % (0.0-3.9); FHHb 2.9 % (0.0-5.0); FMetHb 0.3 % (0.0-1.5); FO2Hb 96.5 % (94-97); MODE VENT - SIMV; PATIENT TEMPERATURE 36.7; PEEP 5 cm H2O; RESPIRATORY RATE 12 b/min; TIDAL VOLUME 600 mL; TOTAL HEMOGLOBIN 9.3 G/dl (14.0-17.9)
[2023-02-28] MEDS: potassium Cl 40MEQ/270ML bag 270 ML IV PRN (04:51)
[2023-02-28] MEDS: normal saline 1000ml 1,000 ML IV SCH ×2 (07:00→17:00)
[2023-02-28] MEDS: NORepinephrine 8mg/ 250ml NS 250 ML IV SCH (07:30)
[2023-02-28] MEDS: thiamine 100mg tablet PO SCH (09:11)
[2023-02-28] MEDS: pantoprazole 40 MG vial IV SCH ×2 (09:15→20:07)
[2023-02-28 15:16] LABS: ALBUMIN 1.8 G/DL (3.4-5.0); ANION GAP 14 (8-16); BLOOD UREA NITROGEN 12 MG/DL (7-18); BUN/CREATININE RATIO 10.2 (10.0-20.0); CALCIUM 7.7 MG/DL (8.5-10.1); CHLORIDE 117 MMOL/L (99-107); CREATININE 1.18 MG/DL (0.60-1.10); GLUCOSE 95 MG/DL (70-104); MAGNESIUM 1.9 MG/DL (1.5-2.4); PHOSPHORUS 2.4 MG/DL (2.3-4.5); POTASSIUM 3.5 MMOL/L (3.5-5.1); SODIUM 147 MMOL/L (135-145); TOTAL CARBON DIOXIDE 16.4 MMOL/L (24-32); eCRCL 57 ML/MIN; eGFR 60 ML/MIN
[2023-02-28 19:25] LABS: ABG HCO3 17.3 mmol/L (22.0-26.0); ABG OXYGEN SATURATION 95.9 % (94-97); ABG PCO2 (T) 30.5 mmHg (35.0-48.0); ABG PH (T) 7.372 (7.340-7.440); ABG PO2 (T) 84.8 mmHg (75.0-100.0); FCOHb 0.3 % (0.0-3.9); FHHb 4.1 % (0.0-5.0); FMetHb 0.3 % (0.0-1.5); FO2Hb 95.3 % (94-97); MODE CMV PRVC IT 1.2; PATIENT TEMPERATURE 36.9; PEEP 5 cm H2O; RESPIRATORY RATE 12 b/min; TIDAL VOLUME 600 mL; TOTAL HEMOGLOBIN 9.3 G/dl (14.0-17.9)
[2023-02-28] MEDS: nystatin 15 GM powder TP SCH (19:35)
[2023-02-28] MEDS: enoxaparin 40mg/0.4ml syringe SUBCUT SCH (19:37)
[2023-02-28] MEDS: insulin glargine (Lantus) pen - multi-dose SQ SCH (20:08)
[2023-03-01] VITALS (37 sets, daily range): BP systolic 96–167; BP diastolic 46–111; PULSE 72–111; RESP 7–26; O2SAT 95–100
[2023-03-01] MEDS: mineral oil/petrolatum ophthal oint EACHEYE SCH ×2 (01:23→19:42)
[2023-03-01] MEDS: hydrALAZINE 20mg/ml inj. IV SCH (01:24)
[2023-03-01] MEDS: normal saline 1000ml 1,000 ML IV SCH (01:48)
[2023-03-01 02:03] LABS: BASOPHILS % (AUTO) 0.4 % (0-1); EOSINOPHILS # (AUTO) 0.4 X10'3 (0-0.9); EOSINOPHILS % (AUTO) 4.2 % (0-6); HEMATOCRIT 27.2 % (42.0-52.0); HEMOGLOBIN 9.1 g/dl (14.0-17.9); LYMPHOCYTES # (AUTO) 1.4 X10'3 (1.1-4.8); LYMPHOCYTES % (AUTO) 15.8 % (21-51); MEAN CORPUSCULAR HEMOGLOBIN 28.5 PG (27.0-31.0); MEAN CORPUSCULAR HGB CONC 33.7 g/dL (33.0-36.5); MEAN CORPUSCULAR VOLUME 84.8 FL (78-98); MEAN PLATELET VOLUME 8.7 FL (7.4-10.4); MONOCYTES % (AUTO) 12.2 % (2-12); NEUTROPHILS # (AUTO) 5.8 X10'3 (1.8-7.7); NEUTROPHILS % (AUTO) 67.4 % (42-75); PLATELET COUNT 161 X10'3 (140-440); RED BLOOD COUNT 3.21 X10'6 (4.70-6.10); RED CELL DISTRIBUTION WIDTH 15.4 % (11.5-14.5); WHITE BLOOD COUNT 8.6 X10'3 (4.5-11.0)
[2023-03-01 02:04] LABS: ALANINE AMINOTRANSFERASE 16 U/L (12-78); ALBUMIN 1.7 G/DL (3.4-5.0); ALBUMIN/GLOBULIN RATIO 0.6 (1.1-1.5); ALKALINE PHOSPHATASE 47 IU/L (46-116); ANION GAP 13 (8-16); ASPARTATE AMINO TRANSFERASE 20 U/L (10-37); BILIRUBIN,TOTAL 0.7 MG/DL (0.1-1.0); BLOOD UREA NITROGEN 11 MG/DL (7-18); BUN/CREATININE RATIO 9.3 (10.0-20.0); CALCIUM 7.5 MG/DL (8.5-10.1); CHLORIDE 117 MMOL/L (99-107); CREATININE 1.18 MG/DL (0.60-1.10); GLUCOSE 101 MG/DL (70-104); MAGNESIUM 1.7 MG/DL (1.5-2.4); PHOSPHORUS 3.2 MG/DL (2.3-4.5); POTASSIUM 3.4 MMOL/L (3.5-5.1); SODIUM 149 MMOL/L (135-145); TOTAL CARBON DIOXIDE 18.8 MMOL/L (24-32); TOTAL PROTEIN 4.6 G/DL (6.4-8.2); eCRCL 58 ML/MIN; eGFR 60 ML/MIN
[2023-03-01] MEDS: potassium Cl 40MEQ/270ML bag 270 ML IV PRN (02:57)
[2023-03-01] MEDS: piperacillin/tazo 4.5gm/100ml 100 ML IV SCH ×3 (03:00→18:35)
[2023-03-01 03:32] LABS: ABG BASE EXCESS -6.3 mmol/L (-2.0-2.0); ABG HCO3 16.6 mmol/L (22.0-26.0); ABG PO2 (T) 112.5 mmHg (75.0-100.0); FCOHb 0.3 % (0.0-3.9); FMetHb 0.3 % (0.0-1.5); FO2Hb 97.4 % (94-97); MODE CMV PRVC IT 1.2; PATIENT TEMPERATURE 36.8; PEEP 5 cm H2O; RESPIRATORY RATE 12 b/min; TIDAL VOLUME 600 mL
[2023-03-01] MEDS: pantoprazole 40 MG vial IV SCH ×2 (08:03→19:37)
[2023-03-01] MEDS: folic acid 1mg tablet PO SCH (08:03)
[2023-03-01] MEDS: thiamine 100mg tablet PO SCH (08:03)
[2023-03-01] MEDS: nystatin 15 GM powder TP SCH ×2 (08:04→19:44)
[2023-03-01] MEDS: dextrose 5%-1/2 normal saline 1,000 ML IV SCH ×2 (09:39→19:43)
[2023-03-01] MEDS: enoxaparin 40mg/0.4ml syringe SUBCUT SCH (19:43)
[2023-03-01] MEDS: insulin glargine (Lantus) pen - multi-dose SQ SCH (20:18)
[2023-03-01] MEDS: insulin regular, human U-100 3ml vial - multi-dose SQ SCH (21:04)
[2023-03-02] VITALS (37 sets, daily range): BP systolic 99–163; BP diastolic 51–88; PULSE 74–116; RESP 13–24; O2SAT 96–100
[2023-03-02] MEDS: mineral oil/petrolatum ophthal oint EACHEYE SCH ×4 (02:00→20:23)
[2023-03-02] MEDS: piperacillin/tazo 4.5gm/100ml 100 ML IV SCH ×3 (02:27→19:21)
[2023-03-02 02:37] LABS: ALANINE AMINOTRANSFERASE 15 U/L (12-78); ALBUMIN 1.6 G/DL (3.4-5.0); ALBUMIN/GLOBULIN RATIO 0.6 (1.1-1.5); ALKALINE PHOSPHATASE 45 IU/L (46-116); ANION GAP 11 (8-16); ASPARTATE AMINO TRANSFERASE 16 U/L (10-37); BILIRUBIN,TOTAL 0.4 MG/DL (0.1-1.0); BLOOD UREA NITROGEN 10 MG/DL (7-18); BUN/CREATININE RATIO 9.3 (10.0-20.0); CALCIUM 7.6 MG/DL (8.5-10.1); CHLORIDE 113 MMOL/L (99-107); CREATININE 1.07 MG/DL (0.60-1.10); GLUCOSE 205 MG/DL (70-104); MAGNESIUM 1.3 MG/DL (1.5-2.4); PHOSPHORUS 2.7 MG/DL (2.3-4.5); POTASSIUM 3.3 MMOL/L (3.5-5.1); SODIUM 142 MMOL/L (135-145); TOTAL CARBON DIOXIDE 18.5 MMOL/L (24-32); TOTAL PROTEIN 4.5 G/DL (6.4-8.2); eCRCL 64 ML/MIN; eGFR 67 ML/MIN
[2023-03-02] MEDS: insulin regular, human U-100 3ml vial - multi-dose SQ SCH ×4 (02:54→20:32)
[2023-03-02 03:40] LABS: ABG HCO3 18.4 mmol/L (22.0-26.0); ABG OXYGEN SATURATION 95.2 % (94-97); ABG PCO2 (T) 24.5 mmHg (35.0-48.0); ABG PH (T) 7.494 (7.340-7.440); ABG PO2 (T) 68.6 mmHg (75.0-100.0); FCOHb 0.3 % (0.0-3.9); FHHb 4.8 % (0.0-5.0); FMetHb 0.3 % (0.0-1.5); FO2Hb 94.6 % (94-97); MODE VENT - prvc; PATIENT TEMPERATURE 37.4; PEEP 5 cm H2O; RESPIRATORY RATE 12 b/min; TIDAL VOLUME 600 mL; TOTAL HEMOGLOBIN 8.3 G/dl (14.0-17.9)
[2023-03-02] MEDS: magnesium 2GM in 50ml NS 50 ML IV PRN (05:04)
[2023-03-02] MEDS: dextrose 5%-1/2 normal saline 1,000 ML IV SCH ×2 (05:41→16:30)
[2023-03-02] MEDS: potassium Cl 40MEQ/270ML bag 270 ML IV PRN ×2 (05:47→21:16)
[2023-03-02 07:34] LABS: BASOPHILS # (AUTO) 0.1 X10'3 (0-0.2); BASOPHILS % (AUTO) 0.9 % (0-1); EOSINOPHILS # (AUTO) 0.3 X10'3 (0-0.9); EOSINOPHILS % (AUTO) 3.9 % (0-6); HEMATOCRIT 25.6 % (42.0-52.0); HEMOGLOBIN 8.6 g/dl (14.0-17.9); LYMPHOCYTES # (AUTO) 1.2 X10'3 (1.1-4.8); LYMPHOCYTES % (AUTO) 14.4 % (21-51); MEAN CORPUSCULAR HEMOGLOBIN 28.1 PG (27.0-31.0); MEAN CORPUSCULAR HGB CONC 33.7 g/dL (33.0-36.5); MEAN CORPUSCULAR VOLUME 83.4 FL (78-98); MEAN PLATELET VOLUME 9.2 FL (7.4-10.4); MONOCYTES # (AUTO) 1.3 X10'3 (0-0.9); MONOCYTES % (AUTO) 15.4 % (2-12); NEUTROPHILS # (AUTO) 5.5 X10'3 (1.8-7.7); NEUTROPHILS % (AUTO) 65.4 % (42-75); PLATELET COUNT 169 X10'3 (140-440); RED BLOOD COUNT 3.07 X10'6 (4.70-6.10); RED CELL DISTRIBUTION WIDTH 15.4 % (11.5-14.5); WHITE BLOOD COUNT 8.4 X10'3 (4.5-11.0)
[2023-03-02] MEDS: thiamine 100mg tablet PO SCH (07:38)
[2023-03-02] MEDS: pantoprazole 40 MG vial IV SCH ×2 (07:38→20:23)
[2023-03-02] MEDS: nystatin 15 GM powder TP SCH ×2 (07:38→20:26)
[2023-03-02] MEDS: folic acid 1mg tablet PO SCH (07:38)
[2023-03-02] MEDS ORDERED: hydrALAZINE 20mg/ml inj. IV PRN (18:50)
[2023-03-02] MEDS: dexmedetomidin/NS 400mcg/100ml 100 ML IV SCH (19:08)
[2023-03-02 20:01] LABS: POTASSIUM 3.3 MMOL/L (3.5-5.1)
[2023-03-02] MEDS: enoxaparin 40mg/0.4ml syringe SUBCUT SCH (20:25)
[2023-03-02] MEDS: insulin glargine (Lantus) pen - multi-dose SQ SCH (20:28)
[2023-03-03] VITALS (31 sets, daily range): BP systolic 94–157; BP diastolic 48–80; PULSE 50–103; RESP 13–30; O2SAT 94–100
[2023-03-03 01:59] LABS: ALANINE AMINOTRANSFERASE 12 U/L (12-78); ALBUMIN 1.5 G/DL (3.4-5.0); ALBUMIN/GLOBULIN RATIO 0.5 (1.1-1.5); ALKALINE PHOSPHATASE 38 IU/L (46-116); ANION GAP 7 (8-16); ASPARTATE AMINO TRANSFERASE 17 U/L (10-37); BASOPHILS % (AUTO) 0.3 % (0-1); BILIRUBIN,TOTAL 0.3 MG/DL (0.1-1.0); BLOOD UREA NITROGEN 9 MG/DL (7-18); BUN/CREATININE RATIO 8.3 (10.0-20.0); CALCIUM 7.5 MG/DL (8.5-10.1); CHLORIDE 112 MMOL/L (99-107); CREATININE 1.08 MG/DL (0.60-1.10); EOSINOPHILS # (AUTO) 0.3 X10'3 (0-0.9); EOSINOPHILS % (AUTO) 3.6 % (0-6); GLUCOSE 192 MG/DL (70-104); HEMATOCRIT 25.1 % (42.0-52.0); HEMOGLOBIN 8.4 g/dl (14.0-17.9); LYMPHOCYTES % (AUTO) 12.8 % (21-51); MAGNESIUM 1.8 MG/DL (1.5-2.4); MEAN CORPUSCULAR HEMOGLOBIN 28.2 PG (27.0-31.0); MEAN CORPUSCULAR HGB CONC 33.7 g/dL (33.0-36.5); MEAN CORPUSCULAR VOLUME 83.7 FL (78-98); MEAN PLATELET VOLUME 9.1 FL (7.4-10.4); MONOCYTES # (AUTO) 1.1 X10'3 (0-0.9); MONOCYTES % (AUTO) 13.4 % (2-12); NEUTROPHILS # (AUTO) 5.6 X10'3 (1.8-7.7); NEUTROPHILS % (AUTO) 69.9 % (42-75); PHOSPHORUS 2.9 MG/DL (2.3-4.5); PLATELET COUNT 189 X10'3 (140-440); POTASSIUM 3.7 MMOL/L (3.5-5.1); RED CELL DISTRIBUTION WIDTH 15.8 % (11.5-14.5); SODIUM 142 MMOL/L (135-145); TOTAL CARBON DIOXIDE 23.4 MMOL/L (24-32); TOTAL PROTEIN 4.5 G/DL (6.4-8.2); WHITE BLOOD COUNT 8.1 X10'3 (4.5-11.0); eCRCL 64 ML/MIN; eGFR 66 ML/MIN
[2023-03-03] MEDS: mineral oil/petrolatum ophthal oint EACHEYE SCH ×4 (02:03→20:57)
[2023-03-03] MEDS: insulin regular, human U-100 3ml vial - multi-dose SQ SCH ×2 (02:18→08:20)
[2023-03-03] MEDS: dexmedetomidin/NS 400mcg/100ml 100 ML IV SCH ×2 (02:47→19:04)
[2023-03-03] MEDS: piperacillin/tazo 4.5gm/100ml 100 ML IV SCH ×3 (02:48→19:08)
[2023-03-03 03:36] LABS: ABG BASE EXCESS -4.3 mmol/L (-2.0-2.0); ABG HCO3 18.8 mmol/L (22.0-26.0); ABG OXYGEN SATURATION 98.6 % (94-97); ABG PH (T) 7.446 (7.340-7.440); ABG PO2 (T) 125.7 mmHg (75.0-100.0); ALLEN'S TEST POSITIVE; FCOHb 0.3 % (0.0-3.9); FHHb 1.4 % (0.0-5.0); FMetHb 0.3 % (0.0-1.5); MODE VENT - prvc; PEEP 5 cm H2O; RESPIRATORY RATE 12 b/min; TIDAL VOLUME 600 mL; TOTAL HEMOGLOBIN 9.9 G/dl (14.0-17.9)
[2023-03-03] MEDS: nystatin 15 GM powder TP SCH ×2 (07:26→20:55)
[2023-03-03] MEDS: pantoprazole 40 MG vial IV SCH ×2 (07:26→20:55)
[2023-03-03] MEDS: thiamine 100mg tablet PO SCH (07:26)
[2023-03-03] MEDS: folic acid 1mg tablet PO SCH (07:26)
[2023-03-03] MEDS: haloperidol lactate 5mg/ml inj IM PRN (19:13)
[2023-03-03] MEDS: enoxaparin 40mg/0.4ml syringe SUBCUT SCH (20:55)
[2023-03-03] MEDS: insulin glargine (Lantus) pen - multi-dose SQ SCH (22:51)
[2023-03-04] VITALS (24 sets, daily range): BP systolic 140–174; BP diastolic 57–79; PULSE 79–102; RESP 14–29; O2SAT 94–97
[2023-03-04] MEDS: mineral oil/petrolatum ophthal oint EACHEYE SCH ×2 (02:08→07:23)
[2023-03-04] MEDS: piperacillin/tazo 4.5gm/100ml 100 ML IV SCH (02:08)
[2023-03-04 03:07] LABS: BASOPHILS % (AUTO) 0.3 % (0-1); EOSINOPHILS # (AUTO) 0.4 X10'3 (0-0.9); EOSINOPHILS % (AUTO) 3.9 % (0-6); HEMATOCRIT 25.9 % (42.0-52.0); HEMOGLOBIN 8.8 g/dl (14.0-17.9); LYMPHOCYTES # (AUTO) 1.4 X10'3 (1.1-4.8); LYMPHOCYTES % (AUTO) 14.6 % (21-51); MEAN CORPUSCULAR HEMOGLOBIN 28.5 PG (27.0-31.0); MEAN CORPUSCULAR VOLUME 83.8 FL (78-98); MEAN PLATELET VOLUME 9.6 FL (7.4-10.4); MONOCYTES # (AUTO) 1.1 X10'3 (0-0.9); MONOCYTES % (AUTO) 11.6 % (2-12); NEUTROPHILS # (AUTO) 6.7 X10'3 (1.8-7.7); NEUTROPHILS % (AUTO) 69.6 % (42-75); PLATELET COUNT 242 X10'3 (140-440); RED BLOOD COUNT 3.08 X10'6 (4.70-6.10); RED CELL DISTRIBUTION WIDTH 15.9 % (11.5-14.5); WHITE BLOOD COUNT 9.6 X10'3 (4.5-11.0)
[2023-03-04] MEDS: insulin regular, human U-100 3ml vial - multi-dose SQ SCH (03:19)
[2023-03-04] MEDS: haloperidol lactate 5mg/ml inj IM PRN (03:39)
[2023-03-04 03:55] LABS: ALANINE AMINOTRANSFERASE 16 U/L (12-78); ALBUMIN 1.6 G/DL (3.4-5.0); ALBUMIN/GLOBULIN RATIO 0.5 (1.1-1.5); ALKALINE PHOSPHATASE 36 IU/L (46-116); ANION GAP 7 (8-16); ASPARTATE AMINO TRANSFERASE 17 U/L (10-37); BILIRUBIN,TOTAL 0.3 MG/DL (0.1-1.0); BLOOD UREA NITROGEN 10 MG/DL (7-18); CALCIUM 7.7 MG/DL (8.5-10.1); CHLORIDE 110 MMOL/L (99-107); GLUCOSE 197 MG/DL (70-104); MAGNESIUM 1.5 MG/DL (1.5-2.4); POTASSIUM 3.5 MMOL/L (3.5-5.1); SODIUM 141 MMOL/L (135-145); TOTAL CARBON DIOXIDE 24.4 MMOL/L (24-32); TOTAL PROTEIN 4.9 G/DL (6.4-8.2); eCRCL 69 ML/MIN; eGFR 72 ML/MIN
[2023-03-04] MEDS: dexmedetomidin/NS 400mcg/100ml 100 ML IV SCH (07:11)
[2023-03-04] MEDS: pantoprazole 40 MG vial IV SCH (07:22)
[2023-03-04] MEDS: thiamine 100mg tablet PO SCH (07:22)
[2023-03-04] MEDS: nystatin 15 GM powder TP SCH ×2 (07:22→20:45)
[2023-03-04] MEDS: folic acid 1mg tablet PO SCH (07:22)
[2023-03-04] MEDS ORDERED: insulin Lispro (HumaLOG) vial - multi-dose SQ SCH (08:35)
[2023-03-04 11:51] LABS: ISTAT K 3.8 mmol/L (3.5-5.1)
[2023-03-04 11:52] LABS: ISTAT CREATININE 0.9 mg/dL (0.8-1.3); ISTAT HGB 10.2 g/dl (14.0-17.9); ISTAT IONIZED CALCIUM 1.16 mmol/L (1.03-1.32); POC BUN/CREATININE RATIO 14.4 (5.4-32.0)
[2023-03-04] MEDS: pantoprazole 40mg Tablet.DR PO SCH (20:45)
[2023-03-04] MEDS: enoxaparin 40mg/0.4ml syringe SUBCUT SCH (20:45)
[2023-03-04] MEDS: insulin glargine (Lantus) pen - multi-dose SQ SCH (21:00)
[2023-03-05] VITALS (25 sets, daily range): BP systolic 128–175; BP diastolic 50–84; PULSE 74–110; RESP 20–29; O2SAT 94–97
[2023-03-05 06:04] LABS: BASOPHILS # (AUTO) 0.1 X10'3 (0-0.2); BASOPHILS % (AUTO) 0.7 % (0-1); EOSINOPHILS # (AUTO) 0.4 X10'3 (0-0.9); EOSINOPHILS % (AUTO) 3.6 % (0-6); HEMATOCRIT 27.9 % (42.0-52.0); HEMOGLOBIN 9.4 g/dl (14.0-17.9); LYMPHOCYTES # (AUTO) 1.8 X10'3 (1.1-4.8); LYMPHOCYTES % (AUTO) 15.6 % (21-51); MEAN CORPUSCULAR HEMOGLOBIN 28.3 PG (27.0-31.0); MEAN CORPUSCULAR HGB CONC 33.9 g/dL (33.0-36.5); MEAN CORPUSCULAR VOLUME 83.3 FL (78-98); MEAN PLATELET VOLUME 9.5 FL (7.4-10.4); MONOCYTES # (AUTO) 1.1 X10'3 (0-0.9); MONOCYTES % (AUTO) 9.3 % (2-12); NEUTROPHILS # (AUTO) 8.1 X10'3 (1.8-7.7); NEUTROPHILS % (AUTO) 70.8 % (42-75); PLATELET COUNT 299 X10'3 (140-440); RED BLOOD COUNT 3.34 X10'6 (4.70-6.10); WHITE BLOOD COUNT 11.4 X10'3 (4.5-11.0)
[2023-03-05 06:21] LABS: ALANINE AMINOTRANSFERASE 26 U/L (12-78); ALBUMIN 1.9 G/DL (3.4-5.0); ALBUMIN/GLOBULIN RATIO 0.5 (1.1-1.5); ALKALINE PHOSPHATASE 33 IU/L (46-116); ANION GAP 10 (8-16); ASPARTATE AMINO TRANSFERASE 31 U/L (10-37); BILIRUBIN,TOTAL 0.4 MG/DL (0.1-1.0); BLOOD UREA NITROGEN 10 MG/DL (7-18); BUN/CREATININE RATIO 10.3 (10.0-20.0); CALCIUM 8.3 MG/DL (8.5-10.1); CHLORIDE 107 MMOL/L (99-107); CREATININE 0.97 MG/DL (0.60-1.10); GLUCOSE 139 MG/DL (70-104); MAGNESIUM 1.3 MG/DL (1.5-2.4); POTASSIUM 3.1 MMOL/L (3.5-5.1); SODIUM 141 MMOL/L (135-145); TOTAL CARBON DIOXIDE 23.7 MMOL/L (24-32); TOTAL PROTEIN 5.4 G/DL (6.4-8.2); eCRCL 71 ML/MIN; eGFR 75 ML/MIN
[2023-03-05] MEDS ORDERED: magnesium Cl slow-release 64mg tablet PO PRN (07:10)
[2023-03-05] MEDS ORDERED: potassium Cl 20 mEq SR tablet PO PRN ×2 (07:10)
[2023-03-05] MEDS: nystatin 15 GM powder TP SCH ×2 (08:06→19:31)
[2023-03-05] MEDS: pantoprazole 40mg Tablet.DR PO SCH ×2 (08:17→19:31)
[2023-03-05] MEDS: thiamine 100mg tablet PO SCH (08:17)
[2023-03-05] MEDS: folic acid 1mg tablet PO SCH (08:17)
[2023-03-05] MEDS: enoxaparin 40mg/0.4ml syringe SUBCUT SCH (19:31)
[2023-03-05] MEDS: insulin glargine (Lantus) pen - multi-dose SQ SCH (21:00)
[2023-03-06] VITALS (17 sets, daily range): BP systolic 126–162; BP diastolic 6–100; PULSE 74–104; RESP 12–24; O2SAT 10–100
[2023-03-06 05:45] LABS: BASOPHILS # (AUTO) 0.1 X10'3 (0-0.2); BASOPHILS % (AUTO) 1.4 % (0-1); EOSINOPHILS # (AUTO) 0.5 X10'3 (0-0.9); EOSINOPHILS % (AUTO) 4.6 % (0-6); HEMOGLOBIN 9.8 g/dl (14.0-17.9); LYMPHOCYTES # (AUTO) 1.6 X10'3 (1.1-4.8); LYMPHOCYTES % (AUTO) 15.7 % (21-51); MEAN CORPUSCULAR HEMOGLOBIN 28.2 PG (27.0-31.0); MEAN CORPUSCULAR HGB CONC 33.8 g/dL (33.0-36.5); MEAN CORPUSCULAR VOLUME 83.3 FL (78-98); MEAN PLATELET VOLUME 9.2 FL (7.4-10.4); MONOCYTES # (AUTO) 1.2 X10'3 (0-0.9); MONOCYTES % (AUTO) 12.2 % (2-12); NEUTROPHILS # (AUTO) 6.8 X10'3 (1.8-7.7); NEUTROPHILS % (AUTO) 66.1 % (42-75); PLATELET COUNT 328 X10'3 (140-440); RED BLOOD COUNT 3.48 X10'6 (4.70-6.10); RED CELL DISTRIBUTION WIDTH 15.3 % (11.5-14.5); WHITE BLOOD COUNT 10.3 X10'3 (4.5-11.0)
[2023-03-06 06:13] LABS: ALANINE AMINOTRANSFERASE 28 U/L (12-78); ALBUMIN 1.9 G/DL (3.4-5.0); ALBUMIN/GLOBULIN RATIO 0.5 (1.1-1.5); ALKALINE PHOSPHATASE 33 IU/L (46-116); ANION GAP 9 (8-16); ASPARTATE AMINO TRANSFERASE 34 U/L (10-37); BILIRUBIN,TOTAL 0.4 MG/DL (0.1-1.0); BLOOD UREA NITROGEN 8 MG/DL (7-18); BUN/CREATININE RATIO 7.9 (10.0-20.0); CALCIUM 8.4 MG/DL (8.5-10.1); CHLORIDE 107 MMOL/L (99-107); CREATININE 1.01 MG/DL (0.60-1.10); GLUCOSE 148 MG/DL (70-104); MAGNESIUM 1.5 MG/DL (1.5-2.4); POTASSIUM 3.3 MMOL/L (3.5-5.1); SODIUM 142 MMOL/L (135-145); TOTAL PROTEIN 5.7 G/DL (6.4-8.2); eCRCL 68 ML/MIN; eGFR 71 ML/MIN
[2023-03-06] MEDS: thiamine 100mg tablet PO SCH (08:37)
[2023-03-06] MEDS: folic acid 1mg tablet PO SCH (08:37)
[2023-03-06] MEDS: nystatin 15 GM powder TP SCH ×2 (08:38→20:00)
[2023-03-06] MEDS: pantoprazole 40mg Tablet.DR PO SCH ×2 (08:38→21:40)
[2023-03-06] MEDS: insulin glargine (Lantus) pen - multi-dose SQ SCH (21:00)
[2023-03-06] MEDS: enoxaparin 40mg/0.4ml syringe SUBCUT SCH (21:39)
[2023-03-07 06:00] VITALS: BP 151/79; PULSE 75; RESP 18; TEMP 97.7; O2SAT 96
[2023-03-07 07:10] LABS: BASOPHILS # (AUTO) 0.1 X10'3 (0-0.2); BASOPHILS % (AUTO) 1.3 % (0-1); EOSINOPHILS # (AUTO) 0.6 X10'3 (0-0.9); EOSINOPHILS % (AUTO) 6.6 % (0-6); HEMATOCRIT 27.8 % (42.0-52.0); HEMOGLOBIN 9.6 g/dl (14.0-17.9); LYMPHOCYTES # (AUTO) 2.2 X10'3 (1.1-4.8); LYMPHOCYTES % (AUTO) 22.2 % (21-51); MEAN CORPUSCULAR HEMOGLOBIN 28.6 PG (27.0-31.0); MEAN CORPUSCULAR HGB CONC 34.4 g/dL (33.0-36.5); MEAN CORPUSCULAR VOLUME 83.3 FL (78-98); MEAN PLATELET VOLUME 9.8 FL (7.4-10.4); MONOCYTES # (AUTO) 1.2 X10'3 (0-0.9); MONOCYTES % (AUTO) 12.2 % (2-12); NEUTROPHILS # (AUTO) 5.6 X10'3 (1.8-7.7); NEUTROPHILS % (AUTO) 57.7 % (42-75); PLATELET COUNT 382 X10'3 (140-440); RED BLOOD COUNT 3.33 X10'6 (4.70-6.10); RED CELL DISTRIBUTION WIDTH 15.6 % (11.5-14.5); WHITE BLOOD COUNT 9.8 X10'3 (4.5-11.0)
[2023-03-07 07:37] LABS: ALANINE AMINOTRANSFERASE 27 U/L (12-78); ALBUMIN 2.1 G/DL (3.4-5.0); ALBUMIN/GLOBULIN RATIO 0.6 (1.1-1.5); ALKALINE PHOSPHATASE 31 IU/L (46-116); ANION GAP 7 (8-16); ASPARTATE AMINO TRANSFERASE 29 U/L (10-37); BILIRUBIN,TOTAL 0.4 MG/DL (0.1-1.0); BLOOD UREA NITROGEN 9 MG/DL (7-18); BUN/CREATININE RATIO 8.6 (10.0-20.0); CALCIUM 8.4 MG/DL (8.5-10.1); CHLORIDE 107 MMOL/L (99-107); CREATININE 1.05 MG/DL (0.60-1.10); GLUCOSE 159 MG/DL (70-104); MAGNESIUM 1.4 MG/DL (1.5-2.4); POTASSIUM 3.6 MMOL/L (3.5-5.1); SODIUM 142 MMOL/L (135-145); TOTAL CARBON DIOXIDE 27.7 MMOL/L (24-32); TOTAL PROTEIN 5.7 G/DL (6.4-8.2); eCRCL 66 ML/MIN; eGFR 68 ML/MIN
[2023-03-07] MEDS: pantoprazole 40mg Tablet.DR PO SCH (07:41)
[2023-03-07] MEDS: folic acid 1mg tablet PO SCH (07:41)
[2023-03-07] MEDS: thiamine 100mg tablet PO SCH (07:41)
[2023-03-07] MEDS ORDERED: nicotine 21mg patch - 24 hr TD SCH (08:00)
[2023-03-07] MEDS: nystatin 15 GM powder TP SCH (08:00)
[2023-03-07 11:00] VITALS: BP 130/69; PULSE 97; RESP 17; TEMP 98.1; O2SAT 96
== END 2023-03-07 15:09 | DRG 853 ==
LOC: ER 09:08 → ED HOLD 13:54 → CICU 2S 14:38 → PCU 3S 03-06 19:28
PROVIDERS: ADMIT Internal Medicine Critical Care Medicine; ATTEND Internal Medicine Critical Care Medicine
PROC: 0FT40ZZ Resection of Gallbladder, Open Approach (ICD-10-PCS; principal; 2023-02-22)
PROC: 0FJ44ZZ Inspection of Gallbladder, Percutaneous Endoscopic Approach (ICD-10-PCS; 2023-02-22)
PROC: 8E0W0CZ Robotic Assisted Procedure of Trunk Region, Open Approach (ICD-10-PCS; 2023-02-22)
PROC: 0DNU4ZZ Release Omentum, Percutaneous Endoscopic Approach (ICD-10-PCS; 2023-02-22)
PROC: 30233M1 Transfusion of Nonautologous Plasma Cryoprecipitate into Peripheral Vein, Percutaneous Approach (ICD-10-PCS; 2023-02-24)
PROC: 30233N1 Transfusion of Nonautologous Red Blood Cells into Peripheral Vein, Percutaneous Approach (ICD-10-PCS; 2023-02-24)
PROC: 0BH17EZ Insertion of Endotracheal Airway into Trachea, Via Natural or Artificial Opening (ICD-10-PCS; 2023-02-24)
PROC: 5A1955Z Respiratory Ventilation, Greater than 96 Consecutive Hours (ICD-10-PCS; 2023-02-24)
PROC: 0FP Hepatobiliary System and Pancreas, Removal (ICD-10-PCS; 2023-02-26)
PROC: 4A00X4Z Measurement of Central Nervous Electrical Activity, External Approach (ICD-10-PCS; 2023-03-02)
DX: A41.9 Sepsis, unspecified organism (principal); J96.01 Acute respiratory failure with hypoxia; K65.9 Peritonitis, unspecified; R65.21 Severe sepsis with septic shock; K80.12 Calculus of gallbladder with acute and chronic cholecystitis without obstruction; D62 Acute posthemorrhagic anemia; F05 Delirium due to known physiological condition; I95.9 Hypotension, unspecified; E11.9 Type 2 diabetes mellitus without complications; I10 Essential (primary) hypertension; N40.0 Benign prostatic hyperplasia without lower urinary tract symptoms; E83.42 Hypomagnesemia; K82.A1 Gangrene of gallbladder in cholecystitis; E83.39 Other disorders of phosphorus metabolism; K66.0 Peritoneal adhesions (postprocedural) (postinfection); K82.8 Other specified diseases of gallbladder; Z79.82 Long term (current) use of aspirin; Z79.84 Long term (current) use of oral hypoglycemic drugs; Z79.899 Other long term (current) drug therapy; Z86.73 Personal history of transient ischemic attack (TIA), and cerebral infarction without residual deficits; Z87.11 Personal history of peptic ulcer disease
CPT/HCPCS: 36415; 36430; 36600; 70450; 71045; 74018; 74177; 80047; 80048; 80053; 81001; 82803; 82948; 83036; 83605; 83690; 83735; 84100; 84132; 84134; 84145; 84484; 85007; 85018; 85025; 85384; 85610; 85730; 86885; 86900; 86901; 86920; 87040; 87070; 87075; 87081; 87102; 88304; 92508; 92616; 93005; 94002; 94003; 94760; 95816; 96374; 96375; 97110; 97116; 97161; 97530; 99285; A4215; A4314; A4349; A4615; A4618; A4649; A5200; A6209; A6213; A6223; A6250; A6253; A6258; A6266; A6402; A6407; A6446; A6449; A7000; A9900; C1758; C9113; G0378; J0360; J0610; J1170; J1630; J1644; J1650; J1815; J2250; J2270; J2543; J2704; J2710; J3010; J3260; J3411; J3475; J3480; J3490; J7030; J7040; J7042; J7060; J7120; P9012; P9016; P9045; Q9967

== ENCOUNTER 2024-01-18 09:49 | Inpatient (IN) | payer MEDICARE, OTHER ==
[2024-01-18] VITALS (18 sets, daily range): BP systolic 95–158; BP diastolic 49–88; PULSE 87–114; RESP 13–18; TEMP 97.4–97.6; O2SAT 94–100
[~2024-01-18] VITALS: Ht 185.4 cm; Wt 95.0 kg
[~2024-01-18 09:49] MED LIST changes: -AMA1T PO; +APIX5TAB3 PO; -ASPI-1265 PO; +ASPI-611 PO; -DOCU100C40 PO; +FLO0.4C PO; +GLIM1TAB57 PO; +METO25TA6 PO
[2024-01-18 10:32] LABS: ALBUMIN 3.8 G/DL (3.4-5.0); ANION GAP 13 (8-16); BLOOD UREA NITROGEN 41 MG/DL (7-18); BUN/CREATININE RATIO 24.3 (10.0-20.0); CALCIUM 9.6 MG/DL (8.5-10.1); CHLORIDE 105 MMOL/L (99-107); CREATININE 1.69 MG/DL (0.60-1.10); GLUCOSE 186 MG/DL (70-104); LIPASE 40 U/L (16-77); POTASSIUM 4.5 MMOL/L (3.5-5.1); SODIUM 138 MMOL/L (135-145); TOTAL CARBON DIOXIDE 19.8 MMOL/L (24-32); eCRCL 40 ML/MIN; eGFR 39 ML/MIN
[2024-01-18 10:38] LABS: BASOPHILS % (AUTO) 0.1 % (0-1); EOSINOPHILS % (AUTO) 0 % (0-6); HEMATOCRIT 41.7 % (42.0-52.0); HEMOGLOBIN 13.7 g/dl (14.0-17.9); LYMPHOCYTES # (AUTO) 2.3 X10'3 (1.1-4.8); LYMPHOCYTES % (AUTO) 11.9 % (21-51); MEAN CORPUSCULAR HEMOGLOBIN 27.7 PG (27.0-31.0); MEAN CORPUSCULAR HGB CONC 32.8 g/dL (33.0-36.5); MEAN CORPUSCULAR VOLUME 84.3 FL (78-98); MEAN PLATELET VOLUME 9.1 FL (7.4-10.4); MONOCYTES # (AUTO) 1.8 X10'3 (0-0.9); MONOCYTES % (AUTO) 9.6 % (2-12); NEUTROPHILS # (AUTO) 15.1 X10'3 (1.8-7.7); NEUTROPHILS % (AUTO) 78.4 % (42-75); PLATELET COUNT 264 X10'3 (140-440); RED BLOOD COUNT 4.95 X10'6 (4.70-6.10); RED CELL DISTRIBUTION WIDTH 16.9 % (11.5-14.5); WHITE BLOOD COUNT 19.3 X10'3 (4.5-11.0)
[2024-01-18] MEDS ORDERED: iohexol 300mg/ml 100ml inj. ONE (11:46)
[2024-01-18] MEDS: normal saline 1000ml 1,000 ML IV ONE (11:53)
[2024-01-18] MEDS ORDERED: APIX5TAB5 PO (12:53)
[2024-01-18] MEDS ORDERED: CHOL100046 PO (12:55)
[2024-01-18] MEDS ORDERED: MULT-1085 PO (12:56)
[2024-01-18] MEDS: LidoCAINE 2% Topical Jelly 11mL syringe (UROJET) TOP ONE (13:08)
[2024-01-18 13:33] LABS: BILIRUBIN,URINE NEGATIVE (Neg); COLOR,URINE YELLOW (Yellow); GLUCOSE, URINE NEGATIVE (Neg); KETONES,URINE TRACE mg/dl (Neg); LEUKOCYTE ESTERASE ,URINE NEGATIVE (Neg); NITRITES, URINE NEGATIVE (Neg); OCCULT BLOOD,URINE TRACE-INTACT (Neg); PH,URINE 5.5 (4.8-8.0); PROTEIN,URINE TRACE mg/dl (Neg); UROBILINOGEN,URINE 0.2 E.U/dL (0.2-1.0)
[2024-01-18 13:37] LABS: CLARITY,URINE SLIGHTLY CLOUDY (Clear); UA COLLECTION TYPE FOLEY CATH
[2024-01-18 13:52] LABS: HYALINE CASTS 0-3 /LPF (NEGATIVE)
[2024-01-18 13:53] LABS: SQUAMOUS EPITHELIAL CELL,UR NONE SEEN /LPF (FEW)
[2024-01-18 13:57] LABS: RENAL CELLS, URINE FEW /HPF; TRANSITIONAL EPI CELLS,URINE FEW /HPF
[2024-01-18 13:58] LABS: BACTERIA,URINE FEW /HPF (Neg); WBC,URINE 0-4 /HPF (0-4)
[2024-01-18] MEDS ORDERED: potassium Cl 20 mEq SR tablet PO PRN ×2 (14:00)
[2024-01-18] MEDS ORDERED: potassium Cl 40MEQ/1/2NS 520ml 520 ML IV PRN (14:00)
[2024-01-18] MEDS ORDERED: mag hydrox/Alum hydrox/simeth 30ml oral suspension PO PRN (14:00)
[2024-01-18] MEDS ORDERED: acetaminophen 325mg tablet PO PRN (14:00)
[2024-01-18] MEDS ORDERED: magnesium hydroxide 30ml (MOM) UD suspension PO PRN (14:00)
[2024-01-18] MEDS ORDERED: magnesium sulf-water 4G/100mL 100 ML IV PRN (14:00)
[2024-01-18] MEDS ORDERED: magnesium sulf-water 2g/50mL 50 ML IV PRN (14:00)
[2024-01-18] MEDS ORDERED: magnesium Cl slow-release 64mg tablet PO PRN (14:00)
[2024-01-18 14:35] LABS: APTT 24 SECONDS (22-32); PROTHROMBIN TIME 10.5 SECONDS (9.0-12.0)
[2024-01-18] MEDS ORDERED: midazolam 1 mg/ML 2ml injection ONE (14:50)
[2024-01-18] MEDS ORDERED: fentaNYL /PF 50mcg/ml 5ml ampule ONE (14:51)
[2024-01-18] MEDS ORDERED: propofol inj 20 ML IV ONE (14:51)
[2024-01-18] MEDS ORDERED: rocuronium 10mg/ml inj IV ONE (14:51)
[2024-01-18] MEDS ORDERED: DEXTROSE 15 GM of carb/4 tabs (each vial/BOTTLE has 4 tablets) PO PRN ×2 (15:30)
[2024-01-18] MEDS ORDERED: dextrose 50%-water 50ml dispensing syringe IV PRN ×2 (15:30)
[2024-01-18] MEDS ORDERED: glucagon, human recombinant 1mg kit SUBCUT PRN (15:30)
[2024-01-18] MEDS ORDERED: albumin (Human) 5% 250ml 250 ML IV ONE ×2 (15:32)
[2024-01-18] MEDS ORDERED: hydrALAZINE 20mg/ml inj. IV PRN (15:35)
[2024-01-18] MEDS ORDERED: morphine 2 MG/ML inj. syringe IV PRN (15:35)
[2024-01-18] MEDS ORDERED: morphine 4 MG/ML inj SYRINge IV PRN (15:35)
[2024-01-18] MEDS ORDERED: ondansetron/PF 4mg/2ml inj IV PRN (15:35)
[2024-01-18] MEDS ORDERED: labetalol 20mg/4ml (5mg/ml) syringe IV PRN (15:35)
[2024-01-18] MEDS: ringers solution, lacted 1,000 ML IV SCH (15:35)
[2024-01-18] MEDS ORDERED: meperidine/PF 25mg/ml syringe IV PRN ×2 (15:35)
[2024-01-18] MEDS ORDERED: BUPIVAcaine 2.5mg/ml inj 50ml vial (contains preservative) ONE (15:45)
[2024-01-18] MEDS ORDERED: glycopyrrolate 0.2mg/ml inj ONE (15:54)
[2024-01-18] MEDS ORDERED: neostigmine methylsulfate 1 MG/ML 10ml vial ONE (15:54)
[2024-01-18 16:09] LABS: HEMOGLOBIN A1C 5.9 % (4.5-6.2)
[2024-01-18] MEDS: BUPIVAcaine 2.5mg/ml inj 50ml vial (contains preservative) SQ ONE (16:23)
[2024-01-18] MEDS: acetaminophen 1,000mg/100ml IV 100 ML IV ONE (16:43)
[2024-01-18] MEDS: INSULIN LISPRO 100 UNIT/ML INSULN.PEN MULTI-DOSE SQ SCH (17:00)
[2024-01-18] MEDS: meperidine/PF 25mg/ml syringe IV PRN (17:03)
[2024-01-18 19:54] LABS: HEMATOCRIT 37.4 % (42.0-52.0); HEMOGLOBIN 12.1 g/dl (14.0-17.9); MEAN CORPUSCULAR HEMOGLOBIN 27.6 PG (27.0-31.0); MEAN CORPUSCULAR HGB CONC 32.3 g/dL (33.0-36.5); MEAN CORPUSCULAR VOLUME 85.4 FL (78-98); PLATELET COUNT 215 X10'3 (140-440); RED BLOOD COUNT 4.38 X10'6 (4.70-6.10); RED CELL DISTRIBUTION WIDTH 16.6 % (11.5-14.5); WHITE BLOOD COUNT 17.7 X10'3 (4.5-11.0)
[2024-01-18] MEDS: docusate sod 100mg capsule PO SCH (20:00)
[2024-01-18] MEDS: K and/or MAG REPLACEMENT MC SCH (20:00)
[2024-01-18] MEDS: insulin glargine (Lantus) pen - multi-dose SQ SCH (21:00)
[2024-01-18] MEDS: normal saline 1000ml 1,000 ML IV SCH (23:57)
[2024-01-19] VITALS (7 sets, daily range): BP systolic 123–169; BP diastolic 61–87; PULSE 105–124; RESP 16–19; TEMP 97.6–99.5; O2SAT 92–96
[2024-01-19] MEDS: ondansetron/PF 4mg/2ml inj IV PRN (01:09)
[2024-01-19] MEDS: morphine 2 MG/ML inj. syringe IV PRN (01:10)
[2024-01-19 06:13] LABS: BASOPHILS % (AUTO) 0.2 % (0-1); EOSINOPHILS % (AUTO) 0.2 % (0-6); HEMATOCRIT 36.9 % (42.0-52.0); HEMOGLOBIN 12.1 g/dl (14.0-17.9); LYMPHOCYTES # (AUTO) 1.8 X10'3 (1.1-4.8); LYMPHOCYTES % (AUTO) 12.6 % (21-51); MEAN CORPUSCULAR HEMOGLOBIN 28.4 PG (27.0-31.0); MEAN CORPUSCULAR HGB CONC 32.9 g/dL (33.0-36.5); MEAN CORPUSCULAR VOLUME 86.2 FL (78-98); MEAN PLATELET VOLUME 9.3 FL (7.4-10.4); MONOCYTES # (AUTO) 2.1 X10'3 (0-0.9); MONOCYTES % (AUTO) 14.3 % (2-12); NEUTROPHILS # (AUTO) 10.4 X10'3 (1.8-7.7); NEUTROPHILS % (AUTO) 72.7 % (42-75); PLATELET COUNT 209 X10'3 (140-440); RED BLOOD COUNT 4.28 X10'6 (4.70-6.10); RED CELL DISTRIBUTION WIDTH 16.5 % (11.5-14.5); WHITE BLOOD COUNT 14.3 X10'3 (4.5-11.0)
[2024-01-19 06:31] LABS: ALANINE AMINOTRANSFERASE 16 U/L (12-78); ALBUMIN 3.1 G/DL (3.4-5.0); ALBUMIN/GLOBULIN RATIO 1.1 (1.1-1.5); ALKALINE PHOSPHATASE 9 IU/L (46-116); ANION GAP 7 (8-16); ASPARTATE AMINO TRANSFERASE 13 U/L (10-37); BILIRUBIN,TOTAL 1.2 MG/DL (0.1-1.0); BLOOD UREA NITROGEN 40 MG/DL (7-18); BUN/CREATININE RATIO 25.3 (10.0-20.0); CHLORIDE 107 MMOL/L (99-107); CREATININE 1.58 MG/DL (0.60-1.10); GLUCOSE 144 MG/DL (70-104); MAGNESIUM 1.4 MG/DL (1.5-2.4); POTASSIUM 4.2 MMOL/L (3.5-5.1); SODIUM 140 MMOL/L (135-145); TOTAL CARBON DIOXIDE 25.6 MMOL/L (24-32); eCRCL 43 ML/MIN; eGFR 43 ML/MIN
[2024-01-19] MEDS: metoclopramide 5 mg/ml inj IV PRN (12:08)
[2024-01-19] MEDS ORDERED: metoclopramide 10mg tablet PO PRN (14:00)
[2024-01-19] MEDS: docusate sodium 100mg/10ml UD cup PO SCH (14:59)
[2024-01-19] MEDS: gabapentin 100mg capsule PO SCH (19:52)
[2024-01-19] MEDS: docusate sod 100mg capsule PO SCH (20:20)
[2024-01-20] VITALS (14 sets, daily range): BP systolic 77–155; BP diastolic 45–83; PULSE 76–121; RESP 20–36; TEMP 97.4–99; O2SAT 85–98
[2024-01-20] MEDS: furosemide 20 MG/2 ML vial IV ONE (02:10)
[2024-01-20 07:02] LABS: BASOPHILS % (AUTO) 0.1 % (0-1); EOSINOPHILS % (AUTO) 0 % (0-6); HEMATOCRIT 38.8 % (42.0-52.0); HEMOGLOBIN 12.6 g/dl (14.0-17.9); LYMPHOCYTES % (AUTO) 4.8 % (21-51); MEAN CORPUSCULAR HEMOGLOBIN 27.9 PG (27.0-31.0); MEAN CORPUSCULAR HGB CONC 32.5 g/dL (33.0-36.5); MEAN CORPUSCULAR VOLUME 85.8 FL (78-98); MEAN PLATELET VOLUME 9.4 FL (7.4-10.4); MONOCYTES # (AUTO) 2.4 X10'3 (0-0.9); MONOCYTES % (AUTO) 11.6 % (2-12); NEUTROPHILS # (AUTO) 17.4 X10'3 (1.8-7.7); NEUTROPHILS % (AUTO) 83.5 % (42-75); PLATELET COUNT 238 X10'3 (140-440); RED BLOOD COUNT 4.52 X10'6 (4.70-6.10); RED CELL DISTRIBUTION WIDTH 16.1 % (11.5-14.5); WHITE BLOOD COUNT 20.8 X10'3 (4.5-11.0)
[2024-01-20 07:31] LABS: ALANINE AMINOTRANSFERASE 14 U/L (12-78); ALBUMIN/GLOBULIN RATIO 0.8 (1.1-1.5); ALKALINE PHOSPHATASE 15 IU/L (46-116); ANION GAP 13 (8-16); ASPARTATE AMINO TRANSFERASE 15 U/L (10-37); BLOOD UREA NITROGEN 39 MG/DL (7-18); BUN/CREATININE RATIO 25.8 (10.0-20.0); CALCIUM 7.8 MG/DL (8.5-10.1); CHLORIDE 102 MMOL/L (99-107); CREATININE 1.51 MG/DL (0.60-1.10); GLUCOSE 204 MG/DL (70-104); MAGNESIUM 1.4 MG/DL (1.5-2.4); POTASSIUM 4.2 MMOL/L (3.5-5.1); SODIUM 138 MMOL/L (135-145); TOTAL CARBON DIOXIDE 23.1 MMOL/L (24-32); TOTAL PROTEIN 6.7 G/DL (6.4-8.2); eCRCL 45 ML/MIN; eGFR 45 ML/MIN
[2024-01-20] MEDS ORDERED: metoprolol tartrate 25mg tablet PO SCH (08:00)
[2024-01-20] MEDS: atorvastatin 20mg tablet PO SCH (08:02)
[2024-01-20] MEDS: tamsulosin 0.4mg capsule PO SCH (08:02)
[2024-01-20] MEDS: metoprolol tartrate 25mg tablet PO SCH (08:03)
[2024-01-20] MEDS: multivitamins, therapeutics tablet PO SCH (08:03)
[2024-01-20] MEDS: lisinopril 20mg tablet PO SCH (08:04)
[2024-01-20] MEDS: apixaban 5mg tablet PO SCH (09:04)
[2024-01-20] MEDS: CefTRIAXone/D5W-Rocephin 1gm 50 ML IV SCH (09:30)
[2024-01-20] MEDS: albuterol 2.5 MG/3 ML nebule NEB PRN (09:33)
[2024-01-20] MEDS: famotidine/PF 10 mg/ml inj IV SCH (12:39)
[2024-01-20] MEDS: piperacillin/tazo 3.375gm/50ml 50 ML IV SCH (12:39)
[2024-01-20] MEDS: normal saline 1000ml 1,000 ML IV ONE (13:14)
[2024-01-20 13:15] LABS: ABG BASE EXCESS -1.7 mmol/L (-2.0-3.0); ABG HCO3 21.4 mmol/L (21.0-28.0); ABG OXYGEN SATURATION 92.5 % (94.0-98.0); ABG PCO2 (T) 31.2 mmHg (35.0-48.0); ABG PH (T) 7.454 (7.350-7.450); ABG PO2 (T) 59.3 mmHg (83.0-108.0); ALLEN'S TEST POSITIVE; FCOHb 0.6 % (0.5-1.5); FHHb 7.4 % (0.0-5.0); FLOW 15 L/min; FMetHb 0.3 % (0.0-1.5); FO2Hb 91.7 % (94.0-98.0); MODE HIGH FLOW; PATIENT TEMPERATURE 36.9; TOTAL HEMOGLOBIN 12.8 G/dl (13.5-17.5)
[2024-01-20 13:51] LABS: HEMATOCRIT 36.3 % (42.0-52.0); HEMOGLOBIN 11.6 g/dl (14.0-17.9); MEAN CORPUSCULAR HEMOGLOBIN 27.5 PG (27.0-31.0); MEAN CORPUSCULAR VOLUME 85.9 FL (78-98); MEAN PLATELET VOLUME 9.5 FL (7.4-10.4); PLATELET COUNT 217 X10'3 (140-440); RED BLOOD COUNT 4.22 X10'6 (4.70-6.10); RED CELL DISTRIBUTION WIDTH 15.9 % (11.5-14.5); WHITE BLOOD COUNT 11.5 X10'3 (4.5-11.0)
[2024-01-20] MEDS: metoclopramide 5 mg/ml inj IV SCH (14:00)
[2024-01-20] MEDS: normal saline 500ml IV soln 500 ML IV ONE ×2 (19:20→23:04)
[2024-01-21] VITALS (26 sets, daily range): BP systolic 83–128; BP diastolic 43–63; PULSE 96–166; RESP 16–30; TEMP 96.7–100.4; O2SAT 92–97
[2024-01-21] MEDS: amiodarone in dextrose, iso-osm 150mg/100ml bag IV ONE (02:59)
[2024-01-21] MEDS: amiodarone/D5 360MG/200ML BAG 200 ML IV SCH (03:08)
[2024-01-21 07:42] LABS: BASOPHILS % (AUTO) 0.2 % (0-1); EOSINOPHILS % (AUTO) 0.6 % (0-6); HEMATOCRIT 32.3 % (42.0-52.0); HEMOGLOBIN 10.4 g/dl (14.0-17.9); LYMPHOCYTES # (AUTO) 0.9 X10'3 (1.1-4.8); LYMPHOCYTES % (AUTO) 11.9 % (21-51); MEAN CORPUSCULAR HEMOGLOBIN 28.6 PG (27.0-31.0); MEAN CORPUSCULAR HGB CONC 32.3 g/dL (33.0-36.5); MEAN CORPUSCULAR VOLUME 88.4 FL (78-98); MEAN PLATELET VOLUME 9.4 FL (7.4-10.4); MONOCYTES # (AUTO) 1.1 X10'3 (0-0.9); NEUTROPHILS # (AUTO) 5.2 X10'3 (1.8-7.7); NEUTROPHILS % (AUTO) 72.3 % (42-75); PLATELET COUNT 135 X10'3 (140-440); RED BLOOD COUNT 3.65 X10'6 (4.70-6.10); RED CELL DISTRIBUTION WIDTH 16.4 % (11.5-14.5); WHITE BLOOD COUNT 7.2 X10'3 (4.5-11.0)
[2024-01-21 08:09] LABS: ALANINE AMINOTRANSFERASE 9 U/L (12-78); ALBUMIN 2.2 G/DL (3.4-5.0); ALBUMIN/GLOBULIN RATIO 0.7 (1.1-1.5); ALKALINE PHOSPHATASE 8 IU/L (46-116); ANION GAP 14 (8-16); ASPARTATE AMINO TRANSFERASE 24 U/L (10-37); BILIRUBIN,TOTAL 0.6 MG/DL (0.1-1.0); BLOOD UREA NITROGEN 58 MG/DL (7-18); BUN/CREATININE RATIO 20.9 (10.0-20.0); CALCIUM 7.2 MG/DL (8.5-10.1); CHLORIDE 106 MMOL/L (99-107); CREATININE 2.77 MG/DL (0.60-1.10); GLUCOSE 174 MG/DL (70-104); MAGNESIUM 1.5 MG/DL (1.5-2.4); POTASSIUM 3.6 MMOL/L (3.5-5.1); SODIUM 140 MMOL/L (135-145); TOTAL CARBON DIOXIDE 20.4 MMOL/L (24-32); TOTAL PROTEIN 5.5 G/DL (6.4-8.2); eCRCL 24 ML/MIN; eGFR 22 ML/MIN
[2024-01-21] MEDS: methylPREDNISolone sod succ/PF 40mg inj. IV SCH (16:47)
[2024-01-21] MEDS: normal saline 1000ml 1,000 ML IV SCH (21:51)
[2024-01-22] VITALS (14 sets, daily range): BP systolic 113–153; BP diastolic 60–84; PULSE 72–115; RESP 12–22; TEMP 97.3–98.7; O2SAT 94–98
[2024-01-22 07:28] LABS: EOSINOPHILS % (AUTO) 0 % (0-6); HEMOGLOBIN 10.3 g/dl (14.0-17.9); LYMPHOCYTES # (AUTO) 0.6 X10'3 (1.1-4.8); NEUTROPHILS # (AUTO) 6.3 X10'3 (1.8-7.7)
[2024-01-22 07:29] LABS: ALANINE AMINOTRANSFERASE 17 U/L (12-78); ALBUMIN 2.2 G/DL (3.4-5.0); ALBUMIN/GLOBULIN RATIO 0.6 (1.1-1.5); ALKALINE PHOSPHATASE 11 IU/L (46-116); ANION GAP 13 (8-16); ASPARTATE AMINO TRANSFERASE 29 U/L (10-37); BILIRUBIN,TOTAL 0.5 MG/DL (0.1-1.0); BLOOD UREA NITROGEN 49 MG/DL (7-18); BUN/CREATININE RATIO 24.3 (10.0-20.0); CALCIUM 7.3 MG/DL (8.5-10.1); CHLORIDE 110 MMOL/L (99-107); CREATININE 2.02 MG/DL (0.60-1.10); GLUCOSE 215 MG/DL (70-104); MAGNESIUM 1.8 MG/DL (1.5-2.4); POTASSIUM 3.8 MMOL/L (3.5-5.1); SODIUM 143 MMOL/L (135-145); TOTAL CARBON DIOXIDE 19.9 MMOL/L (24-32); eCRCL 34 ML/MIN; eGFR 32 ML/MIN
[2024-01-22 07:31] LABS: BASOPHILS % (AUTO) 0.1 % (0-1); HEMATOCRIT 30.7 % (42.0-52.0); LYMPHOCYTES % (AUTO) 7.7 % (21-51); MEAN CORPUSCULAR HEMOGLOBIN 29.1 PG (27.0-31.0); MEAN CORPUSCULAR HGB CONC 33.6 g/dL (33.0-36.5); MEAN CORPUSCULAR VOLUME 86.6 FL (78-98); MEAN PLATELET VOLUME 9.6 FL (7.4-10.4); MONOCYTES # (AUTO) 0.4 X10'3 (0-0.9); MONOCYTES % (AUTO) 6.2 % (2-12); PLATELET COUNT 150 X10'3 (140-440); RED BLOOD COUNT 3.55 X10'6 (4.70-6.10); RED CELL DISTRIBUTION WIDTH 16.1 % (11.5-14.5); WHITE BLOOD COUNT 7.3 X10'3 (4.5-11.0)
[2024-01-22] MEDS: amiodarone/D5 360MG/200ML BAG 200 ML IV SCH (12:53)
[2024-01-22] MEDS ORDERED: amiodarone 200mg tablet PO SCH (20:00)
[2024-01-22] MEDS: famotidine/PF 10 mg/ml inj IV SCH (20:40)
[2024-01-22] MEDS: insulin glargine (Lantus) pen - multi-dose SQ SCH (22:08)
[2024-01-23] VITALS (11 sets, daily range): BP systolic 133–156; BP diastolic 70–82; PULSE 68–86; RESP 14–21; TEMP 97.5–98.2; O2SAT 94–99
[2024-01-23 08:25] LABS: BASOPHILS % (AUTO) 0 % (0-1); EOSINOPHILS % (AUTO) 0 % (0-6); HEMATOCRIT 28.3 % (42.0-52.0); HEMOGLOBIN 9.5 g/dl (14.0-17.9); LYMPHOCYTES # (AUTO) 0.7 X10'3 (1.1-4.8); LYMPHOCYTES % (AUTO) 7.1 % (21-51); MEAN CORPUSCULAR HEMOGLOBIN 28.9 PG (27.0-31.0); MEAN CORPUSCULAR HGB CONC 33.6 g/dL (33.0-36.5); MEAN CORPUSCULAR VOLUME 86.1 FL (78-98); MEAN PLATELET VOLUME 9.7 FL (7.4-10.4); MONOCYTES # (AUTO) 0.8 X10'3 (0-0.9); MONOCYTES % (AUTO) 7.7 % (2-12); NEUTROPHILS # (AUTO) 8.9 X10'3 (1.8-7.7); NEUTROPHILS % (AUTO) 85.2 % (42-75); PLATELET COUNT 166 X10'3 (140-440); RED BLOOD COUNT 3.29 X10'6 (4.70-6.10); RED CELL DISTRIBUTION WIDTH 15.6 % (11.5-14.5); WHITE BLOOD COUNT 10.5 X10'3 (4.5-11.0)
[2024-01-23 08:58] LABS: ALANINE AMINOTRANSFERASE 15 U/L (12-78); ALBUMIN/GLOBULIN RATIO 0.6 (1.1-1.5); ALKALINE PHOSPHATASE 11 IU/L (46-116); ANION GAP 14 (8-16); ASPARTATE AMINO TRANSFERASE 19 U/L (10-37); BILIRUBIN,TOTAL 0.4 MG/DL (0.1-1.0); BLOOD UREA NITROGEN 40 MG/DL (7-18); BUN/CREATININE RATIO 23.4 (10.0-20.0); CHLORIDE 106 MMOL/L (99-107); CREATININE 1.71 MG/DL (0.60-1.10); GLUCOSE 391 MG/DL (70-104); POTASSIUM 3.5 MMOL/L (3.5-5.1); SODIUM 140 MMOL/L (135-145); TOTAL CARBON DIOXIDE 20.2 MMOL/L (24-32); TOTAL PROTEIN 5.4 G/DL (6.4-8.2); eCRCL 40 ML/MIN; eGFR 39 ML/MIN
[2024-01-23 11:37] LABS: ALANINE AMINOTRANSFERASE 15 U/L (12-78); ALBUMIN 2.2 G/DL (3.4-5.0); ALBUMIN/GLOBULIN RATIO 0.6 (1.1-1.5); ALKALINE PHOSPHATASE 15 IU/L (46-116); ASPARTATE AMINO TRANSFERASE 19 U/L (10-37); BILIRUBIN,DIRECT 0.2 MG/DL (0-0.3); BILIRUBIN,TOTAL 0.5 MG/DL (0.1-1.0); FREE T4 (FREE THYROXINE) 0.87 NG/DL (0.73-1.40); THYROID STIMULATING HORMONE 1.78 ulU/ml (0.34-4.50); TOTAL PROTEIN 5.7 G/DL (6.4-8.2)
[2024-01-24 01:00] VITALS: BP 143/72; PULSE 64; RESP 16; O2SAT 95
[2024-01-24 03:00] VITALS: BP 137/70; PULSE 67; RESP 20; O2SAT 95
[2024-01-24 06:00] VITALS: BP 156/88; PULSE 68; RESP 20; TEMP 97.9; O2SAT 94
[2024-01-24 07:04] LABS: BASOPHILS % (AUTO) 0.1 % (0-1); EOSINOPHILS % (AUTO) 0 % (0-6); HEMATOCRIT 27.8 % (42.0-52.0); HEMOGLOBIN 9.3 g/dl (14.0-17.9); LYMPHOCYTES # (AUTO) 0.9 X10'3 (1.1-4.8); LYMPHOCYTES % (AUTO) 6.4 % (21-51); MEAN CORPUSCULAR HEMOGLOBIN 28.7 PG (27.0-31.0); MEAN CORPUSCULAR HGB CONC 33.5 g/dL (33.0-36.5); MEAN CORPUSCULAR VOLUME 85.5 FL (78-98); MEAN PLATELET VOLUME 9.3 FL (7.4-10.4); MONOCYTES # (AUTO) 1.3 X10'3 (0-0.9); MONOCYTES % (AUTO) 8.8 % (2-12); NEUTROPHILS # (AUTO) 12.1 X10'3 (1.8-7.7); NEUTROPHILS % (AUTO) 84.7 % (42-75); PLATELET COUNT 192 X10'3 (140-440); RED BLOOD COUNT 3.25 X10'6 (4.70-6.10); RED CELL DISTRIBUTION WIDTH 15.3 % (11.5-14.5); WHITE BLOOD COUNT 14.3 X10'3 (4.5-11.0)
[2024-01-24 07:12] LABS: ALBUMIN 2.1 G/DL (3.4-5.0); ANION GAP 11 (8-16); BLOOD UREA NITROGEN 31 MG/DL (7-18); CALCIUM 7.3 MG/DL (8.5-10.1); CHLORIDE 106 MMOL/L (99-107); CREATININE 1.55 MG/DL (0.60-1.10); GLUCOSE 354 MG/DL (70-104); POTASSIUM 3.7 MMOL/L (3.5-5.1); SODIUM 139 MMOL/L (135-145); eCRCL 44 ML/MIN; eGFR 43 ML/MIN
[2024-01-24 08:00] VITALS: RESP 20; O2SAT 96
[2024-01-24] MEDS: lisinopril 20mg tablet PO SCH (08:39)
[2024-01-24 11:00] VITALS: BP 147/76; PULSE 62; RESP 19; TEMP 98.2; O2SAT 97
[2024-01-24] MEDS: lactose-reduced food (Ensure Enlive) - 237ml bottle PO SCH (13:07)
[2024-01-24] MEDS ORDERED: insulin glargine (Lantus) pen - multi-dose SQ SCH (21:00)
== END 2024-01-24 14:50 | DRG 853 ==
LOC: ER 09:50 → ED HOLD 13:04 → ORTHO 4S 18:13 → PCU 3S 01-20 14:00
PROVIDERS: ADMIT Internal Medicine; ATTEND Internal Medicine
PROC: 0DNU0ZZ Release Omentum, Open Approach (ICD-10-PCS; 2024-01-18)
PROC: 0D9670Z Drainage of Stomach with Drainage Device, Via Natural or Artificial Opening (ICD-10-PCS; 2024-01-18)
PROC: 0DN80ZZ Release Small Intestine, Open Approach (ICD-10-PCS; principal; 2024-01-18 14:54)
DX: A41.9 Sepsis, unspecified organism (principal); I50.31 Acute diastolic (congestive) heart failure; J69.0 Pneumonitis due to inhalation of food and vomit; J96.01 Acute respiratory failure with hypoxia; N17.0 Acute kidney failure with tubular necrosis; K56.50 Intestinal adhesions [bands], unspecified as to partial versus complete obstruction; K56.7 Ileus, unspecified; K91.89 Other postprocedural complications and disorders of digestive system; E11.42 Type 2 diabetes mellitus with diabetic polyneuropathy; I27.20 Pulmonary hypertension, unspecified; I35.0 Nonrheumatic aortic (valve) stenosis; I11.0 Hypertensive heart disease with heart failure; N40.0 Benign prostatic hyperplasia without lower urinary tract symptoms; Y92.230 Patient room in hospital as the place of occurrence of the external cause; Y83.8 Other surgical procedures as the cause of abnormal reaction of the patient, or of later complication, without mention of misadventure at the time of the procedure; Y82.8 Other medical devices associated with adverse incidents; Z79.01 Long term (current) use of anticoagulants; Z79.899 Other long term (current) drug therapy; Z79.84 Long term (current) use of oral hypoglycemic drugs; Z86.73 Personal history of transient ischemic attack (TIA), and cerebral infarction without residual deficits; Z90.49 Acquired absence of other specified parts of digestive tract
CPT/HCPCS: 36415; 36600; 71045; 74018; 74177; 80048; 80053; 80076; 81001; 82803; 82948; 83036; 83605; 83690; 83735; 83880; 84145; 84439; 84443; 85018; 85025; 85027; 85610; 85730; 86885; 86900; 86901; 87040; 87070; 87081; 93005; 93306; 94640; 94664; 94760; 96365; 97161; 97530; 99285; A4314; A4615; A4618; A5200; A6213; A6253; A6449; A7000; G0378; J0131; J0282; J0696; J1815; J1940; J2175; J2250; J2270; J2405; J2543; J2704; J2710; J2765; J2919; J3010; J3490; J7030; J7040; J7120; P9045; Q9967

== ENCOUNTER 2024-03-02 13:50 | Inpatient (IN) | payer MEDICARE, OTHER ==
[~2024-03-02] VITALS: Ht 185.4 cm; Wt 86.0 kg
[~2024-03-02 13:50] MED LIST changes: -APIX5TAB3 PO; +APIX5TAB5 PO; -ASPI-611 PO; +CHOL100046 PO; +MULT-1085 PO
[2024-03-02 14:53] LABS: BASOPHILS # (AUTO) 0.1 X10'3 (0-0.2); BASOPHILS % (AUTO) 0.5 % (0-1); EOSINOPHILS # (AUTO) 0.1 X10'3 (0-0.9); EOSINOPHILS % (AUTO) 0.5 % (0-6); HEMATOCRIT 30.9 % (42.0-52.0); LYMPHOCYTES # (AUTO) 1.7 X10'3 (1.1-4.8); LYMPHOCYTES % (AUTO) 12.4 % (21-51); MEAN CORPUSCULAR HEMOGLOBIN 27.6 PG (27.0-31.0); MEAN CORPUSCULAR HGB CONC 32.3 g/dL (33.0-36.5); MEAN CORPUSCULAR VOLUME 85.4 FL (78-98); MONOCYTES # (AUTO) 1.5 X10'3 (0-0.9); MONOCYTES % (AUTO) 11.4 % (2-12); NEUTROPHILS # (AUTO) 10.1 X10'3 (1.8-7.7); NEUTROPHILS % (AUTO) 75.2 % (42-75); PLATELET COUNT 440 X10'3 (140-440); RED BLOOD COUNT 3.62 X10'6 (4.70-6.10); RED CELL DISTRIBUTION WIDTH 15.6 % (11.5-14.5); WHITE BLOOD COUNT 13.4 X10'3 (4.5-11.0)
[2024-03-02] MEDS: normal saline 1000ML IV soln IV ONE (14:55)
[2024-03-02 15:29] LABS: ALBUMIN 2.5 G/DL (3.4-5.0); ANION GAP 16 (8-16); BLOOD UREA NITROGEN 31 MG/DL (7-18); BUN/CREATININE RATIO 14.4 (10.0-20.0); CALCIUM 9.1 MG/DL (8.5-10.1); CHLORIDE 102 MMOL/L (99-107); CREATININE 2.15 MG/DL (0.60-1.10); GLUCOSE 223 MG/DL (70-104); SODIUM 137 MMOL/L (135-145); TOTAL CARBON DIOXIDE 18.9 MMOL/L (24-32); eCRCL 31 ML/MIN; eGFR 30 ML/MIN
[2024-03-02 15:45] LABS: ALANINE AMINOTRANSFERASE 12 U/L (12-78); ALBUMIN/GLOBULIN RATIO 0.5 (1.1-1.5); ALKALINE PHOSPHATASE 35 IU/L (46-116); ASPARTATE AMINO TRANSFERASE 23 U/L (10-37); BILIRUBIN,DIRECT 0.2 MG/DL (0-0.3); BILIRUBIN,TOTAL 0.6 MG/DL (0.1-1.0); TOTAL PROTEIN 7.4 G/DL (6.4-8.2)
[2024-03-02] MEDS ORDERED: LORazepam 2 mg/ml vial IV ONE (15:45)
[2024-03-02] MEDS ORDERED: acetaminophen 325mg tablet PO PRN (16:15)
[2024-03-02] MEDS ORDERED: magnesium sulf-water 4G/100mL 100 ML IV PRN (16:15)
[2024-03-02] MEDS ORDERED: potassium Cl 20 mEq SR tablet PO PRN ×2 (16:15)
[2024-03-02] MEDS ORDERED: magnesium Cl slow-release 64mg tablet PO PRN (16:15)
[2024-03-02] MEDS ORDERED: ondansetron/PF 4mg/2ml inj IV PRN (16:15)
[2024-03-02] MEDS ORDERED: potassium Cl 40MEQ/1/2NS 520ml 520 ML IV PRN (16:15)
[2024-03-02 16:46] LABS: PRO BRAIN NATRIURETIC PEPTIDE 577 PG/ML (0-450)
[2024-03-02] MEDS ORDERED: DEXTROSE 15 GM of carb/4 tabs (each vial/BOTTLE has 4 tablets) PO PRN ×2 (16:50)
[2024-03-02] MEDS ORDERED: glucagon, human recombinant 1mg kit SUBCUT PRN (16:50)
[2024-03-02] MEDS ORDERED: dextrose 50%-water 50ml dispensing syringe IV PRN ×2 (16:50)
[2024-03-02] MEDS: normal saline 1000ml 1,000 ML IV SCH (17:20)
[2024-03-02] MEDS: CefTRIAXone/D5W-Rocephin 1gm 50 ML IV SCH (17:20)
[2024-03-02] MEDS ORDERED: azithromycin/NS 500mg/250ml 250 ML IV SCH (17:20)
[2024-03-02] MEDS: vancomycin/NS 1 GM ADD-VANTAGE 250 ML IV ONE (17:53)
[2024-03-02] MEDS: CefTRIAXone/D5W-Rocephin 1gm 50 ML IV ONE (17:54)
[2024-03-02] MEDS: INSULIN LISPRO 100 UNIT/ML INSULN.PEN MULTI-DOSE SQ SCH (18:00)
[2024-03-02] MEDS: metoprolol tartrate 25mg tablet PO SCH (19:38)
[2024-03-02] MEDS ORDERED: apixaban 5mg tablet PO SCH (20:00)
[2024-03-02] MEDS ORDERED: metoprolol tartrate 25mg tablet PO SCH (20:00)
[2024-03-02] MEDS: K and/or MAG REPLACEMENT MC SCH (20:00)
[2024-03-02] MEDS: apixaban 5mg tablet PO SCH (20:22)
[2024-03-02] MEDS: docusate sod 100mg capsule PO SCH (20:22)
[2024-03-02] MEDS: gabapentin 100mg capsule PO SCH (20:22)
[2024-03-02] MEDS: azithromycin/NS 500mg/250ml 250 ML IV SCH (20:24)
[2024-03-02 20:50] LABS: BILIRUBIN,URINE NEGATIVE (Neg); CLARITY,URINE CLEAR (Clear); COLOR,URINE YELLOW (Yellow); GLUCOSE, URINE NEGATIVE (Neg); KETONES,URINE NEGATIVE (Neg); LEUKOCYTE ESTERASE ,URINE NEGATIVE (Neg); NITRITES, URINE NEGATIVE (Neg); OCCULT BLOOD,URINE NEGATIVE (Neg); PH,URINE 5.5 (4.8-8.0); PROTEIN,URINE NEGATIVE (Neg); UROBILINOGEN,URINE 0.2 E.U/dL (0.2-1.0)
[2024-03-02 20:53] LABS: UA COLLECTION TYPE CLN CATCH MIDSTREAM
[2024-03-02] MEDS: insulin glargine (Lantus) pen - multi-dose SQ SCH (21:00)
[2024-03-02 21:14] VITALS: PULSE 96; RESP 23; O2SAT 98
[2024-03-02 23:10] VITALS: RESP 23; O2SAT 97
[2024-03-02 23:35] VITALS: BP 120/52; PULSE 105; RESP 22; TEMP 97.5; O2SAT 90
[2024-03-02 23:38] VITALS: PULSE 106; RESP 20; O2SAT 91
[2024-03-02 23:48] VITALS: PULSE 111; RESP 20
[2024-03-03] VITALS (9 sets, daily range): BP systolic 101–120; BP diastolic 56–66; PULSE 80–117; RESP 18–29; TEMP 97.3–98.2; O2SAT 89–94
[2024-03-03 07:13] LABS: BASOPHILS % (AUTO) 0.5 % (0-1); EOSINOPHILS # (AUTO) 0.1 X10'3 (0-0.9); EOSINOPHILS % (AUTO) 1.1 % (0-6); HEMATOCRIT 23.5 % (42.0-52.0); HEMOGLOBIN 7.8 g/dl (14.0-17.9); LYMPHOCYTES # (AUTO) 0.9 X10'3 (1.1-4.8); LYMPHOCYTES % (AUTO) 12.2 % (21-51); MEAN CORPUSCULAR HEMOGLOBIN 27.6 PG (27.0-31.0); MEAN CORPUSCULAR HGB CONC 33.1 g/dL (33.0-36.5); MEAN CORPUSCULAR VOLUME 83.5 FL (78-98); MEAN PLATELET VOLUME 8.9 FL (7.4-10.4); MONOCYTES # (AUTO) 1.2 X10'3 (0-0.9); MONOCYTES % (AUTO) 15.3 % (2-12); NEUTROPHILS # (AUTO) 5.4 X10'3 (1.8-7.7); NEUTROPHILS % (AUTO) 70.9 % (42-75); PLATELET COUNT 279 X10'3 (140-440); RED BLOOD COUNT 2.81 X10'6 (4.70-6.10); RED CELL DISTRIBUTION WIDTH 15.6 % (11.5-14.5); WHITE BLOOD COUNT 7.6 X10'3 (4.5-11.0)
[2024-03-03 07:46] LABS: ANION GAP 9 (8-16); BILIRUBIN,TOTAL 0.5 MG/DL (0.1-1.0); BLOOD UREA NITROGEN 21 MG/DL (7-18); BUN/CREATININE RATIO 16.3 (10.0-20.0); CALCIUM 7.7 MG/DL (8.5-10.1); CHLORIDE 107 MMOL/L (99-107); CREATININE 1.29 MG/DL (0.60-1.10); GLUCOSE 126 MG/DL (70-104); MAGNESIUM 1.1 MG/DL (1.5-2.4); PHOSPHORUS 3.2 MG/DL (2.3-4.5); SODIUM 137 MMOL/L (135-145); TOTAL CARBON DIOXIDE 21.2 MMOL/L (24-32); TOTAL PROTEIN 5.8 G/DL (6.4-8.2); eCRCL 52 ML/MIN; eGFR 54 ML/MIN
[2024-03-03 07:47] LABS: ALANINE AMINOTRANSFERASE 7 U/L (12-78); ALBUMIN 1.8 G/DL (3.4-5.0); ALBUMIN/GLOBULIN RATIO 0.5 (1.1-1.5); ALKALINE PHOSPHATASE 28 IU/L (46-116); ASPARTATE AMINO TRANSFERASE 24 U/L (10-37)
[2024-03-03] MEDS: atorvastatin 20mg tablet PO SCH (08:59)
[2024-03-03] MEDS: tamsulosin 0.4mg capsule PO SCH (08:59)
[2024-03-03] MEDS: magnesium sulf-water 2g/50mL 50 ML IV ONE (10:42)
[2024-03-03] MEDS: furosemide 20 MG/2 ML vial IV ONE (13:11)
[2024-03-03] MEDS: vancomycin/NS 1 GM ADD-VANTAGE 250 ML IV SCH (14:21)
[2024-03-03 14:51] LABS: PRO BRAIN NATRIURETIC PEPTIDE 825 PG/ML (0-450)
[2024-03-03 15:53] LABS: MEAN CORPUSCULAR HEMOGLOBIN 27.9 PG (27.0-31.0); MEAN CORPUSCULAR HGB CONC 33.2 g/dL (33.0-36.5); MEAN CORPUSCULAR VOLUME 84.1 FL (78-98); MEAN PLATELET VOLUME 8.9 FL (7.4-10.4); PLATELET COUNT 424 X10'3 (140-440); RED BLOOD COUNT 3.21 X10'6 (4.70-6.10); RED CELL DISTRIBUTION WIDTH 15.5 % (11.5-14.5); WHITE BLOOD COUNT 12.5 X10'3 (4.5-11.0)
[2024-03-03] MEDS: piperacillin/tazo 4.5gm/100ml 100 ML IV SCH (16:19)
[2024-03-04] VITALS (7 sets, daily range): BP systolic 94–115; BP diastolic 52–61; PULSE 82–105; RESP 17–28; TEMP 97.9–98.4; O2SAT 91–95
[2024-03-04 07:07] LABS: BASOPHILS # (AUTO) 0.1 X10'3 (0-0.2); BASOPHILS % (AUTO) 0.6 % (0-1); EOSINOPHILS # (AUTO) 0.2 X10'3 (0-0.9); HEMATOCRIT 22.6 % (42.0-52.0); HEMOGLOBIN 7.7 g/dl (14.0-17.9); LYMPHOCYTES % (AUTO) 10.9 % (21-51); MEAN CORPUSCULAR HEMOGLOBIN 28.2 PG (27.0-31.0); MEAN CORPUSCULAR HGB CONC 34.1 g/dL (33.0-36.5); MEAN CORPUSCULAR VOLUME 82.7 FL (78-98); MEAN PLATELET VOLUME 8.4 FL (7.4-10.4); MONOCYTES # (AUTO) 1.4 X10'3 (0-0.9); MONOCYTES % (AUTO) 14.6 % (2-12); NEUTROPHILS # (AUTO) 6.8 X10'3 (1.8-7.7); NEUTROPHILS % (AUTO) 71.9 % (42-75); PLATELET COUNT 320 X10'3 (140-440); RED BLOOD COUNT 2.73 X10'6 (4.70-6.10); RED CELL DISTRIBUTION WIDTH 15.3 % (11.5-14.5); WHITE BLOOD COUNT 9.5 X10'3 (4.5-11.0)
[2024-03-04 07:54] LABS: ANION GAP 9 (8-16); BILIRUBIN,TOTAL 0.6 MG/DL (0.1-1.0); BLOOD UREA NITROGEN 18 MG/DL (7-18); BUN/CREATININE RATIO 14.4 (10.0-20.0); CHLORIDE 102 MMOL/L (99-107); CREATININE 1.25 MG/DL (0.60-1.10); FERRITIN 250 NG/ML (26-388); GLUCOSE 156 MG/DL (70-104); MAGNESIUM 1.3 MG/DL (1.5-2.4); PHOSPHORUS 3.6 MG/DL (2.3-4.5); POTASSIUM 4.5 MMOL/L (3.5-5.1); SODIUM 134 MMOL/L (135-145); TOTAL CARBON DIOXIDE 23.2 MMOL/L (24-32); eCRCL 54 ML/MIN; eGFR 56 ML/MIN
[2024-03-04 07:55] LABS: ALANINE AMINOTRANSFERASE 10 U/L (12-78); ALBUMIN 1.7 G/DL (3.4-5.0); ALBUMIN/GLOBULIN RATIO 0.4 (1.1-1.5); ALKALINE PHOSPHATASE 28 IU/L (46-116); ASPARTATE AMINO TRANSFERASE 24 U/L (10-37); TOTAL PROTEIN 5.8 G/DL (6.4-8.2)
[2024-03-04] MEDS ORDERED: furosemide 20 MG/2 ML vial IV SCH (08:00)
[2024-03-04 08:11] LABS: % IRON SATURATION 4 % (11-46); IRON 7 UG/DL (53-167); TOTAL IRON BINDING CAPACITY 178 UG/DL (259-388)
[2024-03-04] MEDS: sodium ferric gluc complex inj 125 MG in normal saline 100ml IV soln 100 ML IV SCH (13:38)
[2024-03-04] MEDS: magnesium sulf-water 2g/50mL 50 ML IV PRN (16:01)
[2024-03-05] VITALS (16 sets, daily range): BP systolic 94–136; BP diastolic 52–89; PULSE 82–102; RESP 12–24; TEMP 97–98.6; O2SAT 89–98
[2024-03-05] MEDS: VANCOMYCIN LEVEL IV ONE (01:31)
[2024-03-05 07:45] LABS: BASOPHILS # (AUTO) 0.1 X10'3 (0-0.2); BASOPHILS % (AUTO) 0.6 % (0-1); EOSINOPHILS # (AUTO) 0.3 X10'3 (0-0.9); EOSINOPHILS % (AUTO) 2.9 % (0-6); HEMATOCRIT 22.9 % (42.0-52.0); HEMOGLOBIN 7.9 g/dl (14.0-17.9); LYMPHOCYTES # (AUTO) 1.1 X10'3 (1.1-4.8); LYMPHOCYTES % (AUTO) 12.2 % (21-51); MEAN CORPUSCULAR HEMOGLOBIN 28.1 PG (27.0-31.0); MEAN CORPUSCULAR HGB CONC 34.5 g/dL (33.0-36.5); MEAN CORPUSCULAR VOLUME 81.4 FL (78-98); MEAN PLATELET VOLUME 8.7 FL (7.4-10.4); MONOCYTES # (AUTO) 1.4 X10'3 (0-0.9); MONOCYTES % (AUTO) 15.8 % (2-12); NEUTROPHILS # (AUTO) 6.2 X10'3 (1.8-7.7); NEUTROPHILS % (AUTO) 68.5 % (42-75); PLATELET COUNT 298 X10'3 (140-440); RED BLOOD COUNT 2.81 X10'6 (4.70-6.10); RED CELL DISTRIBUTION WIDTH 15.4 % (11.5-14.5); WHITE BLOOD COUNT 9.1 X10'3 (4.5-11.0)
[2024-03-05] MEDS: PERFLUTREN PROTEIN-A MICROSPHR (Optison) 0.22 MG/ML 3ML VIAL IV ONE (08:48)
[2024-03-05 08:54] LABS: ALANINE AMINOTRANSFERASE 16 U/L (12-78); ALBUMIN 1.6 G/DL (3.4-5.0); ALBUMIN/GLOBULIN RATIO 0.4 (1.1-1.5); ALKALINE PHOSPHATASE 30 IU/L (46-116); ANION GAP 8 (8-16); ASPARTATE AMINO TRANSFERASE 28 U/L (10-37); BILIRUBIN,TOTAL 0.5 MG/DL (0.1-1.0); BLOOD UREA NITROGEN 14 MG/DL (7-18); CALCIUM 8.1 MG/DL (8.5-10.1); CHLORIDE 102 MMOL/L (99-107); GLUCOSE 126 MG/DL (70-104); MAGNESIUM 1.3 MG/DL (1.5-2.4); PHOSPHORUS 3.9 MG/DL (2.3-4.5); POTASSIUM 4.3 MMOL/L (3.5-5.1); SODIUM 134 MMOL/L (135-145); TOTAL CARBON DIOXIDE 23.9 MMOL/L (24-32); TOTAL PROTEIN 5.6 G/DL (6.4-8.2); eCRCL 48 ML/MIN; eGFR 49 ML/MIN
[2024-03-05] MEDS: methylPREDNISolone sod succ 125mg/2ml vial IV ONE (21:05)
[2024-03-06] VITALS (17 sets, daily range): BP systolic 101–120; BP diastolic 50–59; PULSE 64–85; RESP 17–27; TEMP 97.1–97.9; O2SAT 90–98
[2024-03-06 07:23] LABS: BASOPHILS % (AUTO) 0.2 % (0-1); EOSINOPHILS % (AUTO) 0 % (0-6); HEMOGLOBIN 8.1 g/dl (14.0-17.9); LYMPHOCYTES # (AUTO) 0.5 X10'3 (1.1-4.8); LYMPHOCYTES % (AUTO) 8.8 % (21-51); MEAN CORPUSCULAR HEMOGLOBIN 27.7 PG (27.0-31.0); MEAN CORPUSCULAR HGB CONC 33.7 g/dL (33.0-36.5); MEAN CORPUSCULAR VOLUME 82.2 FL (78-98); MEAN PLATELET VOLUME 8.8 FL (7.4-10.4); MONOCYTES # (AUTO) 0.1 X10'3 (0-0.9); MONOCYTES % (AUTO) 1.6 % (2-12); NEUTROPHILS # (AUTO) 5.1 X10'3 (1.8-7.7); NEUTROPHILS % (AUTO) 89.4 % (42-75); PLATELET COUNT 321 X10'3 (140-440); RED BLOOD COUNT 2.92 X10'6 (4.70-6.10); RED CELL DISTRIBUTION WIDTH 15.8 % (11.5-14.5); WHITE BLOOD COUNT 5.8 X10'3 (4.5-11.0)
[2024-03-06 07:51] LABS: ALANINE AMINOTRANSFERASE 21 U/L (12-78); ALBUMIN 1.6 G/DL (3.4-5.0); ALBUMIN/GLOBULIN RATIO 0.4 (1.1-1.5); ALKALINE PHOSPHATASE 34 IU/L (46-116); ANION GAP 10 (8-16); ASPARTATE AMINO TRANSFERASE 30 U/L (10-37); BILIRUBIN,TOTAL 0.4 MG/DL (0.1-1.0); BLOOD UREA NITROGEN 14 MG/DL (7-18); BUN/CREATININE RATIO 11.4 (10.0-20.0); CALCIUM 8.1 MG/DL (8.5-10.1); CHLORIDE 104 MMOL/L (99-107); CREATININE 1.23 MG/DL (0.60-1.10); GLUCOSE 256 MG/DL (70-104); MAGNESIUM 1.7 MG/DL (1.5-2.4); PHOSPHORUS 3.6 MG/DL (2.3-4.5); POTASSIUM 4.7 MMOL/L (3.5-5.1); SODIUM 136 MMOL/L (135-145); TOTAL CARBON DIOXIDE 22.4 MMOL/L (24-32); TOTAL PROTEIN 5.9 G/DL (6.4-8.2); eCRCL 55 ML/MIN; eGFR 57 ML/MIN
[2024-03-06] MEDS: prednisone 10mg tablet PO SCH (09:49)
[2024-03-06] MEDS: azithromycin 250mg tablet PO SCH (11:24)
[2024-03-06] MEDS: VANCOMYCIN LEVEL IV ONE (13:45)
[2024-03-06] MEDS: INSULIN LISPRO 100 UNIT/ML INSULN.PEN MULTI-DOSE SQ SCH (20:00)
[2024-03-06] MEDS: methylPREDNISolone sod succ 125mg/2ml vial IV SCH (20:01)
[2024-03-06] MEDS: ipratropium/albuterol 3ml nebule NEB PRN (20:26)
[2024-03-06] MEDS: insulin glargine (Lantus) pen - multi-dose SQ SCH (21:59)
[2024-03-07] VITALS (13 sets, daily range): BP systolic 106–131; BP diastolic 47–60; PULSE 54–91; RESP 15–25; TEMP 97.4–98.4; O2SAT 92–97
[2024-03-07 07:35] LABS: BASOPHILS % (AUTO) 0.1 % (0-1); EOSINOPHILS % (AUTO) 0 % (0-6); HEMATOCRIT 24.8 % (42.0-52.0); HEMOGLOBIN 8.3 g/dl (14.0-17.9); LYMPHOCYTES % (AUTO) 6.5 % (21-51); MEAN CORPUSCULAR HEMOGLOBIN 27.6 PG (27.0-31.0); MEAN CORPUSCULAR HGB CONC 33.4 g/dL (33.0-36.5); MEAN CORPUSCULAR VOLUME 82.7 FL (78-98); MEAN PLATELET VOLUME 8.7 FL (7.4-10.4); MONOCYTES # (AUTO) 0.6 X10'3 (0-0.9); MONOCYTES % (AUTO) 3.7 % (2-12); NEUTROPHILS # (AUTO) 13.6 X10'3 (1.8-7.7); NEUTROPHILS % (AUTO) 89.7 % (42-75); PLATELET COUNT 437 X10'3 (140-440); RED CELL DISTRIBUTION WIDTH 15.5 % (11.5-14.5); WHITE BLOOD COUNT 15.2 X10'3 (4.5-11.0)
[2024-03-07 08:22] LABS: ALANINE AMINOTRANSFERASE 19 U/L (12-78); ALBUMIN 1.8 G/DL (3.4-5.0); ALBUMIN/GLOBULIN RATIO 0.4 (1.1-1.5); ALKALINE PHOSPHATASE 36 IU/L (46-116); ANION GAP 11 (8-16); ASPARTATE AMINO TRANSFERASE 21 U/L (10-37); BILIRUBIN,TOTAL 0.4 MG/DL (0.1-1.0); BLOOD UREA NITROGEN 24 MG/DL (7-18); BUN/CREATININE RATIO 16.3 (10.0-20.0); CALCIUM 8.7 MG/DL (8.5-10.1); CHLORIDE 105 MMOL/L (99-107); CREATININE 1.47 MG/DL (0.60-1.10); GLUCOSE 344 MG/DL (70-104); MAGNESIUM 1.8 MG/DL (1.5-2.4); PHOSPHORUS 3.5 MG/DL (2.3-4.5); POTASSIUM 5.5 MMOL/L (3.5-5.1); SODIUM 139 MMOL/L (135-145); TOTAL CARBON DIOXIDE 22.6 MMOL/L (24-32); TOTAL PROTEIN 6.2 G/DL (6.4-8.2); eCRCL 46 ML/MIN; eGFR 46 ML/MIN
[2024-03-08] VITALS (14 sets, daily range): BP systolic 104–127; BP diastolic 46–66; PULSE 58–80; RESP 16–24; TEMP 97.6–98.2; O2SAT 90–99
[2024-03-08] MEDS: lactose-reduced food (Ensure High Protein) 237ml bottle PO SCH (07:30)
[2024-03-08 08:26] LABS: BASOPHILS % (AUTO) 0.1 % (0-1); EOSINOPHILS % (AUTO) 0 % (0-6); HEMATOCRIT 25.8 % (42.0-52.0); LYMPHOCYTES % (AUTO) 5.8 % (21-51); MEAN CORPUSCULAR HEMOGLOBIN 26.8 PG (27.0-31.0); MEAN CORPUSCULAR HGB CONC 31.9 g/dL (33.0-36.5); MEAN PLATELET VOLUME 8.7 FL (7.4-10.4); MONOCYTES # (AUTO) 0.6 X10'3 (0-0.9); MONOCYTES % (AUTO) 3.5 % (2-12); NEUTROPHILS # (AUTO) 14.9 X10'3 (1.8-7.7); NEUTROPHILS % (AUTO) 90.6 % (42-75); PLATELET COUNT 425 X10'3 (140-440); RED BLOOD COUNT 3.07 X10'6 (4.70-6.10); WHITE BLOOD COUNT 16.5 X10'3 (4.5-11.0)
[2024-03-08 08:33] LABS: HEMOGLOBIN 8.2 g/dl (14.0-17.9)
[2024-03-08 09:07] LABS: ALANINE AMINOTRANSFERASE 12 U/L (12-78); ALBUMIN 1.8 G/DL (3.4-5.0); ALBUMIN/GLOBULIN RATIO 0.5 (1.1-1.5); ALKALINE PHOSPHATASE 33 IU/L (46-116); ANION GAP 9 (8-16); ASPARTATE AMINO TRANSFERASE 16 U/L (10-37); BILIRUBIN,TOTAL 0.4 MG/DL (0.1-1.0); BLOOD UREA NITROGEN 31 MG/DL (7-18); BUN/CREATININE RATIO 22.5 (10.0-20.0); CALCIUM 8.4 MG/DL (8.5-10.1); CHLORIDE 106 MMOL/L (99-107); CREATININE 1.38 MG/DL (0.60-1.10); GLUCOSE 367 MG/DL (70-104); POTASSIUM 4.4 MMOL/L (3.5-5.1); SODIUM 138 MMOL/L (135-145); TOTAL CARBON DIOXIDE 22.7 MMOL/L (24-32); TOTAL PROTEIN 5.7 G/DL (6.4-8.2); eCRCL 49 ML/MIN; eGFR 50 ML/MIN
[2024-03-08] MEDS: INSULIN LISPRO 100 UNIT/ML INSULN.PEN MULTI-DOSE SQ SCH (09:13)
[2024-03-08] MEDS: methylPREDNISolone sod succ 125mg/2ml vial IV SCH (09:18)
[2024-03-08] MEDS: insulin glargine (Lantus) pen - multi-dose SQ SCH (21:27)
[2024-03-09] VITALS (8 sets, daily range): BP systolic 112–134; BP diastolic 50–60; PULSE 54–71; RESP 12–20; TEMP 97.3–98; O2SAT 90–99
[2024-03-09 09:18] LABS: BASOPHILS % (AUTO) 0 % (0-1); EOSINOPHILS % (AUTO) 0 % (0-6); HEMATOCRIT 22.7 % (42.0-52.0); HEMOGLOBIN 7.6 g/dl (14.0-17.9); LYMPHOCYTES # (AUTO) 1.4 X10'3 (1.1-4.8); LYMPHOCYTES % (AUTO) 7.3 % (21-51); MEAN CORPUSCULAR HEMOGLOBIN 28.1 PG (27.0-31.0); MEAN CORPUSCULAR HGB CONC 33.6 g/dL (33.0-36.5); MEAN CORPUSCULAR VOLUME 83.9 FL (78-98); MEAN PLATELET VOLUME 8.5 FL (7.4-10.4); MONOCYTES # (AUTO) 1.2 X10'3 (0-0.9); MONOCYTES % (AUTO) 6.3 % (2-12); NEUTROPHILS # (AUTO) 16.1 X10'3 (1.8-7.7); NEUTROPHILS % (AUTO) 86.4 % (42-75); PLATELET COUNT 427 X10'3 (140-440); RED BLOOD COUNT 2.71 X10'6 (4.70-6.10); RED CELL DISTRIBUTION WIDTH 16.1 % (11.5-14.5); WHITE BLOOD COUNT 18.6 X10'3 (4.5-11.0)
[2024-03-09] MEDS: INSULIN LISPRO 100 UNIT/ML INSULN.PEN MULTI-DOSE SQ SCH (09:22)
[2024-03-09] MEDS: insulin glargine (Lantus) pen - multi-dose SQ ONE (09:22)
[2024-03-09 09:45] LABS: ALBUMIN 1.8 G/DL (3.4-5.0); ANION GAP 8 (8-16); BLOOD UREA NITROGEN 40 MG/DL (7-18); CHLORIDE 105 MMOL/L (99-107); CREATININE 1.54 MG/DL (0.60-1.10); GLUCOSE 356 MG/DL (70-104); POTASSIUM 4.9 MMOL/L (3.5-5.1); SODIUM 138 MMOL/L (135-145); TOTAL CARBON DIOXIDE 24.6 MMOL/L (24-32); eCRCL 44 ML/MIN; eGFR 44 ML/MIN
[2024-03-09 10:28] LABS: TOTAL CELLS COUNTED 100
[2024-03-09 10:29] LABS: PLATELET ESTIMATE NORMAL
[2024-03-09 10:43] LABS: ABG BASE EXCESS -1.7 mmol/L (-2.0-3.0); ABG HCO3 22.6 mmol/L (21.0-28.0); ABG OXYGEN SATURATION 97.6 % (94.0-98.0); ABG PCO2 (T) 36.3 mmHg (35.0-48.0); ABG PH (T) 7.412 (7.350-7.450); ABG PO2 (T) 103.3 mmHg (83.0-108.0); ALLEN'S TEST POSITIVE; FCOHb 0.1 % (0.5-1.5); FHHb 2.4 % (0.0-5.0); FLOW 10 L/min; FMetHb 0.3 % (0.0-1.5); FO2Hb 97.2 % (94.0-98.0); MODE HIGH FLOW; TOTAL HEMOGLOBIN 8.9 G/dl (13.5-17.5)
[2024-03-09] MEDS ORDERED: lactose-reduced food (Ensure High Protein) 237ml bottle PO SCH (13:15)
[2024-03-09] MEDS ORDERED: piperacillin/tazo 4.5gm/100ml 100 ML IV SCH (20:00)
[2024-03-09] MEDS ORDERED: insulin glargine (Lantus) pen - multi-dose SQ SCH (21:00)
== END 2024-03-09 14:30 | DRG 871 ==
LOC: ER 13:51 → ED HOLD 16:15 → EDBEDREQ 21:53 → PCU 3S 23:25
PROVIDERS: ADMIT Family Medicine; ATTEND Family Medicine
PROC: 5A0935A Assistance with Respiratory Ventilation, Less than 24 Consecutive Hours, High Flow/Velocity Cannula (ICD-10-PCS; principal; 2024-03-05)
PROC: 5A0935A Assistance with Respiratory Ventilation, Less than 24 Consecutive Hours, High Flow/Velocity Cannula (ICD-10-PCS; 2024-03-06)
PROC: 5A0935A Assistance with Respiratory Ventilation, Less than 24 Consecutive Hours, High Flow/Velocity Cannula (ICD-10-PCS; 2024-03-07)
PROC: 5A0935A Assistance with Respiratory Ventilation, Less than 24 Consecutive Hours, High Flow/Velocity Cannula (ICD-10-PCS; 2024-03-08)
DX: A41.9 Sepsis, unspecified organism (principal); J18.9 Pneumonia, unspecified organism; R65.21 Severe sepsis with septic shock; J96.01 Acute respiratory failure with hypoxia; N17.9 Acute kidney failure, unspecified; N18.9 Chronic kidney disease, unspecified; Z20.822 Contact with and (suspected) exposure to COVID-19; E11.22 Type 2 diabetes mellitus with diabetic chronic kidney disease; I35.0 Nonrheumatic aortic (valve) stenosis; I48.91 Unspecified atrial fibrillation; I12.9 Hypertensive chronic kidney disease with stage 1 through stage 4 chronic kidney disease, or unspecified chronic kidney disease; J84.10 Pulmonary fibrosis, unspecified; N40.0 Benign prostatic hyperplasia without lower urinary tract symptoms; T46.2X5A Adverse effect of other antidysrhythmic drugs, initial encounter; Z86.73 Personal history of transient ischemic attack (TIA), and cerebral infarction without residual deficits; Z79.01 Long term (current) use of anticoagulants; Z79.899 Other long term (current) drug therapy; Z87.891 Personal history of nicotine dependence; Z79.84 Long term (current) use of oral hypoglycemic drugs; Y92.89 Other specified places as the place of occurrence of the external cause; I27.20 Pulmonary hypertension, unspecified
CPT/HCPCS: 36415; 36600; 71045; 71250; 74176; 80048; 80053; 80076; 80202; 81003; 82728; 82803; 82948; 83540; 83550; 83605; 83735; 83880; 84100; 84145; 84484; 85007; 85018; 85025; 85027; 87040; 87081; 87502; 87503; 87811; 92508; 92616; 93005; 93306; 94640; 94664; 94668; 94760; 97110; 97116; 97161; 97530; 97535; 99291; A4615; A4620; A6212; A6213; A6250; A6258; A6590; G0378; J0456; J0696; J1815; J1940; J2543; J2916; J2919; J3370; J7030; J7040; J7512

== ENCOUNTER 2024-03-19 15:39 | Inpatient (IN) | payer MEDICARE, OTHER ==
[~2024-03-19] VITALS: Ht 185.4 cm; Wt 77.3 kg
[2024-03-19 17:03] LABS: BASOPHILS % (AUTO) 0.1 % (0-1); EOSINOPHILS # (AUTO) 0.2 X10'3 (0-0.9); EOSINOPHILS % (AUTO) 0.8 % (0-6); HEMATOCRIT 35.5 % (42.0-52.0); HEMOGLOBIN 11.8 g/dl (14.0-17.9); LYMPHOCYTES # (AUTO) 3.3 X10'3 (1.1-4.8); LYMPHOCYTES % (AUTO) 13.2 % (21-51); MEAN CORPUSCULAR HEMOGLOBIN 28.9 PG (27.0-31.0); MEAN CORPUSCULAR HGB CONC 33.2 g/dL (33.0-36.5); MEAN CORPUSCULAR VOLUME 87.2 FL (78-98); MEAN PLATELET VOLUME 10.2 FL (7.4-10.4); MONOCYTES # (AUTO) 2.1 X10'3 (0-0.9); MONOCYTES % (AUTO) 8.4 % (2-12); NEUTROPHILS # (AUTO) 19.4 X10'3 (1.8-7.7); NEUTROPHILS % (AUTO) 77.5 % (42-75); PLATELET COUNT 134 X10'3 (140-440); RED BLOOD COUNT 4.07 X10'6 (4.70-6.10)
[2024-03-19 17:06] LABS: ALANINE AMINOTRANSFERASE 47 U/L (12-78); ALBUMIN 2.7 G/DL (3.4-5.0); ALBUMIN/GLOBULIN RATIO 0.8 (1.1-1.5); ALKALINE PHOSPHATASE 34 IU/L (46-116); ANION GAP 8 (8-16); ASPARTATE AMINO TRANSFERASE 21 U/L (10-37); BILIRUBIN,TOTAL 0.8 MG/DL (0.1-1.0); BLOOD UREA NITROGEN 21 MG/DL (7-18); BUN/CREATININE RATIO 18.1 (10.0-20.0); CALCIUM 8.9 MG/DL (8.5-10.1); CHLORIDE 105 MMOL/L (99-107); CREATININE 1.16 MG/DL (0.60-1.10); GLUCOSE 117 MG/DL (70-104); POTASSIUM 3.9 MMOL/L (3.5-5.1); SODIUM 140 MMOL/L (135-145); TOTAL CARBON DIOXIDE 26.7 MMOL/L (24-32); TOTAL PROTEIN 6.1 G/DL (6.4-8.2); eCRCL 56 ML/MIN; eGFR 61 ML/MIN
[2024-03-19 17:07] LABS: WHITE BLOOD COUNT 25.1 X10'3 (4.5-11.0)
[2024-03-19 17:14] LABS: PRO BRAIN NATRIURETIC PEPTIDE 2542 PG/ML (0-450)
[2024-03-19 17:30] LABS: TOTAL CELLS COUNTED 100
[2024-03-19 17:32] LABS: ANISOCYTOSIS 3+; BURR CELLS FEW; PLATELET ESTIMATE NORMAL; SCHISTOCYTES FEW
[2024-03-19] MEDS: CefTRIAXone/D5W-Rocephin 1gm 50 ML IV ONE (18:15)
[2024-03-19] MEDS: normal saline 1000ml 1,000 ML IV ONE (18:15)
[2024-03-19] MEDS ORDERED: potassium Cl 20 mEq SR tablet PO PRN ×2 (18:30)
[2024-03-19] MEDS ORDERED: potassium Cl 40MEQ/1/2NS 520ml 520 ML IV PRN (18:30)
[2024-03-19] MEDS ORDERED: ondansetron/PF 4mg/2ml inj IV PRN (18:30)
[2024-03-19] MEDS ORDERED: magnesium sulf-water 4G/100mL 100 ML IV PRN (18:30)
[2024-03-19] MEDS ORDERED: magnesium sulf-water 2g/50mL 50 ML IV PRN (18:30)
[2024-03-19] MEDS ORDERED: acetaminophen 325mg tablet PO PRN (18:30)
[2024-03-19] MEDS: K and/or MAG REPLACEMENT MC SCH (18:38)
[2024-03-19 18:48] LABS: BILIRUBIN,URINE NEGATIVE (Neg); CLARITY,URINE CLEAR (Clear); COLOR,URINE YELLOW (Yellow); GLUCOSE, URINE NEGATIVE (Neg); KETONES,URINE NEGATIVE (Neg); LEUKOCYTE ESTERASE ,URINE NEGATIVE (Neg); NITRITES, URINE NEGATIVE (Neg); OCCULT BLOOD,URINE NEGATIVE (Neg); PROTEIN,URINE NEGATIVE (Neg); UROBILINOGEN,URINE 0.2 E.U/dL (0.2-1.0)
[2024-03-19 18:52] LABS: UA COLLECTION TYPE CLN CATCH MIDSTREAM
[2024-03-19] MEDS: normal saline 1000ml 1,000 ML IV SCH (19:24)
[2024-03-19 19:59] LABS: INR 1.1 INR; PROTHROMBIN TIME 11.4 SECONDS (9.0-12.0)
[2024-03-19 20:05] LABS: MAGNESIUM 1.5 MG/DL (1.5-2.4); PHOSPHORUS 3.4 MG/DL (2.3-4.5)
[2024-03-19] MEDS: apixaban 5mg tablet PO SCH (20:40)
[2024-03-19] MEDS: piperacillin/tazo 3.375gm/50ml 50 ML IV SCH (20:41)
[2024-03-19] MEDS: vancomycin 125 MG/5 ML UD oral SOLN.RECON 5mL oral syringe (FIRVANQ) PO SCH (21:21)
[2024-03-19] MEDS: normal saline 1000ML IV soln IVB ONE (21:49)
[2024-03-19] MEDS: vancomycin/NS 1 GM ADD-VANTAGE 250 ML X 1 DOSE IV ONE (21:49)
[2024-03-19 22:00] VITALS: BP 165/71; PULSE 70; RESP 17; TEMP 97.4; O2SAT 93
[2024-03-19 22:21] VITALS: O2SAT 93
[2024-03-19 23:17] VITALS: PULSE 65; RESP 16; O2SAT 95
[2024-03-19] MEDS: ipratropium/albuterol 3ml nebule NEB SCH (23:17)
[2024-03-19 23:23] VITALS: PULSE 65; RESP 16
[2024-03-20] VITALS (10 sets, daily range): BP systolic 102–154; BP diastolic 43–82; PULSE 67–77; RESP 16–18; TEMP 97.9–98; O2SAT 93–99
[2024-03-20] MEDS: piperacillin/tazo 3.375gm/50ml 50 ML IV SCH (03:41)
[2024-03-20 06:11] LABS: BASOPHILS % (AUTO) 0.1 % (0-1); EOSINOPHILS # (AUTO) 0.3 X10'3 (0-0.9); HEMOGLOBIN 9.9 g/dl (14.0-17.9); LYMPHOCYTES # (AUTO) 1.5 X10'3 (1.1-4.8); LYMPHOCYTES % (AUTO) 10.3 % (21-51); MEAN CORPUSCULAR HEMOGLOBIN 28.5 PG (27.0-31.0); MEAN CORPUSCULAR HGB CONC 32.9 g/dL (33.0-36.5); MEAN CORPUSCULAR VOLUME 86.6 FL (78-98); MEAN PLATELET VOLUME 8.9 FL (7.4-10.4); MONOCYTES # (AUTO) 1.4 X10'3 (0-0.9); MONOCYTES % (AUTO) 9.2 % (2-12); NEUTROPHILS # (AUTO) 11.7 X10'3 (1.8-7.7); NEUTROPHILS % (AUTO) 78.4 % (42-75); PLATELET COUNT 79 X10'3 (140-440); RED BLOOD COUNT 3.46 X10'6 (4.70-6.10); RED CELL DISTRIBUTION WIDTH 20.9 % (11.5-14.5); WHITE BLOOD COUNT 14.9 X10'3 (4.5-11.0)
[2024-03-20 06:42] LABS: ALANINE AMINOTRANSFERASE 28 U/L (12-78); ALBUMIN/GLOBULIN RATIO 0.7 (1.1-1.5); ALKALINE PHOSPHATASE 27 IU/L (46-116); ANION GAP 4 (8-16); ANISOCYTOSIS 3+; ASPARTATE AMINO TRANSFERASE 20 U/L (10-37); BILIRUBIN,TOTAL 0.8 MG/DL (0.1-1.0); BLOOD UREA NITROGEN 16 MG/DL (7-18); BUN/CREATININE RATIO 15.2 (10.0-20.0); CALCIUM 8.1 MG/DL (8.5-10.1); CHLORIDE 105 MMOL/L (99-107); CHOL/HDL RATIO 1.9 (0.00-4.99); CHOLESTEROL 101 MG/DL (0-200); CREATININE 1.05 MG/DL (0.60-1.10); GLUCOSE 83 MG/DL (70-104); HDL CHOLESTEROL 52 MG/DL (35-60); LDL CHOLESTEROL 39 MG/DL (50-100); MAGNESIUM 1.2 MG/DL (1.5-2.4); PHOSPHORUS 4.5 MG/DL (2.3-4.5); PLATELET ESTIMATE DECREASED; SODIUM 139 MMOL/L (135-145); TOTAL CARBON DIOXIDE 29.8 MMOL/L (24-32); TOTAL CELLS COUNTED 100; TOTAL PROTEIN 4.9 G/DL (6.4-8.2); TRIGLYCERIDES 103 MG/DL (20-135); eCRCL 62 ML/MIN; eGFR 68 ML/MIN
[2024-03-20] MEDS ORDERED: lisinopril 20mg tablet PO SCH (08:00)
[2024-03-20] MEDS: apixaban 5mg tablet PO SCH (08:00)
[2024-03-20] MEDS: tamsulosin 0.4mg capsule PO SCH (08:23)
[2024-03-20] MEDS: gabapentin 100mg capsule PO SCH (08:24)
[2024-03-20] MEDS: metoprolol tartrate 25mg tablet PO SCH (08:24)
[2024-03-20] MEDS: atorvastatin 20mg tablet PO SCH (08:24)
[2024-03-20] MEDS: magnesium Cl slow-release 64mg tablet PO PRN (08:26)
[2024-03-20 16:49] LABS: BASOPHILS % (AUTO) 0.1 % (0-1); EOSINOPHILS # (AUTO) 0.3 X10'3 (0-0.9); EOSINOPHILS % (AUTO) 1.9 % (0-6); MEAN CORPUSCULAR HGB CONC 33.1 g/dL (33.0-36.5); MEAN CORPUSCULAR VOLUME 86.2 FL (78-98); MEAN PLATELET VOLUME 9.4 FL (7.4-10.4)
[2024-03-20 16:51] LABS: HEMATOCRIT 26.1 % (42.0-52.0); HEMOGLOBIN 8.6 g/dl (14.0-17.9); LYMPHOCYTES # (AUTO) 1.1 X10'3 (1.1-4.8); LYMPHOCYTES % (AUTO) 8.5 % (21-51); MEAN CORPUSCULAR HEMOGLOBIN 28.5 PG (27.0-31.0); MONOCYTES # (AUTO) 1.3 X10'3 (0-0.9); MONOCYTES % (AUTO) 10.2 % (2-12); NEUTROPHILS # (AUTO) 10.4 X10'3 (1.8-7.7); NEUTROPHILS % (AUTO) 79.3 % (42-75); PLATELET COUNT 77 X10'3 (140-440); RED BLOOD COUNT 3.03 X10'6 (4.70-6.10); RED CELL DISTRIBUTION WIDTH 21.6 % (11.5-14.5); WHITE BLOOD COUNT 13.1 X10'3 (4.5-11.0)
[2024-03-20] MEDS: apixaban 2.5mg tablet PO SCH (19:43)
[2024-03-21] VITALS (10 sets, daily range): BP systolic 97–122; BP diastolic 45–60; PULSE 65–89; RESP 16–19; TEMP 97.2–98.8; O2SAT 95–99
[2024-03-21 00:11] LABS: OCCULT BLOOD STOOL NEGATIVE (Neg)
[2024-03-21 06:15] LABS: BASOPHILS % (AUTO) 0.1 % (0-1); EOSINOPHILS # (AUTO) 0.3 X10'3 (0-0.9); HEMOGLOBIN 8.5 g/dl (14.0-17.9); PLATELET COUNT 70 X10'3 (140-440)
[2024-03-21 06:19] LABS: EOSINOPHILS % (AUTO) 2.1 % (0-6); HEMATOCRIT 25.8 % (42.0-52.0); LYMPHOCYTES % (AUTO) 7.4 % (21-51); MEAN CORPUSCULAR HEMOGLOBIN 28.7 PG (27.0-31.0); MEAN CORPUSCULAR VOLUME 86.9 FL (78-98); MONOCYTES # (AUTO) 1.3 X10'3 (0-0.9); MONOCYTES % (AUTO) 9.5 % (2-12); NEUTROPHILS # (AUTO) 10.7 X10'3 (1.8-7.7); NEUTROPHILS % (AUTO) 80.9 % (42-75); RED BLOOD COUNT 2.97 X10'6 (4.70-6.10); RED CELL DISTRIBUTION WIDTH 21.5 % (11.5-14.5); WHITE BLOOD COUNT 13.2 X10'3 (4.5-11.0)
[2024-03-21 06:37] LABS: ALANINE AMINOTRANSFERASE 28 U/L (12-78); ALBUMIN 1.8 G/DL (3.4-5.0); ALBUMIN/GLOBULIN RATIO 0.6 (1.1-1.5); ALKALINE PHOSPHATASE 30 IU/L (46-116); ANION GAP 5 (8-16); ASPARTATE AMINO TRANSFERASE 23 U/L (10-37); BILIRUBIN,TOTAL 0.9 MG/DL (0.1-1.0); BLOOD UREA NITROGEN 17 MG/DL (7-18); BUN/CREATININE RATIO 16.5 (10.0-20.0); CALCIUM 7.5 MG/DL (8.5-10.1); CHLORIDE 105 MMOL/L (99-107); CREATININE 1.03 MG/DL (0.60-1.10); GLUCOSE 162 MG/DL (70-104); MAGNESIUM 1.3 MG/DL (1.5-2.4); PHOSPHORUS 3.7 MG/DL (2.3-4.5); POTASSIUM 4.5 MMOL/L (3.5-5.1); SODIUM 137 MMOL/L (135-145); TOTAL PROTEIN 4.6 G/DL (6.4-8.2); eCRCL 64 ML/MIN; eGFR 70 ML/MIN
[2024-03-21] MEDS: acetaminophen 325mg tablet PO PRN (08:50)
[2024-03-21] MEDS: lisinopril 20mg tablet PO SCH (08:51)
[2024-03-21] MEDS: sodium ferric gluc complex inj 125 MG in normal saline 100ml IV soln 100 ML IV SCH (09:00)
[2024-03-21] MEDS ORDERED: ipratropium/albuterol 3ml nebule NEB PRN (14:40)
[2024-03-21] MEDS: apixaban 5mg tablet PO SCH (20:00)
[2024-03-21 21:02] LABS: BASOPHILS % (AUTO) 0.2 % (0-1); EOSINOPHILS # (AUTO) 0.3 X10'3 (0-0.9); EOSINOPHILS % (AUTO) 2.6 % (0-6); HEMOGLOBIN 9.1 g/dl (14.0-17.9); LYMPHOCYTES # (AUTO) 0.8 X10'3 (1.1-4.8); LYMPHOCYTES % (AUTO) 8.3 % (21-51); MEAN CORPUSCULAR HEMOGLOBIN 29.3 PG (27.0-31.0); MEAN CORPUSCULAR HGB CONC 33.7 g/dL (33.0-36.5); MONOCYTES # (AUTO) 1.1 X10'3 (0-0.9); MONOCYTES % (AUTO) 11.2 % (2-12); NEUTROPHILS # (AUTO) 7.5 X10'3 (1.8-7.7); NEUTROPHILS % (AUTO) 77.7 % (42-75); PLATELET COUNT 70 X10'3 (140-440); RED BLOOD COUNT 3.11 X10'6 (4.70-6.10); RED CELL DISTRIBUTION WIDTH 21.4 % (11.5-14.5); WHITE BLOOD COUNT 9.6 X10'3 (4.5-11.0)
[2024-03-22] VITALS (7 sets, daily range): BP systolic 114–129; BP diastolic 53–63; PULSE 68–89; RESP 14–18; TEMP 97.5–98.5; O2SAT 95–97
[2024-03-22 06:05] LABS: BASOPHILS % (AUTO) 0.2 % (0-1); EOSINOPHILS # (AUTO) 0.3 X10'3 (0-0.9); EOSINOPHILS % (AUTO) 3.1 % (0-6); HEMATOCRIT 26.6 % (42.0-52.0); HEMOGLOBIN 8.9 g/dl (14.0-17.9); LYMPHOCYTES # (AUTO) 0.6 X10'3 (1.1-4.8); LYMPHOCYTES % (AUTO) 6.7 % (21-51); MEAN CORPUSCULAR HEMOGLOBIN 29.2 PG (27.0-31.0); MEAN CORPUSCULAR HGB CONC 33.6 g/dL (33.0-36.5); MEAN CORPUSCULAR VOLUME 87.1 FL (78-98); MEAN PLATELET VOLUME 9.7 FL (7.4-10.4); MONOCYTES % (AUTO) 10.7 % (2-12); NEUTROPHILS # (AUTO) 7.7 X10'3 (1.8-7.7); NEUTROPHILS % (AUTO) 79.3 % (42-75); PLATELET COUNT 67 X10'3 (140-440); RED BLOOD COUNT 3.05 X10'6 (4.70-6.10); RED CELL DISTRIBUTION WIDTH 21.3 % (11.5-14.5); WHITE BLOOD COUNT 9.7 X10'3 (4.5-11.0)
[2024-03-22 06:25] LABS: ALANINE AMINOTRANSFERASE 26 U/L (12-78); ALBUMIN/GLOBULIN RATIO 0.6 (1.1-1.5); ALKALINE PHOSPHATASE 30 IU/L (46-116); ANION GAP 6 (8-16); ASPARTATE AMINO TRANSFERASE 23 U/L (10-37); BILIRUBIN,TOTAL 0.6 MG/DL (0.1-1.0); BLOOD UREA NITROGEN 16 MG/DL (7-18); BUN/CREATININE RATIO 15.4 (10.0-20.0); CALCIUM 7.7 MG/DL (8.5-10.1); CHLORIDE 105 MMOL/L (99-107); CREATININE 1.04 MG/DL (0.60-1.10); GLUCOSE 168 MG/DL (70-104); MAGNESIUM 1.7 MG/DL (1.5-2.4); PHOSPHORUS 3.2 MG/DL (2.3-4.5); POTASSIUM 4.4 MMOL/L (3.5-5.1); SODIUM 138 MMOL/L (135-145); TOTAL CARBON DIOXIDE 26.8 MMOL/L (24-32); TOTAL PROTEIN 5.2 G/DL (6.4-8.2); eCRCL 63 ML/MIN; eGFR 69 ML/MIN
[2024-03-22] MEDS: predniSONE 20 mg tablet PO SCH (08:59)
[2024-03-23 06:00] VITALS: BP 137/66; PULSE 63; RESP 16; TEMP 96.9; O2SAT 95
[2024-03-23 06:10] LABS: BASOPHILS % (AUTO) 0.1 % (0-1); EOSINOPHILS % (AUTO) 0 % (0-6); HEMATOCRIT 25.9 % (42.0-52.0); HEMOGLOBIN 8.8 g/dl (14.0-17.9); LYMPHOCYTES # (AUTO) 0.3 X10'3 (1.1-4.8); MEAN CORPUSCULAR HEMOGLOBIN 29.4 PG (27.0-31.0); MEAN CORPUSCULAR HGB CONC 33.9 g/dL (33.0-36.5); MONOCYTES # (AUTO) 0.5 X10'3 (0-0.9); MONOCYTES % (AUTO) 6.8 % (2-12); NEUTROPHILS # (AUTO) 6.5 X10'3 (1.8-7.7); NEUTROPHILS % (AUTO) 89.1 % (42-75); PLATELET COUNT 70 X10'3 (140-440); RED BLOOD COUNT 2.98 X10'6 (4.70-6.10); RED CELL DISTRIBUTION WIDTH 21.4 % (11.5-14.5); WHITE BLOOD COUNT 7.3 X10'3 (4.5-11.0)
[2024-03-23 06:52] LABS: ALANINE AMINOTRANSFERASE 27 U/L (12-78); ALBUMIN/GLOBULIN RATIO 0.6 (1.1-1.5); ALKALINE PHOSPHATASE 31 IU/L (46-116); ANION GAP 8 (8-16); ASPARTATE AMINO TRANSFERASE 16 U/L (10-37); BILIRUBIN,TOTAL 0.5 MG/DL (0.1-1.0); BLOOD UREA NITROGEN 24 MG/DL (7-18); BUN/CREATININE RATIO 21.2 (10.0-20.0); CALCIUM 7.8 MG/DL (8.5-10.1); CHLORIDE 102 MMOL/L (99-107); CREATININE 1.13 MG/DL (0.60-1.10); GLUCOSE 267 MG/DL (70-104); MAGNESIUM 1.4 MG/DL (1.5-2.4); POTASSIUM 4.4 MMOL/L (3.5-5.1); SODIUM 134 MMOL/L (135-145); TOTAL CARBON DIOXIDE 23.7 MMOL/L (24-32); TOTAL PROTEIN 5.5 G/DL (6.4-8.2); eCRCL 58 ML/MIN; eGFR 63 ML/MIN
[2024-03-23] MEDS ORDERED: DEXTROSE 15 GM of carb/4 tabs (each vial/BOTTLE has 4 tablets) PO PRN ×2 (08:00)
[2024-03-23] MEDS ORDERED: dextrose 50%-water 50ml dispensing syringe IV PRN ×2 (08:00)
[2024-03-23] MEDS ORDERED: glucagon, human recombinant 1mg kit SUBCUT PRN (08:00)
[2024-03-23 10:00] VITALS: BP 129/61; PULSE 66; RESP 14; TEMP 97.5; O2SAT 14
[2024-03-23] MEDS ORDERED: magnesium sulf-water 4G/100mL 100 ML IV PRN (10:05)
[2024-03-23] MEDS ORDERED: potassium Cl 20 mEq SR tablet PO PRN ×2 (10:05)
[2024-03-23] MEDS ORDERED: potassium Cl 40MEQ/1/2NS 520ml 520 ML IV PRN (10:05)
[2024-03-23] MEDS ORDERED: magnesium sulf-water 2g/50mL 50 ML IV PRN (10:05)
[2024-03-23] MEDS: magnesium Cl slow-release 64mg tablet PO PRN (10:42)
[2024-03-23] MEDS: INSULIN LISPRO 100 UNIT/ML INSULN.PEN MULTI-DOSE SQ SCH (12:00)
[2024-03-23] MEDS: micafungin inj 100 MG in normal saline 100ml IV soln 100 ML IV SCH (13:47)
[2024-03-23 18:00] VITALS: BP 139/83; PULSE 68; RESP 16; TEMP 97.6; O2SAT 96
[2024-03-23 22:00] VITALS: BP 150/66; PULSE 78; RESP 13; TEMP 97.1; O2SAT 96
[2024-03-23] MEDS: insulin glargine (Lantus) VIAL- multi-dose SQ SCH (22:53)
[2024-03-24 06:07] LABS: BASOPHILS % (AUTO) 0.1 % (0-1); EOSINOPHILS % (AUTO) 0.1 % (0-6); HEMATOCRIT 27.6 % (42.0-52.0); HEMOGLOBIN 9.1 g/dl (14.0-17.9); LYMPHOCYTES # (AUTO) 0.7 X10'3 (1.1-4.8); LYMPHOCYTES % (AUTO) 5.5 % (21-51); MEAN CORPUSCULAR HEMOGLOBIN 28.7 PG (27.0-31.0); MEAN CORPUSCULAR HGB CONC 33.2 g/dL (33.0-36.5); MEAN CORPUSCULAR VOLUME 86.5 FL (78-98); MEAN PLATELET VOLUME 10.2 FL (7.4-10.4); MONOCYTES # (AUTO) 0.9 X10'3 (0-0.9); MONOCYTES % (AUTO) 7.6 % (2-12); NEUTROPHILS # (AUTO) 10.3 X10'3 (1.8-7.7); NEUTROPHILS % (AUTO) 86.7 % (42-75); PLATELET COUNT 75 X10'3 (140-440); RED BLOOD COUNT 3.19 X10'6 (4.70-6.10); WHITE BLOOD COUNT 11.9 X10'3 (4.5-11.0)
[2024-03-24 06:41] LABS: ALANINE AMINOTRANSFERASE 24 U/L (12-78); ALBUMIN 2.1 G/DL (3.4-5.0); ALBUMIN/GLOBULIN RATIO 0.6 (1.1-1.5); ALKALINE PHOSPHATASE 25 IU/L (46-116); ANION GAP 8 (8-16); ASPARTATE AMINO TRANSFERASE 15 U/L (10-37); BILIRUBIN,TOTAL 0.4 MG/DL (0.1-1.0); BLOOD UREA NITROGEN 28 MG/DL (7-18); BUN/CREATININE RATIO 28.3 (10.0-20.0); CALCIUM 8.2 MG/DL (8.5-10.1); CHLORIDE 102 MMOL/L (99-107); CREATININE 0.99 MG/DL (0.60-1.10); GLUCOSE 265 MG/DL (70-104); PHOSPHORUS 2.5 MG/DL (2.3-4.5); POTASSIUM 4.4 MMOL/L (3.5-5.1); SODIUM 133 MMOL/L (135-145); TOTAL PROTEIN 5.6 G/DL (6.4-8.2); eCRCL 66 ML/MIN; eGFR 73 ML/MIN
[2024-03-24 07:31] LABS: MAGNESIUM 1.5 MG/DL (1.5-2.4)
[2024-03-24] MEDS: insulin glargine (Lantus) VIAL- multi-dose SQ ONE (09:40)
[2024-03-24 10:00] VITALS: BP 144/63; PULSE 63; RESP 16; TEMP 97.7; O2SAT 98
[2024-03-24] MEDS ORDERED: iohexol 300mg/ml 100ml inj. ONE (10:48)
[2024-03-24] MEDS: INSULIN LISPRO 100 UNIT/ML INSULN.PEN MULTI-DOSE SQ SCH (13:20)
[2024-03-24] MEDS: normal saline 1000ml 1,000 ML IV SCH (14:01)
[2024-03-24 15:35] VITALS: PULSE 64; RESP 16; O2SAT 98
[2024-03-24 18:00] VITALS: BP 139/62; PULSE 64; RESP 16; TEMP 97.9; O2SAT 94
[2024-03-24] MEDS: insulin glargine (Lantus) VIAL- multi-dose SQ SCH (20:41)
[2024-03-24 22:00] VITALS: BP 103/49; PULSE 72; RESP 14; TEMP 98.9; O2SAT 93
[2024-03-25 06:00] VITALS: BP 149/78; PULSE 80; RESP 17; TEMP 97.6; O2SAT 92
[2024-03-25 09:01] LABS: BASOPHILS % (AUTO) 0.3 % (0-1); EOSINOPHILS # (AUTO) 0.2 X10'3 (0-0.9); EOSINOPHILS % (AUTO) 1.8 % (0-6); HEMATOCRIT 33.2 % (42.0-52.0); HEMOGLOBIN 10.9 g/dl (14.0-17.9); LYMPHOCYTES # (AUTO) 1.3 X10'3 (1.1-4.8); LYMPHOCYTES % (AUTO) 9.6 % (21-51); MEAN CORPUSCULAR HGB CONC 32.8 g/dL (33.0-36.5); MEAN CORPUSCULAR VOLUME 88.3 FL (78-98); MEAN PLATELET VOLUME 10.3 FL (7.4-10.4); MONOCYTES # (AUTO) 1.2 X10'3 (0-0.9); MONOCYTES % (AUTO) 9.4 % (2-12); NEUTROPHILS # (AUTO) 10.4 X10'3 (1.8-7.7); NEUTROPHILS % (AUTO) 78.9 % (42-75); PLATELET COUNT 78 X10'3 (140-440); RED BLOOD COUNT 3.76 X10'6 (4.70-6.10); RED CELL DISTRIBUTION WIDTH 21.8 % (11.5-14.5); WHITE BLOOD COUNT 13.2 X10'3 (4.5-11.0)
[2024-03-25 09:15] LABS: ALANINE AMINOTRANSFERASE 28 U/L (12-78); ALBUMIN 2.5 G/DL (3.4-5.0); ALBUMIN/GLOBULIN RATIO 0.7 (1.1-1.5); ALKALINE PHOSPHATASE 28 IU/L (46-116); ANION GAP 10 (8-16); ASPARTATE AMINO TRANSFERASE 18 U/L (10-37); BILIRUBIN,TOTAL 0.5 MG/DL (0.1-1.0); BLOOD UREA NITROGEN 26 MG/DL (7-18); BUN/CREATININE RATIO 27.1 (10.0-20.0); CALCIUM 8.5 MG/DL (8.5-10.1); CHLORIDE 105 MMOL/L (99-107); CREATININE 0.96 MG/DL (0.60-1.10); GLUCOSE 104 MG/DL (70-104); POTASSIUM 3.8 MMOL/L (3.5-5.1); SODIUM 138 MMOL/L (135-145); TOTAL CARBON DIOXIDE 23.2 MMOL/L (24-32); eCRCL 68 ML/MIN; eGFR 76 ML/MIN
[2024-03-25 10:00] VITALS: BP 127/62; PULSE 88; RESP 16; TEMP 97.9; O2SAT 94
[2024-03-25 18:00] VITALS: BP 140/64; PULSE 73; RESP 18; TEMP 98.2; O2SAT 93
[2024-03-25 22:00] VITALS: BP 124/51; PULSE 84; RESP 17; TEMP 98; O2SAT 92
[2024-03-26 05:46] LABS: LYMPHOCYTES # (AUTO) 1.1 X10'3 (1.1-4.8); MONOCYTES # (AUTO) 0.9 X10'3 (0-0.9); NEUTROPHILS # (AUTO) 6.3 X10'3 (1.8-7.7)
[2024-03-26 05:49] LABS: BASOPHILS % (AUTO) 0.5 % (0-1); EOSINOPHILS # (AUTO) 0.2 X10'3 (0-0.9); EOSINOPHILS % (AUTO) 2.9 % (0-6); HEMATOCRIT 26.1 % (42.0-52.0); HEMOGLOBIN 8.8 g/dl (14.0-17.9); LYMPHOCYTES % (AUTO) 12.5 % (21-51); MEAN CORPUSCULAR HEMOGLOBIN 29.1 PG (27.0-31.0); MEAN CORPUSCULAR HGB CONC 33.7 g/dL (33.0-36.5); MEAN CORPUSCULAR VOLUME 86.5 FL (78-98); MEAN PLATELET VOLUME 9.3 FL (7.4-10.4); MONOCYTES % (AUTO) 10.9 % (2-12); NEUTROPHILS % (AUTO) 73.2 % (42-75); PLATELET COUNT 57 X10'3 (140-440); RED BLOOD COUNT 3.02 X10'6 (4.70-6.10); RED CELL DISTRIBUTION WIDTH 21.9 % (11.5-14.5); WHITE BLOOD COUNT 8.6 X10'3 (4.5-11.0)
[2024-03-26 06:00] VITALS: BP 126/62; PULSE 78; RESP 17; TEMP 97.9; O2SAT 94
[2024-03-26 06:02] LABS: ALANINE AMINOTRANSFERASE 22 U/L (12-78); ALBUMIN/GLOBULIN RATIO 0.6 (1.1-1.5); ALKALINE PHOSPHATASE 23 IU/L (46-116); ANION GAP 7 (8-16); ASPARTATE AMINO TRANSFERASE 11 U/L (10-37); BILIRUBIN,TOTAL 0.6 MG/DL (0.1-1.0); BLOOD UREA NITROGEN 20 MG/DL (7-18); BUN/CREATININE RATIO 23.5 (10.0-20.0); CALCIUM 7.8 MG/DL (8.5-10.1); CHLORIDE 105 MMOL/L (99-107); CREATININE 0.85 MG/DL (0.60-1.10); GLUCOSE 148 MG/DL (70-104); POTASSIUM 3.6 MMOL/L (3.5-5.1); SODIUM 137 MMOL/L (135-145); TOTAL CARBON DIOXIDE 25.2 MMOL/L (24-32); TOTAL PROTEIN 5.2 G/DL (6.4-8.2); eCRCL 77 ML/MIN; eGFR 87 ML/MIN
[2024-03-26 06:24] LABS: PLATELET ESTIMATE DECREASED; POLYCHROMASIA 1+
[2024-03-26] MEDS: fluconazole 100mg tablet PO SCH (08:55)
[2024-03-26 10:00] VITALS: BP 125/68; PULSE 84; RESP 17; TEMP 97.8; O2SAT 94
[2024-03-26 12:30] VITALS: RESP 17; O2SAT 94
== END 2024-03-26 13:55 | DRG 871 ==
LOC: ER 15:39 → ED HOLD 18:02 → EDBEDREQTM 19:43 → ORTHO 4S 21:40
PROVIDERS: ADMIT Family Medicine; ATTEND Family Medicine
PROC: BW211ZZ Computerized Tomography (CT Scan) of Abdomen and Pelvis using Low Osmolar Contrast (ICD-10-PCS; principal; 2024-03-24)
DX: A41.9 Sepsis, unspecified organism (principal); J18.9 Pneumonia, unspecified organism; J96.01 Acute respiratory failure with hypoxia; N17.9 Acute kidney failure, unspecified; J84.10 Pulmonary fibrosis, unspecified; N40.1 Benign prostatic hyperplasia with lower urinary tract symptoms; R33.8 Other retention of urine; D50.9 Iron deficiency anemia, unspecified; Z20.822 Contact with and (suspected) exposure to COVID-19; E11.9 Type 2 diabetes mellitus without complications; I10 Essential (primary) hypertension; D69.6 Thrombocytopenia, unspecified; I35.0 Nonrheumatic aortic (valve) stenosis; I48.91 Unspecified atrial fibrillation; Z79.01 Long term (current) use of anticoagulants; Z79.899 Other long term (current) drug therapy; Z79.84 Long term (current) use of oral hypoglycemic drugs; Z86.73 Personal history of transient ischemic attack (TIA), and cerebral infarction without residual deficits; I27.20 Pulmonary hypertension, unspecified
CPT/HCPCS: 36415; 71045; 74177; 80053; 80061; 81003; 82272; 82948; 83540; 83605; 83735; 83880; 84100; 84145; 84484; 85007; 85008; 85025; 85610; 87040; 87081; 87502; 87503; 87811; 93005; 93308; 94640; 94760; 97116; 97161; 97530; 99285; A4615; A6213; A6250; A6258; C1758; G0378; J0696; J1815; J2248; J2543; J2916; J3370; J7030; J7512; Q9967

== ENCOUNTER 2024-06-26 11:43 | Inpatient (IN) | payer MEDICARE, OTHER ==
[~2024-06-26] VITALS: Ht 188 cm; Wt 79.5 kg
[~2024-06-26 11:43] MED LIST changes: -FLO0.4C PO; +TAMS-55 PO
--- NOTE | 2024-06-26 12:08 | ELECTROCARDIOGRAPH REPORT ---
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 Dallin Locke Measurements Intervals [place] Rate: 85 P: 106 HI: 176 QRS: -53 QRSD: 114 T: 60 QT: 387 QTc: 461 Interpretive Statements Sinus rhythm Left anterior fascicular block Left ventricular hypertrophy Anterior Q waves, possibly due to LVH ST elevation, consider inferior injury Electronically Signed On 06-28-2024 19:03:[address] Dallin Locke Please click the below link to view image of tracing.
[2024-06-26 12:31] LABS: BASOPHILS % (AUTO) 0.2 % (0-1); EOSINOPHILS # (AUTO) 0.2 X10'3 (0-0.9); HEMATOCRIT 37.7 % (42.0-52.0); HEMOGLOBIN 12.3 g/dl (14.0-17.9); LYMPHOCYTES # (AUTO) 2.7 X10'3 (1.1-4.8); LYMPHOCYTES % (AUTO) 16.3 % (21-51); MEAN CORPUSCULAR HEMOGLOBIN 26.4 PG (27.0-31.0); MEAN CORPUSCULAR HGB CONC 32.6 g/dL (33.0-36.5); MEAN CORPUSCULAR VOLUME 81.2 FL (78-98); MEAN PLATELET VOLUME 8.2 FL (7.4-10.4); MONOCYTES # (AUTO) 2.3 X10'3 (0-0.9); NEUTROPHILS # (AUTO) 11.2 X10'3 (1.8-7.7); NEUTROPHILS % (AUTO) 68.5 % (42-75); PLATELET COUNT 274 X10'3 (140-440); RED BLOOD COUNT 4.65 X10'6 (4.70-6.10); RED CELL DISTRIBUTION WIDTH 21.1 % (11.5-14.5); WHITE BLOOD COUNT 16.4 X10'3 (4.5-11.0)
[2024-06-26 12:44] LABS: INR 1.1 INR; PROTHROMBIN TIME 10.8 SECONDS (9.0-12.0)
[2024-06-26 12:47] LABS: ALANINE AMINOTRANSFERASE 16 U/L (12-78); ALBUMIN 2.4 G/DL (3.4-5.0); ALBUMIN/GLOBULIN RATIO 0.8 (1.1-1.5); ALKALINE PHOSPHATASE 31 IU/L (46-116); ANION GAP 11 (8-16); ASPARTATE AMINO TRANSFERASE 12 U/L (10-37); BILIRUBIN,TOTAL 0.3 MG/DL (0.1-1.0); BLOOD UREA NITROGEN 27 MG/DL (7-18); BUN/CREATININE RATIO 17.8 (10.0-20.0); CALCIUM 8.2 MG/DL (8.5-10.1); CHLORIDE 111 MMOL/L (99-107); CREATININE 1.52 MG/DL (0.60-1.10); GLUCOSE 144 MG/DL (70-104); POTASSIUM 3.6 MMOL/L (3.5-5.1); SODIUM 148 MMOL/L (135-145); TOTAL CARBON DIOXIDE 25.8 MMOL/L (24-32); TOTAL PROTEIN 5.4 G/DL (6.4-8.2); eCRCL 44 ML/MIN; eGFR 44 ML/MIN
--- NOTE | 2024-06-26 12:52 | RADIOLOGY REPORT ---
CHEST RADIOGRAPH Indication: CP Technique: Single frontal view of the chest was obtained COMPARISON: DI CHEST,SINGLE VIEW on DOS: 03/20/24, DI CHEST,SINGLE VIEW on DOS: 03/19/24, DI CHEST,SING LE VIEW on DOS: 03/05/24, DI CHEST,SINGLE VIEW on DOS: 03/03/24, DI CHEST,SINGLE VIEW on DOS: 03/02/24 FINDINGS: Lines and Tubes: None Lungs: Persistent increased interstitial markings both lung carbajal, stable . No consolidation. Surgical clips left axilla Pleura: No effusion. No pneumothorax. Cardiomediastinal contours: Unremarkable Bones: Unremarkable IMPRESSION: 1. No interval change in the increased interstitial markings in both lung carbajal when compared to the prior studyStable Heart size which is upper limits of normal
[2024-06-26 12:54] LABS: ANISOCYTOSIS 3+; PLATELET ESTIMATE NORMAL
[2024-06-26 12:55] LABS: BURR CELLS FEW; ELLIPTOCYTES FEW; PRO BRAIN NATRIURETIC PEPTIDE 848 PG/ML (0-450)
--- NOTE | 2024-06-26 13:25 | RADIOLOGY REPORT ---
CLINICAL INDICATION: fell TECHNIQUE: AP pelvis and frog-leg view of the right hip DI HIP,BI,CMPLT(AP PELVIS) Comparison: None FINDINGS/IMPRESSION: : There is no evidence of acute fracture or dislocation. Soft tissues are unremarkable.
[2024-06-26] MEDS: normal saline 1000ml 1,000 ML IV ONE (13:30)
[2024-06-26 13:38] LABS: CREATINE KINASE 34 U/L (39-308)
[2024-06-26 14:33] LABS: BILIRUBIN,URINE NEGATIVE (Neg); CLARITY,URINE CLEAR (Clear); COLOR,URINE YELLOW (Yellow); GLUCOSE, URINE NEGATIVE (Neg); KETONES,URINE NEGATIVE (Neg); LEUKOCYTE ESTERASE ,URINE NEGATIVE (Neg); NITRITES, URINE NEGATIVE (Neg); OCCULT BLOOD,URINE MODERATE (Neg); PROTEIN,URINE NEGATIVE (Neg); UROBILINOGEN,URINE 0.2 E.U/dL (0.2-1.0)
[2024-06-26 14:35] LABS: UA COLLECTION TYPE NON-SPECIFIED
[2024-06-26 14:40] LABS: WBC,URINE 0-4 /HPF (0-4)
[2024-06-26 14:41] LABS: BACTERIA,URINE FEW /HPF (Neg); SQUAMOUS EPITHELIAL CELL,UR FEW /LPF (FEW)
[2024-06-26] MEDS ORDERED: magnesium hydroxide 30ml (MOM) UD suspension PO PRN (14:55)
[2024-06-26] MEDS ORDERED: ondansetron 4mg rapidly disintigrating tab PO PRN (14:55)
[2024-06-26] MEDS ORDERED: ipratropium/albuterol 3ml nebule NEB PRN (14:55)
[2024-06-26] MEDS ORDERED: HYDROcodone/acetaminophen 10/325mg tab PO PRN (14:55)
[2024-06-26] MEDS ORDERED: bisacodyl 10mg suppository rectal RC PRN (14:55)
[2024-06-26] MEDS ORDERED: mag hydrox/Alum hydrox/simeth 30ml oral suspension PO PRN (14:55)
[2024-06-26] MEDS ORDERED: ondansetron/PF 4mg/2ml inj IV PRN (14:55)
[2024-06-26] MEDS ORDERED: HYDROcodone/acetaminophen 5mg/325mg tablet PO PRN (14:55)
[2024-06-26] MEDS ORDERED: diphenhydrAMINE 50 mg/ml inj IV PRN (14:55)
[2024-06-26] MEDS ORDERED: acetaminophen 650mg rectal suppository RC PRN (14:55)
[2024-06-26] MEDS ORDERED: morphine 2 MG/ML inj. syringe IV PRN ×2 (14:55)
[2024-06-26] MEDS ORDERED: diphenhydrAMINE 25mg capsule PO PRN (14:55)
[2024-06-26] MEDS ORDERED: acetaminophen 325mg tablet PO PRN ×2 (14:55)
[2024-06-26] MEDS ORDERED: DEXTROSE 15 GM of carb/4 tabs (each vial/BOTTLE has 4 tablets) PO PRN ×2 (15:05)
[2024-06-26] MEDS ORDERED: dextrose 50%-water 50ml dispensing syringe IV PRN ×2 (15:05)
[2024-06-26] MEDS ORDERED: glucagon, human recombinant 1mg kit SUBCUT PRN (15:05)
[2024-06-26] MEDS ORDERED: iohexol 300mg/ml 100ml inj. ONE (15:16)
[2024-06-26 15:22] LABS: APTT 25 SECONDS (22-32)
[2024-06-26 15:27] LABS: LIPASE 48 U/L (16-77); MAGNESIUM 1.2 MG/DL (1.5-2.4); PHOSPHORUS 3.1 MG/DL (2.3-4.5)
[2024-06-26 15:32] LABS: HEMOGLOBIN A1C 5.7 % (4.5-6.2)
--- NOTE | 2024-06-26 16:19 | Physician Documentation ---
History of Present Illness ~ Chief Complaint: Weakness Stated Complaint: FAILURE TO THRIVE Time Seen by MD: 12:14 OK to notify your PCP?: Yes Primary Medical Doctor: None Mode of Arrival: EMS HPI 78 year old male fell down last night and could not get up off the ground because he was too weak. Stayed there all night, slept on floor. Denies pain, fevers, N/V/D. Medication Reconciliation Allergies: Coded Allergies: No Known Allergies (Unverified , 03/19/24) Scheduled Apixaban (Eliquis), 1 TAB PO Q12H, (Reported) Atorvastatin Calcium (Atorvastatin Calcium), 1 TAB PO DAILY, (Reported) Cholecalciferol (Vitamin D3) (Vitamin D3), 1 CAP PO DAILY, (Reported) Glimepiride* (Amaryl*), 1 TAB PO DAILY, (Reported) Lisinopril* (Lisinopril*), 1 TAB PO DAILY, (Reported) Metformin HCl (Metformin HCl), 2 TAB PO BID, (Reported) Metoprolol Tartrate (Metoprolol Tartrate), 1 TAB PO DAILY, (Reported) Multivitamin (Multi Vitamin Daily), 1 TAB PO DAILY, (Reported) Tamsulosin Hcl* (Flomax*), 1 CAP PO DAILY, (Reported) Discontinued Medications Gabapentin (Gabapentin), 1 CAP PO TID, (Reported) Discontinued Reason: patient no longer taking Past Medical History Past Medical History: CVA/TIA/Stroke, *GI/HEPATOBILIARY*, Diabetes Past Surgical History: noncontributory Smoking Status: Former smoker Drug Use: none Lives with: Alone Lives In: Home Review of Systems All Other Systems at this time: Reviewed and Negative Physical Exam Vital Signs: Temperature: 98.0, Source: Oral, Heart Rate: 86, Respiratory Rate: 21, BP: 132/63, Pulse Oximetry: 98, Weight: 79.500 Oxygen Flow Rate: 0 Physical Exam HEENT: PERRL, moist oral mucosa, EOMI Pulmonary: No respiratory distress Cardiac: RRR, no murmur, rub or gallop GI: nondistended, soft, nontender, no guarding, no rebound MSK: no deformity, pelvis and long bones stable/nontender Skin: w/d/i, no rash Neuro: alert, nonfocal Psych: normal affect Progress Results/Orders Results/Orders Orders - PINA ESCALONA MD Chest,Single View (06/26/24 12:05) Monitor (06/26/24 12:05) Saline Lock (06/26/24 12:05) Oxygen (06/26/24 12:05) Hip,Bi,Cmplt(Ap Pelvis) (06/26/24 12:36) Page Hospitalist (06/26/24 ) Completed Orders - PINA ESCALONA MD Chest,Single View (06/26/24 12:05) Cbc/Diff (06/26/24 12:05) PBNP (06/26/24 12:05) Electrocardiogram (06/26/24 12:05) CMP (06/26/24 12:05) Hs Troponin I W Calculations (06/26/24 12:05) Hs Troponin I W Calculations (06/26/24 14:05) Hs Troponin I W Calculations (06/26/24 15:05) Pt Inr (06/26/24 12:15) Hip,Bi,Cmplt(Ap Pelvis) (06/26/24 12:36) CK (06/26/24 12:25) Normal Saline 1000ml (Sodium Chloride 10 (06/26/24 13:10) Ua W/Microscopic, Cult If Ind (06/26/24 14:26) PTT (06/26/24 12:25) Hgb A1c (06/26/24 12:25) MG (06/26/24 12:25) PHOS (06/26/24 12:25) Lipase (06/26/24 12:25) Medications Received in ER Medications (Trade) Dose Ordered Sig/Hira Route PRN Reason Start Time Stop Time Status Last Admin Dose Admin Sodium Chloride 1,000 ml @ 1,000 mls/hr ONCE ONCE IV 06/26/24 13:10 06/26/24 14:09 DC 06/26/24 13:30 1,000 MLS/HR Vital Signs 06/26/24 06/26/24 06/26/24 06/26/24 11:47 12:36 13:02 14:30 Temp 98.0 Pulse 81 92 86 Resp 16 16 19 21 B/P (MAP) 139/75 133/64 (87) 132/63 (86) Pulse Ox 94 99 98 O2 Flow Rate 0 0 0 Laboratory Tests Test 06/26/24 12:25 06/26/24 13:59 06/26/24 14:26 White Blood Count 16.4 H Red Blood Count 4.65 L Hemoglobin 12.3 L Hematocrit 37.7 L Mean Corpuscular Volume 81.2 Mean Corpuscular Hemoglobin 26.4 L Mean Corpuscular Hemoglobin Concent 32.6 L Red Cell Distribution Width 21.1 H Platelet Count 274 Mean Platelet Volume 8.2 Neutrophils (%) (Auto) 68.5 Lymphocytes (%) (Auto) 16.3 L Monocytes (%) (Auto) 14.0 H Eosinophils (%) (Auto) 1.0 Basophils (%) (Auto) 0.2 Neutrophils # (Auto) 11.2 H Lymphocytes # (Auto) 2.7 Monocytes # (Auto) 2.3 H Eosinophils # (Auto) 0.2 Basophils # (Auto) 0.0 CBC Comment Platelet Estimate Normal Red Blood Cell Morphology Perf Basophilic Stippling Anisocytosis 3+ [place] Cells Few Elliptocytes Few Prothrombin Time 10.8 INR International Normalized Ratio 1.1 Activated Partial Thromboplast Time 25 Coagulation Comments Sodium Level 148 H Potassium Level 3.6 Chloride Level 111 H Carbon Dioxide Level 25.8 Anion Gap 11 Blood Urea Nitrogen 27 H Creatinine 1.52 H Estimated GFR/1.73 m2 44 BUN/Creatinine Ratio 17.8 Glucose Level 144 H Hemoglobin A1c 5.7 Calcium Level 8.2 L Phosphorus Level 3.1 Magnesium Level 1.2 L Total Bilirubin 0.3 Aspartate Amino Transf (AST/SGOT) 12 Alanine Aminotransferase (ALT/SGPT) 16 Alkaline Phosphatase 31 L Total Creatine Kinase 34 L Troponin I High Sensitivity 18 18 Pro-B-Type Natriuretic Peptide 848 H Total Protein 5.4 L Albumin 2.4 L Globulin 3.0 Albumin/Globulin Ratio 0.8 L Lipase 48 Chemistry Comments Troponin I High Sens Percent Delta 0 Troponin I Hi Sens Absolute Change 0 Urine Specimen Description Non-specified Urine Color Yellow Urine Clarity Clear Urine pH 6.0 Urine Specific [place] 1.020 Urine Protein Negative Urine Glucose (UA) Negative Urine Ketones Negative Urine Occult Blood Moderate H Urine Nitrite Negative Urine Bilirubin Negative Urine Urobilinogen 0.2 Urine Leukocyte Esterase Negative Urine RBC 3-10 Urine WBC 0-4 Urine Squamous Epithelial Cells Few Urine Bacteria Few Urine Culture Indicated Not ind Volume Urine Centrifuged 10 ml Urine Comment EKG/XRAY/CT/US/VASC/MRI Chest X-Ray : Interpreted By: self Views: 1 VIEW Indication: weakness Lungs: normal Mediastinum: normal Ribs/Bones: normal Abdomen: normal Impression: no acute disease Medical Decision Making Findings 78 year old male as above, too weak to care for self and fell at home. Workup significant for leukocytosis, prerenal azotema/dehydration. IVF provided, care transferred to hospitalist. Additional Information Ddx = pneumonia, rhabdomyolysis, UTI, electrolyte disturbance, sepsis, encephalopathy, anemia Departure Disposition: 09 ADMITTED INPATIENT Admitted to Inpatient Unit: to hospitalist Admission Level of Care: Med/Surg Impression: Primary Impression: Acute prerenal azotemia Additional Impressions: Failure to thrive Leukocytosis Suspected sepsis Condition: Stable Referrals: NO PRIMARY CARE PROVIDER (PCP) Education Educated: Patient Educated regarding: diagnosis, treatment, prognosis, need for follow up Signature Scribe Signature: . Attestation: . PINA ESCALONA MD Jun 26, 2024 16:19
--- NOTE | 2024-06-26 16:36 | HISTORY AND PHYSICAL ---
History & Physical Providers to Chief complaint, fall mechanical ground level ~ History of Present Illness Reason for Admit\Complaint: As above History of Present Illness This is a 78 year old male , with history of multiple medical problems including CVA x2 atrial fibrillation on Eliquis at home, hypertension, hyperlipidemia, COPD, anemia hemoglobin 12.3, chronic constipation, diabetes mellitus type 2, hematuria, hypernatremia, chronic kidney disease, CHF preserved ejection fraction 62% associated with pulmonary hypertension March 2024, hypoalbuminemia, history of BPH, hepatic and renal cysts, diverticulosis, presented today to emergency department chief complaint fall mechanical ground level; in addition patient states that he fell down last night and could not get up off the ground because he was too weak. Stayed there all night, slept on floor. Denies pain, fevers, N/V/D. In emergency department he was evaluated by physician was diagnosed with fall mechanical ground level deconditioning, generalized weakness, atrial fibrillation, CHF, decision was made to admit patient for further evaluation treatment. No additional complaint or concern Allergies: Coded Allergies: No Known Allergies (Unverified , 03/19/24) Active prescriptions I reviewed reconciled Home Medications Home Medications Active Reported Multi Vitamin Daily (Multivitamin) 1 Each Tablet 1 Tab PO DAILY Vitamin D3 (Cholecalciferol (Vitamin D3)) 25 Mcg (1000 Unit) Capsule 1 Cap PO DAILY Eliquis (Apixaban) 5 Mg (74 Tabs) Tab.ds.pk 1 Tab PO Q12H Flomax* (Tamsulosin HCl) 0.4 Mg Cap.sr.24h 1 Cap PO DAILY Metoprolol Tartrate 25 Mg Tablet 1 Tab PO DAILY Amaryl* (Glimepiride) 1 Mg Tablet 1 Tab PO DAILY Atorvastatin Calcium 80 Mg Tablet 1 Tab PO DAILY Lisinopril* (Lisinopril) 40 Mg Tablet 1 Tab PO DAILY Metformin HCl 500 Mg Tablet 2 Tab PO BID Past Medical History Past Medical History As in HPI Past Surgical History Surgical History Comment As in HPI Family History Family History: Family history was reviewed; no changes noted. Past Social History Social History Comment Lives alone, poor social support, deny illicit drug abuse tobacco alcohol use Health Maintenance Health Maintenance None ROS ROS Constitutional : no fever , no chills, or weakness. No diaphoresis. Allergic/Immunologic, no lymphadenopathy, no hives, no skin eruptions. Eyes, no recent visual changes, no eye pain, no photophobia. Ears, nose, mouth, throat, no sore throat, no nosebleed, no ear pain. Cardiovascular, no palpitations, skipped beats, chest pain, no peripheral edema, Respiratory, no dyspnea, orthopnea, cough, hemoptysis, chest wall pain. Gastrointestinal, no abdominal pain, nausea, vomiting, constipation or diarrhea. : no dysuria, hematuria, pelvic pain, urethral d/c. Endocrine, no polyuria, polydipsia, recent unintentional weight gain or loss. Hematologic/Lymphatic, no petechiae, no enlarged lymph nodes, no bone pain. Integumentary, no rash, no skin lesions, Musculoskeletal, no muscle aches, or pain, no muscle cramps, positive for fall mechanical ground level, associated with gait disorder, unable to ambulate independently Neurological, no dizziness, no headache, no syncope, no paresthesia. Psychiatric, no delusions, visual hallucinations, or hearing hallucinations. ROS - in rest is as in HPI. Exam Vitals: Vital Signs Date Time Temp Pulse Resp B/P (MAP) Pulse Ox O2 Delivery O2 Flow Rate FiO2 06/26/24 14:30 86 21 132/63 (86) 98 0 06/26/24 11:47 98.0 Vital signs, stable ,afebrile. Pulse Oximetry reflects adequate oxygenation. BMI is 22, weight 79 kg General: well developed, well nourished. Awake , alert, and oriented x4, resting comfortably in the bed, in no acute distress . Skin: Warm, dry, no pallor, no rash or petechiae. HEENT: Atraumatic, normocephalic, EOMI, anicteric sclera B; pink conjunctiva; PERRLA, normal oropharynx, moist oral and nasal mucosa. Tympanic membrane , nose , throat clear. Neck: Trachea midline. Supple, full range of motion, no JVD, bruit , hepatojugular reflex , lymphadenopathy or masses, or other lesions Cardiac: Regular rhythm, regular rate no murmurs, rubs, or gallops. Normal S1 and S2, no S3 noticed. PMI is normal. Respiratory: Equal breath sounds bilaterally, no tachypnea; lungs clear to auscultation bilaterally, no wheezing ,rub or rales, or crackles. Chest wall is symmetric and without deformity. No signs of trauma. Chest wall is nontender. No signs of respiratory distress. Resonance is normal upon percussion bilaterally. Gastrointestinal: Abdomen symmetric, non-distended, soft, non-tender, normal bowel sounds x4 quadrant, normoactive, no hepatosplenomegaly , no masses , no bruit, no flank pain bilaterally. No voluntary guarding, rebound, or rigidity. No tenderness to percussion. No pulsatile masses. Equal femoral pulses. No Duke's sign or McBurney point tenderness. Back; no CVA tenderness bilaterally, no deformities. Neck and back are without deformity as well. No tenderness noted on palpation of the spinous processes. Spinous processes are midline. Cervical, thoracic, and lumbar paraspinal muscles are not tender and are without spasm. : normal external genitalia, without lesions, swelling, masses or tenderness. Musculoskeletal: Extremities, normal range of motion, non-tender, muscle strength 5/5 x 4. Negative Homans signs bilaterally on lower extremity. Distal pulses full symmetrical, no clubbing, cyanosis , edema. Neurological: Speech is clear, alert, and oriented x 4. No motor or sensory deficit, deep tendon reflexes normal, cerebellar intact. Cranial nerves II-XII intact. Psych: Alert and or appropriate, normal affect. Vascular: Good distal pulses, which are equal x4; capillary refill less than 2 seconds. Lymphatic, no lymphadenopathy. Diagnostic Data Last Recorded Lab Results: 06/26/24 1225 06/26/24 1225 Diagnostic Data: Laboratory Tests Test 06/26/24 12:25 Prothrombin Time 10.8 SECONDS (9.0-12.0) INR International Normalized Ratio 1.1 INR Activated Partial Thromboplast Time 25 SECONDS (22-32) Coagulation Comments Advance Care Planning Advanced Care plannin - 30 Minutes Additional Plan Assessment Mechanical fall ground level Deconditioning Generalized weakness COPD in exacerbation Failure to thrive Gait disorder, unable to ambulate independently Anemia hemoglobin 12.3 Atrial fibrillation on Eliquis at home controlled ventricular rate Chronic constipation in exacerbation Diabetes mellitus type 2 poor Control Hematuria Hypernatremia CHF exacerbation preserved ejection fraction 62% associated with pulmonary hypertension March 2024 Additional comorbidities, hypoalbuminemia, BPH, diverticulosis, hepatic renal cyst, chronic kidney disease, hypertension, dyslipidemia, Plan IV fluids, steroids, antibiotics keep patient well hydrated euvolemic Lasix p.r.n. SVN DuoNeb, incentive spirometry PT evaluation and treatment Additional lab work pending CT head chest abdomen and pelvis pending Hyperglycemia sliding scale I reconciled home medications DVT gastropathy prophylaxis addressed Sepsis Screening Reassessment Date: Jun 26, 2024 Date of Service: Jun 26, 2024 Billing Provider: JOHN HOSKINS MD Common Visit Codes: [id number] INP/OBS CARE(HIGH) Secondary Visit Codes: [id number] CARE PLAN 30 MINUTES JOHN HOSKINS MD Jun 26, 2024 16:36
--- NOTE | 2024-06-26 16:45 | RADIOLOGY REPORT ---
EXAM: CT CT HEAD INDICATION: fall, aloc TECHNIQUE: CT of the head without intravenous contrast. Radiation Dose Information: CT Dose: CTDI volume is 60.96 mGy. Dose-length product is 1180.37 mGy*cm The dose indicators for CT are the volume Computed Tomography (CT) Dose Index (CTDIvol) and the Dose Length Product (DLP), and are measured in units of mGy and mGy-cm, respectively. These indicators are not patient dose, but values generated from the CT scanner acquisition factors. The report includes radiation exposure data for exposures received during this examination. COMPARISON: CT CT HEAD on DOS: 02/28/23, CT CT HEAD on DOS: 11/06/22, CT CT HEAD on DOS: 10/28/22 FINDINGS: There is no evidence of acute intracranial hemorrhage, extra-axial collection, mass effect, midline s hift, herniation or hydrocephalus. Area of encephalomalacia anterior right temporal lobe consistent with old infarct The ventricles, sulci and cisterns are age appropriate. The ayon-white differentiation is intact. Patchy periventricular and subcortical white matter hypoattenuation is nonspecific but may be related to small vessel ischemic disease. The visualized paranasal sinuses and mastoid air cells are clear. The surrounding soft tissues and osseous structures are unremarkable. IMPRESSION: 1. No acute intracranial hemorrhage 2. No CT findings of territorial ischemia 3. No CT findings of displaced skull fracture. 4. Area of encephalomalacia anterior right temporal lobe consistent with old infarct. No change from 02/28/2023. HS:Y
[2024-06-26] MEDS: INSULIN LISPRO 100 UNIT/ML INSULN.PEN MULTI-DOSE SQ SCH (17:00)
[2024-06-26 17:28] VITALS: PULSE 106; RESP 19; O2SAT 97
[2024-06-26] MEDS: methylPREDNISolone sod succ/PF 40mg inj. IV SCH (17:28)
[2024-06-26] MEDS: sodium chloride 0.45% 1,000 ML IV SCH (17:38)
[2024-06-26 18:06] VITALS: BP 115/69; PULSE 100; RESP 18; TEMP 97.4; O2SAT 96
[2024-06-26] MEDS: polyethylene glycol 3350 17gm powd pack PO SCH (19:28)
[2024-06-26] MEDS: docusate sod 100mg capsule PO SCH (19:28)
[2024-06-26 19:51] LABS: OCCULT BLOOD STOOL POSITIVE (Neg)
[2024-06-26] MEDS: insulin glargine (Lantus) pen - multi-dose SQ SCH (20:22)
[2024-06-26] MEDS ORDERED: magnesium sulf-water 2g/50mL 50 ML IV PRN (20:35)
[2024-06-26] MEDS ORDERED: magnesium sulf-water 4G/100mL 100 ML IV PRN (20:35)
[2024-06-26] MEDS ORDERED: temazepam 15mg capsule PO PRN (21:00)
[2024-06-26 22:00] VITALS: BP 122/64; PULSE 81; RESP 17; TEMP 97; O2SAT 99
[2024-06-26] MEDS: magnesium Cl slow-release 64mg tablet PO PRN (22:22)
--- NOTE | 2024-06-26 23:04 | RADIOLOGY REPORT ---
Exam: CT CT CHEST ABDOMEN PELVIS IV CON History: mass/ sbo.. evaluate for hip fracture Comparison Study: None available at time of dictation. Technique: Multidetector CT of the chest, abdomen and pelvis was performed from lower neck to pubic s ymphysis. Intravenous contrast was administered during this examination. Axial, coronal and sagittal multiplanar reformats were performed by the technologist on a separate workstation. Radiation Dose Information: CT Dose: CTDI volume is 17.54 mGy. Dose-length product is 1487.11 mGy*cm Findings: Lower neck: Unremarkable Lungs: Chronic fibrosis with peripherally oriented subpleural cysts throughout both lung carbajal. Heart/Vascular Structures: Within normal limits for age Lymph Nodes: No adenopathy Pleura: Pulmonary fibrosis and chronic pulmonary changes with small pulmonary cysts or bullae in the subpleural surface diffusely throughout both lung carbajal Liver: The liver is normal in size. No focal lesions. Normal hepatic vascular enhancement. Gallbladder and Biliary Tree: Unremarkable Spleen: Unremarkable Pancreas: The pancreas is normal in appearance without focal lesions or abnormal enhancement. Adrenal Glands: Unremarkable Kidneys: Kidneys demonstrate normal symmetric enhancement without focal lesions, calculi or hydroneph rosis. Multiple bilateral renal cysts largest on the left is 3.7 cm. Largest on the right measures 8 cm and is of the upper pole of the right kidney. Bladder: Prostatomegaly with the prostate measuring 7.4 x 7.4 cm. Compressing the bladder floor. Blad uriel wall measures 5-6 mm this may be due to lack of distention, infection, neoplasm Bowel: The stomach is grossly normal in appearance. Small bowel and colon are normal in caliber and d istribution. Mucosal thickening of the rectum measuring 10 mm. The appendix is not visualized; howeve r, no secondary findings of acute appendicitis identified. Multiple metallic clips right upper abdome n. Ascites: Absent Lymphadenopathy: No mesenteric, retroperitoneal or periportal lymphadenopathy. Abdominal Wall and Mesentery: 4.5 cm ventral hernia containing a loop of small bowel. Vasculature: The visualized abdominal aorta is normal in size and caliber. Abdominal and pelvic vess els demonstrate normal enhancement. Pelvic Organs: Prostatomegaly measuring 7.4 x 7.4 cm, please correlate with PSA. Musculoskeletal: No aggressive focal bony lesions, acute fractures or dislocation. IMPRESSION: 1. Prostatomegaly with the prostate measuring 7.4 x 7.4 cm. 2. Correlate with PSA. Stable multiple cysts lesions in the liver unchanged from 03/24/2024, 03/02/20 24. 3. Stable high density cyst in the posterior aspect of the left upper pole kidney. 4. Mucosal thickening of the left colon rectum and sigmoid colons. This may represent inflammatory or neoplastic disease. 5. 5 cm ventral hernia containing loop of small bowel. 6. Bladder wall measures 5-6 mm. This may be secondary to its nondistended state neoplasm or infectio n. 7. All CT scans at this medical facility are performed using dose modulation techniques as appropriat e to a performed exam including the following: Automated exposure control was utilized; adjustment of the MA and/or KV according to patient size; and use of iterative reconstruction technique. HS:Y
[2024-06-27] VITALS (8 sets, daily range): BP systolic 104–112; BP diastolic 55–62; PULSE 66–78; RESP 13–18; TEMP 97.4–98; O2SAT 94–97
[2024-06-27 05:51] LABS: BASOPHILS % (AUTO) 0.1 % (0-1); EOSINOPHILS % (AUTO) 0 % (0-6); HEMATOCRIT 31.3 % (42.0-52.0); HEMOGLOBIN 10.3 g/dl (14.0-17.9); LYMPHOCYTES # (AUTO) 0.7 X10'3 (1.1-4.8); LYMPHOCYTES % (AUTO) 4.7 % (21-51); MEAN CORPUSCULAR HEMOGLOBIN 26.5 PG (27.0-31.0); MEAN CORPUSCULAR HGB CONC 32.9 g/dL (33.0-36.5); MEAN CORPUSCULAR VOLUME 80.4 FL (78-98); MEAN PLATELET VOLUME 9.1 FL (7.4-10.4); MONOCYTES # (AUTO) 0.1 X10'3 (0-0.9); MONOCYTES % (AUTO) 0.5 % (2-12); NEUTROPHILS # (AUTO) 13.8 X10'3 (1.8-7.7); NEUTROPHILS % (AUTO) 94.7 % (42-75); PLATELET COUNT 223 X10'3 (140-440); RED BLOOD COUNT 3.89 X10'6 (4.70-6.10); RED CELL DISTRIBUTION WIDTH 20.7 % (11.5-14.5); WHITE BLOOD COUNT 14.5 X10'3 (4.5-11.0)
[2024-06-27 06:45] LABS: ALANINE AMINOTRANSFERASE 12 U/L (12-78); ALBUMIN/GLOBULIN RATIO 0.7 (1.1-1.5); ALKALINE PHOSPHATASE 29 IU/L (46-116); ASPARTATE AMINO TRANSFERASE 8 U/L (10-37); BILIRUBIN,TOTAL 0.2 MG/DL (0.1-1.0); BLOOD UREA NITROGEN 22 MG/DL (7-18); BUN/CREATININE RATIO 17.7 (10.0-20.0); CALCIUM 7.5 MG/DL (8.5-10.1); CHLORIDE 104 MMOL/L (99-107); CHOL/HDL RATIO 1.8 (0.00-4.99); CHOLESTEROL 90 MG/DL (0-200); CREATININE 1.24 MG/DL (0.60-1.10); GLUCOSE 269 MG/DL (70-104); HDL CHOLESTEROL 49 MG/DL (35-60); LDL CHOLESTEROL 28 MG/DL (50-100); MAGNESIUM 1.2 MG/DL (1.5-2.4); POTASSIUM 3.5 MMOL/L (3.5-5.1); TOTAL CARBON DIOXIDE 22.2 MMOL/L (24-32); TOTAL PROTEIN 4.7 G/DL (6.4-8.2); TRIGLYCERIDES 96 MG/DL (20-135); eCRCL 54 ML/MIN; eGFR 56 ML/MIN
[2024-06-27 07:18] LABS: ANION GAP 10 (8-16); SODIUM 136 MMOL/L (135-145)
[2024-06-27] MEDS: tamsulosin 0.4mg capsule PO SCH (07:52)
[2024-06-27] MEDS: lisinopril 20mg tablet PO SCH (07:52)
[2024-06-27] MEDS: metoprolol tartrate 25mg tablet PO SCH (07:53)
[2024-06-27] MEDS: atorvastatin 20mg tablet PO SCH (07:53)
[2024-06-27] MEDS: multivitamins, therapeutics tablet PO SCH (07:53)
[2024-06-27] MEDS: apixaban 5mg tablet PO SCH (07:53)
[2024-06-27] MEDS: CefTRIAXone/D5W-Rocephin 1gm 50 ML IV SCH (08:03)
[2024-06-27] MEDS: azithromycin/NS 500mg/250ml 250 ML IV SCH (08:38)
[2024-06-27 11:08] LABS: C DIFF SPECIMEN=DIARRHEA? ACCEPTABLE; C DIFFICILE TOXINS A&B NEGATIVE (Neg)
[2024-06-27 14:06] LABS: C DIFF ANTIGEN SEE COMMENTS (NEGATIVE)
--- NOTE | 2024-06-27 15:55 | PROGRESS NOTE ---
Daily Progress Note Providers to CC Chief complaint, watery diarrhea diarrhea x1 day ~ Central Line/PICC still needed: No Barillas-Non Protocol Barillas Indications Met/Not Met: F/C Indications Not Met Antibiotic Timeout Antibiotic Ordered?: Yes MRSA Education MRSA Education Provided to pt: Yes Subjective As above Objective Vital Signs Date Time Temp Pulse Resp B/P (MAP) Pulse Ox O2 Delivery O2 Flow Rate FiO2 06/27/24 15:40 72 16 96 Room Air* 0 21 06/27/24 10:00 97.8 106/55 (72) Vital signs, stable ,afebrile. Pulse Oximetry reflects adequate oxygenation. General: well developed, well nourished. Awake , alert, and oriented x4, resting comfortably in the bed, in no acute distress . Skin: Warm, dry, no pallor, no rash or petechiae. HEENT: Atraumatic, normocephalic, EOMI, anicteric sclera B; pink conjunctiva; PERRLA, normal oropharynx, moist oral and nasal mucosa. Tympanic membrane , nose , throat clear. Neck: Trachea midline. Supple, full range of motion, no JVD, bruit , hepatojugular reflex , lymphadenopathy or masses, or other lesions Cardiac: Regular rhythm, regular rate no murmurs, rubs, or gallops. Normal S1 and S2, no S3 noticed. PMI is normal. Respiratory: Equal breath sounds bilaterally, no tachypnea; lungs clear to auscultation bilaterally, no wheezing ,rub or rales, or crackles. Chest wall is symmetric and without deformity. No signs of trauma. Chest wall is nontender. No signs of respiratory distress. Resonance is normal upon percussion bilaterally. Gastrointestinal: Abdomen symmetric, non-distended, soft, non-tender, normal bowel sounds x4 quadrant, normoactive, no hepatosplenomegaly , no masses , no bruit, no flank pain bilaterally. No voluntary guarding, rebound, or rigidity. No tenderness to percussion. No pulsatile masses. Equal femoral pulses. No Duke's sign or McBurney point tenderness. Back; no CVA tenderness bilaterally, no deformities. Neck and back are without deformity as well. No tenderness noted on palpation of the spinous processes. Spinous processes are midline. Cervical, thoracic, and lumbar paraspinal muscles are not tender and are without spasm. : normal external genitalia, without lesions, swelling, masses or tenderness. Musculoskeletal: Extremities, normal range of motion, non-tender, muscle strength 5/5 x 4. Negative Homans signs bilaterally on lower extremity. Distal pulses full symmetrical, no clubbing, cyanosis , edema. Neurological: Speech is clear, alert, and oriented x 4. No motor or sensory deficit, deep tendon reflexes normal, cerebellar intact. Cranial nerves II-XII intact. Psych: Alert and or appropriate, normal affect. Vascular: Good distal pulses, which are equal x4; capillary refill less than 2 seconds. Lymphatic, no lymphadenopathy. Result Diagram: 06/27/24 0513 06/27/24 0513 Coagulation Studies Laboratory Tests Test 06/26/24 12:25 Prothrombin Time 10.8 SECONDS (9.0-12.0) INR International Normalized Ratio 1.1 INR Activated Partial Thromboplast Time 25 SECONDS (22-32) Coagulation Comments Problem\Assessment\Plan Assessment Mechanical fall ground level Deconditioning Generalized weakness Acute diarrhea infectious C diff positive COPD in exacerbation Failure to thrive Gait disorder, unable to ambulate independently Anemia hemoglobin 12.3 Atrial fibrillation on Eliquis at home controlled ventricular rate Chronic constipation in exacerbation Diabetes mellitus type 2 poor Control Hematuria Hypernatremia CHF exacerbation preserved ejection fraction 62% associated with pulmonary hypertension March 2024 Additional comorbidities, hypoalbuminemia, BPH, diverticulosis, hepatic renal cyst, chronic kidney disease, hypertension, dyslipidemia, Plan IV fluids, steroids, antibiotics keep patient well hydrated euvolemic Lasix p.r.n. On p.o. vancomycin, isolation for C diff SVN DuoNeb, incentive spirometry PT evaluation and treatment Additional lab work pending CT head chest abdomen and pelvis pending Hyperglycemia sliding scale I reconciled home medications DVT gastropathy prophylaxis addressed Sepsis Screening Reassessment Date: Jun 27, 2024 Date of Service: Jun 27, 2024 Billing Provider: JOHN HOSKINS MD Common Visit Codes: [id number] INP/OBS CARE(HIGH) JOHN HOSKINS MD Jun 27, 2024 15:55
[2024-06-27] MEDS: vancomycin 125 MG/5 ML UD oral SOLN.RECON 5mL oral syringe (FIRVANQ) PO SCH (20:22)
[2024-06-28] VITALS (8 sets, daily range): BP systolic 110–138; BP diastolic 52–67; PULSE 60–87; RESP 15–20; TEMP 97.7–97.9; O2SAT 94–97
[2024-06-28 06:59] LABS: BASOPHILS % (AUTO) 0 % (0-1); EOSINOPHILS % (AUTO) 0 % (0-6); HEMATOCRIT 30.7 % (42.0-52.0); LYMPHOCYTES # (AUTO) 1.1 X10'3 (1.1-4.8); LYMPHOCYTES % (AUTO) 6.2 % (21-51); MEAN CORPUSCULAR HEMOGLOBIN 26.2 PG (27.0-31.0); MEAN CORPUSCULAR HGB CONC 32.7 g/dL (33.0-36.5); MEAN CORPUSCULAR VOLUME 80.1 FL (78-98); MEAN PLATELET VOLUME 8.5 FL (7.4-10.4); MONOCYTES # (AUTO) 0.4 X10'3 (0-0.9); MONOCYTES % (AUTO) 2.5 % (2-12); NEUTROPHILS # (AUTO) 15.9 X10'3 (1.8-7.7); NEUTROPHILS % (AUTO) 91.3 % (42-75); PLATELET COUNT 209 X10'3 (140-440); RED BLOOD COUNT 3.83 X10'6 (4.70-6.10); RED CELL DISTRIBUTION WIDTH 20.4 % (11.5-14.5); WHITE BLOOD COUNT 17.5 X10'3 (4.5-11.0)
[2024-06-28 07:31] LABS: ALANINE AMINOTRANSFERASE 12 U/L (12-78); ALBUMIN/GLOBULIN RATIO 0.8 (1.1-1.5); ALKALINE PHOSPHATASE 26 IU/L (46-116); ANION GAP 13 (8-16); ASPARTATE AMINO TRANSFERASE 7 U/L (10-37); BILIRUBIN,TOTAL 0.2 MG/DL (0.1-1.0); BLOOD UREA NITROGEN 26 MG/DL (7-18); BUN/CREATININE RATIO 22.2 (10.0-20.0); CALCIUM 7.8 MG/DL (8.5-10.1); CHLORIDE 108 MMOL/L (99-107); CREATININE 1.17 MG/DL (0.60-1.10); GLUCOSE 195 MG/DL (70-104); MAGNESIUM 1.3 MG/DL (1.5-2.4); POTASSIUM 3.4 MMOL/L (3.5-5.1); SODIUM 143 MMOL/L (135-145); TOTAL CARBON DIOXIDE 21.7 MMOL/L (24-32); TOTAL PROTEIN 4.6 G/DL (6.4-8.2); eCRCL 58 ML/MIN; eGFR 60 ML/MIN
[2024-06-28] MEDS ORDERED: potassium Cl 40MEQ/1/2NS 520ml 520 ML IV PRN (08:30)
[2024-06-28] MEDS ORDERED: potassium Cl 20 mEq SR tablet PO PRN (08:30)
[2024-06-28] MEDS: potassium Cl 20 mEq SR tablet PO PRN (08:39)
[2024-06-28] MEDS ORDERED: HYDROcodone/acetaminophen 5mg/325mg tablet PO PRN (13:40)
[2024-06-28] MEDS ORDERED: HYDROcodone/acetaminophen 10/325mg tab PO PRN (13:40)
--- NOTE | 2024-06-28 19:35 | PROGRESS NOTE ---
Daily Progress Note Providers to CC ~ Antibiotic Timeout Antibiotic Ordered?: Yes Subjective Patient feels that he passed one formed stool today and it is not lose any longer. He is on C diff isolation currently. Wanted to know if he can be discharged tomorrow. He is able to ambulate. Objective Vital Signs Date Time Temp Pulse Resp B/P (MAP) Pulse Ox O2 Delivery O2 Flow Rate FiO2 06/28/24 16:31 62 20 94 Room Air* 0 21 06/28/24 10:00 97.9 120/60 (80) Result Diagram: 06/28/24 0556 06/28/24 0556 General-patient not in any acute distress, alert awake oriented, chronically ill-appearing, age-appropriate HEENT-atraumatic normocephalic, neck supple without elevated JVD, no thyromegaly or carotid bruit. No lymphadenopathy bilaterally. Eyes-no icterus or pallor seen in eyes Chest-basal lung crackles present to auscultation bilaterally, breathing nonlabored no tachypnea, no wheezing Heart-S1-S2 normal, regular heart rate , systolic murmur present. Abdomen bowel sounds positive on auscultation, soft nondistended nontender no guarding, no rigidity Skin no active skin rash/signs of chronic hyperpigmentation present over lower extremity Neurology-grossly intact, nonfocal alert awake oriented Extremity- no pedal edema able to move all 4 extremities Psychiatry - patient is not confused or agitated cooperated during physical examination Coagulation Studies Laboratory Tests Test 06/26/24 12:25 Prothrombin Time 10.8 SECONDS (9.0-12.0) INR International Normalized Ratio 1.1 INR Activated Partial Thromboplast Time 25 SECONDS (22-32) Coagulation Comments Problem\Assessment\Plan # Mechanical fall ground level, Deconditioning, Generalized weakness-able to ambulate 300 ft with front wheel walker # Acute diarrhea infectious, C diff positive-On p.o. vancomycin, isolation for C diff COPD in exacerbationSVN DuoNeb, incentive spirometry, steroids, antibiotics Anemia hemoglobin 12.3 Atrial fibrillation on Eliquis at home controlled ventricular rate Diabetes mellitus type 2- hemoglobin A1c 5.7 diabetes very well controlled, on Hyperglycemia sliding scale Hematuria- resolved Hypernatremia- resolved CHF exacerbation preserved ejection fraction 62% associated with pulmonary hypertension March 2024- stopped IV fluids and started on Lasix Additional comorbidities, hypoalbuminemia, BPH, diverticulosis, hepatic renal cyst, chronic kidney disease, hypertension, dyslipidemia, DVT gastropathy prophylaxis addressed . PT evaluation and treatment to continue Patient's current condition is guarded we will continue to follow patient in AM . Date of Service: Jun 28, 2024 Billing Provider: COREY VARELA MD Common Visit Codes: [id number] INP/OBS CARE(HIGH) COREY VARELA MD Jun 28, 2024 19:35
[2024-06-28] MEDS: K and/or MAG REPLACEMENT MC SCH (20:00)
[2024-06-29] VITALS (7 sets, daily range): BP systolic 113–156; BP diastolic 56–86; PULSE 56–80; RESP 12–19; TEMP 97.4–98; O2SAT 94–98
[2024-06-29 04:18] LABS: BASOPHILS % (AUTO) 0 % (0-1); EOSINOPHILS % (AUTO) 0.1 % (0-6); HEMATOCRIT 30.1 % (42.0-52.0); LYMPHOCYTES # (AUTO) 2.3 X10'3 (1.1-4.8); LYMPHOCYTES % (AUTO) 12.6 % (21-51); MEAN CORPUSCULAR HEMOGLOBIN 26.7 PG (27.0-31.0); MEAN CORPUSCULAR HGB CONC 33.4 g/dL (33.0-36.5); MEAN PLATELET VOLUME 8.7 FL (7.4-10.4); MONOCYTES % (AUTO) 11.1 % (2-12); NEUTROPHILS # (AUTO) 13.9 X10'3 (1.8-7.7); NEUTROPHILS % (AUTO) 76.2 % (42-75); PLATELET COUNT 201 X10'3 (140-440); RED BLOOD COUNT 3.76 X10'6 (4.70-6.10); RED CELL DISTRIBUTION WIDTH 20.7 % (11.5-14.5); WHITE BLOOD COUNT 18.3 X10'3 (4.5-11.0)
[2024-06-29 04:23] LABS: ALANINE AMINOTRANSFERASE 15 U/L (12-78); ALBUMIN 1.9 G/DL (3.4-5.0); ALBUMIN/GLOBULIN RATIO 0.8 (1.1-1.5); ALKALINE PHOSPHATASE 25 IU/L (46-116); ANION GAP 6 (8-16); ASPARTATE AMINO TRANSFERASE 10 U/L (10-37); BILIRUBIN,TOTAL 0.2 MG/DL (0.1-1.0); BLOOD UREA NITROGEN 29 MG/DL (7-18); BUN/CREATININE RATIO 21.5 (10.0-20.0); CALCIUM 7.8 MG/DL (8.5-10.1); CHLORIDE 112 MMOL/L (99-107); CREATININE 1.35 MG/DL (0.60-1.10); GLUCOSE 156 MG/DL (70-104); MAGNESIUM 1.3 MG/DL (1.5-2.4); POTASSIUM 4.1 MMOL/L (3.5-5.1); SODIUM 140 MMOL/L (135-145); TOTAL CARBON DIOXIDE 22.2 MMOL/L (24-32); TOTAL PROTEIN 4.4 G/DL (6.4-8.2); eCRCL 50 ML/MIN; eGFR 51 ML/MIN
[2024-06-29] MEDS: furosemide 20 MG/2 ML vial IV SCH (07:19)
[2024-06-29] MEDS: lisinopril 20mg tablet PO SCH (07:20)
[2024-06-29] MEDS: normal saline 1000ml 1,000 ML IV SCH (14:50)
--- NOTE | 2024-06-29 15:12 | RADIOLOGY REPORT ---
CHEST RADIOGRAPH Indication: lung crackles Technique: Single frontal view of the chest was obtained COMPARISON: DI CHEST,SINGLE VIEW on DOS: 06/26/24, DI CHEST,SINGLE VIEW on DOS: 03/20/24, DI CHEST,SING LE VIEW on DOS: 03/19/24, DI CHEST,SINGLE VIEW on DOS: 03/05/24, DI CHEST,SINGLE VIEW on DOS: 03/03/24 FINDINGS: Lines and Tubes: None Lungs: Diffuse increased interstitial prominence. Pleura: No effusion. No pneumothorax. Cardiomediastinal contours: Unremarkable Bones: Unremarkable IMPRESSION: Chronic fibrotic changes with possible superimposed pulmonary vascular congestion or viral pneumonia. Clinical correlation advised.
--- NOTE | 2024-06-29 20:27 | PROGRESS NOTE ---
Daily Progress Note Providers to CC ~ Antibiotic Timeout Antibiotic Ordered?: Yes Subjective As per patient he passed two loose stools today . he also need physical therapy evaluation. feeling better denied any pain over abdomen Objective Vital Signs Date Time Temp Pulse Resp B/P (MAP) Pulse Ox O2 Delivery O2 Flow Rate FiO2 06/29/24 12:14 60 16 95 Room Air* 0 21 06/29/24 10:00 97.7 113/56 (75) Result Diagram: 06/29/24 0348 06/29/24 0348 General-patient not in any acute distress, alert awake oriented, chronically ill-appearing, age-appropriate HEENT-atraumatic normocephalic, neck supple without elevated JVD, no thyromegaly or carotid bruit. No lymphadenopathy bilaterally. Eyes-no icterus or pallor seen in eyes Chest-basal lung crackles present to auscultation bilaterally, breathing nonlabored no tachypnea, no wheezing Heart-S1-S2 normal, regular heart rate , systolic murmur present. Abdomen bowel sounds positive on auscultation, soft nondistended nontender no guarding, no rigidity Skin no active skin rash/signs of chronic hyperpigmentation present over lower extremity Neurology-grossly intact, nonfocal alert awake oriented Extremity- no pedal edema able to move all 4 extremities Psychiatry - patient is not confused or agitated cooperated during physical examination Coagulation Studies Laboratory Tests Test 06/26/24 12:25 Prothrombin Time 10.8 SECONDS (9.0-12.0) INR International Normalized Ratio 1.1 INR Activated Partial Thromboplast Time 25 SECONDS (22-32) Coagulation Comments Problem\Assessment\Plan # Mechanical fall ground level, Deconditioning, Generalized weakness-able to ambulate 300 ft with front wheel walker # Acute diarrhea infectious, C diff positive-On p.o. vancomycin, isolation for C diff COPD in exacerbationSVN DuoNeb, incentive spirometry, steroids, antibiotics Anemia hemoglobin 12.3 Atrial fibrillation on Eliquis at home controlled ventricular rate Diabetes mellitus type 2- hemoglobin A1c 5.7 diabetes very well controlled, on Hyperglycemia sliding scale Hematuria- resolved Hypernatremia- resolved CHF exacerbation preserved ejection fraction 62% associated with pulmonary hypertension March 2024- stopped IV fluids and started on Lasix Additional comorbidities, hypoalbuminemia, BPH, diverticulosis, hepatic renal cyst, chronic kidney disease, hypertension, dyslipidemia, DVT gastropathy prophylaxis addressed . PT evaluation and treatment to continue Patient's current condition is guarded we will continue to follow patient in AM . Date of Service: Jun 29, 2024 Billing Provider: COREY VARELA MD Common Visit Codes: [id number] INP/OBS CARE(HIGH) COREY VARELA MD Jun 29, 2024 20:27
[2024-06-30] MEDS: magnesium Cl slow-release 64mg tablet PO PRN (01:29)
[2024-06-30 05:10] LABS: BASOPHILS % (AUTO) 0.1 % (0-1); EOSINOPHILS # (AUTO) 0.3 X10'3 (0-0.9); EOSINOPHILS % (AUTO) 1.8 % (0-6); HEMATOCRIT 32.4 % (42.0-52.0); HEMOGLOBIN 10.9 g/dl (14.0-17.9); LYMPHOCYTES % (AUTO) 19.1 % (21-51); MEAN CORPUSCULAR HEMOGLOBIN 26.9 PG (27.0-31.0); MEAN CORPUSCULAR HGB CONC 33.5 g/dL (33.0-36.5); MEAN CORPUSCULAR VOLUME 80.4 FL (78-98); MEAN PLATELET VOLUME 8.9 FL (7.4-10.4); MONOCYTES # (AUTO) 1.8 X10'3 (0-0.9); MONOCYTES % (AUTO) 11.4 % (2-12); NEUTROPHILS # (AUTO) 10.6 X10'3 (1.8-7.7); NEUTROPHILS % (AUTO) 67.6 % (42-75); PLATELET COUNT 192 X10'3 (140-440); RED BLOOD COUNT 4.04 X10'6 (4.70-6.10); RED CELL DISTRIBUTION WIDTH 21.2 % (11.5-14.5); WHITE BLOOD COUNT 15.7 X10'3 (4.5-11.0)
[2024-06-30 05:16] LABS: ALANINE AMINOTRANSFERASE 14 U/L (12-78); ALBUMIN/GLOBULIN RATIO 0.8 (1.1-1.5); ALKALINE PHOSPHATASE 28 IU/L (46-116); ANION GAP 5 (8-16); ASPARTATE AMINO TRANSFERASE 13 U/L (10-37); BILIRUBIN,TOTAL 0.3 MG/DL (0.1-1.0); BLOOD UREA NITROGEN 29 MG/DL (7-18); BUN/CREATININE RATIO 25.7 (10.0-20.0); CALCIUM 7.9 MG/DL (8.5-10.1); CHLORIDE 109 MMOL/L (99-107); CREATININE 1.13 MG/DL (0.60-1.10); GLUCOSE 169 MG/DL (70-104); MAGNESIUM 1.3 MG/DL (1.5-2.4); POTASSIUM 4.3 MMOL/L (3.5-5.1); SODIUM 138 MMOL/L (135-145); TOTAL CARBON DIOXIDE 24.2 MMOL/L (24-32); TOTAL PROTEIN 4.6 G/DL (6.4-8.2); eCRCL 60 ML/MIN; eGFR 63 ML/MIN
[2024-06-30 06:00] VITALS: BP 137/70; PULSE 60; RESP 16; TEMP 97; O2SAT 96
[2024-06-30 07:17] VITALS: BP 131/64; PULSE 57
[2024-06-30 10:00] VITALS: BP 105/54; PULSE 69; RESP 16; TEMP 97.7; O2SAT 97
[2024-06-30 11:10] VITALS: PULSE 72; RESP 16; O2SAT 97
[2024-06-30] MEDS ORDERED: LISI10TA27 PO (12:58)
[2024-06-30] MEDS ORDERED: VANC25SO PO (12:59)
--- NOTE | 2024-06-30 19:54 | DISCHARGE SUMMARY ---
Discharge Summary Providers to CC ~ Discharge Summary Admission Diagnosis: Fall; DM; copd Hospital Course DATE OF ADMISSION: June 26, 2024 DATE OF DISCHARGE: June 30, 2024 CBC testing done today showed WBC 15.7 hemoglobin 10.9 hematocrit 32.4, sed rate five, procalcitonin 0.05. Blood culture showed no growth after [address] CHEST ABDOMEN PELVIS IV CON IMPRESSION: 1. Prostatomegaly with the prostate measuring 7.4 x 7.4 cm. 2. Correlate with PSA. Stable multiple cysts lesions in the liver unchanged from 03/24/2024, 03/02/2024. 3. Stable high density cyst in the posterior aspect of the left upper pole kidney. 4. Mucosal thickening of the left colon rectum and sigmoid colons. This may represent inflammatory or neoplastic disease. 5. 5 cm ventral hernia containing loop of small bowel. 6. Bladder wall measures 5-6 mm. This may be secondary to its nondistended state neoplasm or infection. Patient also had x-ray chest, CT head, hip/pelvis x-ray done during hospitalization. Please see the details of these studies in EHR. Discharge Diagnosis\\Comment: # Mechanical fall ground level, Deconditioning, Generalized weakness # Acute diarrhea infectious, C diff positive # COPD in exacerbation # mild Anemia # Atrial fibrillation controlled ventricular rate # Diabetes mellitus type 2- hemoglobin A1c 5.7 # Hematuria- resolved # Hypernatremia- resolved # CHF exacerbation preserved ejection fraction 62% associated with pulmonary hypertension # Additional comorbidities, hypoalbuminemia, BPH, diverticulosis, hepatic renal cyst, chronic kidney disease, hypertension, dyslipidemia, Operations\\Procedures: None Consultants: None Complications: None Condition on DC: Stable for transfer New Medications: Lisinopril (Lisinopril) 10 Mg Tablet 10 MG PO DAILY for 30 Days, #30 TAB Vancomycin HCl (Firvanq) 25 Mg/Ml Soln.recon 125 MG PO Q6H for 7 Days, #140 ML Continued Medications: Apixaban (Eliquis) 5 Mg (74 Tabs) Tab.ds.pk 1 TAB PO Q12H, TAB 0 Refills Atorvastatin Calcium (Atorvastatin Calcium) 80 Mg Tablet 1 TAB PO DAILY Cholecalciferol (Vitamin D3) (Vitamin D3) 25 Mcg (1000 Unit) Capsule 1 CAP PO DAILY, CAP 0 Refills Metoprolol Tartrate (Metoprolol Tartrate) 25 Mg Tablet 1 TAB PO DAILY Multivitamin (Multi Vitamin Daily) 1 Each Tablet 1 TAB PO DAILY, TAB 0 Refills Tamsulosin Hcl* (Flomax*) 0.4 Mg Cap.sr.24h 1 CAP PO DAILY Discontinued Medications: Glimepiride* (Amaryl*) 1 Mg Tablet 1 TAB PO DAILY Lisinopril* (Lisinopril*) 40 Mg Tablet 1 TAB PO DAILY Metformin HCl (Metformin HCl) 500 Mg Tablet 2 TAB PO BID Discharge Summary: As per admitting provider's history and physical note" This is a 78 year old male , with history of multiple medical problems including CVA x2 atrial fib rillation on Eliquis at home, hypertension, hyperlipidemia, COPD, anemia hemoglobin 12.3, chronic constipation, diabetes mellitus type 2, hematuria, hypernatremia, chronic kidney disease, CHF preserved ejection fraction 62% associated with pulmonary hypertension March 2024, hypoalbuminemia, history of BPH, hepatic and renal cysts, diverticulosis, presented today to emergency department chief complaint fall mechanical ground level; in addition patient states that he fell down last night and could not get up off the ground because he was too weak. Stayed there all night, slept on floor. Denies pain, fevers, N/V/D. In emergency department he was evaluated by physician was diagnosed with fall mechanical ground level deconditioning, generalized weakness, atrial fibrillation, CHF, decision was made to admit patient for further evaluation treatment. No additional complaint or concern" During hospitalization patient was treated for # Mechanical fall ground level, Deconditioning, Generalized weakness-able to ambulate 300 ft with front wheel walker # Acute diarrhea infectious, C diff positive-On p.o. vancomycin, isolation for C diff # COPD in exacerbationSVN DuoNeb, incentive spirometry, steroids, antibiotics # Anemia hemoglobin 12.3 # Atrial fibrillation on Eliquis at home controlled ventricular rate # Diabetes mellitus type 2- hemoglobin A1c 5.7 diabetes very well controlled, on Hyperglycemia sliding scale # Hematuria- resolved # Hypernatremia- resolved # CHF exacerbation preserved ejection fraction 62% associated with pulmonary hypertension March 2024- stopped IV fluids and started on Lasix # Additional comorbidities, hypoalbuminemia, BPH, diverticulosis, hepatic renal cyst, chronic kidney disease, hypertension, dyslipidemia, # DVT gastropathy prophylaxis addressed . PT evaluation and treatment done. Patient was seen and examined on the day of discharge in presence of his daughter. Discharge instructions provided to the patient. Patient is feeling much better he has been afebrile stools are getting formed and he is discharged home on home health services today. All questions and concerns answered to the best of my professional medical knowledge to patient and his daughter General-patient not in any acute distress, alert awake oriented, chronically ill-appearing, age-appropriate HEENT-atraumatic normocephalic, neck supple without elevated JVD, no thyromegaly or carotid bruit. No lymphadenopathy bilaterally. Eyes-no icterus or pallor seen in eyes Chest-basal lung crackles present to auscultation bilaterally, breathing nonlabored no tachypnea, no wheezing Heart-S1-S2 normal, regular heart rate , systolic murmur present. Abdomen bowel sounds positive on auscultation, soft nondistended nontender no guarding, no rigidity Skin no active skin rash/signs of chronic hyperpigmentation present over lower extremity Neurology-grossly intact, nonfocal alert awake oriented Extremity- no pedal edema able to move all 4 extremities Psychiatry - patient is not confused or agitated cooperated during physical examination *Problems/Diagnosis: (1) C. difficile colitis Total Time Spent on D/C: > 30 Minutes Date of Service: Jun 30, 2024 Billing Provider: COREY VARELA MD Common Visit Codes: [id number] DISCH DAY >30min COREY VARELA MD Jun 30, 2024 19:50
== END 2024-06-30 15:42 | disposition home health service (06) | DRG 871 ==
LOC: ER 11:43 → ED HOLD 14:59 → ORTHO 4S 17:55
PROVIDERS: ADMIT Family Medicine; ATTEND Family Medicine
PROC: BW251ZZ Computerized Tomography (CT Scan) of Chest, Abdomen and Pelvis using Low Osmolar Contrast (ICD-10-PCS; principal; 2024-06-26)
DX: A41.4 Sepsis due to anaerobes (principal); I50.33 Acute on chronic diastolic (congestive) heart failure; N17.0 Acute kidney failure with tubular necrosis; A04.72 Enterocolitis due to Clostridium difficile, not specified as recurrent; E87.0 Hyperosmolality and hypernatremia; I13.0 Hypertensive heart and chronic kidney disease with heart failure and stage 1 through stage 4 chronic kidney disease, or unspecified chronic kidney disease; R62.7 Adult failure to thrive; D64.9 Anemia, unspecified; K59.09 Other constipation; I27.20 Pulmonary hypertension, unspecified; N18.9 Chronic kidney disease, unspecified; N40.0 Benign prostatic hyperplasia without lower urinary tract symptoms; E11.22 Type 2 diabetes mellitus with diabetic chronic kidney disease; I48.91 Unspecified atrial fibrillation; N28.1 Cyst of kidney, acquired; Z68.22 Body mass index [BMI] 22.0-22.9, adult; Z87.891 Personal history of nicotine dependence; Z79.01 Long term (current) use of anticoagulants; Z79.84 Long term (current) use of oral hypoglycemic drugs; Z79.899 Other long term (current) drug therapy; Z86.73 Personal history of transient ischemic attack (TIA), and cerebral infarction without residual deficits
CPT/HCPCS: 36415; 70450; 71045; 71260; 73521; 74177; 80053; 80061; 81001; 82272; 82550; 82948; 83036; 83605; 83690; 83735; 83880; 84100; 84132; 84145; 84484; 85008; 85025; 85610; 85651; 85730; 87040; 87081; 87324; 87449; 87493; 93005; 94760; 96360; 97116; 97161; 97530; 99285; A6209; A6212; A6213; A6250; A6590; C1758; G0378; J0456; J0696; J1815; J1938; J2919; J3490; J7030; Q9967

== ENCOUNTER 2025-01-12 14:36 | Emergency (ER) | payer MEDICARE, OTHER ==
[~2025-01-12] VITALS: Ht 188 cm; Wt 79.5 kg
[~2025-01-12 14:36] MED LIST changes: -GABA-530 PO; -GLIM1TAB57 PO; +LISI10TA27 PO; -LISI40TA13 PO; -METF-1203 PO; +VANC25SO PO
[2025-01-12 14:51] VITALS: TEMP 97.9
--- NOTE | 2025-01-12 14:53 | Physician Documentation ---
History of Present Illness ~ General Stated Complaint: ABNORMAL LABS Time Seen by MD: 14:45 Primary Medical Doctor: None History of Present Illness Initial Comments 79-year-old male presents to the ED as he was advised by his family practice provider to present himself secondary to an elevated potassium. The patient can not recall what his levels were but he reports that he feels absolutely fine has no symptoms no chest pain no shortness of breath nausea vomiting. Medication Reconciliation Allergies: Coded Allergies: No Known Allergies (Unverified , 01/12/25) Scheduled Apixaban (Eliquis), 1 TAB PO Q12H, (Reported) Atorvastatin Calcium (Atorvastatin Calcium), 1 TAB PO DAILY, (Reported) Cholecalciferol (Vitamin D3) (Vitamin D3), 1 CAP PO DAILY, (Reported) Lisinopril (Lisinopril), 10 MG PO DAILY Metoprolol Tartrate (Metoprolol Tartrate), 1 TAB PO DAILY, (Reported) Multivitamin (Multi Vitamin Daily), 1 TAB PO DAILY, (Reported) Tamsulosin Hcl* (Flomax*), 1 CAP PO DAILY, (Reported) Vancomycin HCl (Firvanq), 125 MG PO Q6H Past Medical History Past Medical History: CVA/TIA/Stroke, *GI/HEPATOBILIARY*, Diabetes Past Surgical History: noncontributory Patient History: Patient reports no known family medical history. Drug Use: none Lives with: Alone Lives In: Home Review of Systems All Other Systems at this time: Reviewed and Negative ROS As stated above in the HPI, otherwise all systems are reviewed and negative. Physical Exam Physical Exam Physical Exam General: Alert, no apparent distress. HEENT: PERRL, EOMI, no injection, moist mucous membranes. Neck: Full range of motion. Respiratory: Lungs clear, no respiratory distress. Chest: No accessory muscle use. Cardiovascular: Regular rate and rhythm, no murmurs. Gastrointestinal: Soft, nontender, nondistended. Bowels sounds present. Extremities: Normal range of motion, no deformity. Neurologic: Oriented x4. Psychiatric: Normal mood and affect. Skin: Normal color, warm and dry. No edema, no ecchymosis. Progress Results/Orders Results/Orders Orders - QUINN VELASQUEZ FIRER KILN Chest,Single View (01/12/25 15:07) Monitor (01/12/25 14:55) Saline Lock (01/12/25 14:55) Oxygen (01/12/25 14:55) Completed Orders - QUINN VELASQUEZ FIRER KILN Chest,Single View (01/12/25 15:07) Cbc/Diff (01/12/25 14:55) BMP (01/12/25 14:55) PBNP (01/12/25 14:55) Electrocardiogram (01/12/25 14:55) Hs Troponin I W Calculations (01/12/25 14:55) Vital Signs 01/12/25 01/12/25 01/12/25 14:51 15:38 16:30 Temp 97.9 Pulse 70 58 55 Resp 16 15 14 B/P (MAP) 138/75 133/55 (81) 120/63 (82) Pulse Ox 95 95 98 O2 Flow Rate 0 0 0 Laboratory Tests Test 01/12/25 15:03 White Blood Count 11.0 Red Blood Count 4.19 L Hemoglobin 12.5 L Hematocrit 37.2 L Mean Corpuscular Volume 88.8 Mean Corpuscular Hemoglobin 29.9 Mean Corpuscular Hemoglobin Concent 33.7 Red Cell Distribution Width 13.5 Platelet Count 212 Mean Platelet Volume 9.0 Neutrophils (%) (Auto) 55.4 Lymphocytes (%) (Auto) 28.0 Monocytes (%) (Auto) 11.8 Eosinophils (%) (Auto) 4.1 Basophils (%) (Auto) 0.7 Neutrophils # (Auto) 6.1 Lymphocytes # (Auto) 3.1 Monocytes # (Auto) 1.3 H Eosinophils # (Auto) 0.4 Basophils # (Auto) 0.1 CBC Comment Sodium Level 139 Potassium Level 4.7 Chloride Level 105 Carbon Dioxide Level 29.1 Anion Gap 5 L Blood Urea Nitrogen 38 H Creatinine 1.40 H Estimated GFR/1.73 m2 49 BUN/Creatinine Ratio 27.1 H Glucose Level 182 H Calcium Level 9.1 Troponin I High Sensitivity 73 Pro-B-Type Natriuretic Peptide 1186 H Albumin 3.7 Chemistry Comments Medical Decision Making Additional information obtaine: old records Findings Although this patient has potassium is slightly elevated it is still within the normal range. I called the patient's primary care and they indicated that on December 02 patient's last labs were drawn and resulted in a 5.5 serum potassium. Patient remains asymptomatic Patient did have slightly elevated peak T-waves in his ECG but there were ST elevations nor was there any axis deviation. This is per my interpretation Patient's chest x-ray showed no signs of cardiomegaly or pulmonary infiltrate I am going to discharge this patient for outpatient therapy Differential Diagnosis HI Departure Disposition: HOME / SELF CARE / HOMELESS Impression: Primary Impression: Abnormal laboratory test result Condition: Stable Discharge Instructions: Hyperkalemia, [id number] Referrals: NO PRIMARY CARE PROVIDER (PCP) Education Educated: Patient Educated regarding: diagnosis Signature Scribe Signature: g Attestation: Scribed for Quinn Velasquez Model Maker [employer]aster by Quinn Robbins NP . 01/12/25 15:30 QUINN VELASQUEZ FIRER KILN Jan 12, 2025 14:53
--- NOTE | 2025-01-12 15:09 | ELECTROCARDIOGRAPH REPORT ---
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 KENYA Cardenas Measurements Intervals [place] Rate: 61 P: -30 AL: 197 QRS: -36 QRSD: 112 T: -19 QT: 412 QTc: 415 Interpretive Statements Sinus rhythm Supraventricular bigeminy Abnormal R-wave progression, early transition Left ventricular hypertrophy Nonspecific T abnormalities, inferior leads Electronically Signed On 01-14-2025 18:02:[address] KENYA Cardenas Please click the below link to view image of tracing.
[2025-01-12 15:15] LABS: MEAN PLATELET VOLUME 9.0 FL (7.4-10.4); RED CELL DISTRIBUTION WIDTH 13.5 % (11.5-14.5)
[2025-01-12 15:36] LABS: CREATININE 1.40 MG/DL (0.60-1.10); PRO BRAIN NATRIURETIC PEPTIDE 1186 PG/ML (0-450); TOTAL CARBON DIOXIDE 29.1 MMOL/L (24-32); eCRCL 47 ML/MIN; eGFR 49 ML/MIN
--- NOTE | 2025-01-12 15:39 | RADIOLOGY REPORT ---
CHEST RADIOGRAPH Indication: CP Technique: Single frontal view of the chest was obtained Comparison: DI CHEST,SINGLE VIEW on DOS: 06/29/24, DI CHEST,SINGLE VIEW on DOS: 06/26/24, DI CHEST,SINGLE VIEW on DOS: 03/20/24 FINDINGS: Lines and Tubes: None Lungs: No focal consolidation. Diffuse interstitial prominence. Pleura: No effusion. No pneumothorax. Cardiomediastinal contours: Heart size is within normal limits with atherosclerotic calcification and uncoiling of the aorta. Bones: No acute osseous abnormality. Surgical clips are noted over the left axillary region. Surgical clips are noted over the right upper abdominal quadrant. IMPRESSION: Fibrotic changes of the bilateral lungs. No focal consolidation.
[2025-01-12 16:30] VITALS: BP 120/63; PULSE 55; RESP 14; O2SAT 98
== END 2025-01-12 16:40 | disposition home or self-care (01) ==
LOC: ER 14:37
DX: R79.9 Abnormal finding of blood chemistry, unspecified (principal); R06.02 Shortness of breath; E11.9 Type 2 diabetes mellitus without complications; Z86.73 Personal history of transient ischemic attack (TIA), and cerebral infarction without residual deficits
CPT/HCPCS: 36415; 71045; 80048; 83880; 84484; 85025; 93005; 99285